=== PATIENT | male | born 1940 | race Caucasian/White ===

== ENCOUNTER 2016-11-10 16:46 | Inpatient (IN) | payer MEDICARE, OTHER ==
[~2016-11-10] VITALS: Ht 180.3 cm; Wt 132.9 kg
[~2016-11-10 16:46] MED LIST: ADAL40PE IM; ALLO300T2 PO; AMT25T PO; ATOR10TA66 PO; FOLI-52 PO; GLIM4TAB2 PO; HYDR-4003 PO; LISI-567 PO; LORA1TAB PO; MESA500C PO; METF850T2 PO; OMEP40CA3 PO; PRAM0.5T10 PO; RANI300T4 PO; RES15 PO
[2016-11-10 16:55] VITALS: BP 178/77; PULSE 87; RESP 36; O2SAT 80
[2016-11-10] MEDS ORDERED: Albuterol 2.5 mg/3 mL Inhalation Solution NEB ONE (17:05)
[2016-11-10] MEDS ORDERED: Albuterol-Ipratropium 3 mL Inhalation Solution NEB ONE (17:05)
--- NOTE | 2016-11-10 17:07 | ED.REPORT ---
HPI-Dyspnea / Wheezing Date of Service Nov 10, 2016 ED Provider: Miguel Giraldo DO The patient is a 75 year old male with history of GI bleeds with associated anemia, ASCVD, s/p CABG, hypertension, type II diabetes mellitus, who presents to the emergency department complaining of shortness of breath that has been worsening over the last 8-10 days. He has also experienced cough and chronic lower extremity edema. He was recently placed on azithromycin and prednisone. He is not normally on oxygen at home but has required it since onset. He feels dehydrated. He denies any pain. Nursing Notes Stated Complaint: LOW OXYGEN SAT Chief Complaint: Respiratory Distress Nursing Notes Reviewed: Yes Allergies: Uncoded Allergies: ZOMAX (Allergy, Severe, HIVES, 06/21/15) Scheduled Adalimumab (Humira) 40 Mg/0.8 Ml Pen.ij.kit 40 MG IM q other week Allopurinol (Allopurinol) 300 Mg Tablet 300 MG PO DAILY Amitriptyline (Amitriptyline) 25 Mg Tab 25 MG PO HS Atorvastatin Calcium (Atorvastatin Calcium) 10 Mg Tablet 10 MG PO DAILY Glimepiride (Glimepiride) 4 Mg Tablet 4 MG PO AM Lisinopril (Lisinopril) 20 Mg Tablet 20 MG PO HS Mesalamine (Pentasa) 500 Mg Capsule.er 1,000 MG PO QID Metformin (Metformin) 850 Mg Tablet 850 MG PO am Multivitamin/Iron/Folic Acid (Centrum Complete Multivit Tab) 1 Each Tablet 1 EACH PO DAILY Omeprazole (Prilosec) 40 Mg Capsule.dr 40 MG PO BID Pramipexole Dihydrochloride (Pramipexole Dihydrochloride) 0.5 Mg Tablet 0.5 MG PO EVENING Ranitidine (Ranitidine) 300 Mg Tablet 300 MG PO HS Scheduled PRN Hydrocodone-Acetaminophen 5-325 mg (Hydrocodone-Acetaminophen 5-325 mg) 1 Each Tablet 1 TAB PO Q 4 HOUR PRN PRN For Pain Lorazepam (Lorazepam) 1 Mg Tablet 1 MG PO DAILY PRN PRN anx Temazepam (Temazepam) 15 Mg Capsule 15-30 MG PO HS PRN PRN sleep General Time Seen by MD: 17:03 Chief Complaint Shortness of breath Hx Obtained From: Patient Arrived By: Walk-in Sudden in Onset?: No Onset Occurred: More than a week ago... 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 GI bleeds with associated anemia, as above. 2. Anemia, chronic, secondary to GI bleeds. 3. Past history of ASCVD. Records in the EMR indicate a heart catheterization in June 2007 that showed diffuse disease in the LAD, proximal narrowing of 50%, other branches with 30% to 40% lesions, apical branch with 75% lesion. He had a left circumflex with areas of up to 90% narrowing and a right coronary with 50% to 60% narrowings. 4. Hypertension. 5. Obesity. 6. Type 2 diabetes mellitus. 7. Gout. 8. Chronic GERD. Past Surgical History Radical prostatectomy Arm and wrist surgeries Reports: CABG Smoking History Former Smoker Review of Systems Review of Systems Note: +feels dehydrated Respiratory: Reports: Non-productive cough, Shortness of breath Cardiovascular: Denies: Chest pain Musculoskeletal: Reports: Extremity swelling, Denies: Back pain, Extremity pain, Neck pain Complete sys rev & neg: except as marked. Physical Exam Initial Vital Signs Vital Signs (First) Date Time Temp Pulse Resp B/P Pulse Ox O2 Delivery O2 Flow Rate FiO2 11/10/16 16:55 36.6 87 36 178/77 80 Nasal Cannula 6 Initial VS: Reviewed, Vital signs abnormal (hypoxic) Head / Eyes: Atraumatic, Normocephalic, PERRL ENT: Mucous membranes moist, Conjunctiva normal, No scleral icterus Abdomen / GI: Soft, Non-tender, No guarding, No rebound, No distention Lymphatic: No lymphadenopathy Extremities: Vascular intact, Neuro intact, No tenderness Skin: Warm, Dry, No cyanosis Neurologic: Alert, Oriented, Nonfocal Psychiatric: Mood/affect normal, Behavior normal, Normal thought content General/Constitutional: Awake, Alert, Cooperative Appearance / Presentation: Positive: Obese Neck: Atraumatic, Supple, No meningismus, Full range of motion, No swelling, Non-tender, No masses Respiratory / Chest: Breath sounds = bilat, No rales, No chest tenderness, No chest wall deformity Wheezing / Retractions: Positive: Wheezing moderate Rales / Rhonchi: Positive: Rhonchi diffuse Cardiovascular: Heart rate NL, Regular rhythm, Heart sounds NL, No murmurs, No rubs, Peripheral circulation NL Lower Ext Edema: Positive: Bilateral 2+ Interpretation & Diagnostics Lab Results Interpretation Result Diagram: 11/10/16 1725 11/10/16 1725 Test 11/10/16 17:25 11/10/16 17:58 White Blood Count 18.3th/mm3 (3.8-10.1) Red Blood Count 3.83mil/mm3 (4.40-5.80) Hemoglobin 11.3g/dL (13.8-17.2) Hematocrit 36.7% (41.0-50.0) Mean Corpuscular Volume 95.8fL (81-100) Mean Corpuscular Hemoglobin 29.5pg (27.0-35.0) Mean Corpuscular Hemoglobin Concent 30.8% (32.0-37.0) Red Cell Distribution Width 15.1% (12.3-15.4) Platelet Count 296bil/L (150-400) Neutrophils (%) (Auto) 88.8% (40-74) Lymphocytes (%) (Auto) 4.8% (14-46) Monocytes (%) (Auto) 2.2% (4-12) Eosinophils (%) (Auto) 0% (0-5) Basophils (%) (Auto) 0.3% (0-3) Nucleated Red Blood Cells 2/100 WBC (0-24) Prothrombin Time 10.8sec (8.1-12.5) Prothromb Time International Ratio 1.01ratio Sodium Level 131mEq/L (134-144) Potassium Level 6.0mEq/L (3.5-5.2) Chloride Level 90mEq/L (97-108) Carbon Dioxide Level 24mmol/L (18-29) Blood Urea Nitrogen 93mg/dL (8-27) Creatinine 2.53mg/dL (0.76-1.27) Estimat Glomerular Filtration Rate 27mL/min (>59) Glucose Level 307mg/dL (60-99) Lactic Acid Level 1.5mmol/L (0.4-2.0) Calcium Level 7.8mg/dL (8.5-10.1) Magnesium Level 2.8mg/dL (1.6-2.6) Total Bilirubin 0.5mg/dL (0.0-1.2) Aspartate Amino Transf (AST/SGOT) 116U/L (0-50) Alanine Aminotransferase (ALT/SGPT) 128U/L (0-44) Alkaline Phosphatase 168U/L (25-160) Troponin T 0.033ug/L (0.0-0.011) Pro-B-Type Natriuretic Peptide 3728pg/mL (0-376) Total Protein 7.2g/dL (6.4-8.4) Albumin 3.5g/dL (3.4-5.0) Urine Color Yellow (YELLOW) Urine Appearance Clear (CLEAR,HAZY) Urine pH 5.5 (5.0-8.0) Urine Specific [place] 1.030 (1.003-1.035) Urine Protein 100mg/dL (NEG,TRACE) Urine Glucose (UA) 250mg/dL (NEGATIVE) Urine Ketones Negativemg/dL (NEGATIVE) Urine Occult Blood Small (NEGATIVE) Urine Nitrite Negative (NEGATIVE) Urine Bilirubin Negative (NEGATIVE) Urine Urobilinogen Normalmg/dL (NORMAL) Urine Leukocyte Esterase Negative (NEGATIVE) Urine RBC 0-2/hpf (0-2) Urine WBC 0-5/hpf (0-5) Urine Epithelial Cells None/hpf (NONE-MOD) Urine Crystals None seen (NONE SEEN) Urine Bacteria Few/hpf (NONE-FEW) Urine Hyaline Casts None/lpf (NONE) Urine Granular Casts None seen (NONE SEEN) Urine Waxy Casts None seen (NONE SEEN) Urine Red Blood Cell Casts None seen (NONE SEEN) Urine White Blood Cell Casts None seen (NONE SEEN) Urine Mucus None seen (None Seen) Urine Trichomonas None seen (NONE SEEN) Urine Yeast None (NONE SEEN) Urinalysis Comment Amorphous sediment Urine Culture Reflexed Not indicated ECG Interpretation ECG Interpretation: Atrial fibrillation with a rate of 75 RBBB No ischemic changes Time: 17:43 Interpreted by: ED physician X-Ray Chest Interpretation Chest Xray Interpretation: Bibasilar infiltrates. Cardiomegaly. View: Portable, 1 view Interpretation / Wet Read by: Wet read ED physician Re-Eval/Medical Decision Med Decision/Clinical Course Pneumonia with hypoxic respiratory failure associated acute kidney injury and electrolyte abnormalities including hyperkalemia mild LFT modalities which I think is likely due to shock rather than acute biliary or liver process. Patient does not report any active obvious life-threatening GI bleeding though he has a history of Crohn's with some undermining amount of bleeding. His hemoglobin is stable. He has not had any classic cardiac symptoms for angina or acute coronary syndrome however I think his troponin elevation is likely reduced related to probable congestive heart failure and acute kidney injury. He is placed on Rocephin and azithromycin, aggressive IV fluid resuscitation is initiated. Patient received multiple medications for hyperkalemia. And will be admitted. Source of Hx: Old records Re-Evaluation/Progress #1: Time of Eval: 17:30 Re-Evaluation/Progress Note: Rechecked the patient. Re-Evaluation/Progress #2: Time of Eval: 18:20 Re-Evaluation/Progress Note: Rechecked the patient. Discussed plan for pneumonia. Consultation : Referral / Consult Name: Marium Hurst MD Consulted With: Hospitalist Requested Call at: 18:23 Call Returned at: 18:38 Staff Scientist: Will see patient, Agrees with eval, Agrees with plan, Accepts admit Counseled Regarding: Diagnosis, Lab results, Need for admission Discharge & Departure Impression: Primary Impression: Pneumonia Pneumonia type: due to unspecified organism Laterality: bilateral Lung location: lower lobe of lung Qualified Code: J18.9 - Pneumonia, unspecified organism Additional Impression: Hypoxia Disposition: ADMITTED TO HOSPITAL Discharge Condition All VS Reviewed: Yes Condition: Stable Referrals: Jerry Simmons MD (PCP) Crit Care Except Billable Proc Time Spent: 30-74 minutes Services Performed: Patient management by me, Time spent at bedside, Reviewing test results Critical Care Notes: See MDM Scribe Attestation Portions of this note were transcribed by Emma Rosenbaum. I, Dr. Giraldo personally performed the history, physical exam and medical decision-making; I reviewed and confirmed the accuracy of the information in the transcribed note. Signed by: Krishna Albrecht, 11/10/2016 and 1830. copies to: Jerry Simmons MD, Timothy S DO Nov 10, 2016 17:07 Emma Rosenbaum Nov 10, 2016 17:12
[2016-11-10] MEDS ORDERED: 0.9% Sodium Chloride 1,000 ML IV ONE ×2 (17:10→19:00)
[2016-11-10 17:40] LABS: Mean Corpuscular Hemoglobin 29.5 pg (27.0-35.0); Mean Corpuscular Volume 95.8 fL (81-100); Platelet Count 296 bil/L (150-400)
[2016-11-10 18:02] LABS: INR 1.01 ratio
[2016-11-10] MEDS ORDERED: cefTRIAXone Inj 2,000 MG in IV Premix 1 EACH IV ONE (18:20)
[2016-11-10] MEDS ORDERED: Azithromycin Inj 500 MG in Dextrose 5% w/Vial Mate 250 ML IV ONE (18:20)
[2016-11-10 18:23] VITALS: PULSE 80; RESP 18; O2SAT 97
--- NOTE | 2016-11-10 18:24 | DRSVH ---
PROCEDURE: X-RAY CHEST ONE VIEW, PORTABLE ([id number]) INDICATIONS: SHORTNESS OF BREATH TECHNIQUE: One view of the chest was acquired. COMPARISON: [facility], CR, XR CHEST 2V AP/PA AND LAT, 11/02/2016, 3:18 PM. FINDINGS: Surgical changes and devices: Sternotomy wires for CABG procedure are present. court monitor leads and oxygen tubing are present. Lungs and pleura: Since previous x-rays there has developed a patchy pneumonia at the left base and a small amount of patchy density at the right base with possible right trace of effusion Mediastinum: Mediastinal contours appear normal. Heart size is normal. Bones and chest wall: No suspicious bony lesions. Overlying soft tissues appear unremarkable. IMPRESSION: Bibasilar pneumonia left greater than right possible small right-sided effusion. Dictated by: Marques Naik M.D. on 11/10/2016 at 18:22 Approved by: Marques Naik M.D. on 11/10/2016 at 18:22
[2016-11-10 18:26] LABS: BASOPHILS % (AUTO) 0.3 % (0-3); EOSINOPHILS % (AUTO) 0 % (0-5); MONOCYTES % (AUTO) 2.2 % (4-12); NEUTROPHILS % (AUTO) 88.8 % (40-74)
[2016-11-10 18:34] LABS: TROPONIN T 0.033 ug/L (0.0-0.011)
[2016-11-10 18:36] LABS: Magnesium 2.8 mg/dL (1.6-2.6)
[2016-11-10 18:43] LABS: APPEARANCE,URINE CLEAR (CLEAR,HAZY); COLOR,URINE YELLOW (YELLOW); OCCULT BLOOD,URINE SMALL (NEGATIVE); PH,URINE 5.5 (5.0-8.0); UROBILINOGEN,URINE NORMAL (NORMAL)
[2016-11-10] MEDS ORDERED: Calcium GLUCOnate 10% (Gm) 1 Gm/10 mL Inj IVPUSH PRN (19:00)
[2016-11-10] MEDS ORDERED: Insulin Human REGular-Omnicell 100 Unit/mL IV ONE (19:00)
[2016-11-10] MEDS ORDERED: Albuterol 0.5% (5mg/mL) 20 mL Inhalation Solution NEB ONE (19:00)
[2016-11-10] MEDS ORDERED: 0.9% Sodium Chloride 1,000 ML IV SCH ×2 (19:00→19:22)
[2016-11-10 19:13] VITALS: PULSE 91; RESP 24; O2SAT 95
[2016-11-10] MEDS ORDERED: Alum-Mag Hydrox-Simeth 30 mL Suspension PO PRN ×2 (19:25→19:55)
[2016-11-10] MEDS ORDERED: Ondansetron 2 mg/mL 2 mL Inj IVPUSH PRN (19:25)
[2016-11-10] MEDS ORDERED: Albuterol 2.5 mg/3 mL Inhalation Solution NEB PRN (19:55)
[2016-11-10] MEDS ORDERED: Glucose 40% Oral Gel 15 Gm Tube PO PRN (19:55)
--- NOTE | 2016-11-10 19:55 | PCM.HPMED ---
Subjective Date of Service Nov 10, 2016 Primary Provider: Admitting Physician: Marium Hurst MD Primary Care Physician: Imani Antony MD Attending Physician: Marium Hurst MD Chief Complaint: Short of breath 75-year-old male with one-week history of shortness of breath, associated not very productive cough, initially treated with azithromycin and prednisone and oxygen from PCP but has ongoing symptoms, the initial sore throat/wheeze have since resolved. no current fever/chills. Associated thirst/dehydration. Humira for Crohn's disease has been held prior to current illness. Chronic right greater than left lower extremity edema. 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 no home O2. no home inhalers. feels dehydrated, less urine output today. In the ER, chest x-ray demonstrated bibasilar pneumonia, diffuse rhonchi, Oximask 4 L, tachypnea 30, duo nebs were helpful, Rocephin and azithromycin were started In the bravo, RN notices hypoxia w/ activity, ie standing to urinate. w/ IVF, improved UOP. Review of systems chronic lower extremity edema, no rash, no diarrhea, no GERD, no dizziness, no chest pain, no yeast infection. see above Medications Adalimumab (Humira) 40 Mg/0.8 Ml Pen.ij.kit 40 MG IM q other week Allopurinol (Allopurinol) 300 Mg Tablet 300 MG PO DAILY Amitriptyline (Amitriptyline) 25 Mg Tab 25 MG PO HS Atorvastatin Calcium (Atorvastatin Calcium) 10 Mg Tablet 10 MG PO DAILY Glimepiride (Glimepiride) 4 Mg Tablet 4 MG PO AM Lisinopril (Lisinopril) 20 Mg Tablet 20 MG PO HS Mesalamine (Pentasa) 500 Mg Capsule.er 1,000 MG PO QID Metformin (Metformin) 850 Mg Tablet 850 MG PO am Multivitamin/Iron/Folic Acid (Centrum Complete Multivit Tab) 1 Each Tablet 1 EACH PO DAILY Omeprazole (Prilosec) 40 Mg Capsule.dr 40 MG PO BID Pramipexole Dihydrochloride (Pramipexole Dihydrochloride) 0.5 Mg Tablet 0.5 MG PO EVENING Ranitidine (Ranitidine) 300 Mg Tablet 300 MG PO HS Scheduled PRN Hydrocodone-Acetaminophen 5-325 mg (Hydrocodone-Acetaminophen 5-325 mg) 1 Each Tablet 1 TAB PO Q 4 HOUR PRN PRN For Pain Lorazepam (Lorazepam) 1 Mg Tablet 1 MG PO DAILY PRN PRN anx Temazepam (Temazepam) 15 Mg Capsule 15-30 MG PO HS PRN PRN sleep PMHx multifactorial microcytic anemia associated with iron deficiency due to erosive esophagitis, gastric antral ulceration, and Crohn disease. 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 Coded Allergies: azithromycin (Verified Allergy, Severe, 11/10/16) HIVES - but pt toelrates IV Zithromax Pt states allergy was to ZOMAX, "It's not even made anymore" Uncoded Allergies: ZOMAX (Allergy, Severe, HIVES, 06/21/15) PMH Social History Hx Alcohol Use: Yes (RARE) Hx Substance Use: No Hx Tobacco Use: No Smoking Status: Former Smoker Exam Vital Signs Vital Sign - Last Date Time Temp Pulse Resp B/P Pulse Ox O2 Delivery O2 Flow Rate FiO2 11/10/16 19:13 91 24 95 OxyMask 4 11/10/16 16:55 36.6 178/77 Lab and Diagnostics Labs Exam on admission nasal CPAP NAD A and O x 3 mood affect WNL NC/AT no icterus no injected eyes EOMI PERRL /no pharyngeal lesions/ no oral lesions / hearing intact Supple neck diminished bilateral, crackles right, equal chest rise / no accessory muscle use / speaks in phrases / no rrw RRR S1 S2 / no mrg / 2+ radial pulses Soft nt nd + BS no hepatosplenomegaly left greater than right rob/calf edema // no cyanosis no ecchymosis of lower extremities No rash / no jaundice LADD EKG afib RBBB UA neg for infection Trop 0.03 procalcitonin low BNP 3728 influenza neg pending respiratory viral panel CXR Bibasilar pneumonia left greater than right possible small right-sided effusion. 2012echo Mild concentric left ventricular hypertrophy with ejection fraction 55-60%. Assessment of diastolic parameters indicates a restrictive filling pattern of the left ventricle consistent with significantly elevated filling pressures. Mild to moderately dilated right ventricle with mildly reduced systolic function. Moderately dilated left atrium. Moderate mitral regurgitation. Right ventricular systolic pressure estimate is 45-50 mmHg. When compard with prior echocardiogram of 04/20/2011, the diastolic function, right ventricular function and severity of mitral regurgitation have worsened. Result Diagram: 11/10/16172411/10/161724 Assessment & Plan Active issues and reason for admission Hypoxia due to Bibasilar pneumonia, partially treated w/ outpatient treatment, and evaluating for CHF that may be contributing to hypoxia --Rocephin and azithromycin DuoNeb's, hold steroid for now, no wheeze, PRN BIPAP --echo in am, serial trop --consider U/S doppler legs if ongoing SOB [place] NANCY, Hyponatremia/hyperkalemia, likely prerenal -- prior hx of hyperkalemia per patient --hold metformin/lisinopril --pending [place] UCr -- IV fluids, monitor fluid status with elevated BNP and diastolic dysfunction noted in prior echo -- Calcium albuterol IV fluids glucose/insulin, start kayexlate/lactulose after improved oxygenation w/ activity --consider nephrology consult if unimproved w/ fluid resusitation Elevated troponin likely due to NANCY -- Serial troponin Chronic issues known prior to admission, present on admission microcytic anemia iron deficiency. monitor erosive esophagitis, gastric antral ulceration, Crohn disease, PPI/[id number], mesalamine, anticipate humira resumption after this admission Moderate MR/CABG 2010 three-vessel/Dyslipidemia/hypertension/PVCs COPD/pneumonia/GERARDO, CPAP UTI/prostatectomy for prostate cancer/incontinence, monitor, declining irving at this time Alkylosing spondylosis /arthritis/back injury/gout, allopurino/vicodin Diabetes, SSI Anxiety, benzo Diet cardiac DVT prophylaxis heparin Code limited, intubate Disposition inpatient Assessment and plan were discussed with patient. Marium Hurst MD Nov 10, 2016 19:55
[2016-11-10 20:11] VITALS: BP 190/78; PULSE 92; RESP 22; O2SAT 92
[2016-11-10] MEDS ORDERED: Albuterol 2.5 mg/3 mL Inhalation Solution NEB SCH (20:30)
[2016-11-10] MEDS ORDERED: Insulin Human REGular 300 Unit/3 mL Inj SUBQ PRN (22:05)
[2016-11-10 22:10] VITALS: PULSE 83; RESP 20; O2SAT 91
[2016-11-10 23:13] VITALS: PULSE 86
[2016-11-10] MEDS ORDERED: Lactulose 20 Gm/30 mL 30 mL Syrup PO ONE (23:55)
[2016-11-11] VITALS (22 sets, daily range): BP systolic 157–201; BP diastolic 61–95; PULSE 73–97; RESP 20–37; O2SAT 89–96
[2016-11-11] MEDS ORDERED: Albuterol-Ipratropium 3 mL Inhalation Solution NEB PRN (00:30)
[2016-11-11] MEDS ORDERED: Insulin Human REGular 300 Unit/3 mL Inj IV ONE (00:30)
[2016-11-11] MEDS: 0.9% Sodium Chloride 1,000 ML IV SCH ×3 (00:46→11:45)
[2016-11-11] MEDS: Insulin LISPRO 300 Unit/3 mL Inj SUBQ SCH ×5 (00:46→21:58)
[2016-11-11] MEDS: Heparin 5,000 Unit/mL Inj SUBQ SCH ×3 (00:49→16:17)
[2016-11-11] MEDS ORDERED: HYDROcodone-APAP 5-325 mg Tablet PO PRN (00:50)
--- NOTE | 2016-11-11 02:02 | NUR ---
Admit note: Pt admitted from the ER, was able to stand and pivot to bed. Very short of breath with activity. 6L oxymask with sats at 92% at rest. With activity, sats dip to 80-87%. Pt is alert and oriented x3. Tele a fib 80s-90s. Pt oriented to room and call light. CPOX in room to monitor pt.
--- NOTE | 2016-11-11 02:06 | NUR ---
Respiratory, Labs: Pt does use a CPAP at night, does not have it with him. RT set up a hospital CPAP with a 9L oxygen bleed in. Sats were 87-90%, pt reported feeling like the CPAP was working well and setting continue. After pt again stood at bedside to void and sats again dropped to the low 80s, RN encouraged pt to use the urinal in bed; pt agreeable and this worked much better for pt. As he has been in bed for awhile now, without having to get up, sats have increased to 90-92%. Potassium level was 6.0 in the ER. There were medication orders in the ER to decrease potassium, although they were given after the pt arrived on the unit. A repeat potassium was drawn and came back at 5.9; this was prior to any interventions. Calcium gluconate was administered after the repeat lab draw when it arrived from pharmacy, as orders had to be clarified. And just now, D50 and 10 units of IV regular insulin were administered after they was ordered by the hospitalist. Blood sugar prior to the insulin was 240. Will continue to monitor.
[2016-11-11] MEDS: Albuterol-Ipratropium 3 mL Inhalation Solution NEB SCH ×6 (03:04→21:18)
[2016-11-11 03:57] LABS: TROPONIN T 0.04 ug/L (0.0-0.011)
[2016-11-11] MEDS: Mesalamine 500 mg CR Capsule PO SCH ×4 (05:33→21:15)
[2016-11-11] MEDS ORDERED: OMEP40CA36 PO (05:39)
--- NOTE | 2016-11-11 05:39 | NUR ---
Med Rec: Partial med list completed in med rec per pt recall. will be bringing med list this morning.
[2016-11-11] MEDS: hydrALAZINE 20 mg/mL Inj IV PRN ×2 (06:07→12:20)
[2016-11-11] MEDS: cefTRIAXone Inj 2,000 MG in IV Premix 1 EACH IV SCH (07:44)
[2016-11-11] MEDS: Pantoprazole 40 mg ER24 Tablet PO SCH (07:45)
[2016-11-11] MEDS ORDERED: Azithromycin Inj 500 MG in Dextrose 5% w/Vial Mate 250 ML IV SCH ×2 (08:30→20:30)
[2016-11-11] MEDS ORDERED: MethylprednisoLONE Sodium Succinate 62.5 mg/mL 2 mL Inj IVPUSH ONE (08:40)
--- NOTE | 2016-11-11 09:16 | ABG ---
DateTimeAnalyzed 09:10:00 -_ pH ____7.222 - pCO2 ___64.7__ -mmHg pO2 ___28.4__ -mmHg HCO3- ___25.6__ -mmol/L ABE ___-2.5__ -mmol/L tHb ___10.8__ -g/dL O2Hb ___45.0__ -% COHb ____1.4__ -% MetHb ____1.1__ -% sO2 ___46.2__ -% FIO2 ___21.0__ -% Drawn By lab - Date/Time Notified____ 09:16:00 -_ Liter_Flow ____9.0__ -L/min Oxygen Device 1 __oxymask - Notified By ams - Notified Whom dr gelacio - B 752 -mmHg tO2 ____6.9__ -Vol% David test N/A -
[2016-11-11] MEDS: MeTOProlol 1 mg/mL 5 mL Inj IVPUSH PRN ×2 (10:04→17:59)
--- NOTE | 2016-11-11 10:12 | NUR ---
O2 sats/ABG At shift change pt on 6L mask with frequent desat into mid 80's, O2 increased to 9L and RT called. PRN neb given, RT notified MD who ordered ABG. MD ordered 1x IV solumedrol which was given. RT started Bipap in room per MD order. O2 sats now stable at 91-95%. Continuing to monitor.
--- NOTE | 2016-11-11 10:17 | NUR ---
BP BP at approx 0945 201/66. notified, PRN IV metoprolol given, remote sensing technician notified before admin. Continuing to monitor.
--- NOTE | 2016-11-11 13:34 | DRSVH ---
[facility] [address] [place] [address] Echocardiogram Report Name: GIACOMO SNYDER Date : 11/11/2016 Height: 71 in Hospital Exam Location: [facility] Weight: 304 lb Gender: Male BSA: 2.5 m2 : 1940 Age: 75 yrs BP: 184/61 mmHg Reason For Study: CHF Ordering Physician: HOSPITALIST [facility] Performed By: Brandon Ugarte Referring Physician: Cem RUBIN Interpretation Summary There is normal left ventricular wall thickness. The ejection fraction is estimated to be 55-60%. Flattened septum is consistent with RV pressure/volume overload. The right ventricle is moderately dilated. Right ventricular systolic function is moderately reduced. Right ventricular systolic pressure is estimated to be 37 mmHg plus the clinically estimated CVP which cannot be estimated on this exam. Probably no significant interval change fron 2011 Procedure: A two-dimensional transthoracic echocardiogram with color flow and Doppler was performed. The study quality was technically difficult. Comparison is made with the echocardiogram of 04/08/12. A contrast injection of Definity was performed to improve assessment of LV function. The patient was supine during the exam. The subcostal views were difficult to obtain and are suboptimal in quality. The suprasternal notch views were difficult to obtain and are suboptimal in quality. The patient was in normal sinus rhythm during the exam. Left Ventricle: The left ventricle is normal in size. There is normal left ventricular wall thickness. The ejection fraction is estimated to be 55-60%. Flattened septum is consistent with RV pressure/volume overload. Right Ventricle: The right ventricle is moderately dilated. Right ventricular systolic function is moderately reduced. Atria: The left atrium is mildly dilated. Right atrial size is normal. The interatrial septum is intact with no evidence for an atrial septal defect. Mitral Valve: The mitral valve is normal in structure and function. There is trace mitral regurgitation. Aortic Valve: The aortic valve is trileaflet. The aortic valve opens well. No aortic regurgitation is present. Tricuspid Valve: The tricuspid valve is normal in structure and function. There is mild tricuspid regurgitation. Right ventricular systolic pressure is estimated to be 37 mmHg plus the clinically estimated CVP which cannot be estimated on this exam. Pulmonic Valve: The pulmonic valve is normal in structure and function. There is trace pulmonic regurgitation. Great Vessels: The aortic root is normal size. The ascending aorta is mild- moderately enlarged. The pulmonary artery is normal size. The inferior vena cava was not well visualized. Pericardium/ Pleura There is no pericardial effusion. There is a moderate left-sided pleural effusion. MMode/2D Measurements & Calculations LVIDd: 5.4 cm LA dimension: 5.3 cm RA long axis: 5.8 cm Ao root diam LVIDs: 3.4 cm FS: 37.1 % LA A2 area: 29.3 cm RA area: 19.6 cm Aortic Jxn EPSS: 0.58 cm LA A4 area: 25.7 cm RA vol: 55.6 ml IVSd: 0.99 cm LA length (vol): 6.2 cm RA : 22.1 ml/m2 asc Aorta LVPWd: 1.0 cm LA vol: 102.5 ml Diam: 4.1 cm LA vol index : 40.7 ml/m2 EDV(MOD-sp2) LV magaña. diameter/BSA LV sys. diameter/BSA RVD1 (basal) : 146.5 ml (cm/m^2): 2.1 (cm/m^2): 1.3 : 4.6 cm RVD2 (mid) : 4.3 cm Doppler Measurements & Calculations Ao V2 max MV E max nicko MV E/A: 0.00 TR max nicko : 154.6 cm/sec : 126.7 cm/sec Med Peak E' Nicko : 304.7 cm/sec Ao max PG MV A max nicko TR max PG : 9.6 mmHg : [id number] cm/sec E/E' med: 21.5 : 37.3 mmHg Ao mean PG PA V2 max : 5.9 mmHg : 134.2 cm/sec PA mean PG PA Accel Time : 0.10 sec MV V2 mean Ao V2 mean: 117.5 cm/secPA V2 mean : 86.6 cm/sec Ao V2 VTI: 27.8 cm : 94.6 cm/sec MV mean PG PA pr(Accel) : 29.1 mmHg MV V2 VTI MV dec time : 0.17 sec Electronically signed by: Justyn Watters on Reading Physician:11/11/2016 01:33 PM
--- NOTE | 2016-11-11 13:59 | NUR ---
Transfer to 2026 Pt transferred to 2026, report given to Scottie Porras RN. Charge nurse took pt down in bed with all belongings accompanied by pt's .
[2016-11-11] MEDS: MethylprednisoLONE Sodium Succinate 40 mg/mL Inj IVPUSH SCH (16:16)
--- NOTE | 2016-11-11 18:21 | NUR ---
Bipap/transfer to [facility] Pt transferred to [facility] at 1350. Cardiac:Pt denies CP. Tele a fib 70s-90s Resp: Pt had significant SOB on oxymask 10L when he was transferred to [facility] SPO2 mid to high 80s. Recovered quickly once bipap was resumed. SPO2 95% on bipap 60% O2, RR 30. Denies SOB on bipap at rest. GI/: Pt denies n/v/d. Pt reports his appetite is "non-existant". Pt voiding about 75ml at a time in bed with urinal. Neuro: A&Ox3, LADD. Ambulates with no assistance at home at baseline. Not OOB this shift. Addendum: 11/11/16 at 1824 by PERRY FALCON RN BP Pt is hypertensive, PRN metoprolol given for systolic in 180s.
[2016-11-11] MEDS ORDERED: Furosemide 10 mg/mL 4 mL Inj ONE (21:37)
[2016-11-11] MEDS: LORazepam 1 mg Tablet PO PRN (21:45)
[2016-11-11] MEDS ORDERED: Furosemide 10 mg/mL 4 mL Inj IVPUSH ONE (22:40)
--- NOTE | 2016-11-11 23:12 | PCM.PNMED ---
Subjective Date of Service Nov 11, 2016 Subjective Patient complains of shortness of breath this morning. This improved with placement of BiPAP. Exam Vital Signs Vital Sign - Last Date Time Temp Pulse Resp B/P Pulse Ox O2 Delivery O2 Flow Rate FiO2 11/11/16 22:35 74 157/76 11/11/16 21:20 32 95 60 11/11/16 20:57 37.1 BiPAP 11/11/16 13:54 11.00 Intake and Output 11/10/16 11/10/16 11/11/16 Cumulative From/Thru 15:00 23:00 07:00 11/10/16 16:55 - 11/11/16 06:18 Intake Total 2283 ml 2283 ml Output Total 500 ml 500 ml Balance 1783 ml 1783 ml Intake Oral 900 ml 900 ml IV Total 1383 ml 1383 ml Output Urine Total 500 ml 500 ml Exam General: Patient appears more comfortable on bypass mask. HEENT: Head is atraumatic normocephalic. Eyes: Pupils are equally round and reactive to light and accommodation. Extraocular muscles are intact. Sclera are white anicteric. Subconjunctival mucosa is pink. Ears and nose are unremarkable. Oropharynx: There is no mucosal lesions appreciated, there is no thrush, there is no pharyngitis. Neck: Is supple, there are no nodes or masses or tenderness. Chest: Is clear to auscultation and percussion. There are no rales, rhonchi, wheezes or rubs. Heart: Rate, rhythm is regular. There is no murmur, rub or gallop. Abdomen: Good bowel sounds are present. Abdomen is soft, nontender, no organomegaly or masses were appreciated. Extremities: Are symmetrical and well perfused. There is no edema, there is no cellulitis, no rash. Neurologic: There are no focal neurological deficits. Cranial nerves II through XII are intact. There are no sensory or motor deficits. Psychiatric: Patients mood is calm and shows no sign of agitation. Genital: Deferred Rectal: Deferred Lab and Diagnostics Result Diagram: 11/10/16 1725 11/11/16 0244 Microbiology Name: GIACOMO SNYDER Age/Sex: 75/M Attend Dr: Talia Hurst MD Acct: [id number] Unit: [id number] Status: ADM IN Location: [facility] [place] 3018-1 Re11/10/16 Disch: Specimen: [id number] Collected: 11/11/16 Status: COMP Req#: [id number] Received: 11/11/16 Source: NSP Sp Desc : Subm Dr: Marium Hurst MD Ordered: RVP Comments: Collected by Nurse/Unit? Y/N Y Procedure Result Verified Site Microbiology ADENOVIRUS RESPIRATORY PCR Final 11/11/16-657 Not Detected CORONOVIRUS 229E Final 11/11/16-657 Not Detected CORONOVIRUS HKU1 Final 11/11/16-657 Not Detected CORONOVIRUS NL63 Final 11/11/16 Not Detected CORONOVIRUS OC43 Final 11/11/16-657 Not Detected INFLUENZA A PCR Final 11/11/16 Organism 1 INFLUENZA A H3 INFLUENZA A PCR DETECTED TIME CALLED: 655 DATE CALLED: 11/11/16 FLOOR/DOCTOR: JEAN-CLAUDE/CHIARA Davis CALLED BY: MADHAVI The performance of the film array RVP has not been established in individuals who have received the influenza vaccine. Recent administration of a nasal influenza vaccine may cause false positive results for Influenza A and/or Influenza B. INFLUENZA B PCR Final 11/11/16 Not Detected METAPNEUMOVIRUS PCR Final 11/11/16 Not Detected CONTINUED ON NEXT PAGE RUN DATE: 11/11/16 [facility] LIVE PAGE 2 RUN TIME: 657 Specimen Inquiry PHYSICIAN Patient: GIACOMO SNYDER [id number] (Continued) Specimen: [id number] Collected: 11/11/16 Received: 11/11/16 (Continued) Procedure Result Verified Site RHINOVIRUS OR ENTEROVIRUS PCR Final 11/11/16 Not Detected Microbiology (Continued) PARAINFLUENZA 1 PCR Final 11/11/16 Not Detected PARAINFLUENZA 2 PCR Final 11/11/16 Not Detected PARAINFLUENZA 3 PCR Final 11/11/16 Not Detected PARAINFLUENZA 4 PCR Final 11/11/16 Not Detected RESP SYNCYTIAL VIRUS PCR Final 11/11/16 Not Detected CHLAMDOPHILIA PNEUMONIAE PCR Final 11/11/16 Not Detected MYCOPLASMA PNEUMONIAE PCR Final 11/11/16 MYCO PNEUMONIAE PCR Not Detected Reference Interval Not Detected [employer] swab is the only specimen type cleared by the FDA. Nasal wash, tracheal aspirate, and bronchial lavage specimen types have not been cleared by the FDA. Therefore results on any specimen type other than nasopharyngeal are considered investigational testing only. X-Rays, CTs and MRIs PROCEDURE: X-RAY CHEST ONE VIEW, PORTABLE ([id number]) INDICATIONS: SHORTNESS OF BREATH TECHNIQUE: One view of the chest was acquired. COMPARISON: [facility], CR, XR CHEST 2V AP/PA AND LAT, 11/02/2016 , 3:18 PM. FINDINGS: Surgical changes and devices: Sternotomy wires for CABG procedure are present. hall monitor leads and oxygen tubing are present. Lungs and pleura: Since previous x-rays there has developed a patchy pneumonia at the left base and a small amount of patchy density at the right base with possible right trace of effusion Mediastinum: Mediastinal contours appear normal. Heart size is normal. Bones and chest wall: No suspicious bony lesions. Overlying soft tissues appear unremarkable. IMPRESSION: Bibasilar pneumonia left greater than right possible small right- sided effusion. Dictated by: Marques Naik M.D. on 11/10/2016 at 18:22 Approved by: Marques Naik M.D. on 11/10/2016 at 18:22 Cardiac Echo Impressions Echocardiogram Report Name: GIACOMO SNYDER Date : 11/11/2016 Height: 71 in Hospital Exam Location: [facility] Weight: 304 lb Gender: Male BSA: 2.5 m2 : 1940 Age: 75 yrs BP: 184/61 mmHg Reason For Study: CHF Ordering Physician: HOSPITALIST [facility] Performed By: Brandon Ugarte Referring Physician: Cem RUBIN Interpretation Summary There is normal left ventricular wall thickness. The ejection fraction is estimated to be 55-60%. Flattened septum is consistent with RV pressure/volume overload. The right ventricle is moderately dilated. Right ventricular systolic function is moderately reduced. Right ventricular systolic pressure is estimated to be 37 mmHg plus the clinically estimated CVP which cannot be estimated on this exam. Probably no significant interval change fron 2011 Assessment & Plan 75-year-old male with one-week history of shortness of breath, associated not very productive cough, initially treated with azithromycin and prednisone and oxygen from PCP but has ongoing symptoms, the initial sore throat/wheeze have since resolved. no current fever/chills. Associated thirst/dehydration. Humira for Crohn's disease has been held prior to current illness. Chronic right greater than left lower extremity edema. 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 no home O2. no home inhalers. feels dehydrated, less urine output today. In the ER, chest x-ray demonstrated bibasilar pneumonia, diffuse rhonchi, Oximask 4 L, tachypnea 30, duo nebs were helpful, Rocephin and azithromycin were started In the bravo, RN notices hypoxia w/ activity, ie standing to urinate. w/ IVF, improved UOP. Active issues and reason for admission Hypoxia due to Bibasilar pneumonia worsening, partially treated w/ outpatient treatment, and evaluating for CHF that may be contributing to hypoxia --Rocephin and azithromycin DuoNeb's, hold steroid for now, no wheeze, PRN BIPAP -Transfer to PCU/CCU -Serial troponins are slightly elevated, however remain stable and are not trending upwards. The slight elevation could be due to troponin leak from septicemia and/or acute kidney injury. -Consider U/S doppler legs if ongoing SOB NEW NANCY slightly improved today -Hyponatremia/hyperkalemia, likely prerenal -- Patient has a prior hx of hyperkalemia per patient -- Continue to hold metformin/lisinopril -- Check pending [place] UCr -- Continue IV fluids, monitor fluid status with elevated BNP and diastolic dysfunction noted in prior echo -- Calcium albuterol IV fluids glucose/insulin, start kayexlate/lactulose after improved oxygenation w/ activity -- We will consider nephrology consult if unimproved w/ fluid resusitation Elevated troponin likely due to NANCY and/or troponin leak from sepsis. -- Continue Serial troponin Chronic issues known prior to admission, present on admission: -microcytic anemia iron deficiency. monitor -erosive esophagitis, gastric antral ulceration, Crohn disease, PPI/[id number], mesalamine, anticipate humira resumption after this admission -Moderate MR/CABG 2010 three-vessel/Dyslipidemia/hypertension/PVCs -COPD/pneumonia/GERARDO, CPAP -UTI/prostatectomy for prostate cancer/incontinence, monitor, declining irving at this time -Alkylosing spondylosis /arthritis/back injury/gout, allopurino/vicodin -Diabetes, SSI -Anxiety, benzo Diet cardiac DVT prophylaxis heparin Code limited, intubate Disposition we will transfer the patient to PCU/CCU for BiPAP and closer monitoring. Assessment and plan were discussed with patient and his at bedside. They agree with the above plan Pain Evaluation: Adequate Pain Control GI Prophylaxis: Proton Pump Inhibitor VTE Prophylaxis: Sub-Q Heparin (Unfractionated) VTE Mechanical Devices: Intermittant Pneumatic CD Resuscitation Status: CPR: Attempt Resuscitation RoxannaCurly MD Nov 11, 2016 23:12
[2016-11-12] VITALS (20 sets, daily range): BP systolic 133–173; BP diastolic 69–90; PULSE 67–84; RESP 18–30; O2SAT 95–99
[2016-11-12] MEDS: Albuterol-Ipratropium 3 mL Inhalation Solution NEB SCH ×6 (00:09→19:48)
--- NOTE | 2016-11-12 00:12 | NUR ---
Respiratory: P: Fluid overload; Pt on 100 mls/hour of NS and states he normally takes 40 mg of lasix daily at home. Crackles noted to the bases of B lungs. I: Dr. Castañeda notified. New orders obtained to SL IVF and to give 40 mg of IV lasix now times one. E: Fluid stopped and lasix administered. Ativan given for anxiety. Current blood pressure 157/76. Will cont. to monitor.
[2016-11-12] MEDS: Sodium Chloride LOK Flush 10 mL Syringe IVFLUSH SCH ×4 (00:35→22:00)
[2016-11-12] MEDS: hydrALAZINE 20 mg/mL Inj IV PRN (00:35)
[2016-11-12] MEDS: Heparin 5,000 Unit/mL Inj SUBQ SCH ×3 (00:38→17:44)
[2016-11-12] MEDS: MethylprednisoLONE Sodium Succinate 40 mg/mL Inj IVPUSH SCH ×3 (00:40→17:44)
[2016-11-12] MEDS ORDERED: Insulin Human REGular 300 Unit/3 mL Inj SUBQ ONE ×2 (03:30→06:35)
--- NOTE | 2016-11-12 03:42 | NUR ---
Hyperglycemia: P: Glucose of 281 I: Dr. Castañeda notified of pt's glucose level and scheduled Solu-Medrol dosing. Order obtained to give 6 units of Regular Insulin now. E: Dose administered. Will cont. to monitor.
[2016-11-12] MEDS: MeTOProlol 1 mg/mL 5 mL Inj IVPUSH PRN (04:41)
[2016-11-12] MEDS: Mesalamine 500 mg CR Capsule PO SCH ×4 (04:43→21:30)
[2016-11-12 05:17] LABS: EOSINOPHILS % (AUTO) 0 % (0-5); Mean Corpuscular Hemoglobin 29.4 pg (27.0-35.0); Mean Corpuscular Volume 97.2 fL (81-100); Platelet Count 324 bil/L (150-400)
[2016-11-12 05:36] LABS: Magnesium 2.7 mg/dL (1.6-2.6); Phosphorus 5.2 mg/dL (2.5-4.9)
[2016-11-12 05:41] LABS: BASOPHILS % (AUTO) 0 % (0-3); MONOCYTES % (AUTO) 2 % (4-12); NEUTROPHILS % (AUTO) 88 % (40-74)
--- NOTE | 2016-11-12 05:47 | NUR ---
Urine Output: Pt was incontinent of urine during the night; thus, unable to obtain an output volume post lasix.
[2016-11-12] MEDS ORDERED: SODIUM BICARB IV ONE (06:35)
[2016-11-12] MEDS ORDERED: DEXTROSE 5% IV ONE (06:35)
[2016-11-12] MEDS ORDERED: Insulin Human REGular 300 Unit/3 mL Inj IV ONE (06:50)
--- NOTE | 2016-11-12 07:37 | NUR ---
Critical Potassium: P: Potassium of 6.8 I: Dr. Castañeda notified. New orders obtained for: 12 lead ECG, 1/2 amp of D50 IV, 10 units Regular Insulin IV, 1 amp of Sodium Bicarb IV, and 15 gm of Kayexalate PO. E: Orders completed. Blood sugars checked. Pt stable. Oncoming RN updated.
[2016-11-12] MEDS: cefTRIAXone Inj 2,000 MG in IV Premix 1 EACH IV SCH (08:33)
[2016-11-12] MEDS: Insulin LISPRO 300 Unit/3 mL Inj SUBQ SCH ×4 (08:51→21:57)
[2016-11-12] MEDS ORDERED: Albuterol 2.5 mg/3 mL Inhalation Solution NEB STA (09:03)
[2016-11-12] MEDS: Pantoprazole 40 mg ER24 Tablet PO SCH (09:59)
[2016-11-12] MEDS ORDERED: Calcium GLUCO 10% (Gm) 1 Gm/10 mL 50 mL Inj IV ONE (10:05)
[2016-11-12] MEDS ORDERED: AMLO5TAB2 PO (10:54)
[2016-11-12] MEDS ORDERED: FEXO-15 PO (10:54)
[2016-11-12] MEDS ORDERED: DOCU240C41 PO (10:54)
[2016-11-12] MEDS ORDERED: LOSA50TA37 PO (10:54)
[2016-11-12] MEDS ORDERED: Calcium GLUCO 10% (Gm) Inj 1 GM in Dextrose 5% 100 ML IV ONE (10:55)
[2016-11-12] MEDS ORDERED: predniSONE 20 mg Tablet PO SCH (11:25)
--- NOTE | 2016-11-12 12:28 | DRSVH ---
PROCEDURE: X-RAY CHEST ONE VIEW, PORTABLE ([id number]) INDICATIONS: shortness of breath TECHNIQUE: One view of the chest was acquired. COMPARISON: [facility], CR, XR CHEST 1VW (PORTABLE), 11/10/2016, 17:31. FINDINGS: Surgical changes and devices: Patient is status post median sternotomy and CABG. Lungs and pleura: Lung volumes are low. There is diffuse interstitial prominence. There are bibasilar radiopacities and pleural effusions. Mediastinum: Mediastinal contours appear normal. Heart size is poorly characterized given basilar r adiopacities. Bones and chest wall: No suspicious bony lesions. Overlying soft tissues appear unremarkable. IMPRESSION: 1. Interstitial prominence, pleural effusions, and basilar atelectasis or consolidation. Differential considerations include congestive failure versus pneumonia. Dictated by: Selma Rangel M.D. on 11/12/2016 at 12:26 Approved by: Selma Rangel M.D. on 11/12/2016 at 12:26
[2016-11-12] MEDS ORDERED: Furosemide Inj 100 MG in 0.9% Sodium Chloride 90 ML IV SCH (13:10)
--- NOTE | 2016-11-12 14:17 | DRSVH ---
PROCEDURE: US RENAL SONOGRAM INDICATIONS: NANCY TECHNIQUE: Real-time scanning was performed of the kidneys and bladder, with image documentation. COMPARISON: None. FINDINGS: This is a markedly limited study due to patient body habitus. Kidneys: Kidneys are normal in size. Right kidney measures 12.2 cm long; left kidney measures 8.0 c m long. Right renal cortical thickness is 1.3 cm; left renal cortical thickness is 1.6 cm. Renal co rtical echotexture is normal. No definite hydronephrosis; however the right kidney is poorly characte rized and hydronephrosis cannot be entirely excluded. Bladder: Pre-void bladder volume is 171 mL. Post-void residual is 81 mL. Pre-void images demonstra te no intraluminal masses or stones. On pre-void images, neither ureteral jets are noted with color Doppler interrogation. (Of note, ureteral jets may not be detectable in up to 25% of cases due to in sufficient differences in specific gravity between ureteral and bladder urine). Miscellaneous: There is a small amount of free pelvic fluid. There is an incidentally noted left pleu ral effusion. IMPRESSION: 1. Markedly limited study. 2. No definite hydronephrosis, although the right kidney is poorly characterized. 3. Moderate postvoid residual. Dictated by: Selma Rangel M.D. on 11/12/2016 at 14:15 Approved by: Selma Rangel M.D. on 11/12/2016 at 14:15
[2016-11-12] MEDS ORDERED: Furosemide Inj 100 MG in 0.9% Sodium Chloride 90 ML IVPUSH PRN (14:57)
--- NOTE | 2016-11-12 15:13 | NUR ---
Social Work: Initial Assessment D: Per EMR review, pt is a 75 year old male admitted for pneumonia, hypoxia. Pt is Medicare with [employer]; Pt has no LTC insurance or VA benefits. PCP is Imani Antony MD. NOK Is Yodit Donovan, , . Advanced directives completed but not on file- FUEL CONVERSION TECHNICIAN requested from pt's spouse. Readmit score is low, 2/8. FUEL CONVERSION TECHNICIAN met with pt at bedside. Sw role explained. See initial assessment. Pt lives in [place] with his spouse. He is I at baseline and uses no DME. Pt continues to drive and has never had home health or been to skilled rehab. Pt uses home oxygen but could not recall which company is is supplied through. Pt currently on BIPAP. per MD at rounds, pt is very sick and will likely be here for "awhile." A: Pt who is I at baseline. P: Evolving; FUEL CONVERSION TECHNICIAN to continue to follow for discharge needs pending clinical course. JIHAN Reyes Addendum: 11/12/16 at 1516 by VIRA ALVAREZ Amended: Links added.
[2016-11-12] MEDS ORDERED: 0.9% Sodium Chloride 250 ML ONE (16:32)
--- NOTE | 2016-11-12 18:19 | PCM.PNMED ---
Subjective Date of Service Nov 12, 2016 Subjective 75-year-old male with one-week history of shortness of breath, associated not very productive cough, initially treated with azithromycin and prednisone and oxygen from PCP but has ongoing symptoms, admitted for treatment of CAP pneumonia and new onset NANCY. Today patient is complaining of discomfort associated with BiPap Mask, Shortness of breath, swelling of legs and scrotum, "feeling warm". Patient stated that he has not been eating and drinking much prior to admission. He stated that he has a history of hyperkalemia, and difficulty voiding due to prostate cancer s/p prostate cancer resection. Denies chills, nausea, vomiting, diarrhea, loss of appetite, change in visions. ROS negative except as mentioned above. Exam Vital Signs Vital Sign - Last Date Time Temp Pulse Resp B/P Pulse Ox O2 Delivery O2 Flow Rate FiO2 11/12/16 06:41 70 155/79 11/12/16 04:28 36.3 29 96 BiPAP 11/12/16 04:14 60 11/11/16 21:30 8.00 Intake and Output 11/11/16 11/11/16 11/12/16 Cumulative From/Thru 15:00 23:00 07:00 11/10/16 16:55 - 11/12/16 06:47 Intake Total 2325 ml 784 ml 5392 ml Output Total 550 ml 1050 ml Balance 1775 ml 784 ml 4342 ml Intake Oral 1200 ml 0 ml 2100 ml IV Total 1125 ml 784 ml 3292 ml Output Urine Total 550 ml 1050 ml # Voids 4 4 Exam General: Alert, Oriented X3, Cooperative, moderate Distress, Obese Head: Normocephalic, atraumatic. External ears normal. Eyes: PERRLA, EOMI. Anicteric sclerae. Mouth: Mouth Normal, Mucous Membranes Moist/[place] Neck: Neck supple with full range of motion. No lymphadenopathy Chest & Lungs: BiPap, Use of accessory breathing muscles, equal chest rise and fall, Diminished breath sounds at bases, Bilateral crackles, wheezes, hear in all lung worrell, no rhonchi. Cardiovascular: Regular Rate/Rhythm, Normal S1, Normal S2, No Murmurs/Rubs/ Gallops, no JVD Abdomen: Non-tender, distended, No masses, Normoactive bowel tones, Soft Musculoskeletal: Normal Range of Motion Extremities: No cyanosis/clubbing/edema bilaterally Neurological: Grossly Neurologically Intact, Normal Speech muffled by Bipap, Sensation Intact, : uncircumcised penis, two testicles palpated non tender, moderate scrotal and penile edema, meatus patent without discharge IVs and Medications Medications Reviewed: Medications were reviewed in detail Medications Kayexalate given a1 INsluin given 10 units at 0700 Furosemide given 40 mg 11/11 Aithromycin Rocephin Solumedrol Allopurinol mirapexamitriptyline Medications Adalimumab (Humira) 40 Mg/0.8 Ml Pen.ij.kit 40 MG IM q other week Allopurinol (Allopurinol) 300 Mg Tablet 300 MG PO DAILY Amitriptyline (Amitriptyline) 25 Mg Tab 25 MG PO HS Atorvastatin Calcium (Atorvastatin Calcium) 10 Mg Tablet 10 MG PO DAILY Glimepiride (Glimepiride) 4 Mg Tablet 4 MG PO AM Lisinopril (Lisinopril) 20 Mg Tablet 20 MG PO HS Mesalamine (Pentasa) 500 Mg Capsule.er 1,000 MG PO QID Metformin (Metformin) 850 Mg Tablet 850 MG PO am Multivitamin/Iron/Folic Acid (Centrum Complete Multivit Tab) 1 Each Tablet 1 EACH PO DAILY Omeprazole (Prilosec) 40 Mg Capsule.dr 40 MG PO BID Pramipexole Dihydrochloride (Pramipexole Dihydrochloride) 0.5 Mg Tablet 0.5 MG PO EVENING Ranitidine (Ranitidine) 300 Mg Tablet 300 MG PO HS Scheduled PRN Hydrocodone-Acetaminophen 5-325 mg (Hydrocodone-Acetaminophen 5-325 mg) 1 Each Tablet 1 TAB PO Q 4 HOUR PRN PRN For Pain Lorazepam (Lorazepam) 1 Mg Tablet 1 MG PO DAILY PRN PRN anx Temazepam (Temazepam) 15 Mg Capsule 15-30 MG PO HS PRN PRN sleep Lab and Diagnostics Baseline creatine 1.3-1.6 + influenza A Ca 7.9 K 6.8 phos 5.2 Mg 2.7 AST 76 ALT 96 Albumin 3.1 L Urine Creatine 103 Urine sodium <10 Trop 11/10 0.035, 0.04 11/11 DateTimeAnalyzed 09:10:00 -_ pH ____7.222 - pCO2 ___64.7__ -mmHg pO2 ___28.4__ -mmHg HCO3- ___25.6__ -mmol/L ABE ___-2.5__ -mmol/L tHb ___10.8__ -g/dL O2Hb ___45.0__ -% COHb ____1.4__ -% MetHb ____1.1__ -% sO2 ___46.2__ -% FIO2 ___21.0__ -% Drawn By lab - Date/Time Notified____ 09:16:00 -_ Liter_Flow ____9.0__ -L/min Oxygen Device 1 __oxymask - Notified By ams - Notified Whom dr gelacio - B 752 -mmHg tO2 ____6.9__ -Vol% David test N/A - Laboratory Tests Test 11/12/16 04:45 11/12/16 09:35 11/12/16 10:05 11/12/16 10:15 White Blood Count 12.6th/mm3 (3.8-10.1) Red Blood Count 3.57mil/mm3 (4.40-5.80) Hemoglobin 10.5g/dL (13.8-17.2) Hematocrit 34.7% (41.0-50.0) Mean Corpuscular Volume 97.2fL (81-100) Mean Corpuscular Hemoglobin 29.4pg (27.0-35.0) Mean Corpuscular Hemoglobin Concent 30.3% (32.0-37.0) Red Cell Distribution Width 15.5% (12.3-15.4) Platelet Count 324bil/L (150-400) Neutrophils (%) (Auto) 88% (40-74) Lymphocytes (%) (Auto) 1% (14-46) Monocytes (%) (Auto) 2% (4-12) Eosinophils (%) (Auto) 0% (0-5) Basophils (%) (Auto) 0% (0-3) Band Neutrophils % 5% (1-5) Metamyelocytes % 2% (0-0) Myelocytes % 1% (0-0) Promyelocytes % 1% (0-0) Nucleated Red Blood Cells 2/100 WBC (0-24) Sodium Level 136mEq/L (134-144) 137mEq/L (134-144) Potassium Level 6.8mEq/L (3.5-5.2) 6.2mEq/L (3.5-5.2) Chloride Level 99mEq/L (97-108) 97mEq/L (97-108) Carbon Dioxide Level 22mmol/L (18-29) 28mmol/L (18-29) Blood Urea Nitrogen 78mg/dL (8-27) 80mg/dL (8-27) Creatinine 2.03mg/dL (0.76-1.27) 2.17mg/dL (0.76-1.27) Estimat Glomerular Filtration Rate 34mL/min (>59) 32mL/min (>59) Glucose Level 318mg/dL (60-99) 284mg/dL (60-99) Calcium Level 7.9mg/dL (8.5-10.1) 7.6mg/dL (8.5-10.1) Phosphorus Level 5.2mg/dL (2.5-4.9) Magnesium Level 2.7mg/dL (1.6-2.6) Total Bilirubin 0.3mg/dL (0.0-1.2) Aspartate Amino Transf (AST/SGOT) 76U/L (0-50) Alanine Aminotransferase (ALT/SGPT) 96U/L (0-44) Alkaline Phosphatase 141U/L (25-160) Total Protein 7.5g/dL (6.4-8.4) Albumin 3.1g/dL (3.4-5.0) Procalcitonin 0.45ng/mL (See Comment) Lactic Acid Level 1.5mmol/L (0.4-2.0) Hold Urine Received (Received) Test 11/12/16 14:55 Microbiology 11/10/16 Blood Culture - Preliminary, Resulted NO GROWTH AFTER 24 HOURS 11/11/16 Adenovirus DNA (PCR) - Final, Complete Not Detected 11/11/16 Coronavirus 229E PCR - Final, Complete Not Detected 11/11/16 Coronavirus HKU1 PCR - Final, Complete Not Detected 11/11/16 Coronavirus NL63 PCR - Final, Complete Not Detected 11/11/16 Coronavirus OC43 PCR - Final, Complete Not Detected 11/11/16 Influenza Type A (PCR) - Final, Complete Influenza A H3 11/11/16 Influenza Type B (PCR) - Final, Complete Not Detected 11/11/16 Human Metapneumovirus (PCR) (ESTEBAN) - Final, Complete Not Detected 11/11/16 Rhinovirus (PCR)(ESTEBAN) - Final, Complete Not Detected 11/11/16 Parainfluenza Virus Type 1 (PCR) - Final, Complete Not Detected 11/11/16 Parainfluenza Virus Type 2 (PCR) - Final, Complete Not Detected 11/11/16 Parainfluenza Virus Type 3 (PCR) - Final, Complete Not Detected 11/11/16 Parainfluenza Virus Type 4 (NAAT) - Final, Complete Not Detected 11/11/16 Respiratory Syncytial Virus (PCR)[place] - Final, Complete Not Detected 11/11/16 Chlamydia pneumoniae (PCR) - Final, Complete Not Detected 11/11/16 Mycoplasma pneumoniae DNA Detection - Final, Complete Result Diagram: 11/12/1644411/12/16444 Microbiology Name: GIACOMO SNYDER Age/Sex: 75/M Attend Dr: Talia Hurst MD Acct: [id number] Unit: [id number] Status: ADM IN Location: [facility] 3018-1 Re11/10/16 Disch: Specimen: [id number] Collected: 11/11/16 Status: STU [place]#: [id number] Received: 11/11/16 Source: NSP Sp Desc : Subm Dr: Marium Hurst MD Ordered: RVP Comments: Collected by Nurse/Unit? Y/N Y Procedure Result Verified Site Microbiology ADENOVIRUS RESPIRATORY PCR Final 11/11/16-657 Not Detected CORONOVIRUS 229E Final 11/11/16 Not Detected CORONOVIRUS HKU1 Final 11/11/16 Not Detected CORONOVIRUS NL63 Final 11/11/16 Not Detected CORONOVIRUS OC43 Final 11/11/16 Not Detected INFLUENZA A PCR Final 11/11/16 Organism 1 INFLUENZA A H3 INFLUENZA A PCR DETECTED TIME CALLED: 655 DATE CALLED: 11/11/16 FLOOR/DOCTOR: JEAN-CLAUDE/CHIARA Combs. CALLED BY: MADHAVI The performance of the film array RVP has not been established in individuals who have received the influenza vaccine. Recent administration of a nasal influenza vaccine may cause false positive results for Influenza A and/or Influenza B. INFLUENZA B PCR Final 11/11/16 Not Detected METAPNEUMOVIRUS PCR Final 11/11/16 Not Detected CONTINUED ON NEXT PAGE RUN DATE: 11/11/16 [facility] LIVE PAGE 2 RUN TIME: 657 Specimen Inquiry PHYSICIAN Patient: GIACOMO SNYDER [id number] (Continued) Specimen: [id number] Collected: 11/11/16 Received: 11/11/16 (Continued) Procedure Result Verified Site RHINOVIRUS OR ENTEROVIRUS PCR Final 11/11/16 Not Detected Microbiology (Continued) PARAINFLUENZA 1 PCR Final 11/11/16 Not Detected PARAINFLUENZA 2 PCR Final 11/11/16 Not Detected PARAINFLUENZA 3 PCR Final 11/11/16 Not Detected PARAINFLUENZA 4 PCR Final 11/11/16 Not Detected RESP SYNCYTIAL VIRUS PCR Final 11/11/16 Not Detected CHLAMDOPHILIA PNEUMONIAE PCR Final 11/11/16 Not Detected MYCOPLASMA PNEUMONIAE PCR Final 11/11/16 MYCO PNEUMONIAE PCR Not Detected Reference Interval Not Detected [employer] LE[employer]ER swab is the only specimen type cleared by the FDA. Nasal wash, tracheal aspirate, and bronchial lavage specimen types have not been cleared by the FDA. Therefore results on any specimen type other than nasopharyngeal are considered investigational testing only. X-Rays, CTs and MRIs Chest X-Ray IMPRESSION: 1. Interstitial prominence, pleural effusions, and basilar atelectasis or consolidation. Differential considerations include congestive failure versus pneumonia. Dictated by: Selma Rangel M.D. on 11/12/2016 at 12:26 Approved by: Selma Rangel M.D. on 11/12/2016 at 12:26 [facility] IMPRESSION: 1. Markedly limited study. 2. No definite hydronephrosis, although the right kidney is poorly characterized. 3. Moderate postvoid residual. Dictated by: Selma Rangel M.D. on 11/12/2016 at 14:15 Approved by: Selma Rangel M.D. on 11/12/2016 at 14:15 Cardiac Echo Impressions Echocardiogram. Interpretation Summary There is normal left ventricular wall thickness. The ejection fraction is estimated to be 55-60%. Flattened septum is consistent with RV pressure/volume overload. The right ventricle is moderately dilated. Right ventricular systolic function is moderately reduced. Right ventricular systolic pressure is estimated to be 37 mmHg plus the clinically estimated CVP which cannot be estimated on this exam. Probably no significant interval change fron 2011 Electronically signed by: Justyn Watters on Reading Physician:11/11/2016 01:33 PM Assessment & Plan 75-year-old male with one-week history of shortness of breath, associated not very productive cough, initially treated with azithromycin and prednisone and oxygen from PCP but has ongoing symptoms, admitted for treatment of CAP pneumonia and new onset NANCY. 1.Bibasilar Pneumonia with secondary secondary Hypoxia, present on admission, active - Influenza A + -Bibasilar pneumonia present on CXR, partially treated w/ outpatient treatment, and evaluating for CHF that may be contributing to hypoxia -Rocephin and azithromycin DuoNeb's, hold steroid for now, no wheeze, PRN BIPAP -Consider U/S Doppler legs if ongoing SOB -CURB65: 2 2.NANCY, present on admission, improving - likely prerenal, due to dehydration with component of post renal obstruction - bladder scan showed residual 75-100 ml retained urine, likely contribution of post renal obstruction - Patient has a prior hx of hyperkalemia per patient - Continue to hold metformin/lisinopril - [place]: <10, UCr: 103, U random protein: 316, protein to creatine ration 3.76 - D/C IV fluids, monitor fluid status with elevated BNP and diastolic dysfunction noted in prior echo - Calcium albuterol IV fluids glucose/insulin, start kayexlate/lactulose after improved oxygenation w/ activity - We will consider nephrology consult if unimproved w/ fluid resuscitation - Retroperitoneal U/S showed moderate post residual void - Start Irving cath 3. Hyperkalemia, present on admission, active - Remain elevated today 6.8 Am, 6.2 afternoon 11/12/16, 5.7 evening 11/12/16 - Albuterol given - Calcium gluconate - Insulin per protocol for hyperkalemia given - EKG showed presence of atrial fibrillation and RBB, no peaked t-waves seen - Repeat EKG PRN 4. Hypocalcemia, present on admission, active - Calcium 7.6 - calcium gluconate given - continue to monitor 5. Acute exacerbation of CHF, present on admission, active - Elevated troponin likely due acute on chronic HF - Continue Serial troponin, remain stable and are not trending upwards. - ECHO showed diastolic heart failure EF of - Start Lasix drip 5 mls/hr per nephrology 5.Chronic issues known prior to admission, present on admission: -microcytic anemia iron deficiency. monitor -erosive esophagitis, gastric antral ulceration, Crohn disease, PPI/[id number], mesalamine, anticipate humira resumption after this admission -Moderate MR/CABG 2010 three-vessel/Dyslipidemia/hypertension/PVCs -COPD/pneumonia/GERARDO, CPAP -UTI/prostatectomy for prostate cancer/incontinence, monitor, declining irving at this time -Alkylosing spondylosis /arthritis/back injury/gout, allopurino/vicodin -Diabetes, SSI - Low dose correctional scale ordered -Anxiety, benzo Diet cardiac/diabetic DVT prophylaxis heparin Code limited, intubate Disposition: [facility] stay >2 nights to treat pneumonia and respiratory distress Assessment and plan were discussed with patient and his at bedside. They agree with the above plan Pain Evaluation: Adequate Pain Control GI Prophylaxis: Proton Pump Inhibitor VTE Prophylaxis: Sub-Q Heparin (Unfractionated) VTE Mechanical Devices: Intermittant Pneumatic CD Resuscitation Status: CPR: Attempt Resuscitation Attending Statement The patient was seen and examined together with Dr. Jackson on 11/12/2016 and I agree with the history, exam and plan as outlined in the note above. . JAKE JACKSON DO Nov 12, 2016 07:42 Barrett Gilbert MD Nov 13, 2016 16:53
--- NOTE | 2016-11-12 19:38 | NUR ---
Potassium/Irving/Resp Pt's potassium 6.8 this am, interventions performed on NOC shift to lower potassium, see NOC shift note for details. Ca gluconate ordered this am prior to f/u K+ lab, spoke with and BMP ordered, Pt's K+ 6.2, Ca gluconate administered in conjunction with albuterol breathing Tx by RT, f/u lab ordered which came back at 5.7, MD aware of value, BMP ordered for this evening, oncoming NOC RN made aware. Irving catheter insertion ordered with lasix gtt, instructed by MD to utilize 12 Fr irving, 12 Fr irving catheter inserted after attaining from central supply, MD notified of successful insertion. Pt on BiPAP with Fi02 of 60%, SPO2 sats in the upper 90. Pt reporting SOB at rest improved, but still present, lasix gtt ordered and initiated once irving catheter in place.
--- NOTE | 2016-11-12 20:01 | PCM.CHPMED ---
Subjective Date of Service: Nov 12, 2016 Provider requesting consult: Barrett Gilbert MD Primary Physician: Admitting Physician: Marium Hurst MD Primary Care Physician: Imani Antony MD Attending Physician: Marium Hurst MD Chief Complaint: Chief Complaint: NANCY. . History of Present Illness: Nephrology Consultation Note: Attending Dr. Cohen. Bradley Donovan is a 75-year-old male with past medical history significant for Crohn's disease with associated blood loss anemia, ASCVD s/p CABG, hypertension , diabetes mellitus type II who presented to the emergency department complaining of shortness of breath that has been worsening over the last 8-10 days and worsening chronic lower extremity edema. He was recently treated with azithromycin and prednisone as an outpatient. We were consulted regarding his acute kidney injury. The patient reports no prior history of chronic kidney disease. He does however have a history of hypertension and coronary artery disease. He reports decreased appetite and PO intake over the last week. He reports chronic anemia secondary to his Crohn's disease which requires intermittent blood transfusion and erythropoietin injections on a monthly basis. He denies headache, sore throat, chest pain, palpitations, abdominal pain, nausea, vomiting, difficulty urinating, diarrhea, or constipation. Subjective exam is somewhat limited due to the patient's status on BiPAP. . Review of Systems: A comprehensive review of systems was conducted with the patient and found to be negative except as above in the History of Present Illness. . PMH Past Medical History 1. Crohn's disease. 2. Anemia, chronic, secondary to GI bleeds. 3. Past history of ASCVD. Records in the EMR indicate a heart catheterization in June 2007 that showed diffuse disease in the LAD, proximal narrowing of 50% , other branches with 30% to 40% lesions, apical branch with 75% lesion. He had a left circumflex with areas of up to 90% narrowing and a right coronary with 50% to 60% narrowing. 4. Hypertension. 5. Obesity. 6. Type 2 diabetes mellitus. 7. Gout. 8. Chronic GERD. . Bedside Blood Glucose: 289 Surgical History 1. Radical prostatectomy. 2. Arm and wrist surgeries. 3. CABG. . Home Medications Scheduled Adalimumab (Humira) 40 Mg/0.8 Ml Pen.ij.kit 40 MG IM q other week Allopurinol (Allopurinol) 300 Mg Tablet 300 MG PO DAILY Amitriptyline (Amitriptyline) 25 Mg Tab 25 MG PO HS Atorvastatin Calcium (Atorvastatin Calcium) 10 Mg Tablet 10 MG PO DAILY Glimepiride (Glimepiride) 4 Mg Tablet 4 MG PO AM Lisinopril (Lisinopril) 20 Mg Tablet 20 MG PO HS Mesalamine (Pentasa) 500 Mg Capsule.er 1,000 MG PO QID Metformin (Metformin) 850 Mg Tablet 850 MG PO am Multivitamin/Iron/Folic Acid (Centrum Complete Multivit Tab) 1 Each Tablet 1 EACH PO DAILY Omeprazole (Prilosec) 40 Mg Capsule.dr 40 MG PO BID Pramipexole Dihydrochloride (Pramipexole Dihydrochloride) 0.5 Mg Tablet 0.5 MG PO EVENING Ranitidine (Ranitidine) 300 Mg Tablet 300 MG PO HS Scheduled PRN Hydrocodone-Acetaminophen 5-325 mg (Hydrocodone-Acetaminophen 5-325 mg) 1 Each Tablet 1 TAB PO Q 4 HOUR PRN PRN For Pain Lorazepam (Lorazepam) 1 Mg Tablet 1 MG PO DAILY PRN PRN anx Temazepam (Temazepam) 15 Mg Capsule 15-30 MG PO HS PRN PRN sleep . Allergies: Coded Allergies: azithromycin (Verified Allergy, Severe, 11/10/16) HIVES - but pt toelrates IV Zithromax Pt states allergy was to ZOMAX, "It's not even made anymore" Uncoded Allergies: ZOMAX (Allergy, Severe, HIVES, 06/21/15) Family History Family History Unobtainable due to patient status. . Social History Hx Alcohol Use: Yes (rarely)Hx Substance Use: NoHx Tobacco Use: No Smoking Status: Former Smoker Exam Vital Signs Vital Sign - Last Date Time Temp Pulse Resp B/P Pulse Ox O2 Delivery O2 Flow Rate FiO2 11/12/16 17:30 CPAP/BIPAP 11/12/16 16:22 73 20 97 60 11/12/16 15:52 36.4 156/85 11/11/16 21:30 8.00 Intake and Output 11/11/16 11/11/16 11/12/16 Cumulative From/Thru 15:00 23:00 07:00 11/10/16 16:55 - 11/12/16 06:47 Intake Total 2325 ml 784 ml 5392 ml Output Total 550 ml 1050 ml Balance 1775 ml 784 ml 4342 ml Intake Oral 1200 ml 0 ml 2100 ml IV Total 1125 ml 784 ml 3292 ml Output Urine Total 550 ml 1050 ml # Voids 4 4 General: Alert, Oriented X3 Head: Normal Eyes: PERRLA, EOMI, Scleral Anicteric Mouth: Other (BiPAP in place) Neck: Supple Chest & Lungs: Clear to auscultation & percussion Cardiovascular: No Murmurs/Rubs/Gallops, Other (irregularly irregular) Pulses: NL carotid, radial, femoral, DP, PT Abdomen: Non-tender, Non-distended, Soft, Obese Genitourinary: Dhillon Absent, Other (scrotal edema) Extremities: Edema (+3 pitting edema to knees bilaterally) Neurological: Grossly Neurologically Intact Lab and Diagnostics Labs Item Value Date Time Lactic Acid Level 1.5 mmol/L 11/12/16 0935 Calcium Level 7.9 mg/dL L 11/12/16 0445 Phosphorus Level 5.2 mg/dL H 11/12/16 0445 Magnesium Level 2.7 mg/dL H 11/12/16 0445 Total Bilirubin 0.3 mg/dL 11/12/16 0445 Aspartate Amino Transf (AST/SGOT) 76 U/L H 11/12/16 0445 Alanine Aminotransferase (ALT/SGPT) 96 U/L H 11/12/16 0445 Alkaline Phosphatase 141 U/L 11/12/16 0445 Total Protein 7.5 g/dL 11/12/16 0445 Albumin 3.1 g/dL L 11/12/16 0445 Procalcitonin 0.45 ng/mL 11/12/16 0445 Result Diagram: 11/12/16 0445 11/12/16 1455 X-Rays, CTs and MRIs X-RAY CHEST ONE VIEW, PORTABLE IMPRESSION: 1. Interstitial prominence, pleural effusions, and basilar atelectasis or consolidation. Differential considerations include congestive failure versus pneumonia. Dictated by: Selma Rangel M.D. on 11/12/2016 at 12:26 Approved by: Selma Rangel M.D. on 11/12/2016 at 12:26 . 12-lead ECG EKG: Atrial fibrillation with right bundle branch block. . Assessment & Plan Assessment Bradley Donovan is a 75-year-old male with past medical history significant for Crohn's disease with associated blood loss anemia, ASCVD s/p CABG, hypertension , diabetes mellitus type II who presented to the emergency department complaining of shortness of breath that has been worsening over the last 8-10 days and worsening chronic lower extremity edema. 1. Acute on chronic kidney injury, present on admission. Active. - Etiology is multifactorial and likely secondary to: prerenal azotemia secondary to decreased PO intake and diastolic CHF exacerbation, ischemic ATN while concurrently taking metformin and Losartan, possible AIN with recent antibiotic use and mesalamine? and possible postobstructive uropathy. Chronic component of kidney disease likely secondary to hypertensive nephrosclerosis and diabetic nephropathy. - Baseline creatinine is 1.33 in 2015 with eGFR of 56. - Rule out postobstructive uropathy. Ordered post void residual and placement of Dhillon catheter if greater than 400 mL postvoid. Ordered renal ultrasound to assess for hydronephrosis. - Continue conservative management. - Continue to monitor urine output and renal function daily. - Does not require HEDIS REVIEW NURSE currently. - Avoid nephrotoxic agents. - Start Lasix drip 5 mL/hr. - Ordered urine protein/creatinine ratio, pending. - Ordered urine eosinophils. 2. Hyperkalemia of unclear etiology but likely secondary to acute kidney injury and a possible side effect of ARB. - Continue medical management per primary team. - Start Lasix gtt as above. - Continue to monitor potassium daily. 3. Acute influenza infection. 4. Hypoxemic respiratory failure. 5. Probable acute CHF exacerbation. 6. Diabetes mellitus type II, non-insulin oozing. 7. 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 Problems: Pain Evaluation: Adequate Pain Control GI Prophylaxis: Proton Pump Inhibitor VTE Prophylaxis: Sub-Q Heparin (Unfractionated) VTE Mechanical Devices: Intermittant Pneumatic CD Resuscitation Status: CPR: Attempt Resuscitation Adelaida Wilkerson Nov 12, 2016 20:01
[2016-11-12] MEDS: AZITHROMYCIN IV SCH ×2 (21:32)
[2016-11-12] MEDS: DEXTROSE IV SCH ×2 (21:32)
[2016-11-13] VITALS (18 sets, daily range): BP systolic 140–170; BP diastolic 70–85; PULSE 76–97; RESP 18–28; O2SAT 92–97
[2016-11-13] MEDS: MethylprednisoLONE Sodium Succinate 40 mg/mL Inj IVPUSH SCH ×3 (00:46→17:47)
[2016-11-13] MEDS: Albuterol-Ipratropium 3 mL Inhalation Solution NEB SCH ×6 (00:47→20:59)
[2016-11-13] MEDS: Heparin 5,000 Unit/mL Inj SUBQ SCH ×3 (00:48→17:50)
[2016-11-13 02:43] LABS: EOSINOPHILS % (AUTO) 0 % (0-5); Mean Corpuscular Hemoglobin 28.9 pg (27.0-35.0); Mean Corpuscular Volume 97.7 fL (81-100); Platelet Count 279 bil/L (150-400)
[2016-11-13 03:41] LABS: BASOPHILS % (AUTO) 0 % (0-3); MONOCYTES % (AUTO) 2 % (4-12); NEUTROPHILS % (AUTO) 94 % (40-74)
[2016-11-13] MEDS: hydrALAZINE 20 mg/mL Inj IV PRN (04:54)
[2016-11-13] MEDS: Mesalamine 500 mg CR Capsule PO SCH ×5 (06:30→21:30)
--- NOTE | 2016-11-13 07:46 | NUR ---
Potassium/Respiratory Potassium in evening 5.8, and critical BUN of 82 reported to MD. MD ordered labs for professor of practice to reassess. Potassium up to 6.0 this morning, MD informed and ordered 10 units regular insulin to be given, D50 amp only if needed. BG still high 200s when rechecked. Pt continues on BiPAP, sats mid 90s and monitored on [employer]. Lasix drip continues, UOP about 550
[2016-11-13] MEDS: Sodium Chloride LOK Flush 10 mL Syringe IVFLUSH SCH ×2 (08:05→17:25)
[2016-11-13] MEDS: cefTRIAXone Inj 2,000 MG in IV Premix 1 EACH IV SCH (08:05)
[2016-11-13] MEDS: Insulin LISPRO 300 Unit/3 mL Inj SUBQ SCH (08:06)
[2016-11-13] MEDS: Pantoprazole 40 mg ER24 Tablet PO SCH (08:07)
[2016-11-13] MEDS ORDERED: Furosemide Inj 100 MG in 0.9% Sodium Chloride 90 ML IV SCH (09:35)
[2016-11-13] MEDS ORDERED: Calcium GLUCO 10% (Gm) 1 Gm/10 mL 50 mL Inj IV ONE (10:10)
--- NOTE | 2016-11-13 10:16 | DRSVH ---
PROCEDURE: X-RAY CHEST ONE VIEW, PORTABLE ([id number]) INDICATIONS: shortness of breath TECHNIQUE: One view of the chest was acquired. COMPARISON: [facility], CR, XR CHEST 1VW (PORTABLE), 11/12/2016, 11:21. FINDINGS: Surgical changes and devices: Postsurgical changes are redemonstrated in the mediastinum. Lungs and pleura: There are persistent bilateral pleural effusions, small to moderate on the left and small right, with associated bibasilar opacities consistent with compressive atelectasis or consolid ation. There is slight interval improved aeration with slightly decreased pulmonary edema. Mediastinum: Mediastinal contours appear similar to the prior study given the improved aeration. He art size is enlarged. Bones and chest wall: No suspicious bony lesions. Overlying soft tissues appear unremarkable. IMPRESSION: 1. Interval improved aeration with slightly decreased pulmonary edema. 2. Persistent bilateral pleural effusions, left greater than right, with bibasilar compressive atele ctasis or consolidation. Dictated by: Iftikhar Burger M.D. on 11/13/2016 at 10:14 Approved by: Iftikhar Burger M.D. on 11/13/2016 at 10:14
[2016-11-13] MEDS ORDERED: Glucose 40% Oral Gel 15 Gm Tube PO PRN (10:40)
[2016-11-13] MEDS ORDERED: DEXTROSE 5% IV ONE (10:50)
[2016-11-13] MEDS ORDERED: CALCIUM GLUCO IV ONE (10:50)
[2016-11-13] MEDS ORDERED: Calcium GLUCO 10% (Gm) Inj 1 GM in Dextrose 5% 100 ML IV ONE ×2 (10:59→13:30)
--- NOTE | 2016-11-13 11:44 | DRSVH ---
PROCEDURE: US VENOUS LEG DUPLEX BILATERAL INDICATIONS: bilateral leg pain on exam TECHNIQUE: Real-time imaging, as well as color and pulse Doppler interrogation, were performed of the deep veins of both legs from the inguinal ligament to the popliteal fossa. COMPARISON: None. FINDINGS: The deep veins are normally compressible, and free of intraluminal thrombus except for the distal left superficial femoral vein and left popliteal vein which were not able to be compressed se condary to body habitus. Color and pulse Doppler demonstrate normal phasic intravascular flow. Ther e is normal augmentation response to distal compression maneuver. IMPRESSION: 1. No definite evidence of deep vein thrombosis in the right or left lower extremity with evaluation limited on the left as described secondary to body habitus. Dictated by: Iftikhar Burger M.D. on 11/13/2016 at 11:42 Approved by: Iftikhar Burger M.D. on 11/13/2016 at 11:42
[2016-11-13] MEDS ORDERED: Insulin LISPRO 300 Unit/3 mL Inj SUBQ SCH (12:00)
[2016-11-13] MEDS ORDERED: Pantoprazole 40 mg ER24 Tablet PO SCH (13:57)
--- NOTE | 2016-11-13 14:10 | PCM.PNMED ---
Subjective Date of Service Nov 13, 2016 Subjective 75-year-old male with one-week history of shortness of breath, associated not very productive cough, initially treated with azithromycin and prednisone and oxygen from PCP but has ongoing symptoms, admitted for treatment of CAP pneumonia and new onset NANCY. Today patient is comfortable with BiPAP, complains of shortness of breath when transferring to chair and bed when off of BiPAP, states he experiences some chills, denies nausea, vomiting fever ROS negative except as mentioned above. Exam Vital Signs Vital Sign - Last Date Time Temp Pulse Resp B/P Pulse Ox O2 Delivery O2 Flow Rate FiO2 11/13/16 06:18 167/70 11/13/16 05:29 84 11/13/16 04:50 25 96 60 11/13/16 03:51 36.7 BiPAP 11/11/16 21:30 8.00 Intake and Output 11/12/16 11/12/16 11/13/16 Cumulative From/Thru 15:00 23:00 07:00 11/10/16 16:55 - 11/13/16 06:03 Intake Total 100 ml 1053 ml 400 ml 6945 ml Output Total 605 ml 550 ml 2205 ml Balance 100 ml 448 ml -150 ml 4740 ml Intake Oral 800 ml 400 ml 3300 ml IV Total 100 ml 253 ml 3645 ml Output Urine Total 605 ml 550 ml 2205 ml # Voids 4 Exam General: Alert, Oriented X3, Cooperative, moderate Distress, Obese Head: Normocephalic, atraumatic. External ears normal. Eyes: PERRLA, EOMI. Anicteric sclerae. Mouth: Mouth Normal, Mucous Membranes Moist/[place] Neck: Neck supple with full range of motion. No lymphadenopathy Chest & Lungs: BiPap, Use of accessory breathing muscles, equal chest rise and fall, Diminished breath sounds at bases, Bilateral crackles, wheezes, hear in all lung worrell, no rhonchi. Cardiovascular: Regular Rate/Rhythm, Normal S1, Normal S2, No Murmurs/Rubs/ Gallops, no JVD Abdomen: Non-tender, distended, No masses, Normoactive bowel tones, Soft Musculoskeletal: Normal Range of Motion Extremities: No cyanosis/clubbing/edema bilaterally, pain to palpation of calve muscles b/l Neurological: Grossly Neurologically Intact, Normal Speech muffled by Bipap, Sensation Intact, : uncircumcised penis, two testicles palpated non tender, moderate scrotal and penile edema, meatus patent without discharge IVs and Medications IV Fluids General: Alert, Oriented X3, Cooperative, moderate Distress, Obese Head: Normocephalic, atraumatic. External ears normal. Eyes: PERRLA, EOMI. Anicteric sclerae. Mouth: Mouth Normal, Mucous Membranes Moist/[place] Neck: Neck supple with full range of motion. No lymphadenopathy Chest & Lungs: BiPap, Use of accessory breathing muscles, equal chest rise and fall, Diminished breath sounds at bases, Bilateral crackles, wheezes, hear in all lung worrell, no rhonchi. Cardiovascular: Regular Rate/Rhythm, Normal S1, Normal S2, No Murmurs/Rubs/ Gallops, no JVD Abdomen: Non-tender, distended, No masses, Normoactive bowel tones, Soft Musculoskeletal: Normal Range of Motion Extremities: No cyanosis/clubbing/edema bilaterally Neurological: Grossly Neurologically Intact, Normal Speech muffled by Bipap, Sensation Intact, : uncircumcised penis, two testicles palpated non tender, moderate scrotal and penile edema, meatus patent without discharge Medications Reviewed: Medications were reviewed in detail Lab and Diagnostics Result Diagram: 11/13/1621611/13/16216 Microbiology Name: GIACOMO SNYDER Age/Sex: 75/M Attend Dr: Talia Hurst MD Acct: [id number] Unit: [id number] Status: [place] [facility] [place]11/10[place] Disch: Specimen: [id number] Collected: 11/11/16 Status: COMP Req#: [id number] Received: 11/11/16 Source: LYLE Sp Desc : Subm Dr: Marium Hurst MD Ordered: RVP Comments: Collected by Nurse/Unit? Y/N Y Procedure Result Verified Site Microbiology ADENOVIRUS RESPIRATORY PCR Final 11/11/16 Not Detected CORONOVIRUS 229E Final 11/11/16 Not Detected CORONOVIRUS HKU1 Final 11/11/16 Not Detected CORONOVIRUS NL63 Final 11/11/16 Not Detected CORONOVIRUS OC43 Final 11/11/16 Not Detected INFLUENZA A PCR Final 11/11/16 Organism 1 INFLUENZA A H3 INFLUENZA A PCR DETECTED TIME CALLED: 56 DATE CALLED: 11/11/16 FLOOR/DOCTOR: JEAN-CLAUDE/CHIARA Combs. CALLED BY: MADHAVI The performance of the film array RVP has not been established in individuals who have received the influenza vaccine. Recent administration of a nasal influenza vaccine may cause false positive results for Influenza A and/or Influenza B. INFLUENZA B PCR Final 11/11/16 Not Detected METAPNEUMOVIRUS PCR Final 11/11/16 Not Detected CONTINUED ON NEXT PAGE RUN DATE: 11/11/16 [facility] LIVE PAGE 2 RUN TIME: 657 Specimen Inquiry PHYSICIAN Patient: CLAUDIOGIACOMO Frankel [id number] (Continued) Specimen: [id number] Collected: 11/11/16 Received: 11/11/16 (Continued) Procedure Result Verified Site RHINOVIRUS OR ENTEROVIRUS PCR Final 11/11/16 Not Detected Microbiology (Continued) PARAINFLUENZA 1 PCR Final 11/11/16 Not Detected PARAINFLUENZA 2 PCR Final 11/11/16 Not Detected PARAINFLUENZA 3 PCR Final 11/11/16 Not Detected PARAINFLUENZA 4 PCR Final 11/11/16 Not Detected RESP SYNCYTIAL VIRUS PCR Final 11/11/16 Not Detected CHLAMDOPHILIA PNEUMONIAE PCR Final 11/11/16 Not Detected MYCOPLASMA PNEUMONIAE PCR Final 11/11/16 MYCO PNEUMONIAE PCR Not Detected Reference Interval Not Detected HOME STAGER swab is the only specimen type cleared by the FDA. Nasal wash, tracheal aspirate, and bronchial lavage specimen types have not been cleared by the FDA. Therefore results on any specimen type other than nasopharyngeal are considered investigational testing only. X-Rays, CTs and MRIs Chest X-Ray IMPRESSION: 1. Interval improved aeration with slightly decreased pulmonary edema. 2. Persistent bilateral pleural effusions, left greater than right, with bibasilar compressive atelectasis or consolidation. Dictated by: Iftikhar Burger M.D. on 11/13/2016 at 10:14 Approved by: Iftikhar Burger M.D. on 11/13/2016 at 10:14 Retroperitoneal US IMPRESSION: 1. Markedly limited study. 2. No definite hydronephrosis, although the right kidney is poorly characterized. 3. Moderate postvoid residual. Dictated by: Selma Rangel M.D. on 11/12/2016 at 14:15 Approved by: Selma Rangel M.D. on 11/12/2016 at 14:15 CT abdomen and pelvis IMPRESSION: 1. Small bilateral pleural fluid collections. 2. Bibasilar lung consolidation compatible with compressive atelectasis, pneumonia or aspiration. Please correlate with clinical and laboratory data. 3. Cardiomegaly. 4. Hepatic steatosis. 5. 1.4 cm gallstone in the gallbladder neck. There is clinical concern for biliary disease, abdominal ultrasound should be performed for further evaluation. 6. Small amount of ascites in the lower pelvis and the left lower quadrant of the abdomen. 7. Status post prostatectomy. 8. Colonic diverticulosis. 9. Image quality limited by patient motion. Diagnostic sensitivity of the study is limited by absence of oral and intravenous contrast. Dictated by: Aditi Garcia MD, PhD on 11/13/2016 at 17:17 Approved by: Aditi Garcia MD, PhD on 11/13/2016 at 17:17 Cardiac Echo Impressions Echocardiogram. Interpretation Summary There is normal left ventricular wall thickness. The ejection fraction is estimated to be 55-60%. Flattened septum is consistent with RV pressure/volume overload. The right ventricle is moderately dilated. Right ventricular systolic function is moderately reduced. Right ventricular systolic pressure is estimated to be 37 mmHg plus the clinically estimated CVP which cannot be estimated on this exam. Probably no significant interval change fron 2011 Electronically signed by: Justyn Watters on Reading Physician:11/11/2016 01:33 PM Additional Diagnostics US VENOUS LEG DUPLEX BILATERAL IMPRESSION: 1. No definite evidence of deep vein thrombosis in the right or left lower extremity with evaluation limited on the left as described secondary to body habitus. Dictated by: Iftikhar Burger M.D. on 11/13/2016 at 11:42 Approved by: Iftikhar Burger M.D. on 11/13/2016 at 11:42 Assessment & Plan 75-year-old male with one-week history of shortness of breath, associated not very productive cough, initially treated with azithromycin and prednisone and oxygen from PCP but has ongoing symptoms, admitted for treatment of CAP pneumonia and new onset NANCY. 1.Bibasilar Pneumonia with secondary secondary Hypoxia, present on admission, active - Influenza A +, CURB65: 2 - Bibasilar pneumonia present on CXR, partially treated w/ outpatient treatment , and evaluating for CHF that may be contributing to hypoxia - Rocephin and azithromycin started 11/12/16 - DuoNeb's, PRN Q4 - Hold Steroid - U/S Doppler legs, Negative for DVT limited - Start 6 L O2 HF NC 50 % titrate per RT, patient base line saturation 90-93, CPAP PRN if desat below 90 - Procalcitonin 0.45 - Lactic Acid 1.5 2.NANCY, present on admission, improving - likely prerenal, due to dehydration with component of post renal obstruction - bladder scan 11/12/16 showed residual 75-100 ml retained urine, likely contribution of post renal obstruction - Patient has a prior hx of hyperkalemia per patient - Continue to hold metformin/lisinopril - D/C IV fluids, monitor fluid status with elevated BNP and diastolic dysfunction noted in prior echo - albuterol IV fluids glucose/insulin, start kayexlate/lactulose after improved oxygenation w/ activity - We will consider nephrology consult if unimproved w/ fluid resuscitation - Retroperitoneal U/S showed moderate post residual void - Start Dhillon cath, urine output reduced 11/13/16 - [place]ham: <10, UCr: 103, U random protein: 316, protein to creatine ration 3.76 3. Hyperkalemia, present on admission, active - Remain elevated today 6.0 11/13/16, Consider differential NANCY, Chronically elevated K 5.3-6.0 per outpatient records, Hypoaldosteronism, RTA Type IV, ischemic bowel - Albuterol given - Calcium gluconate - Insulin per protocol for hyperkalemia given - EKG showed presence of atrial fibrillation and RBB, no peaked t-waves seen, RBB old per outpatient records, - Repeat EKG PRN - CPK normal - Random Cortisol, pending - Rennin/Aldosterone, pending - Urine aldosterone, pending - CT abdomen and Pelvis R/o intra abdominal process, bowel ischemia 4. Hyperglycemia non-DKA, acute on chronic, present on admission, active - DC high dose insulin protocol - DC lantus HS - Start Insulin drip per protocol with goal of BG <180 5. A-Fib rate controlled, present on admission, active - Start Coumadin dosing per pharmacy - Monitor INR daily 6. Acute exacerbation of CHF, present on admission, active - Elevated troponin likely due acute on chronic HF, trop trending down 0.02 11/13 - ECHO showed diastolic heart failure EF of 55-60%. - Increase Lasix drip 10 mls/hr per nephrology 7.Hypocalcemia, present on admission, active - Calcium 7.7 11/13/16 - calcium gluconate 1 gm given 1x 11/12/16, 1x 11/13/16 - continue to monitor - Patient will need to follow up with Anticoagulation clinic post discharge Chronic issues known prior to admission, present on admission: 8. microcytic anemia iron deficiency. monitor 9. erosive esophagitis, gastric antral ulceration, Crohn disease, PPI/[id number] , mesalamine, anticipate humira resumption after this admission -Continue Protonix 40 mg Daily 10. Moderate MR/CABG 2010 three-vessel/Dyslipidemia/hypertension/PVCs 11. COPD/pneumonia/GERARDO, CPAP 12. UTI/prostatectomy for prostate cancer/incontinence, monitor, 13. Alkylosing spondylosis /arthritis/back injury/gout, Continue allopurino/ vicodin 14. Diabetes, SSI See above 15. Anxiety, Ativan PRN Diet cardiac/diabetic DVT prophylaxis heparin Code limited, intubate Disposition: Likely stay >2 nights to treat pneumonia and respiratory distress, atrial fibrillation starting anticoagulation Assessment and plan were discussed with patient and his at bedside. They agree with the above plan GI Prophylaxis: Proton Pump Inhibitor VTE Prophylaxis: Sub-Q Heparin (Unfractionated) VTE Mechanical Devices: Intermittant Pneumatic CD Resuscitation Status: CPR: Attempt Resuscitation Attending Statement The patient was seen and examined together with Dr. Jackson on 11/13/2016 and I agree with the history, exam and plan as outlined in the note above. . JAKE JACKSON DO Nov 13, 2016 06:33 Barrett Gilbert MD Nov 14, 2016 07:50
--- NOTE | 2016-11-13 14:31 | NUR ---
Respiratory Trial off BiPaP, on HFNC 60L, FI02 50%. Pt states at home his sats are 90-93%. Currently Sat @95%, HR 85, no significant change in his Hr with change in modality.
--- NOTE | 2016-11-13 14:49 | NUR ---
Evaluation completed. Please go to "Notes" then click on "Assessments and Notes" (bottom left corner of screen). Then select appropriate discipline tab on top of screen.
--- NOTE | 2016-11-13 15:13 | NUR ---
NUTRITION ASSESSMENT Assess: 76 yo M w/ pneumonia w/ secondary hypoxia, NANCY, hyperkalmiea, hypocalcemia, and acute exacerbation of CHF. Per notes, pt was not eating or drinking much prior to admission. Since admission PO intake has been poor w/ pt eating at most 25% of one meal. RN requested ST consult d/t coughing during breakfast meal. ST recommending stimulation diet with thin liquids. Pt notes swelling in lower extremities and scrotum. Pt states that he gained wt following a fall and multiple fractures last year. He feels his appetite is just starting to improve. PMHx: Microcytic anemia, Crohns, Erosive esophagitis, Gastric antral ulcerations, Cataracts, CABG 2011, PVCs, Dyslipidemia, COPD, Pneumonia, GERARDO on CPAP, Diverticulitis, Hiatal hernia, Colon polyps, Arthritis, DM 2, Anxiety. LABS: Reviewed. K 6.0, BUN 83, Cr 2.08, Glu 310, Ca 7.7, AST 73, ALT 98, A1c 8.6 MEDICATIONS: Reviewed. Protonix, DIET: Stimulation, PO 0-25% (on consistent carb diet) DIET Hx/INTAKE INSURANCE COMMISSIONER: Minimal NUTRITION FOCUSED PHYSICAL ASSESSMENT: GI symptoms/stool: BM x4 11/12Braden: 13 Skin integrity: No issues reported Overall Appearance: Obese man sitting in bedside chair ANTHROPOMETRICS: Current Wt: 141.2 kg BMI: 43.4 kg/r2Oxosx Wt: 137.7 kg (BMI: 42.3 kg/m2) IBW: 78.2 kgAdj BW: 93.1 kg Recent wt changes: Wt gain ESTIMATED NEEDS: BMI Calories: 9013-5585 kcal/d (25-30 kcal/kg/d Adj BW) Protein: 110-140 g/d (1.2-1.5 g/kg/d Adj BW) Fluids: 2843-1233 ml/d (1 ml/kcal/d) NUTRITION DIAGNOSIS: 1) Inadequate oral intake related to acute illness as evidenced by recent change in PO intake. 2) Altered nutrition-related lab values related to type 2 diabetes as evidenced by A1c of 8.6. INTERVENTION: 1) Encouraged adequate PO intake - will send Glucerna TID 2) Diabetes education provided - see "Inpt DM Screen & Assessment" under Care Activity tab for full education details MONITOR/EVALUATE: PO intake, Labs, Wt, GI/Nutrition status, POC. Will follow per moderate nutrition risk guidelines.
--- NOTE | 2016-11-13 15:40 | PCM.PNMED ---
Subjective Date of Service Nov 13, 2016 Subjective stable respiratory status on BiPAP. lasix gtt started with low UOP. CXR showed increase aeration and decrease pulmonary edema. Persistent hyperK noted. Exam Vital Signs Vital Sign - Last Date Time Temp Pulse Resp B/P Pulse Ox O2 Delivery O2 Flow Rate FiO2 11/13/16 14:20 88 24 95 Nasal Cannula 60 60 11/13/16 11:48 36.4 169/73 Intake and Output 11/12/16 11/12/16 11/13/16 Cumulative From/Thru 14:59 22:59 06:59 11/10/16 16:55 - 11/13/16 06:03 Intake Total 100 ml 1053 ml 400 ml 7945 ml Output Total 605 ml 550 ml 2205 ml Balance 100 ml 448 ml -150 ml 5740 ml Intake Oral 800 ml 400 ml 3300 ml IV Total 100 ml 253 ml 4645 ml Output Urine Total 605 ml 550 ml 2205 ml # Voids 4 Exam General: Alert, Oriented X3, Cooperative, moderate Distress, Obese, on BiPAP. Head: Normocephalic, atraumatic. External ears normal. Eyes: PERRLA, EOMI. Anicteric sclerae. Mouth: Mouth Normal, Mucous Membranes Moist/[place] Neck: Neck supple with full range of motion. No lymphadenopathy Chest & Lungs: Use of accessory breathing muscles, fine crackle at bases. Cardiovascular: Regular Rate/Rhythm, Normal S1, Normal S2, No Murmurs/Rubs/ Gallops, no JVD Abdomen: Non-tender, distended, No masses, Normoactive bowel tones, Soft Musculoskeletal: Normal Range of Motion Extremities: 2+ edema on LE. Lab and Diagnostics Result Diagram: 11/13/1621611/13/16216 Microbiology Name: BRADLEY SNYDER Age/Sex: 75/M Attend Dr: Talia Hurst MD Acct: [id number] Unit: [id number] Status: ADM IN [place] [facility] [place] Re11/10/16 Disch: Specimen: [id number] Collected: 11/11/16 Status: STU [place]#: [id number] Received: 11/11/16 Source: LYLE Sp Desc : Subm Dr: Marium Hurst MD Ordered: RVP Comments: Collected by Nurse/Unit? Y/N Y Procedure Result Verified Site Microbiology ADENOVIRUS RESPIRATORY PCR Final 11/11/16-657 Not Detected CORONOVIRUS 229E Final 11/11/16 Not Detected CORONOVIRUS HKU1 Final 11/11/16 Not Detected CORONOVIRUS NL63 Final 11/11/16 Not Detected CORONOVIRUS OC43 Final 11/11/16 Not Detected INFLUENZA A PCR Final 11/11/16 Organism 1 INFLUENZA A H3 INFLUENZA A PCR DETECTED TIME CALLED: 0656 DATE CALLED: 11/11/16 FLOOR/DOCTOR: JEAN-CLAUDE/CHIARA Combs. CALLED BY: MADHAVI The performance of the film array RVP has not been established in individuals who have received the influenza vaccine. Recent administration of a nasal influenza vaccine may cause false positive results for Influenza A and/or Influenza B. INFLUENZA B PCR Final 11/11/16 Not Detected METAPNEUMOVIRUS PCR Final 11/11/16 Not Detected CONTINUED ON NEXT PAGE RUN DATE: 11/11/16 [facility] LIVE PAGE 2 RUN TIME: 657 Specimen Inquiry PHYSICIAN Patient: CLAUDIOBRADLEY [id number] (Continued) Specimen: [id number] Collected: 11/11/16 Received: 11/11/16 (Continued) Procedure Result Verified Site RHINOVIRUS OR ENTEROVIRUS PCR Final 11/11/16-657 Not Detected Microbiology (Continued) PARAINFLUENZA 1 PCR Final 11/11/16 Not Detected PARAINFLUENZA 2 PCR Final 11/11/16 Not Detected PARAINFLUENZA 3 PCR Final 11/11/16 Not Detected PARAINFLUENZA 4 PCR Final 11/11/16 Not Detected RESP SYNCYTIAL VIRUS PCR Final 11/11/16 Not Detected CHLAMDOPHILIA PNEUMONIAE PCR Final 11/11/16 Not Detected MYCOPLASMA PNEUMONIAE PCR Final 11/11/16 MYCO PNEUMONIAE PCR Not Detected Reference Interval Not Detected FIREAR[employer] ASSEMBL[employer] SUPERVISOR swab is the only specimen type cleared by the FDA. Nasal wash, tracheal aspirate, and bronchial lavage specimen types have not been cleared by the FDA. Therefore results on any specimen type other than nasopharyngeal are considered investigational testing only. X-Rays, CTs and MRIs Chest X-Ray IMPRESSION: 1. Interval improved aeration with slightly decreased pulmonary edema. 2. Persistent bilateral pleural effusions, left greater than right, with bibasilar compressive atelectasis or consolidation. Dictated by: Iftikhar Burger M.D. on 11/13/2016 at 10:14 Approved by: Iftikhar Burger M.D. on 11/13/2016 at 10:14 Retroperitoneal US IMPRESSION: 1. Markedly limited study. 2. No definite hydronephrosis, although the right kidney is poorly characterized. 3. Moderate postvoid residual. Dictated by: Selma Rangel M.D. on 11/12/2016 at 14:15 Approved by: Selma Rangel M.D. on 11/12/2016 at 14:15 Cardiac Echo Impressions Echocardiogram. Interpretation Summary There is normal left ventricular wall thickness. The ejection fraction is estimated to be 55-60%. Flattened septum is consistent with RV pressure/volume overload. The right ventricle is moderately dilated. Right ventricular systolic function is moderately reduced. Right ventricular systolic pressure is estimated to be 37 mmHg plus the clinically estimated CVP which cannot be estimated on this exam. Probably no significant interval change fron 2011 Electronically signed by: Justyn Watters on Reading Physician:11/11/2016 01:33 PM Assessment & Plan Bradley Snyder is a 75-year-old male with past medical history significant for Crohn's disease with associated blood loss anemia, ASCVD s/p CABG, hypertension , diabetes mellitus type II who presented to the emergency department complaining of shortness of breath that has been worsening over the last 8-10 days and worsening chronic lower extremity edema. 1. Acute on chronic kidney injury. - multifactorial: cardiorenal syndrome, ATN, need to r/o AIN (mesalamine induced ). - repeat UA. - increase lasix gtt to 10 mg/hr. 2. Hyperkalemia, persistent. - etiology: uncontrolled BS, insulin insufficiency, NANCY. 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 - rec to add insulin gtt and start fludrocortisone 0.1 mg daily. - normal CPK. - need to rule out ischemia bowel. 3. Acute influenza infection. 4. Hypoxemic respiratory failure. 5. Acute on chronic CHF exacerbation. 6. Diabetes mellitus type II, non-insulin oozing. 7. 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 GI Prophylaxis: Proton Pump Inhibitor VTE Prophylaxis: Sub-Q Heparin (Unfractionated) VTE Mechanical Devices: Intermittant Pneumatic CD Resuscitation Status: CPR: Attempt Resuscitation Derek Abdi MD Nov 13, 2016 15:40
[2016-11-13] MEDS ORDERED: Dextrose 5% 0.45% NaCl 1,000 ML IV PRN (16:21)
[2016-11-13] MEDS ORDERED: Insulin Human REGular Inj 100 UNIT in 0.9% Sodium Chloride-Pha MIX 100 ML IV SCH (16:21)
--- NOTE | 2016-11-13 17:19 | DRSVH ---
PROCEDURE: CT ABDOMEN AND PELVIS WITHOUT CONTRAST ([id number]) INDICATIONS: abdominal distension TECHNIQUE: Noncontrast 5 mm thick sections acquired from the diaphragms to the symphysis. 5 mm coronal and sagi ttal reformats were then performed. For radiation dose reduction, the following was used: automated exposure control, adjustment of mA and/or kV according to patient size. COMPARISON: None. FINDINGS: Image quality: Limited by patient motion ABDOMEN: Lung bases: Small bilateral pleural fluid collections are noted. Consolidation of the lung bases bila terally which could represent compressive atelectasis, aspiration or pneumonia. Visualized heart is e nlarged. Atherosclerotic calcific lesions noted in the coronary vasculature. Postsurgical changes com patible prior CABG procedure are noted. Solid organs: Liver and spleen are normal in size. Diffuse fatty infiltration of the liver is noted. Gallbladder contains a 1.4 cm in the gallbladder neck. If there is clinical concern for allergies, t hen pelvic ultrasound should be performed for further evaluation.. Pancreas is normal in contours. No adrenal nodules. Kidneys are normal in size, without hydronephrosis or nephrolithiasis. Peritoneum and bowel: Unenhanced bowel loops demonstrate normal wall thickness and caliber. Numerous diverticula are scattered throughout the colon without evidence of diverticulitis. No free air. Sma ll amount of free fluid is noted in the lower pelvis and the left lower quadrant of the abdomen. Nodes and vessels: No retroperitoneal or mesenteric adenopathy by size criteria. Aorta and inferior vena cava are normal in caliber. Miscellaneous: No ventral hernias. PELVIS: Genitourinary: Bladder is decompressed by Dhillon catheter. Postsurgical changes compatible with prior prostatectomy and pelvic edgar dissection noted. Miscellaneous: No inguinal hernias or adenopathy. Bones: No suspicious bony lesions. No vertebral body compression fractures. Degenerative disc disea se and facet arthropathy are noted in the spine. IMPRESSION: 1. Small bilateral pleural fluid collections. 2. Bibasilar lung consolidation compatible with compressive atelectasis, pneumonia or aspiration. Ple ase correlate with clinical and laboratory data. 3. Cardiomegaly. 4. Hepatic steatosis. 5. 1.4 cm gallstone in the gallbladder neck. There is clinical concern for biliary disease, abdominal ultrasound should be performed for further evaluation. 6. Small amount of ascites in the lower pelvis and the left lower quadrant of the abdomen. 7. Status post prostatectomy. 8. Colonic diverticulosis. 9. Image quality limited by patient motion. Diagnostic sensitivity of the study is limited by absence of oral and intravenous contrast. Dictated by: Aditi Garcia MD, PhD on 11/13/2016 at 17:17 Approved by: Aditi Garcia MD, PhD on 11/13/2016 at 17:17
[2016-11-13] MEDS: MeTOProlol XL 50 mg ER24 Tablet PO SCH ×2 (17:51→20:30)
[2016-11-13 19:08] LABS: INR 1.05 ratio
--- NOTE | 2016-11-13 19:26 | NUR ---
Activity/Oxygen Pt up with PT to recliner, tolerated well. Pt was able to ambulate with assistance from chair back into bed with minimal help, gait slow, but steady. While in recliner pt was weaned off of bipap onto hiflo O2 at 60L and 50% O2. Patient is maintaining O2 sats in the mid 90's.
[2016-11-13] MEDS: Furosemide Inj 100 MG in 0.9% Sodium Chloride 90 ML IVPUSH SCH (19:30)
[2016-11-13] MEDS ORDERED: Warfarin 2.5 MG, Warfarin 5 MG PO ONE ×2 (19:50)
--- NOTE | 2016-11-13 19:50 | PCM.CONPHA ---
Subjective Date of Service: Nov 13, 2016 NANCY. . Reason for Pharmacy Consult: Anticoagulation Management Objective Vital Signs Date Time Temp Pulse Resp B/P Pulse Ox O2 Delivery O2 Flow Rate FiO2 11/13/16 19:19 CPAP/BIPAP 11/13/16 16:23 84 26 93 Nasal Cannula 60 50 11/13/16 16:21 88 26 92 HFNC 50 11/13/16 16:07 36.8 83 22 168/78 92 High Flow 11/13/16 14:20 88 24 95 Nasal Cannula 60 60 11/13/16 12:27 88 23 97 60 11/13/16 11:48 36.4 97 24 169/73 95 BiPAP 60 11/13/16 08:01 CPAP/BIPAP 11/13/16 08:00 83 11/13/16 07:57 36.3 86 28 140/82 95 BiPAP 60 11/13/16 07:42 93 28 97 60 11/13/16 06:18 167/70 11/13/16 05:29 84 11/13/16 04:50 85 25 96 60 11/13/16 04:48 89 164/85 11/13/16 03:51 36.7 81 24 170/85 96 BiPAP 60 11/13/16 00:45 20 97 60 11/12/16 23:21 36.3 82 22 169/79 96 BiPAP 60 11/12/16 22:00 CPAP/BIPAP 11/12/16 21:20 37.0 76 19 133/90 96 BiPAP 60 Intake and Output 11/11/16 11/12/16 11/13/16 00:00 00:00 00:00 Intake Total 1000 ml 4608 ml 1937 ml Output Total 1050 ml 605 ml Balance 1000 ml 3558 ml 1332 ml Weight (Kilograms): 141.200 Height (Feet): 5 Height (Inches): 11.00 Test 11/10/16 17:25 11/10/16 17:50 11/10/16 17:58 11/11/16 02:44 Pro-B-Type Natriuretic Peptide 3728pg/mL (0-376) Urine Random Total Protein 316mg/dL (0-15) Urine Protein/Creatinine Ratio 3.76 Urine Color Yellow (YELLOW) Urine Appearance Clear (CLEAR,HAZY) Urine pH 5.5 (5.0-8.0) Urine Specific Horton 1.030 (1.003-1.035) Urine Protein 100mg/dL (NEG,TRACE) Urine Glucose (UA) 250mg/dL (NEGATIVE) Urine Ketones Negativemg/dL (NEGATIVE) Urine Occult Blood Small (NEGATIVE) Urine Nitrite Negative (NEGATIVE) Urine Bilirubin Negative (NEGATIVE) Urine Urobilinogen Normalmg/dL (NORMAL) Urine Leukocyte Esterase Negative (NEGATIVE) Urine RBC 0-2/hpf (0-2) Urine WBC 0-5/hpf (0-5) Urine Epithelial Cells None/hpf (NONE-MOD) Urine Crystals None seen (NONE SEEN) Urine Bacteria Few/hpf (NONE-FEW) Urine Hyaline Casts None/lpf (NONE) Urine Granular Casts None seen (NONE SEEN) Urine Waxy Casts None seen (NONE SEEN) Urine Red Blood Cell Casts None seen (NONE SEEN) Urine White Blood Cell Casts None seen (NONE SEEN) Urine Mucus None seen (None Seen) Urine Trichomonas None seen (NONE SEEN) Urine Yeast None (NONE SEEN) Urinalysis Comment Amorphous sediment Urine Culture Reflexed Not indicated Hemoglobin A1c 8.6% (4.8-5.6) Test 11/11/16 05:30 11/12/16 04:45 11/12/16 10:05 11/13/16 02:17 Urine Random Creatinine 103mg/dL (22-328) Urine Random Sodium < 10mEq/L Myelocytes % 1% (0-0) Promyelocytes % 1% (0-0) Nucleated Red Blood Cells 2/100 WBC (0-24) Phosphorus Level 5.2mg/dL (2.5-4.9) Magnesium Level 2.7mg/dL (1.6-2.6) Hold Urine Received (Received) White Blood Count 8.9th/mm3 (3.8-10.1) Red Blood Count 3.43mil/mm3 (4.40-5.80) Hemoglobin 9.9g/dL (13.8-17.2) Hematocrit 33.5% (41.0-50.0) Mean Corpuscular Volume 97.7fL (81-100) Mean Corpuscular Hemoglobin 28.9pg (27.0-35.0) Mean Corpuscular Hemoglobin Concent 29.6% (32.0-37.0) Red Cell Distribution Width 15.2% (12.3-15.4) Platelet Count 279bil/L (150-400) Neutrophils (%) (Auto) 94% (40-74) Lymphocytes (%) (Auto) 2% (14-46) Monocytes (%) (Auto) 2% (4-12) Eosinophils (%) (Auto) 0% (0-5) Basophils (%) (Auto) 0% (0-3) Band Neutrophils % 0% (1-5) Metamyelocytes % 2% (0-0) Total Bilirubin 0.3mg/dL (0.0-1.2) Aspartate Amino Transf (AST/SGOT) 73U/L (0-50) Alanine Aminotransferase (ALT/SGPT) 98U/L (0-44) Alkaline Phosphatase 129U/L (25-160) Total Protein 6.4g/dL (6.4-8.4) Albumin 3.2g/dL (3.4-5.0) Test 11/13/16 02:47 11/13/16 10:00 11/13/16 11:30 11/13/16 14:45 Total Creatine Kinase 100U/L (21-232) Troponin T 0.020ug/L (0.0-0.011) Sodium Level 134mEq/L (134-144) Potassium Level 6.6mEq/L (3.5-5.2) Chloride Level 95mEq/L (97-108) Carbon Dioxide Level 23mmol/L (18-29) Blood Urea Nitrogen 87mg/dL (8-27) Creatinine 2.19mg/dL (0.76-1.27) Estimat Glomerular Filtration Rate 31mL/min (>59) Glucose Level 342mg/dL (60-99) Calcium Level 8.1mg/dL (8.5-10.1) Test 11/13/16 16:25 11/13/16 18:38 Lactic Acid Level 1.7mmol/L (0.4-2.0) Procalcitonin 0.28ng/mL (See Comment) Prothrombin Time 11.2sec (8.1-12.5) Prothromb Time International Ratio 1.05ratio Assessment/Plan Assessment/Plan Warfarin per Rx A-Fib (presented on admission) INR Goal 2-3, INR today 1.05 Pt on azithromycin; loaded with 7.5mg tonight LAURA score of 4 Michael Horta PharmD Nov 13, 2016 19:50
[2016-11-13] MEDS ORDERED: 0.9% Sodium Chloride 250 ML ONE ×2 (20:15→23:37)
[2016-11-13] MEDS: AZITHROMYCIN IV SCH ×2 (20:25)
[2016-11-13] MEDS: DEXTROSE IV SCH ×2 (20:25)
[2016-11-13] MEDS ORDERED: Insulin GLARgine 100 Unit/mL Syringe SUBQ SCH (21:00)
--- NOTE | 2016-11-13 23:22 | NUR ---
Insulin drip Insulin drip started just prior to shift change for potassium control. tolerating well, BG check for adjustment per protocol. At 2034 K level now 5.1; pt requested that insulin drip be stopped. Md consulted with who agreed to hold insulin unless 229 lab indicates continuing need. Post insulin stop BG at 185. Pt also refused metoprolol, see record for vital signs. Pt states that he does not want management of illnesses other than pneumonia and flu of admission; Md aware and will continue to follow. Hourly rounding ongoing.
[2016-11-14] VITALS (16 sets, daily range): BP systolic 141–172; BP diastolic 66–99; PULSE 67–90; RESP 20–35; O2SAT 91–94
[2016-11-14] MEDS: Albuterol-Ipratropium 3 mL Inhalation Solution NEB SCH ×6 (00:39→19:29)
[2016-11-14] MEDS: MethylprednisoLONE Sodium Succinate 40 mg/mL Inj IVPUSH SCH ×3 (01:40→17:00)
[2016-11-14] MEDS: Sodium Chloride LOK Flush 10 mL Syringe IVFLUSH SCH ×3 (01:40→17:00)
[2016-11-14] MEDS: Heparin 5,000 Unit/mL Inj SUBQ SCH ×3 (01:40→16:30)
[2016-11-14] MEDS: Furosemide Inj 100 MG in 0.9% Sodium Chloride 90 ML IVPUSH SCH (01:57)
[2016-11-14 03:31] LABS: Mean Corpuscular Hemoglobin 28.9 pg (27.0-35.0); Mean Corpuscular Volume 96.5 fL (81-100); Platelet Count 287 bil/L (150-400)
[2016-11-14 03:38] LABS: INR 1.09 ratio
[2016-11-14 04:18] LABS: EOSINOPHILS % (AUTO) 0 % (0-5); MONOCYTES % (AUTO) 1 % (4-12); NEUTROPHILS % (AUTO) 83 % (40-74)
[2016-11-14 04:19] LABS: BASOPHILS % (AUTO) 0 % (0-3)
[2016-11-14 06:28] LABS: APPEARANCE,URINE CLEAR (CLEAR,HAZY); COLOR,URINE YELLOW (YELLOW); OCCULT BLOOD,URINE LARGE (NEGATIVE); UROBILINOGEN,URINE NORMAL (NORMAL)
[2016-11-14] MEDS: Mesalamine 500 mg CR Capsule PO SCH ×4 (06:30→20:38)
[2016-11-14] MEDS ORDERED: Insulin Human REGular Inj 100 UNIT in 0.9% Sodium Chloride-Pha MIX 100 ML IV SCH (06:30)
[2016-11-14] MEDS ORDERED: 0.9% Sodium Chloride 250 ML ONE (06:32)
[2016-11-14] MEDS: Pantoprazole 40 mg ER24 Tablet PO SCH (07:30)
[2016-11-14] MEDS: MeTOProlol XL 50 mg ER24 Tablet PO SCH ×2 (08:30→20:38)
[2016-11-14] MEDS: cefTRIAXone Inj 2,000 MG in IV Premix 1 EACH IV SCH (09:00)
[2016-11-14] MEDS: LORazepam 1 mg Tablet PO PRN (09:38)
--- NOTE | 2016-11-14 12:26 | PCM.PHAPRO ---
Progress NANCY. . WARFARIN DOSING PER PHARMACY A-Fib (presented on admission) LAURA score of 4 INR Goal 2-3, INR today 1.09 Additional Anticoag: Heparin DI: azithromycin Plan - Will give one time dose of warfarin 7.5 mg PO tonight - Pharmacy will monitor CBC/INR/signs and symptoms of bleeding Mindy Gutierrez PharmD Nov 14, 2016 12:26
--- NOTE | 2016-11-14 13:54 | PCM.PNMED ---
Subjective Date of Service Nov 14, 2016 Subjective now on high flow NC FiO2 60%. good UOP with lasix gtt. Persistent hyperkalemia, somewhat better. Exam Vital Signs Vital Sign - Last Date Time Temp Pulse Resp B/P Pulse Ox O2 Delivery O2 Flow Rate FiO2 11/14/16 11:55 76 22 92 Nasal Cannula 60 50 11/14/16 04:29 36.5 160/75 Intake and Output 11/13/16 11/13/16 11/14/16 Cumulative From/Thru 15:00 23:00 07:00 11/10/16 16:55 - 11/14/16 06:37 Intake Total 412 ml 475 ml 784 ml 9616 ml Output Total 900 ml 1000 ml 4105 ml Balance 412 ml -425 ml -216 ml 5511 ml Intake Oral 300 ml 400 ml 4000 ml IV Total 412 ml 175 ml 384 ml 5616 ml Output Urine Total 900 ml 1000 ml 4105 ml # Voids 4 Exam General: Alert, Oriented X3, Cooperative, moderate Distress, Obese, on BiPAP. Head: Normocephalic, atraumatic. External ears normal. Eyes: PERRLA, EOMI. Anicteric sclerae. Mouth: Mouth Normal, Mucous Membranes Moist/[place] Neck: Neck supple with full range of motion. No lymphadenopathy Chest & Lungs: Use of accessory breathing muscles, fine crackle at bases. Cardiovascular: Regular Rate/Rhythm, Normal S1, Normal S2, No Murmurs/Rubs/ Gallops, no JVD Abdomen: Non-tender, distended, No masses, Normoactive bowel tones, Soft Musculoskeletal: Normal Range of Motion Extremities: 2+ edema on LE. Lab and Diagnostics Result Diagram: 11/14/16 0240 11/14/16 0834 Microbiology Name: BRADLEY SNYDER Age/Sex: 75/M Attend Dr: Talia Hurst MD Acct: [id number] Unit: [id number] Status: ADM IN Location: [facility] 3018-1 Re11/10/16 Disch: Specimen: [id number] Collected: 11/11/16 Status: STU [place]#: [id number] Received: 11/11/16 Source: NSP Sp Desc : Subm Dr: Marium Hurst MD Ordered: RVP Comments: Collected by Nurse/Unit? Y/N Y Procedure Result Verified Site Microbiology ADENOVIRUS RESPIRATORY PCR Final 11/11/16-657 Not Detected CORONOVIRUS 229E Final 11/11/16 Not Detected CORONOVIRUS HKU1 Final 11/11/16 Not Detected CORONOVIRUS NL63 Final 11/11/16 Not Detected CORONOVIRUS OC43 Final 11/11/16 Not Detected INFLUENZA A PCR Final 11/11/16 Organism 1 INFLUENZA A H3 INFLUENZA A PCR DETECTED TIME CALLED: 655 DATE CALLED: 11/11/16 FLOOR/DOCTOR: JEAN-CLAUDE/CHIARA Combs. CALLED BY: MADHAVI The performance of the film array RVP has not been established in individuals who have received the influenza vaccine. Recent administration of a nasal influenza vaccine may cause false positive results for Influenza A and/or Influenza B. INFLUENZA B PCR Final 11/11/16-657 Not Detected METAPNEUMOVIRUS PCR Final 11/11/16 Not Detected CONTINUED ON NEXT PAGE RUN DATE: 11/11/16 Located within [facility] LIVE PAGE 2 RUN TIME: 657 Specimen Inquiry PHYSICIAN Patient: RBADLEY SNYDER [id number] (Continued) Specimen: [id number] Collected: 11/11/16 Received: 11/11/16 (Continued) Procedure Result Verified Site RHINOVIRUS OR ENTEROVIRUS PCR Final 11/11/16 Not Detected Microbiology (Continued) PARAINFLUENZA 1 PCR Final 11/11/16 Not Detected PARAINFLUENZA 2 PCR Final 11/11/16 Not Detected PARAINFLUENZA 3 PCR Final 11/11/16 Not Detected PARAINFLUENZA 4 PCR Final 11/11/16 Not Detected RESP SYNCYTIAL VIRUS PCR Final 11/11/16 Not Detected CHLAMDOPHILIA PNEUMONIAE PCR Final 11/11/16 Not Detected MYCOPLASMA PNEUMONIAE PCR Final 11/11/16 MYCO PNEUMONIAE PCR Not Detected Reference Interval Not Detected FURNITURE SALESPERSON swab is the only specimen type cleared by the FDA. Nasal wash, tracheal aspirate, and bronchial lavage specimen types have not been cleared by the FDA. Therefore results on any specimen type other than nasopharyngeal are considered investigational testing only. X-Rays, CTs and MRIs Chest X-Ray IMPRESSION: 1. Interval improved aeration with slightly decreased pulmonary edema. 2. Persistent bilateral pleural effusions, left greater than right, with bibasilar compressive atelectasis or consolidation. Dictated by: Iftikhar Burger M.D. on 11/13/2016 at 10:14 Approved by: Iftikhar Burger M.D. on 11/13/2016 at 10:14 Retroperitoneal US IMPRESSION: 1. Markedly limited study. 2. No definite hydronephrosis, although the right kidney is poorly characterized. 3. Moderate postvoid residual. Dictated by: Selma Rangel M.D. on 11/12/2016 at 14:15 Approved by: Selma Rangel M.D. on 11/12/2016 at 14:15 CT abdomen and pelvis IMPRESSION: 1. Small bilateral pleural fluid collections. 2. Bibasilar lung consolidation compatible with compressive atelectasis, pneumonia or aspiration. Please correlate with clinical and laboratory data. 3. Cardiomegaly. 4. Hepatic steatosis. 5. 1.4 cm gallstone in the gallbladder neck. There is clinical concern for biliary disease, abdominal ultrasound should be performed for further evaluation. 6. Small amount of ascites in the lower pelvis and the left lower quadrant of the abdomen. 7. Status post prostatectomy. 8. Colonic diverticulosis. 9. Image quality limited by patient motion. Diagnostic sensitivity of the study is limited by absence of oral and intravenous contrast. Dictated by: Aditi Garcia MD, PhD on 11/13/2016 at 17:17 Approved by: Aditi Garcia MD, PhD on 11/13/2016 at 17:17 Cardiac Echo Impressions Echocardiogram. Interpretation Summary There is normal left ventricular wall thickness. The ejection fraction is estimated to be 55-60%. Flattened septum is consistent with RV pressure/volume overload. The right ventricle is moderately dilated. Right ventricular systolic function is moderately reduced. Right ventricular systolic pressure is estimated to be 37 mmHg plus the clinically estimated CVP which cannot be estimated on this exam. Probably no significant interval change fron 2011 Electronically signed by: Justyn Watters on Reading Physician:11/11/2016 01:33 PM Additional Diagnostics US VENOUS LEG DUPLEX BILATERAL IMPRESSION: 1. No definite evidence of deep vein thrombosis in the right or left lower extremity with evaluation limited on the left as described secondary to body habitus. Dictated by: Iftikhar Burger M.D. on 11/13/2016 at 11:42 Approved by: Iftikhar Burger M.D. on 11/13/2016 at 11:42 Assessment & Plan Bradley Snyder is a 75-year-old male with past medical history significant for Crohn's disease with associated blood loss anemia, ASCVD s/p CABG, hypertension , diabetes mellitus type II who presented to the emergency department complaining of shortness of breath that has been worsening over the last 8-10 days and worsening chronic lower extremity edema. 1. Acute on chronic kidney injury. - multifactorial: cardiorenal syndrome, ATN, need to r/o AIN (mesalamine induced ). - worsening BUN/cr ratio secondary to steroids vs overdiuresis. - d/c lasix gtt and switch to IV lasix 60 q 12 hr. 2. Hyperkalemia, persistent. - etiology: uncontrolled BS, insulin insufficiency, NANCY. 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 (hyperaldosteronism typically leads to hypokalemia and hypertension) - rec to continue on insulin gtt and fludrocortisone 0.1 mg daily. - add kayexalate 30 gm BID. 3. Acute influenza infection. 4. Hypoxemic respiratory failure. 5. Acute on chronic CHF exacerbation. 6. Diabetes mellitus type II, non-insulin oozing. 7. 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 GI Prophylaxis: Proton Pump Inhibitor VTE Prophylaxis: Sub-Q Heparin (Unfractionated) VTE Mechanical Devices: Intermittant Pneumatic CD Resuscitation Status: CPR: Attempt Resuscitation Derek Abdi MD Nov 14, 2016 13:54
[2016-11-14] MEDS ORDERED: Calcium GLUCO 10% (Gm) 1 Gm/10 mL 50 mL Inj IV ONE (14:30)
[2016-11-14] MEDS ORDERED: Calcium GLUCOnate 10% 1 Gm/50 mL NS IV ONE ×2 (14:40)
[2016-11-14] MEDS ORDERED: Warfarin 5 MG, Warfarin 2.5 MG PO ONE ×2 (17:00)
--- NOTE | 2016-11-14 17:21 | NUR ---
Social Work:IMM Patient gave verbal consent to sign IMM
--- NOTE | 2016-11-14 17:50 | PCM.PNMED ---
Subjective Date of Service Nov 14, 2016 Subjective 75-year-old male with one-week history of shortness of breath, associated not very productive cough, initially treated with azithromycin and prednisone and oxygen from PCP but has ongoing symptoms, admitted for treatment of CAP pneumonia and new onset NANCY. Today patient stated that he is doing better, breathing easier, he wants to eat as soon as possible. Patient stated that he still has not had a bowel movement. Patient denies fever, chills, nausea, vomiting. Patient refusing Coumadin. Discussed patient's progress with his , she stated that patient seemed to be more confused today and stated that he was hallucinating. ROS negative except as mentioned above. Exam Vital Signs Vital Sign - Last Date Time Temp Pulse Resp B/P Pulse Ox O2 Delivery O2 Flow Rate FiO2 11/14/16 05:32 77 11/14/16 05:09 24 92 HFNC 50 11/14/16 05:09 60 11/14/16 04:29 36.5 160/75 Intake and Output 11/13/16 11/13/16 11/14/16 Cumulative From/Thru 15:00 23:00 07:00 11/10/16 16:55 - 11/14/16 06:37 Intake Total 412 ml 475 ml 784 ml 9616 ml Output Total 900 ml 1000 ml 4105 ml Balance 412 ml -425 ml -216 ml 5511 ml Intake Oral 300 ml 400 ml 4000 ml IV Total 412 ml 175 ml 384 ml 5616 ml Output Urine Total 900 ml 1000 ml 4105 ml # Voids 4 Exam General: Alert, Oriented X3, Cooperative, moderate Distress, Obese Head: Normocephalic, atraumatic. External ears normal. Eyes: PERRLA, EOMI. Anicteric sclerae. Mouth: Mouth Normal, Mucous Membranes Moist/[place] Neck: Neck supple with full range of motion. No lymphadenopathy Chest & Lungs: HF NC, equal chest rise and fall, Diminished breath sounds at bases, Bilateral wheezes, hear in all lung worrell, no crackles, rhonchi. Cardiovascular: Regular Rate/Rhythm, Normal S1, Normal S2, No Murmurs/Rubs/ Gallops, no JVD Abdomen: Non-tender, distended, No masses, Normoactive bowel tones, Soft Musculoskeletal: Normal Range of Motion Extremities: No cyanosis/clubbing/edema bilaterally, pain to palpation of calve muscles b/l Neurological: Grossly Neurologically Intact, Normal Speech, Sensation Intact, : uncircumcised penis, two testicles palpated non tender, moderate scrotal and penile edema, meatus patent without discharge IVs and Medications Medications Reviewed: Medications were reviewed in detail Lab and Diagnostics Result Diagram: 11/14/1623911/14/16239 Microbiology Name: GIACOMO SNYDER Age/Sex: 75/M Attend Dr: Talia Hurst MD Acct: [id number] Unit: [id number] Status: ADM IN [place] [facility] [place] 3018-1 Re11/10/16 Disch: Specimen: [id number] Collected: 11/11/16 Status: COMP Req#: [id number] Received: 11/11/16 Source: LYLE Sp Desc : Subm Dr: Marium Hurst MD Ordered: RVP Comments: Collected by Nurse/Unit? Y/N Y Procedure Result Verified Site Microbiology ADENOVIRUS RESPIRATORY PCR Final 11/11/16-657 Not Detected CORONOVIRUS 229E Final 11/11/16-657 Not Detected CORONOVIRUS HKU1 Final 11/11/16 Not Detected CORONOVIRUS NL63 Final 11/11/16 Not Detected CORONOVIRUS OC43 Final 11/11/16 Not Detected INFLUENZA A PCR Final 11/11/16 Organism 1 INFLUENZA A H3 INFLUENZA A PCR DETECTED TIME CALLED: 655 DATE CALLED: 11/11/16 FLOOR/DOCTOR: JEAN-CLAUDE/CHIARA Combs. CALLED BY: MADHAVI The performance of the film array RVP has not been established in individuals who have received the influenza vaccine. Recent administration of a nasal influenza vaccine may cause false positive results for Influenza A and/or Influenza B. INFLUENZA B PCR Final 11/11/16 Not Detected METAPNEUMOVIRUS PCR Final 11/11/16 Not Detected CONTINUED ON NEXT PAGE RUN DATE: 11/11/16 [facility] LIVE PAGE 2 RUN TIME: 657 Specimen Inquiry PHYSICIAN Patient: GIACOMO SNYDER [id number] (Continued) Specimen: [id number] Collected: 11/11/16 Received: 11/11/16 (Continued) Procedure Result Verified Site RHINOVIRUS OR ENTEROVIRUS PCR Final 11/11/16 Not Detected Microbiology (Continued) PARAINFLUENZA 1 PCR Final 11/11/16 Not Detected PARAINFLUENZA 2 PCR Final 11/11/16 Not Detected PARAINFLUENZA 3 PCR Final 11/11/16 Not Detected PARAINFLUENZA 4 PCR Final 11/11/16 Not Detected RESP SYNCYTIAL VIRUS PCR Final 11/11/16 Not Detected CHLAMDOPHILIA PNEUMONIAE PCR Final 11/11/16 Not Detected MYCOPLASMA PNEUMONIAE PCR Final 11/11/16 MYCO PNEUMONIAE PCR Not Detected Reference Interval Not Detected AGILE TESTER swab is the only specimen type cleared by the FDA. Nasal wash, tracheal aspirate, and bronchial lavage specimen types have not been cleared by the FDA. Therefore results on any specimen type other than nasopharyngeal are considered investigational testing only. X-Rays, CTs and MRIs Chest X-Ray IMPRESSION: 1. Interval improved aeration with slightly decreased pulmonary edema. 2. Persistent bilateral pleural effusions, left greater than right, with bibasilar compressive atelectasis or consolidation. Dictated by: Iftikhar Burger M.D. on 11/13/2016 at 10:14 Approved by: Iftikhar Burger M.D. on 11/13/2016 at 10:14 Retroperitoneal US IMPRESSION: 1. Markedly limited study. 2. No definite hydronephrosis, although the right kidney is poorly characterized. 3. Moderate postvoid residual. Dictated by: Selma Rangel M.D. on 11/12/2016 at 14:15 Approved by: Selma Rangel M.D. on 11/12/2016 at 14:15 CT abdomen and pelvis IMPRESSION: 1. Small bilateral pleural fluid collections. 2. Bibasilar lung consolidation compatible with compressive atelectasis, pneumonia or aspiration. Please correlate with clinical and laboratory data. 3. Cardiomegaly. 4. Hepatic steatosis. 5. 1.4 cm gallstone in the gallbladder neck. There is clinical concern for biliary disease, abdominal ultrasound should be performed for further evaluation. 6. Small amount of ascites in the lower pelvis and the left lower quadrant of the abdomen. 7. Status post prostatectomy. 8. Colonic diverticulosis. 9. Image quality limited by patient motion. Diagnostic sensitivity of the study is limited by absence of oral and intravenous contrast. Dictated by: Aditi Garcia MD, PhD on 11/13/2016 at 17:17 Approved by: Aditi Garcia MD, PhD on 11/13/2016 at 17:17 Cardiac Echo Impressions Echocardiogram. Interpretation Summary There is normal left ventricular wall thickness. The ejection fraction is estimated to be 55-60%. Flattened septum is consistent with RV pressure/volume overload. The right ventricle is moderately dilated. Right ventricular systolic function is moderately reduced. Right ventricular systolic pressure is estimated to be 37 mmHg plus the clinically estimated CVP which cannot be estimated on this exam. Probably no significant interval change fron 2011 Electronically signed by: Justyn aWtters on Reading Physician:11/11/2016 01:33 PM Additional Diagnostics US VENOUS LEG DUPLEX BILATERAL IMPRESSION: 1. No definite evidence of deep vein thrombosis in the right or left lower extremity with evaluation limited on the left as described secondary to body habitus. Dictated by: Iftikhar Burger M.D. on 11/13/2016 at 11:42 Approved by: Iftikhar Burger M.D. on 11/13/2016 at 11:42 Assessment & Plan 75-year-old male with one-week history of shortness of breath, associated not very productive cough, initially treated with azithromycin and prednisone and oxygen from PCP but has ongoing symptoms, admitted for treatment of CAP pneumonia and new onset NANCY. 1.Bibasilar Pneumonia with secondary secondary Hypoxia, present on admission, active - Influenza A +, CURB65: 2 - Bibasilar pneumonia present on CXR, partially treated w/ outpatient treatment , and evaluating for CHF that may be contributing to hypoxia - Rocephin and azithromycin started 11/12/16 - DuoNeb's, PRN Q4 - U/S Doppler legs, Negative for DVT limited - Start 6 L O2 HF NC 50 % titrate per RT, patient base line saturation 90-93, CPAP PRN if desat below 90 - Procalcitonin 0.45 11/13/16 - Lactic Acid 1.5 11/13/16 2.NANCY, present on admission, improving - Elevation of Creatine Today 2.26, secondary to NANCY, overdiuresis, cardiorenal syndrom - bladder scan 11/12/16 showed residual 75-100 ml retained urine, likely contribution of post renal obstruction - Continue to hold metformin/lisinopril - D/C IV fluids, monitor fluid status with elevated BNP and diastolic dysfunction noted in prior echo - albuterol IV fluids glucose/insulin, start kayexlate/lactulose after improved oxygenation w/ activity - Retroperitoneal U/S showed moderate post residual void - Continue Dhillon cath, urine output improved - DC Lasix Drip -Nephrology consulted we appreciate their input on this case 3. Hyperkalemia, present on admission, active - Remain elevated today 5.7 11/14/16, Consider differential NANCY, Chronically elevated K 5.3-6.0 per outpatient records, Hypoaldosteronism, RTA Type IV, ischemic bowel - Continue Insulin drip per protocol for elevated BG - EKG showed presence of atrial fibrillation and RBB, no peaked t-waves seen, RBB old per outpatient records, - Repeat EKG PRN - CPK normal - Random Cortisol, 17.1 - Rennin/Aldosterone, pending - Urine aldosterone, pending - CT abdomen and Pelvis negative for bowel ischemia - fludrocortisone 0.1 mg daily. - Start kayexalate 30 gm BID. 4. Hyperglycemia non-DKA, acute on chronic, present on admission, active - DC high dose insulin protocol - DC lantus HS - Continue Insulin drip per protocol with goal of BG <180 5. A-Fib rate controlled, present on admission, active - Patient refusing Coumadin - Monitor INR daily 6. Acute exacerbation of CHF, present on admission, active - Elevated troponin likely due acute on chronic HF, trop trending down 0.02 11/13 - ECHO showed diastolic heart failure EF of 55-60%. - Increase Lasix drip 10 mls/hr per nephrology- - EKG at admission showed presence of atrial fibrillation and RBB, no peaked t- waves seen, RBB old per outpatient records, 7.Hypocalcemia, present on admission, active - Calcium7.9 11/14/16 - calcium gluconate 1 gm given 1x 11/14/16 - continue to monitor - Patient will need to follow up with Anticoagulation clinic post discharge Chronic issues known prior to admission, present on admission: 9. microcytic anemia iron deficiency. monitor 10. erosive esophagitis, gastric antral ulceration, Crohn disease, PPI/R6chxeiaq , mesalamine, anticipate humira resumption after this admission -Continue Protonix 40 mg Daily 11. Moderate MR/CABG 2011 three-vessel/Dyslipidemia/hypertension/PVCs 12. COPD/pneumonia/GERARDO, CPAP 13. UTI/prostatectomy for prostate cancer/incontinence, monitor, 14. Alkylosing spondylosis /arthritis/back injury/gout, Continue allopurino/ vicodin 15. Diabetes, SSI See above 16. Anxiety, Ativan PRN Diet cardiac/diabetic DVT prophylaxis heparin Code limited, intubate Disposition: Likely stay >2 nights to treat pneumonia and respiratory distress, atrial fibrillation starting anticoagulation Assessment and plan were discussed with patient and his at bedside. They agree with the above plan GI Prophylaxis: Proton Pump Inhibitor VTE Prophylaxis: Sub-Q Heparin (Unfractionated) VTE Mechanical Devices: Intermittant Pneumatic CD Resuscitation Status: CPR: Attempt Resuscitation Attending Statement The patient was seen and examined together with Dr. Jackson on 11/14/2016 and I agree with the history, exam and plan as outlined in the note above. . JAKE JACKSON DO Nov 14, 2016 06:51 Barrett Gilbert MD Nov 15, 2016 07:53
--- NOTE | 2016-11-14 18:20 | DRSVH ---
PROCEDURE: US ABDOMEN, LIMITED ([id number]) INDICATIONS: RUQ scan, Gallstone on CT TECHNIQUE: Real-time focused scanning was performed of the right upper quadrant, with image documentation. COMPARISON: [facility], CT, CT ABD PELVIS WO CON, 11/13/2016, 12:15. FINDINGS: Evaluation was markedly limited by body habitus and bowel gas. The gallbladder was not well-visualiz ed. The visualized gallbladder wall appears normal in thickness. The gallstone seen on CT is not di scretely visualized. IMPRESSION: 1. Markedly limited study due to body habitus and bowel gas demonstrates no definite gallbladder wal l thickening. However, the study is nondiagnostic for possible cholecystitis. Dictated by: Iftikhar Burger M.D. on 11/14/2016 at 18:18 Approved by: Iftikhar Burger M.D. on 11/14/2016 at 18:18
--- NOTE | 2016-11-14 19:00 | NUR ---
Insulin Gtt/Resp/Activity Insulin gtt now up to Algorithm #4, @ 11 units/hr for BG 264. High Flow O2 @ 60Liters/50% Fio2, resps 26-35. Dyspneic even at rest. aware. Assisted to bedside recliner by 3 person assist; pt clearly exhausted by effort though position did improve sats from 90% to 94%. Requiring 4 person assist to return pt to bed.
[2016-11-14] MEDS: Furosemide 10 mg/mL 10 mL Inj IVPUSH SCH (20:28)
[2016-11-14] MEDS: AZITHROMYCIN IV SCH ×2 (20:30)
[2016-11-14] MEDS: DEXTROSE IV SCH ×2 (20:30)
[2016-11-15] VITALS (15 sets, daily range): BP systolic 138–183; BP diastolic 64–95; PULSE 60–76; RESP 18–25; O2SAT 91–96
[2016-11-15] MEDS: Albuterol-Ipratropium 3 mL Inhalation Solution NEB SCH ×6 (00:07→21:00)
[2016-11-15] MEDS: MethylprednisoLONE Sodium Succinate 40 mg/mL Inj IVPUSH SCH ×3 (00:49→16:24)
[2016-11-15] MEDS: Heparin 5,000 Unit/mL Inj SUBQ SCH ×3 (00:49→16:23)
[2016-11-15] MEDS: Sodium Chloride LOK Flush 10 mL Syringe IVFLUSH SCH ×3 (00:51→16:23)
[2016-11-15 05:58] LABS: EOSINOPHILS % (AUTO) 0 % (0-5); Mean Corpuscular Volume 96.8 fL (81-100); Platelet Count 262 bil/L (150-400)
[2016-11-15 06:07] LABS: INR 1.1 ratio
--- NOTE | 2016-11-15 06:07 | NUR ---
Respirations bowl movements and insulin. Patient reported that he feeling like he is getting enough oxygen. Patient appears to be in no respiratory distress. O2 saturations ranging between 92-94%. Patient remains on high flow oxygen at 60 LPM and 50% O2. Patient lungs are course throughout and intermittent crackles are noticed. Patient has had several large bowel movement this evening. Patient is receiving lactulose for an elevate potassium level. Patient remains on the non-dka insulin protocol using algorithm 3. Patient is tolerated the protocol well.
[2016-11-15 06:12] LABS: Magnesium 2.5 mg/dL (1.6-2.6); Phosphorus 5.7 mg/dL (2.5-4.9)
[2016-11-15] MEDS: Mesalamine 500 mg CR Capsule PO SCH ×4 (06:30→20:54)
[2016-11-15] MEDS: Furosemide 10 mg/mL 10 mL Inj IVPUSH SCH ×2 (06:34→17:52)
[2016-11-15 07:05] LABS: BASOPHILS % (AUTO) 0 % (0-3); MONOCYTES % (AUTO) 5 % (4-12); NEUTROPHILS % (AUTO) 81 % (40-74)
[2016-11-15] MEDS ORDERED: 0.9% Sodium Chloride 250 ML ONE (08:30)
[2016-11-15] MEDS: cefTRIAXone Inj 2,000 MG in IV Premix 1 EACH IV SCH (08:35)
[2016-11-15] MEDS: Pantoprazole 40 mg ER24 Tablet PO SCH (08:36)
[2016-11-15] MEDS: MeTOProlol XL 50 mg ER24 Tablet PO SCH ×2 (08:36→20:53)
--- NOTE | 2016-11-15 09:34 | DRSVH ---
PROCEDURE: X-RAY CHEST ONE VIEW, PORTABLE ([id number]) INDICATIONS: SOB TECHNIQUE: One view of the chest was acquired. COMPARISON: [facility], CR, XR CHEST 1VW (PORTABLE), 11/13/2016, 4:58. [facility], CR, XR CHEST 1VW (PORTABLE), 11/12/2016, 11:21. FINDINGS: Surgical changes and devices: Sternotomy wires, presumed prior CABG. Lungs and pleura: No pleural effusions or pneumothorax. Lungs are difficult to accurately assess du e to large body habitus and reduced inspiratory volume, but bibasilar alveolar infiltration appears l ittle changed from 2 days ago. Mediastinum: Mediastinal contours appear normal. Heart size is normal. Bones and chest wall: No suspicious bony lesions. Overlying soft tissues appear unremarkable. IMPRESSION: Bibasilar alveolar infiltration stable over time, left greater than right. Prior CABG. Continued reduced inspiratory volume. Limited study due to reduced inspiration and large body habitu s. Dictated by: Jamel Mccabe M.D. on 11/15/2016 at 9:32 Approved by: Jamel Mccabe M.D. on 11/15/2016 at 9:32
[2016-11-15] MEDS ORDERED: Glucose 40% Oral Gel 15 Gm Tube PO PRN (13:10)
--- NOTE | 2016-11-15 15:02 | PCM.PNMED ---
Subjective Date of Service Nov 15, 2016 Subjective feeling better, on high flow NC. K came down to 5.2. BS controlled. Exam Vital Signs Vital Sign - Last Date Time Temp Pulse Resp B/P Pulse Ox O2 Delivery O2 Flow Rate FiO2 11/15/16 12:20 69 18 91 HFNC 50 11/15/16 12:20 55 11/15/16 12:00 37.0 156/78 Intake and Output 11/14/16 11/14/16 11/15/16 Cumulative From/Thru 15:00 23:00 07:00 11/10/16 16:55 - 11/15/16 06:40 Intake Total 2270 ml 1195 ml 88524 ml Output Total 2400 ml 1750 ml 8255 ml Balance -130 ml -555 ml 4826 ml Intake Oral 250 ml 675 ml 4925 ml IV Total 2020 ml 520 ml 8156 ml Output Urine Total 2400 ml 1750 ml 8255 ml # Voids 4 # Bowel Movements 0 0 Exam General: Alert, Oriented X3, Cooperative, moderate Distress, Obese, on high flow NC. Head: Normocephalic, atraumatic. External ears normal. Eyes: PERRLA, EOMI. Anicteric sclerae. Mouth: Mouth Normal, Mucous Membranes Moist/[place] Neck: Neck supple with full range of motion. No lymphadenopathy Chest & Lungs: Use of accessory breathing muscles, fine crackle at bases. Cardiovascular: Regular Rate/Rhythm, Normal S1, Normal S2, No Murmurs/Rubs/ Gallops, no JVD Abdomen: Non-tender, distended, No masses, Normoactive bowel tones, Soft Musculoskeletal: Normal Range of Motion Extremities: 2+ edema on LE. Lab and Diagnostics Result Diagram: 11/15/1650911/15/16509 Microbiology Name: BRADLEY SNYDER Age/Sex: 75/M Attend Dr: Talia Hurst MD Acct: [id number] Unit: [id number] Status: ADM IN Location: [facility] – [place] 3018-1 Re11/10/16 Disch: Specimen: [id number] Collected: 11/11/16 Status: STU [place]#: [id number] Received: 11/11/16 Source: LYLE Sp Desc : Subm Dr: Marium Hurst MD Ordered: RVP Comments: Collected by Nurse/Unit? Y/N Y Procedure Result Verified Site Microbiology ADENOVIRUS RESPIRATORY PCR Final 11/11/16-657 Not Detected CORONOVIRUS 229E Final 11/11/16-657 Not Detected CORONOVIRUS HKU1 Final 11/11/16 Not Detected CORONOVIRUS NL63 Final 11/11/16 Not Detected CORONOVIRUS OC43 Final 11/11/16 Not Detected INFLUENZA A PCR Final 11/11/16 Organism 1 INFLUENZA A H3 INFLUENZA A PCR DETECTED TIME CALLED: 655 DATE CALLED: 11/11/16 FLOOR/DOCTOR: JEAN-CLAUDE/CHIARA Combs. CALLED BY: MADHAVI The performance of the film array RVP has not been established in individuals who have received the influenza vaccine. Recent administration of a nasal influenza vaccine may cause false positive results for Influenza A and/or Influenza B. INFLUENZA B PCR Final 11/11/16 Not Detected METAPNEUMOVIRUS PCR Final 11/11/16 Not Detected CONTINUED ON NEXT PAGE RUN DATE: 11/11/16 [facility] LIVE PAGE 2 RUN TIME: 657 Specimen Inquiry PHYSICIAN Patient: CLAUDIOBRADLEY [id number] (Continued) Specimen: [id number] Collected: 11/11/16 Received: 11/11/16 (Continued) Procedure Result Verified Site RHINOVIRUS OR ENTEROVIRUS PCR Final 11/11/16-657 Not Detected Microbiology (Continued) PARAINFLUENZA 1 PCR Final 11/11/16 Not Detected PARAINFLUENZA 2 PCR Final 11/11/16 Not Detected PARAINFLUENZA 3 PCR Final 11/11/16 Not Detected PARAINFLUENZA 4 PCR Final 11/11/16 Not Detected RESP SYNCYTIAL VIRUS PCR Final 11/11/16 Not Detected CHLAMDOPHILIA PNEUMONIAE PCR Final 11/11/16 Not Detected MYCOPLASMA PNEUMONIAE PCR Final 11/11/16 MYCO PNEUMONIAE PCR Not Detected Reference Interval Not Detected FIXED ASSETS ACCOUNTANT swab is the only specimen type cleared by the FDA. Nasal wash, tracheal aspirate, and bronchial lavage specimen types have not been cleared by the FDA. Therefore results on any specimen type other than nasopharyngeal are considered investigational testing only. X-Rays, CTs and MRIs Chest X-Ray IMPRESSION: 1. Interval improved aeration with slightly decreased pulmonary edema. 2. Persistent bilateral pleural effusions, left greater than right, with bibasilar compressive atelectasis or consolidation. Dictated by: Iftikhar Burger M.D. on 11/13/2016 at 10:14 Approved by: Iftikhar Burger M.D. on 11/13/2016 at 10:14 Retroperitoneal US IMPRESSION: 1. Markedly limited study. 2. No definite hydronephrosis, although the right kidney is poorly characterized. 3. Moderate postvoid residual. Dictated by: Selma Rangle M.D. on 11/12/2016 at 14:15 Approved by: Selma Rangel M.D. on 11/12/2016 at 14:15 CT abdomen and pelvis IMPRESSION: 1. Small bilateral pleural fluid collections. 2. Bibasilar lung consolidation compatible with compressive atelectasis, pneumonia or aspiration. Please correlate with clinical and laboratory data. 3. Cardiomegaly. 4. Hepatic steatosis. 5. 1.4 cm gallstone in the gallbladder neck. There is clinical concern for biliary disease, abdominal ultrasound should be performed for further evaluation. 6. Small amount of ascites in the lower pelvis and the left lower quadrant of the abdomen. 7. Status post prostatectomy. 8. Colonic diverticulosis. 9. Image quality limited by patient motion. Diagnostic sensitivity of the study is limited by absence of oral and intravenous contrast. Dictated by: Aditi Garcia MD, PhD on 11/13/2016 at 17:17 Approved by: Aditi Garcia MD, PhD on 11/13/2016 at 17:17 Cardiac Echo Impressions Echocardiogram. Interpretation Summary There is normal left ventricular wall thickness. The ejection fraction is estimated to be 55-60%. Flattened septum is consistent with RV pressure/volume overload. The right ventricle is moderately dilated. Right ventricular systolic function is moderately reduced. Right ventricular systolic pressure is estimated to be 37 mmHg plus the clinically estimated CVP which cannot be estimated on this exam. Probably no significant interval change fron 2011 Electronically signed by: Justyn Watters on Reading Physician:11/11/2016 01:33 PM Additional Diagnostics US VENOUS LEG DUPLEX BILATERAL IMPRESSION: 1. No definite evidence of deep vein thrombosis in the right or left lower extremity with evaluation limited on the left as described secondary to body habitus. Dictated by: Iftikhar Burger M.D. on 11/13/2016 at 11:42 Approved by: Iftikhar Burger M.D. on 11/13/2016 at 11:42 Assessment & Plan Bradley Snyder is a 75-year-old male with past medical history significant for Crohn's disease with associated blood loss anemia, ASCVD s/p CABG, hypertension , diabetes mellitus type II who presented to the emergency department complaining of shortness of breath that has been worsening over the last 8-10 days and worsening chronic lower extremity edema. 1. Acute on chronic kidney injury. - multifactorial: cardiorenal syndrome and ATN. - worsening BUN/cr ratio secondary to steroids vs overdiuresis. - d/c lasix gtt and switch to IV lasix 40 q 12 hr. 2. Hyperkalemia, persistent. - etiology: uncontrolled BS, insulin insufficiency, NANCY. 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 - continue fludrocortisone 0.1 mg daily. - d/c kayexalate. 3. Acute influenza infection, superimposed bacterial PNA. 4. Hypoxemic respiratory failure. 5. Acute on chronic CHF exacerbation. 6. 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 7. History of hypertension with hypertensive nephrosclerosis. GI Prophylaxis: Proton Pump Inhibitor VTE Prophylaxis: Sub-Q Heparin (Unfractionated) VTE Mechanical Devices: Intermittant Pneumatic CD Resuscitation Status: CPR: Attempt Resuscitation Derek Abdi MD Nov 15, 2016 15:01
[2016-11-15] MEDS: Insulin LISPRO 300 Unit/3 mL Inj SUBQ SCH ×3 (17:52→22:47)
--- NOTE | 2016-11-15 18:45 | NUR ---
LOC/blood sugars Pt sleeping intermittently all throughout shift. Would wake to light touch voice. Oriented x3. Insulin gtt continued per protocol until discontinued by nephrology. Frequent rounding continues.
--- NOTE | 2016-11-15 20:25 | PCM.PNMED ---
Subjective Date of Service Nov 15, 2016 Subjective Bradley Donovan is a 75-year-old male with one-week history of shortness of breath , associated not very productive cough, initially treated with azithromycin and prednisone and oxygen from PCP but has ongoing symptoms, admitted for treatment of CAP pneumonia and new onset NANCY and persistent hyperkalemia. Hospital day 5. Overnight: No acute events. Patient remained on insulin drip overnight without issue. Today: The patient still notes shortness of breath and weakness. He denies any cough, fever or chills. He also complains of hunger and would like to stop his insulin drip so he can eat. He is refusing Warfarin despite understanding that he needs it for anticoagulation. ROS is negative except as mentioned above. Exam Vital Signs Vital Sign - Last Date Time Temp Pulse Resp B/P Pulse Ox O2 Delivery O2 Flow Rate FiO2 11/15/16 16:00 71 18 92 HFNC 50 11/15/16 16:00 55 11/15/16 16:00 37.0 152/74 Intake and Output 11/14/16 11/14/16 11/15/16 Cumulative From/Thru 15:00 23:00 07:00 11/10/16 16:55 - 11/15/16 06:40 Intake Total 2270 ml 1195 ml 49857 ml Output Total 2400 ml 1750 ml 8255 ml Balance -130 ml -555 ml 4826 ml Intake Oral 250 ml 675 ml 4925 ml IV Total 2020 ml 520 ml 8156 ml Output Urine Total 2400 ml 1750 ml 8255 ml # Voids 4 # Bowel Movements 0 0 Exam General: Alert, Oriented X3, Cooperative, moderate Distress, Obese Head: Normocephalic, atraumatic. External ears normal. Eyes: PERRLA, EOMI. Anicteric sclerae. Mouth: Mouth Normal, Mucous Membranes Moist/[place] Neck: Neck supple with full range of motion. No lymphadenopathy Chest & Lungs: HF NC, equal chest rise and fall, Diminished breath sounds at bases, Bilateral wheezes, hear in all lung worrell, no crackles, rhonchi. Cardiovascular: Regular Rate/Rhythm, Normal S1, Normal S2, No Murmurs/Rubs/ Gallops, no JVD Abdomen: Non-tender, distended, No masses, Normoactive bowel tones, Soft Musculoskeletal: Normal Range of Motion Extremities: No cyanosis/clubbing/edema bilaterally, pain to palpation of calve muscles b/l Neurological: Grossly Neurologically Intact, Normal Speech, Sensation Intact, : uncircumcised penis, two testicles palpated non tender, moderate scrotal and penile edema, meatus patent without discharge IVs and Medications Medications Reviewed: Medications were reviewed in detail Lab and Diagnostics Result Diagram: 11/15/16 0510 11/15/16 0510 Microbiology INFLUENZA A PCR Final 11/11/16-0658 Organism 1 INFLUENZA A H3 X-Rays, CTs and MRIs Chest X-Ray IMPRESSION: 1. Interval improved aeration with slightly decreased pulmonary edema. 2. Persistent bilateral pleural effusions, left greater than right, with bibasilar compressive atelectasis or consolidation. Dictated by: Iftikhar Burger M.D. on 11/13/2016 at 10:14 Retroperitoneal US IMPRESSION: 1. Markedly limited study. 2. No definite hydronephrosis, although the right kidney is poorly characterized. 3. Moderate postvoid residual. Dictated by: Selma Rangel M.D. on 11/12/2016 at 14:15 CT abdomen and pelvis IMPRESSION: 1. Small bilateral pleural fluid collections. 2. Bibasilar lung consolidation compatible with compressive atelectasis, pneumonia or aspiration. Please correlate with clinical and laboratory data. 3. Cardiomegaly. 4. Hepatic steatosis. 5. 1.4 cm gallstone in the gallbladder neck. There is clinical concern for biliary disease, abdominal ultrasound should be performed for further evaluation. 6. Small amount of ascites in the lower pelvis and the left lower quadrant of the abdomen. 7. Status post prostatectomy. 8. Colonic diverticulosis. 9. Image quality limited by patient motion. Diagnostic sensitivity of the study is limited by absence of oral and intravenous contrast. Dictated by: Aditi Garcia MD, PhD on 11/13/2016 at 17:17 Cardiac Echo Impressions Interpretation Summary There is normal left ventricular wall thickness.The ejection fraction is estimated to be 55-60%.Flattened septum is consistent with RV pressure/volume overload.The right ventricle is moderately dilated.Right ventricular systolic function is moderately reduced. Right ventricular systolic pressure is estimated to be 37 mmHg plus the clinically estimated CVP which cannot be estimated on this exam. Probably no significant interval change from 2011 Electronically signed by: Justyn Watters on Reading Physician:11/11/2016 01:33 PM Additional Diagnostics US VENOUS LEG DUPLEX BILATERAL IMPRESSION: 1. No definite evidence of deep vein thrombosis in the right or left lower extremity with evaluation limited on the left as described secondary to body habitus. Dictated by: Iftikhar Burger M.D. on 11/13/2016 at 11:42 Approved by: Iftikhar Burger M.D. on 11/13/2016 at 11:42 Assessment & Plan Bradley Donovan is a 75-year-old male with one-week history of shortness of breath , associated not very productive cough, initially treated with azithromycin and prednisone and oxygen from PCP but has ongoing symptoms, admitted for treatment of CAP pneumonia and new onset NANCY and persistent hyperkalemia. Hospital day 5. 1.Bibasilar pneumonia with secondary secondary Hypoxia, present on admission, active - Influenza A +, CURB65: 2 - Bibasilar pneumonia present on CXR, partially treated w/ outpatient treatment and evaluating for CHF that may be contributing to hypoxia - Rocephin and azithromycin started 11/12/16 - DuoNeb's PRN Q4 - U/S Doppler legs negative for DVT limited - Procalcitonin 0.45 11/13/16 - Lactic Acid 1.5 11/13/16 2. Acute on chronic kidney injury, present on admission, improving - Multifactorial secondary to overdiuresis, cardiorenal syndrome and ATN. - Bladder scan 11/12/16 showed residual 75-100 ml retained urine, likely contribution of post renal obstruction - Continue to hold metformin/lisinopril - D/C IV fluids, monitor fluid status with elevated BNP and diastolic dysfunction noted in prior echo - Retroperitoneal U/S showed moderate post residual void - Continue Dhillon cath, urine output improved - DC Lasix drip switch to IV Lasix 40 q 12 hr - Worsening BUN/cr ratio secondary to steroids vs overdiuresis. - Nephrology consulted we appreciate their input on this case 3. Hyperkalemia, present on admission, active - Worst value 6.8, chronically elevated K 5.3-6.0 per outpatient records - Differential diagnosis includes: NANCY, hypoaldosteronism, RTA Type IV - Stop insulin drip and change to insulin subQ, weight based long acting and preprandial with correctional - Rennin/aldosterone and urine aldosterone pending - continue fludrocortisone 0.1 mg daily - D/C Kayexalate 4. Hyperglycemia non-DKA, acute on chronic, present on admission, active - D/C insulin drip, started patient on SubQ insulin by weight 5. A-Fib, rate controlled, present on admission, active - Patient refusing Coumadin. Discussed risks of no anticoagulation with him, patient verbalized understanding. 6. Acute exacerbation of CHF, present on admission, active - Elevated troponin likely due acute on chronic HF, trop trending down 0.02 11/13 - ECHO showed diastolic heart failure EF of 55-60%. - Lasix IV 40 mg Q12 7. Hypocalcemia, present on admission, active - Calcium 7.9 11/14/16 - Calcium gluconate 1 gm given 1x 11/14/16 - Continue to monitor Chronic issues known prior to admission, present on admission: 9. Iron deficiency anemia - Monitor 10. Erosive esophagitis, gastric antral ulceration, Crohn disease, - PPI/[id number], mesalamine, anticipate Humira resumption after this admission - Continue Protonix 40 mg Daily 11. Coronary artery disease - Continue statin 12. History of COPD and GERARDO - Continue nightly CPAP 13. History of prostatectomy for prostate cancer 14. Ankylosing spondylosis - Continue Vicodin 15. Anxiety -Ativan PRN Diet cardiac/diabetic DVT prophylaxis heparin Code limited, intubate Disposition: Likely can move towards D/C in the next day or so. GI Prophylaxis: Proton Pump Inhibitor VTE Prophylaxis: Sub-Q Heparin (Unfractionated) VTE Mechanical Devices: Intermittant Pneumatic CD Resuscitation Status: CPR: Attempt Resuscitation Attending Statement The patient was seen and examined together with Dr. Ryan on 11/15/2016 and I agree with the history, exam and plan as outlined in the note above. . Emperatriz Ryan DO Nov 15, 2016 19:57 Barrett Gilbert MD Nov 17, 2016 14:17
[2016-11-15] MEDS: AZITHROMYCIN IV SCH ×2 (20:46)
[2016-11-15] MEDS: DEXTROSE IV SCH ×2 (20:46)
[2016-11-15] MEDS: Insulin GLARgine 100 Unit/mL Syringe SUBQ SCH (20:48)
[2016-11-16] VITALS (17 sets, daily range): BP systolic 137–180; BP diastolic 66–82; PULSE 58–76; RESP 16–28; O2SAT 90–95
[2016-11-16] MEDS: Albuterol-Ipratropium 3 mL Inhalation Solution NEB SCH ×6 (00:23→20:19)
[2016-11-16] MEDS: Sodium Chloride LOK Flush 10 mL Syringe IVFLUSH SCH ×4 (00:30→23:04)
[2016-11-16] MEDS: Heparin 5,000 Unit/mL Inj SUBQ SCH ×3 (00:36→18:32)
[2016-11-16] MEDS: MethylprednisoLONE Sodium Succinate 40 mg/mL Inj IVPUSH SCH ×3 (00:36→18:33)
[2016-11-16] MEDS: Insulin LISPRO 300 Unit/3 mL Inj SUBQ SCH ×6 (00:46→23:00)
--- NOTE | 2016-11-16 04:15 | NUR ---
Blood sugars and respiratory status. Patients blood sugars have run on the higher side this evening. MD Chaidez was contact and orders were received to give lipro high dose insulin PRN for blood sugars over 200. Patients blood sugar was check intermittently throughout the night and dosed according to the insulin protocol. Patient is resting comfortably in bed without signs of distress. Patient remains on high flow oxygen to maintain saturations. Patient is currently on 60LPM at 50% oxygen. O2 saturations have maintained about 92% and the patient denies shortness of breath at rest.
[2016-11-16 05:48] LABS: EOSINOPHILS % (AUTO) 0 % (0-5); Mean Corpuscular Hemoglobin 28.8 pg (27.0-35.0); Mean Corpuscular Volume 94.7 fL (81-100); Platelet Count 242 bil/L (150-400)
[2016-11-16 05:53] LABS: INR 1.1 ratio
[2016-11-16] MEDS: Furosemide 10 mg/mL 10 mL Inj IVPUSH SCH (06:41)
[2016-11-16] MEDS: cefTRIAXone Inj 2,000 MG in IV Premix 1 EACH IV SCH (09:00)
[2016-11-16] MEDS: Mesalamine 500 mg CR Capsule PO SCH ×4 (09:01→23:03)
[2016-11-16] MEDS: MeTOProlol XL 50 mg ER24 Tablet PO SCH ×2 (09:01→20:15)
[2016-11-16] MEDS: Pantoprazole 40 mg ER24 Tablet PO SCH (09:02)
[2016-11-16 09:16] LABS: BASOPHILS % (AUTO) 0 % (0-3); MONOCYTES % (AUTO) 3 % (4-12); NEUTROPHILS % (AUTO) 87 % (40-74)
[2016-11-16] MEDS ORDERED: 0.9% Sodium Chloride 250 ML ONE (13:11)
--- NOTE | 2016-11-16 13:40 | PCM.PNMED ---
Subjective Date of Service Nov 16, 2016 Subjective Nephrology Progress Note: Attending Dr. Kirit Huerta Zion is a 76-year-old male with a past medical history significant for diabetes mellitus type II, non-insulin using, hypertension, obstructive sleep apnea on CPAP who presented to [facility] ED with shortness of breath and is now being treated for influenza, CHF exacerbation, hyperglycemia, persistent hyperkalemia, and NANCY. Hospital day #7. Overnight: Telemetry overnight: Atrial fibrillation, heart rate 50 to 70s, with an IVCD and occasional PVC's pairs. Patient is resting in bed comfortably and in no acute distress. He has high flow oxygen in place. The only complaint the patient has a shortness of breath. He denies headache, chest pain, palpitations, abdominal pain, nausea, vomiting, fever, chills, dysuria, constipation or diarrhea. He is voiding via Dhillon catheter with good urine output. His last bowel movement was several days ago. . Exam Vital Signs Vital Sign - Last Date Time Temp Pulse Resp B/P Pulse Ox O2 Delivery O2 Flow Rate FiO2 11/16/16 08:00 62 16 95 HFNC 50 11/16/16 08:00 55 11/16/16 04:46 36.2 154/74 Intake and Output 11/15/16 11/15/16 11/16/16 Cumulative From/Thru 15:00 23:00 07:00 11/10/16 16:55 - 11/16/16 06:09 Intake Total 524 ml 400 ml 17793 ml Output Total 1700 ml 1000 ml 43731 ml Balance -1176 ml -600 ml 3050 ml Intake Oral 349 ml 400 ml 5674 ml IV Total 175 ml 8331 ml Output Urine Total 1700 ml 1000 ml 15815 ml Stool Total 0 ml 0 ml # Voids 4 # Bowel Movements 0 Exam General: Older gentleman lying in bed and in no o acute distress, well-developed , well-nourished, appropriately interactive. HEENT: Normocephalic, atraumatic. External ears without defect. Pupils equal, round, and reactive to light. Anicteric sclerae, moist conjunctivae, and no lid lag. High flow oxygen nasal cannula in place. Neck: Supple with full range of motion. No jugular venous distension. No bruits. No lymphadenopathy or thyromegaly. Cardiovascular: Irregularly irregular without murmurs, rubs, or gallops appreciated Pulmonary: Breath sounds diminished at bilateral bases, wheezes scattered throughout all lung worrell. Normal respiratory effort with no use of accessory muscles. Abdomen: Soft, obese, nontender, nondistended, bowel sounds present. No hepatosplenomegaly or masses appreciated. Extremities: No clubbing or cyanosis. Mild pitting edema to bilateral knees. Skin: Normal temperature, turgor, and texture; no rash, ulcers, or subcutaneous nodules appreciated. Neurological: Cranial nerves grossly intact. Psychiatric: Normal mood and affect. Alert and oriented to person, place, and time. . IVs and Medications Medications Reviewed: Medications were reviewed in detail Lab and Diagnostics Item Value Date Time Calcium Level 7.4 mg/dL L 11/16/161 Total Bilirubin 0.3 mg/dL 11/16/16 0451 Aspartate Amino Transf (AST/SGOT) 103 U/L H 11/16/16 0451 Alanine Aminotransferase (ALT/SGPT) 139 U/L H 11/16/16 0451 Alkaline Phosphatase 112 U/L 11/16/16 0451 Total Protein 6.1 g/dL L 11/16/16 0451 Albumin 3.2 g/dL L 11/16/16 0451 Result Diagram: 11/15/16 0510 11/16/16450 Microbiology Blood cultures x 2 show no growth after 5 days. Viral respiratory PCR postive for influenza A H3.MRSA screen negative. . X-Rays, CTs and MRIs Chest X-Ray IMPRESSION: Bibasilar alveolar infiltration stable over time, left greater than right. Prior CABG. Continued reduced inspiratory volume. Limited study due to reduced inspiration and large body habitus. Dictated by: Jamel Mccabe M.D. on 11/15/2016 at 9:32 Approved by: Jamel Mccabe M.D. on 11/15/2016 at 9:32 Retroperitoneal US IMPRESSION: 1. Markedly limited study. 2. No definite hydronephrosis, although the right kidney is poorly characterized. 3. Moderate postvoid residual. Dictated by: Selma Rangel M.D. on 11/12/2016 at 14:15 CT abdomen and pelvis IMPRESSION: 1. Small bilateral pleural fluid collections. 2. Bibasilar lung consolidation compatible with compressive atelectasis, pneumonia or aspiration. Please correlate with clinical and laboratory data. 3. Cardiomegaly. 4. Hepatic steatosis. 5. 1.4 cm gallstone in the gallbladder neck. There is clinical concern for biliary disease, abdominal ultrasound should be performed for further evaluation. 6. Small amount of ascites in the lower pelvis and the left lower quadrant of the abdomen. 7. Status post prostatectomy. 8. Colonic diverticulosis. 9. Image quality limited by patient motion. Diagnostic sensitivity of the study is limited by absence of oral and intravenous contrast. Dictated by: Aditi Garcia MD, PhD on 11/13/2016 at 17:17 . 12-lead ECG EKG: Atrial fibrillation with right bundle branch block. . Cardiac Echo Impressions Interpretation Summary There is normal left ventricular wall thickness.The ejection fraction is estimated to be 55-60%.Flattened septum is consistent with RV pressure/volume overload.The right ventricle is moderately dilated.Right ventricular systolic function is moderately reduced. Right ventricular systolic pressure is estimated to be 37 mmHg plus the clinically estimated CVP which cannot be estimated on this exam. Probably no significant interval change from 2011 Electronically signed by: Justyn Watters on Reading Physician:11/11/2016 01:33 PM Additional Diagnostics US VENOUS LEG DUPLEX BILATERAL IMPRESSION: 1. No definite evidence of deep vein thrombosis in the right or left lower extremity with evaluation limited on the left as described secondary to body habitus. Dictated by: Iftihkar Burger M.D. on 11/13/2016 at 11:42 Approved by: Iftikhar Burger M.D. on 11/13/2016 at 11:42 Assessment & Plan Bradley Donovan is a 76-year-old male with a past medical history significant for diabetes mellitus type II, non-insulin using, hypertension, obstructive sleep apnea on CPAP who presented to [facility] ED with shortness of breath and is now being treated for influenza, CHF exacerbation, hyperglycemia, persistent hyperkalemia, and NANCY. Hospital day #7. 1. Acute on chronic kidney injury. - Multifactorial: cardiorenal syndrome and ATN. - Worsening BUN/cr ratio likely secondary to steroids vs overdiuresis. - Discontinue Lasix 40 mg IV every 12 hours to let renal function equilibrate. 2. Hyperkalemia, persistent. - Etiology: uncontrolled BS, insulin insufficiency, NANCY. - Possible underlying disease of RTA type 4 (hypoaldosteronism). - Continue fludrocortisone 0.1 mg daily. 3. Acute influenza infection, superimposed bacterial pneumonia. 4. Hypoxemic respiratory failure. 5. Acute on chronic CHF exacerbation. 6. 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 7. History of hypertension with hypertensive nephrosclerosis. . GI Prophylaxis: Proton Pump Inhibitor VTE Prophylaxis: Sub-Q Heparin (Unfractionated) VTE Mechanical Devices: Intermittant Pneumatic CD Resuscitation Status: CPR: Attempt Resuscitation Attending Statement Nephrology attending: Patient is had considerably more often in the last 24 hours. They have examined the patient and discussed the case with the internal medicine resident please note as detailed above. The patient remains quite prerenal and this is most likely due to overdiuresis and corticosteroids. As detailed above I would recommend holding her diuretics for approximately 24 hours and consider a marked reduction in her steroids. Adelaida Wilkerson DO Nov 16, 2016 08:47 Derian Beth DO Nov 16, 2016 16:36
--- NOTE | 2016-11-16 16:30 | NUR ---
Social Work: Continued Discharge Planning Data & Assessment: Title Agent met with patient at bedside and notified him that PT was recommending SNF as his discharge plan. Patient stated that he lived at [facility] previously and he wants to return there. SW left SNF choice list with the patient incase he changes his mind. SW will continue to follow for discharge planning needs. Plan: Patient wants to discharge to [facility]. 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 Marie Echavarria, JEET, ACM
--- NOTE | 2016-11-16 16:48 | NUR ---
Social Work Note: Continued Discharge Planning Data& Assessment: Per RT, pt is having his Tr[employer] Machine delivered tonight through [facility]. SW followed up with pt regarding HH preference. Pt does not have a preference. SW contacted pt Noemi ([phone]) who agreed to refer to the rotating calender. Referral sent to [facility] for RN, PT, DEPLOYMENT MANAGER. Pt denies any other needs. SW to continue to follow if any needs arise. 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 Pt and pt denies any needs at this time. SW to continue to follow. JIHAN Solorio
--- NOTE | 2016-11-16 16:52 | PCM.PNMED ---
Subjective Date of Service Nov 16, 2016 Subjective Bradley Donovan is a 75-year-old male with one-week history of shortness of breath , associated not very productive cough, initially treated with azithromycin and prednisone and oxygen from PCP but has ongoing symptoms, admitted for treatment of CAP pneumonia and new onset NANCY and persistent hyperkalemia. Hospital day 7. Overnight: Telemetry overnight: Atrial fibrillation, heart rate 50 to 70s, with an IVCD and occasional PVC's pairs. Today: Patient is resting in bed comfortably and in no acute distress. He has high flow oxygen in place. The only complaint the patient has a shortness of breath. He denies headache, chest pain, palpitations, abdominal pain, nausea, vomiting, fever, chills, dysuria, constipation or diarrhea. He is voiding via Dhillon catheter with good urine output. His last bowel movement was several days ago. ROS negative except as mentioned above Exam Vital Signs Vital Sign - Last Date Time Temp Pulse Resp B/P Pulse Ox O2 Delivery O2 Flow Rate FiO2 11/16/16 04:46 36.2 66 20 154/74 95 HI FLOW 50 11/16/16 04:10 55 Intake and Output 11/15/16 11/15/16 11/16/16 Cumulative From/Thru 15:00 23:00 07:00 11/10/16 16:55 - 11/16/16 06:09 Intake Total 524 ml 400 ml 83592 ml Output Total 1700 ml 1000 ml 74807 ml Balance -1176 ml -600 ml 3050 ml Intake Oral 349 ml 400 ml 5674 ml IV Total 175 ml 8331 ml Output Urine Total 1700 ml 1000 ml 32661 ml Stool Total 0 ml 0 ml # Voids 4 # Bowel Movements 0 Exam General: Alert, Oriented X3, Cooperative, no acute Distress, Obese Head: Normocephalic, atraumatic. External ears normal. Eyes: PERRLA, EOMI. Anicteric sclerae. Mouth: Mouth Normal, Mucous Membranes Moist/[place] Neck: Neck supple with full range of motion. No lymphadenopathy Chest & Lungs: HF NC, equal chest rise and fall, Diminished breath sounds at bases, no wheezes, no crackles, no rhonchi. Cardiovascular: Regular Rate/Rhythm, Normal S1, Normal S2, No Murmurs/Rubs/ Gallops, no JVD Abdomen: Non-tender, distended, No masses, Normoactive bowel tones, Soft Musculoskeletal: Normal Range of Motion Extremities: No cyanosis/clubbing/edema bilaterally, pain to palpation of calve muscles b/l Neurological: Grossly Neurologically Intact, Normal Speech, Sensation Intact, IVs and Medications Medications Reviewed: Medications were reviewed in detail Lab and Diagnostics Laboratory Tests Test 11/16/16 00:15 11/16/16 04:51 Total Creatine Kinase 131U/L (21-232) White Blood Count 8.2th/mm3 (3.8-10.1) Red Blood Count 3.37mil/mm3 (4.40-5.80) Hemoglobin 9.7g/dL (13.8-17.2) Hematocrit 31.9% (41.0-50.0) Mean Corpuscular Volume 94.7fL (81-100) Mean Corpuscular Hemoglobin 28.8pg (27.0-35.0) Mean Corpuscular Hemoglobin Concent 30.4% (32.0-37.0) Red Cell Distribution Width 14.7% (12.3-15.4) Platelet Count 242bil/L (150-400) Neutrophils (%) (Auto) 87% (40-74) Lymphocytes (%) (Auto) 5% (14-46) Monocytes (%) (Auto) 3% (4-12) Eosinophils (%) (Auto) 0% (0-5) Basophils (%) (Auto) 0% (0-3) Band Neutrophils % 1% (1-5) Metamyelocytes % 1% (0-0) Myelocytes % 3% (0-0) Nucleated Red Blood Cells 3/100 WBC (0-24) Prothrombin Time 11.8sec (8.1-12.5) Prothromb Time International Ratio 1.10ratio Sodium Level 137mEq/L (134-144) Potassium Level 4.8mEq/L (3.5-5.2) Chloride Level 95mEq/L (97-108) Carbon Dioxide Level 30mmol/L (18-29) Blood Urea Nitrogen 106mg/dL (8-27) Creatinine 2.13mg/dL (0.76-1.27) Estimat Glomerular Filtration Rate 32mL/min (>59) Glucose Level 240mg/dL (60-99) Calcium Level 7.4mg/dL (8.5-10.1) Total Bilirubin 0.3mg/dL (0.0-1.2) Aspartate Amino Transf (AST/SGOT) 103U/L (0-50) Alanine Aminotransferase (ALT/SGPT) 139U/L (0-44) Alkaline Phosphatase 112U/L (25-160) Total Protein 6.1g/dL (6.4-8.4) Albumin 3.2g/dL (3.4-5.0) Microbiology 11/10/16 Blood Culture - Final, Complete NO GROWTH AFTER 5 DAYS 11/11/16 Adenovirus DNA (PCR) - Final, Complete Not Detected 11/11/16 Coronavirus 229E PCR - Final, Complete Not Detected 11/11/16 Coronavirus HKU1 PCR - Final, Complete Not Detected 11/11/16 Coronavirus NL63 PCR - Final, Complete Not Detected 11/11/16 Coronavirus OC43 PCR - Final, Complete Not Detected 11/11/16 Influenza Type A (PCR) - Final, Complete Influenza A H3 11/11/16 Influenza Type B (PCR) - Final, Complete Not Detected 11/11/16 Human Metapneumovirus (PCR) (ESTEBAN) - Final, Complete Not Detected 11/11/16 Rhinovirus (PCR)(ESTEBAN) - Final, Complete Not Detected 11/11/16 Parainfluenza Virus Type 1 (PCR) - Final, Complete Not Detected 11/11/16 Parainfluenza Virus Type 2 (PCR) - Final, Complete Not Detected 11/11/16 Parainfluenza Virus Type 3 (PCR) - Final, Complete Not Detected 11/11/16 Parainfluenza Virus Type 4 (NAAT) - Final, Complete Not Detected 11/11/16 Respiratory Syncytial Virus (PCR)DC - Final, Complete Not Detected 11/11/16 Chlamydia pneumoniae (PCR) - Final, Complete Not Detected 11/11/16 Mycoplasma pneumoniae DNA Detection - Final, Complete Result Diagram: 11/15/16 0510 11/16/16 0451 Microbiology INFLUENZA A PCR Final 11/11/16-0658 Organism 1 INFLUENZA A H3 X-Rays, CTs and MRIs Chest X-Ray IMPRESSION: Bibasilar alveolar infiltration stable over time, left greater than right. Prior CABG. Continued reduced inspiratory volume. Limited study due to reduced inspiration and large body habitus. Dictated by: Jamel Mccabe M.D. on 11/15/2016 at 9:32 Approved by: Jamel Mccabe M.D. on 11/15/2016 at 9:32 4 Retroperitoneal US IMPRESSION: 1. Markedly limited study. 2. No definite hydronephrosis, although the right kidney is poorly characterized. 3. Moderate postvoid residual. Dictated by: Selma Rangel M.D. on 11/12/2016 at 14:15 CT abdomen and pelvis IMPRESSION: 1. Small bilateral pleural fluid collections. 2. Bibasilar lung consolidation compatible with compressive atelectasis, pneumonia or aspiration. Please correlate with clinical and laboratory data. 3. Cardiomegaly. 4. Hepatic steatosis. 5. 1.4 cm gallstone in the gallbladder neck. There is clinical concern for biliary disease, abdominal ultrasound should be performed for further evaluation. 6. Small amount of ascites in the lower pelvis and the left lower quadrant of the abdomen. 7. Status post prostatectomy. 8. Colonic diverticulosis. 9. Image quality limited by patient motion. Diagnostic sensitivity of the study is limited by absence of oral and intravenous contrast. Dictated by: Aditi Garcia MD, PhD on 11/13/2016 at 17:17 Cardiac Echo Impressions Interpretation Summary There is normal left ventricular wall thickness.The ejection fraction is estimated to be 55-60%.Flattened septum is consistent with RV pressure/volume overload.The right ventricle is moderately dilated.Right ventricular systolic function is moderately reduced. Right ventricular systolic pressure is estimated to be 37 mmHg plus the clinically estimated CVP which cannot be estimated on this exam. Probably no significant interval change from 2011 Electronically signed by: Justyn Watters on Reading Physician:11/11/2016 01:33 PM Additional Diagnostics US VENOUS LEG DUPLEX BILATERAL IMPRESSION: 1. No definite evidence of deep vein thrombosis in the right or left lower extremity with evaluation limited on the left as described secondary to body habitus. Dictated by: Iftikhar Burger M.D. on 11/13/2016 at 11:42 Approved by: Iftikhar Burger M.D. on 11/13/2016 at 11:42 Assessment & Plan Bradley Donovan is a 75-year-old male with one-week history of shortness of breath , associated not very productive cough, initially treated with azithromycin and prednisone and oxygen from PCP but has ongoing symptoms, admitted for treatment of CAP pneumonia and new onset NANCY and persistent hyperkalemia. Hospital day 7. 1. Acute on Chronic Respiratory failure, Present on admission, ongoing - Patient has Chronic Respiratory Failure secondary to Severe COPD. Patient requires non-invasive mechanical ventilator to prevent life threatening exacerbations and future hospital readmission due to chronic respiratory failure. - Patient's use of home CPAP overnight has not been an effective therapy. Patient does not tolerate - Bipap referred to in hospital notes is a vision 60 which is equivalent to NVH therapy. 2.Bibasilar pneumonia with secondary secondary Hypoxia, present on admission, improving - Influenza A +, CURB65: 2 - Bibasilar pneumonia present on CXR, partially treated w/ outpatient treatment and evaluating for CHF that may be contributing to hypoxia - Rocephin and azithromycin started 11/12/16, continue for 7 days - DuoNeb's PRN Q4 - U/S Doppler legs negative for DVT limited - Procalcitonin 0.45 11/13/16 - Lactic Acid 1.5 11/13/16 3. Acute on chronic kidney injury, present on admission, improving - Multifactorial secondary to overdiuresis, cardiorenal syndrome and ATN. - Continue to hold metformin/lisinopril - D/C IV fluids, monitor fluid status with elevated BNP and diastolic dysfunction noted in prior echo - Retroperitoneal U/S showed moderate post residual void - Continue Dhillon cath, urine output improved - Discontinue Lasix 40 mg IV every 12 hours to let renal function equilibrate. - Nephrology consulted we appreciate their input on this case 4. Hyperkalemia, present on admission, improving - 11/16/16 K 4.8, - Differential diagnosis includes: NANCY, RTA Type IV, uncontrolled DM II - Stop insulin drip and change to insulin subQ, weight based long acting and preprandial with correctional - Rennin/aldosterone and urine aldosterone pending - continue fludrocortisone 0.1 mg daily - D/C Kayexalate 5.Type II DM, acute on chronic, present on admission, active - Continue patient on SubQ insulin by weight - Recommend patient continue insulin regimen as an outpatient 6. A-Fib, rate controlled, present on admission, active - Patient refusing Coumadin. Discussed risks of no anticoagulation with him, patient verbalized understanding. 7. Acute exacerbation of CHF, present on admission, active - Elevated troponin likely due acute on chronic HF, trop trending down 0.02 11/13 - ECHO showed diastolic heart failure EF of 55-60%. - Lasix IV 40 mg Q12 8. Hypocalcemia, present on admission, active - Calcium 7.9 11/14/16 - Calcium gluconate 1 gm given 1x 11/14/16 - Continue to monitor Chronic issues known prior to admission, present on admission: 9. Iron deficiency anemia - Monitor 10. Erosive esophagitis, gastric antral ulceration, Crohn disease, - PPI/P1bvekgdq, mesalamine, anticipate Humira resumption after this admission - Continue Protonix 40 mg Daily 11. Coronary artery disease - Continue statin 12. History of COPD and GERARDO -D/C nightly CPAP, no longer effective - Start NVH 13. History of prostatectomy for prostate cancer 14. Ankylosing spondylosis - Continue Vicodin 15. Anxiety -Ativan PRN Diet cardiac/diabetic DVT prophylaxis heparin Code limited, intubate Disposition: Likely can move towards D/C in the next day or so. GI Prophylaxis: Proton Pump Inhibitor VTE Prophylaxis: Sub-Q Heparin (Unfractionated) VTE Mechanical Devices: Intermittant Pneumatic CD Resuscitation Status: CPR: Attempt Resuscitation Attending Statement The patient was seen and examined together with Dr. Jackson on 11-16-16 and I agree with the history, exam and plan as outlined in the note above.Patient is on prn IV morphine as needed for pain. JAKE JACKSON DO Nov 16, 2016 06:43 Chiquita Pedraza MD Nov 17, 2016 14:33
--- NOTE | 2016-11-16 17:22 | NUR ---
Activity He has been bedrest today. Refused turns. Was given a full bed bath and bed linens were changed by the PROJECT ACCOUNT MANAGER and nurse. He expressed appreciation for this. Care continues.
[2016-11-16] MEDS: DEXTROSE IV SCH ×2 (20:17)
[2016-11-16] MEDS: AZITHROMYCIN IV SCH ×2 (20:17)
[2016-11-16] MEDS: Insulin GLARgine 100 Unit/mL Syringe SUBQ SCH (20:27)
[2016-11-17] VITALS (16 sets, daily range): BP systolic 147–182; BP diastolic 66–85; PULSE 55–66; RESP 16–28; O2SAT 91–94
[2016-11-17] MEDS: Albuterol-Ipratropium 3 mL Inhalation Solution NEB SCH ×6 (00:24→20:57)
[2016-11-17] MEDS: MethylprednisoLONE Sodium Succinate 40 mg/mL Inj IVPUSH SCH ×3 (01:38→17:40)
[2016-11-17] MEDS: Heparin 5,000 Unit/mL Inj SUBQ SCH ×3 (01:38→17:41)
[2016-11-17 04:45] LABS: EOSINOPHILS % (AUTO) 0 % (0-5); Mean Corpuscular Volume 95.1 fL (81-100)
[2016-11-17 04:50] LABS: Mean Corpuscular Hemoglobin 28.9 pg (27.0-35.0)
[2016-11-17 04:59] LABS: INR 1.06 ratio
[2016-11-17 05:50] LABS: BASOPHILS % (AUTO) 0 % (0-3); MONOCYTES % (AUTO) 0 % (4-12); NEUTROPHILS % (AUTO) 86 % (40-74)
--- NOTE | 2016-11-17 07:33 | NUR ---
Respiratory/Tele/LOC Pt continues on high flow 50L and 45% FiO2. pt monitored on DIRECTOR OF PHYSICAL SECURITY, maintaining sats in low 90s. Pt had some SOB this morning while getting breathing treatment, but had no further complaints once treatment was completed. Tele Afib mid 50s-60s, no c/o chest pain. Pt asked for sleeping aid at start of shift, stated he had been so tired and unable to sleep for a couple days. Pt given Restoril 15mg and able to sleep well between care interventions. Pt very drowsy at first but easy to wake and oriented x3. Pt uses call light, voices needs, and follows commands, bilateral strength equal. Pt denied pain throughout night.
[2016-11-17] MEDS: Insulin LISPRO 300 Unit/3 mL Inj SUBQ SCH ×4 (09:42→20:40)
[2016-11-17] MEDS: Mesalamine 500 mg CR Capsule PO SCH ×4 (09:43→20:41)
[2016-11-17] MEDS: Sodium Chloride LOK Flush 10 mL Syringe IVFLUSH SCH ×2 (09:43→16:30)
[2016-11-17] MEDS: cefTRIAXone Inj 2,000 MG in IV Premix 1 EACH IV SCH (09:43)
[2016-11-17] MEDS: MeTOProlol XL 50 mg ER24 Tablet PO SCH ×3 (09:43→20:41)
[2016-11-17] MEDS: Pantoprazole 40 mg ER24 Tablet PO SCH (09:43)
[2016-11-17] MEDS ORDERED: Insulin GLARgine 100 Unit/mL Syringe SUBQ ONE (10:00)
--- NOTE | 2016-11-17 14:17 | PCM.PNMED ---
Subjective Date of Service Nov 17, 2016 Subjective Nephrology Progress Note: Attending Dr. Kirit Huerta Zion is a 76-year-old male with a past medical history significant for diabetes mellitus type II, non-insulin using, hypertension, obstructive sleep apnea on CPAP who presented to [facility] ED with shortness of breath and is now being treated for influenza, CHF exacerbation, hyperglycemia, persistent hyperkalemia, and NNACY. Hospital day #8. Overnight: There are no acute events. Patient was given Restoril for insomnia with good rest afterwards. Telemetry overnight: Atrial fibrillation, heart rate 50 to 60s, with an IVCD and 2 runs (8 and 9 beats) of V. tach. Patient is resting in bed comfortably and in no acute distress. He continues to have high flow oxygen in place. The only complaint the patient has is shortness of breath. He denies headache, chest pain, palpitations, abdominal pain, nausea, vomiting, fever, chills, dysuria, constipation or diarrhea. He is voiding via Dhillon catheter with good urine output. He is eliminating without difficulty. . Exam Vital Signs Vital Sign - Last Date Time Temp Pulse Resp B/P Pulse Ox O2 Delivery O2 Flow Rate FiO2 11/17/16 12:01 36.5 66 26 182/73 92 Hi-flow 11/17/16 11:48 45 11/17/16 11:48 50 Intake and Output 11/16/16 11/16/16 11/17/16 Cumulative From/Thru 15:00 23:00 07:00 11/10/16 16:55 - 11/17/16 06:13 Intake Total 714 ml 600 ml 90989 ml Output Total 1400 ml 1300 ml 53230 ml Balance -686 ml -700 ml 1664 ml Intake Oral 436 ml 600 ml 6710 ml IV Total 278 ml 8609 ml Output Urine Total 1400 ml 1300 ml 24189 ml Stool Total 0 ml # Voids 4 # Bowel Movements 0 2 2 Exam General: Older gentleman lying in bed and in no o acute distress, well-developed , well-nourished, appropriately interactive. HEENT: Normocephalic, atraumatic. External ears without defect. Pupils equal, round, and reactive to light. Anicteric sclerae, moist conjunctivae, and no lid lag. High flow oxygen nasal cannula in place. Neck: Supple with full range of motion. No jugular venous distension. No bruits. No lymphadenopathy or thyromegaly. Cardiovascular: Irregularly irregular without murmurs, rubs, or gallops appreciated Pulmonary: Breath sounds diminished with fine crackles at bases bilaterally. Normal respiratory effort with no use of accessory muscles. Abdomen: Soft, obese, nontender, nondistended, bowel sounds present. No hepatosplenomegaly or masses appreciated. Extremities: No clubbing or cyanosis. Mild pitting edema to bilateral knees. Skin: Normal temperature, turgor, and texture; no rash, ulcers, or subcutaneous nodules appreciated. Neurological: Cranial nerves grossly intact. Psychiatric: Normal mood and affect. Alert and oriented to person, place, and time. . IVs and Medications Medications Reviewed: Medications were reviewed in detail Lab and Diagnostics Item Value Date Time Calcium Level 7.4 mg/dL L 11/17/16414 Total Bilirubin 0.3 mg/dL 11/17/16414 Aspartate Amino Transf (AST/SGOT) 114 U/L H 11/17/16414 Alanine Aminotransferase (ALT/SGPT) 158 U/L H 11/17/16414 Alkaline Phosphatase 111 U/L 11/17/16414 Total Protein 6.2 g/dL L 11/17/16414 Albumin 3.2 g/dL L 11/17/16414 Result Diagram: 11/17/1641411/17/16414 Microbiology Blood cultures x 2 show no growth after 5 days. Viral respiratory PCR postive for influenza A H3.MRSA screen negative. . X-Rays, CTs and MRIs US VENOUS LEG DUPLEX BILATERAL IMPRESSION: 1. No definite evidence of deep vein thrombosis in the right or left lower extremity with evaluation limited on the left as described secondary to body habitus. Dictated by: Iftikhar Burger M.D. on 11/13/2016 at 11:42 Approved by: Iftikhar Burger M.D. on 11/13/2016 at 11:42 Chest X-Ray IMPRESSION: Bibasilar alveolar infiltration stable over time, left greater than right. Prior CABG. Continued reduced inspiratory volume. Limited study due to reduced inspiration and large body habitus. Dictated by: Jamel Mccaeb M.D. on 11/15/2016 at 9:32 Approved by: Jamel Mccabe M.D. on 11/15/2016 at 9:32 Retroperitoneal US IMPRESSION: 1. Markedly limited study. 2. No definite hydronephrosis, although the right kidney is poorly characterized. 3. Moderate postvoid residual. Dictated by: Selma Rangel M.D. on 11/12/2016 at 14:15 CT ABDOMEN AND PELVIS WITHOUT CONTRAST IMPRESSION: 1. Small bilateral pleural fluid collections. 2. Bibasilar lung consolidation compatible with compressive atelectasis, pneumonia or aspiration. Please correlate with clinical and laboratory data. 3. Cardiomegaly. 4. Hepatic steatosis. 5. 1.4 cm gallstone in the gallbladder neck. There is clinical concern for biliary disease, abdominal ultrasound should be performed for further evaluation. 6. Small amount of ascites in the lower pelvis and the left lower quadrant of the abdomen. 7. Status post prostatectomy. 8. Colonic diverticulosis. 9. Image quality limited by patient motion. Diagnostic sensitivity of the study is limited by absence of oral and intravenous contrast. Dictated by: Aditi Garcia MD, PhD on 11/13/2016 at 17:17 . 12-lead ECG EKG: Atrial fibrillation with right bundle branch block. . Cardiac Echo Impressions Echocardiogram Interpretation Summary There is normal left ventricular wall thickness.The ejection fraction is estimated to be 55-60%.Flattened septum is consistent with RV pressure/volume overload.The right ventricle is moderately dilated.Right ventricular systolic function is moderately reduced. Right ventricular systolic pressure is estimated to be 37 mmHg plus the clinically estimated CVP which cannot be estimated on this exam. Probably no significant interval change from 2011 Electronically signed by: Justyn Watters on Reading Physician:11/11/2016 01:33 PM . Assessment & Plan Bradley Donovan is a 76-year-old male with a past medical history significant for diabetes mellitus type II, non-insulin using, hypertension, obstructive sleep apnea on CPAP who presented to [facility] ED with shortness of breath and is now being treated for influenza, CHF exacerbation, hyperglycemia, persistent hyperkalemia, and NANCY. Hospital day #8. 1. Acute on chronic kidney injury. - Multifactorial: cardiorenal syndrome and ATN. - Worsening BUN/cr ratio likely secondary to steroids vs overdiuresis. - Continue to hold Lasix 40 mg IV every 12 hours to let renal function equilibrate and will likely restart home dose tomorrow AM. Consider decreasing steroid dose. - Does not require renal replacement therapy at this time. 2. Hyperkalemia, persistent. - Etiology: uncontrolled BS, insulin insufficiency, NANCY. - Possible underlying disease of RTA type 4 (hypoaldosteronism). - Continue fludrocortisone 0.1 mg daily. - Medical management per primary care team. 3. Acute influenza infection, superimposed bacterial pneumonia. 4. Hypoxemic respiratory failure. 5. Acute on chronic CHF exacerbation. 6. 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 7. History of hypertension with hypertensive nephrosclerosis. . GI Prophylaxis: Proton Pump Inhibitor VTE Prophylaxis: Sub-Q Heparin (Unfractionated) VTE Mechanical Devices: Intermittant Pneumatic CD Resuscitation Status: CPR: Attempt Resuscitation Attending Statement Nephrology attending: Patient was seen and examined along with the internal medicine resident. I have thoroughly reviewed her note and agree with the findings above. Adelaida Wilkerson DO Nov 17, 2016 14:17 Derian Beth DO Nov 17, 2016 15:43
--- NOTE | 2016-11-17 16:53 | NUR ---
Ventricular Tachycardia Telemetry at 0750 was Atrial Fibrillation 55 beats/minute. At 0900 and 1300 the industrial hygiene technician called to notify this nurse that he had 8 beats of Ventricular Tachycardia both times. Each time he was found resting or sleeping and was asymptomatic. His potassium this AM was 5.3. Dr. Ryan notified. No new orders, except to continue monitoring. Care continues.
[2016-11-17] MEDS ORDERED: 0.9% Sodium Chloride 250 ML ONE (17:30)
--- NOTE | 2016-11-17 18:11 | NUR ---
Evaluation completed. Rec: [place]/Soft diet. Discussed with RN. PRODUCTION ESTIMATOR to follow. Please go to "Notes" then click on "Assessments and Notes" (bottom left corner of screen). Then select appropriate discipline tab on top of screen.
--- NOTE | 2016-11-17 18:31 | PCM.PNMED ---
Subjective Date of Service Nov 17, 2016 Subjective Bradley Donovan is a 75-year-old male with one-week history of shortness of breath , associated not very productive cough, initially treated with azithromycin and prednisone and oxygen from PCP but has ongoing symptoms, admitted for treatment of CAP pneumonia and new onset NANCY and persistent hyperkalemia. Hospital day 7. Overnight: Nursing reported "Telemetry at 0750 was Atrial Fibrillation 55 beats /minute. At 0900 and 1300 the threat monitoring analyst called to notify this nurse that he had 8 beats of Ventricular Tachycardia both times. Each time he was found resting or sleeping and was asymptomatic. His potassium this AM was 5.3. Dr. Ryan notified. No new orders, except to continue monitoring. Care continues. " Today: Patient stated that he is breathing better, he still feels short of breath with transfers from bed to chair. He reports dry cough with minimal sputum production. Patient denies fever, chills, pain. ROS negative except as mentioned above Exam Vital Signs Vital Sign - Last Date Time Temp Pulse Resp B/P Pulse Ox O2 Delivery O2 Flow Rate FiO2 11/17/16 04:44 36.3 64 24 158/71 92 hi flow 45 11/17/16 04:24 50 Intake and Output 11/16/16 11/16/16 11/17/16 Cumulative From/Thru 15:00 23:00 07:00 11/10/16 16:55 - 11/17/16 06:13 Intake Total 714 ml 600 ml 81505 ml Output Total 1400 ml 1300 ml 37948 ml Balance -686 ml -700 ml 1664 ml Intake Oral 436 ml 600 ml 6710 ml IV Total 278 ml 8609 ml Output Urine Total 1400 ml 1300 ml 29821 ml Stool Total 0 ml # Voids 4 # Bowel Movements 0 2 2 Exam General: Alert, Oriented X3, Cooperative, moderate Distress, Obese Head: Normocephalic, atraumatic. External ears normal. Eyes: PERRLA, EOMI. Anicteric sclerae. Mouth: Mouth Normal, Mucous Membranes Moist/[place] Neck: Neck supple with full range of motion. No lymphadenopathy Chest & Lungs: HF NC, equal chest rise and fall, Diminished breath sounds at bases, Bilateral wheezes, hear in all lung worrell, no crackles, rhonchi. Cardiovascular: Regular Rate/Rhythm, Normal S1, Normal S2, No Murmurs/Rubs/ Gallops, no JVD Abdomen: Non-tender, distended, No masses, Normoactive bowel tones, Soft Musculoskeletal: Normal Range of Motion Extremities: No cyanosis/clubbing/edema bilaterally, pain to palpation of calve muscles b/l Neurological: Grossly Neurologically Intact, Normal Speech, Sensation Intact, : uncircumcised penis, two testicles palpated non tender, moderate scrotal and penile edema, meatus patent without discharge IVs and Medications Medications Reviewed: Medications were reviewed in detail Lab and Diagnostics Result Diagram: 11/17/16 0415 11/17/16 0415 Microbiology INFLUENZA A PCR Final 11/11/16-0658 Organism 1 INFLUENZA A H3 X-Rays, CTs and MRIs Chest X-Ray IMPRESSION: Bibasilar alveolar infiltration stable over time, left greater than right. Prior CABG. Continued reduced inspiratory volume. Limited study due to reduced inspiration and large body habitus. Dictated by: Jamel Mccabe M.D. on 11/15/2016 at 9:32 Approved by: Jamel Mccabe M.D. on 11/15/2016 at 9:32 4 Retroperitoneal US IMPRESSION: 1. Markedly limited study. 2. No definite hydronephrosis, although the right kidney is poorly characterized. 3. Moderate postvoid residual. Dictated by: Selma Rangel M.D. on 11/12/2016 at 14:15 CT abdomen and pelvis IMPRESSION: 1. Small bilateral pleural fluid collections. 2. Bibasilar lung consolidation compatible with compressive atelectasis, pneumonia or aspiration. Please correlate with clinical and laboratory data. 3. Cardiomegaly. 4. Hepatic steatosis. 5. 1.4 cm gallstone in the gallbladder neck. There is clinical concern for biliary disease, abdominal ultrasound should be performed for further evaluation. 6. Small amount of ascites in the lower pelvis and the left lower quadrant of the abdomen. 7. Status post prostatectomy. 8. Colonic diverticulosis. 9. Image quality limited by patient motion. Diagnostic sensitivity of the study is limited by absence of oral and intravenous contrast. Dictated by: Aditi Garcia MD, PhD on 11/13/2016 at 17:17 12-lead ECG EKG: Atrial fibrillation with right bundle branch block. . Cardiac Echo Impressions Interpretation Summary There is normal left ventricular wall thickness.The ejection fraction is estimated to be 55-60%.Flattened septum is consistent with RV pressure/volume overload.The right ventricle is moderately dilated.Right ventricular systolic function is moderately reduced. Right ventricular systolic pressure is estimated to be 37 mmHg plus the clinically estimated CVP which cannot be estimated on this exam. Probably no significant interval change from 2011 Electronically signed by: Justyn Watters on Reading Physician:11/11/2016 01:33 PM Additional Diagnostics US VENOUS LEG DUPLEX BILATERAL IMPRESSION: 1. No definite evidence of deep vein thrombosis in the right or left lower extremity with evaluation limited on the left as described secondary to body habitus. Dictated by: Iftikhar Burger M.D. on 11/13/2016 at 11:42 Approved by: Iftikhar Burger M.D. on 11/13/2016 at 11:42 Assessment & Plan Bradley Donovan is a 75-year-old male with one-week history of shortness of breath , associated not very productive cough, initially treated with azithromycin and prednisone and oxygen from PCP but has ongoing symptoms, admitted for treatment of CAP pneumonia and new onset NANCY and persistent hyperkalemia. Hospital day 7. 1. Acute on Chronic Respiratory failure, Present on admission, ongoing - Patient has Chronic Respiratory Failure secondary to Severe COPD. Patient requires non-invasive mechanical ventilator to prevent life threatening exacerbations and future hospital readmission due to chronic respiratory failure. - Patient's use of home CPAP overnight has not been an effective therapy. Patient does not tolerate - Bipap referred to in hospital notes is a vision 60 which is equivalent to NVH therapy. - Monitor patients response, he will likely need this snf. 2.Bibasilar pneumonia with secondary secondary Hypoxia, present on admission, improving - Influenza A +, CURB65: 2 - Bibasilar pneumonia present on CXR, partially treated w/ outpatient treatment and evaluating for CHF that may be contributing to hypoxia - Rocephin and azithromycin started 11/12/16, continue for 7 days - DuoNeb's PRN Q4 - U/S Doppler legs negative for DVT limited - Procalcitonin 0.45 11/13/16 - Lactic Acid 1.5 11/13/16 3. Acute on chronic kidney injury, present on admission, improving - Multifactorial secondary to overdiuresis, cardiorenal syndrome and ATN. - Continue to hold metformin/lisinopril - D/C IV fluids, monitor fluid status with elevated BNP and diastolic dysfunction noted in prior echo - Retroperitoneal U/S showed moderate post residual void - Continue Dhillon cath, urine output improved - Discontinue Lasix 40 mg IV every 12 hours to let renal function equilibrate. - Nephrology consulted we appreciate their input on this case 4. Hyperkalemia, present on admission, improving - 11/16/16 K 4.8, - Differential diagnosis includes: NANCY, RTA Type IV, uncontrolled DM II - Stop insulin drip and change to insulin subQ, weight based long acting and preprandial with correctional - Rennin/aldosterone and urine aldosterone pending - continue fludrocortisone 0.1 mg daily - D/C Kayexalate 5.Type II DM, acute on chronic, present on admission, active - Continue patient on SubQ insulin by weight - Patient given 14 units of Lantus, consider titrating basal insulin base on response of blood glucose - Recommend patient continue insulin regimen as an outpatient 6. A-Fib, rate controlled, present on admission, active - Patient refusing Coumadin. Discussed risks of no anticoagulation with him, patient verbalized understanding. 7. Acute exacerbation of CHF, present on admission, active - Elevated troponin likely due acute on chronic HF, trop trending down 0.02 11/13 - ECHO showed diastolic heart failure EF of 55-60%. - Lasix IV 40 mg Q12 8. Hypocalcemia, present on admission, active - Calcium 7.9 11/14/16 - Calcium gluconate 1 gm given 1x 11/14/16 - Continue to monitor Chronic issues known prior to admission, present on admission: 9. Iron deficiency anemia - Monitor 10. Erosive esophagitis, gastric antral ulceration, Crohn disease, - [id number], mesalamine, anticipate Humira resumption after this admission - Continue Protonix 40 mg Daily 11. Coronary artery disease - Continue statin 12. History of COPD and GERARDO - Continue nightly CPAP 13. History of prostatectomy for prostate cancer 14. Ankylosing spondylosis - Continue Vicodin 15. Anxiety -Ativan PRN Diet cardiac/diabetic DVT prophylaxis heparin Code limited, intubate Disposition: Likely can move towards D/C in the next day or so. GI Prophylaxis: Proton Pump Inhibitor VTE Prophylaxis: Sub-Q Heparin (Unfractionated) VTE Mechanical Devices: Intermittant Pneumatic CD Resuscitation Status: CPR: Attempt Resuscitation Attending Statement The patient was seen and examined together with Dr. Jackson on 11-17-16 and I agree with the history, exam and plan as outlined in the note above. JAKE JACKSON DO Nov 17, 2016 06:47 Chiquita Pedraza MD Nov 18, 2016 14:51
[2016-11-17] MEDS: DEXTROSE IV SCH ×2 (20:36)
[2016-11-17] MEDS: AZITHROMYCIN IV SCH ×2 (20:36)
[2016-11-17] MEDS: Insulin GLARgine 100 Unit/mL Syringe SUBQ SCH (20:39)
[2016-11-18] VITALS (12 sets, daily range): BP systolic 136–181; BP diastolic 78–83; PULSE 52–67; RESP 18–28; O2SAT 91–95
[2016-11-18] MEDS: Sodium Chloride LOK Flush 10 mL Syringe IVFLUSH SCH ×4 (00:30→21:35)
[2016-11-18] MEDS: Albuterol-Ipratropium 3 mL Inhalation Solution NEB SCH ×6 (00:46→21:35)
[2016-11-18] MEDS: MethylprednisoLONE Sodium Succinate 40 mg/mL Inj IVPUSH SCH (01:08)
[2016-11-18] MEDS: Heparin 5,000 Unit/mL Inj SUBQ SCH ×3 (01:08→17:15)
[2016-11-18 04:47] LABS: EOSINOPHILS % (AUTO) 0 % (0-5); Mean Corpuscular Hemoglobin 29.2 pg (27.0-35.0); Mean Corpuscular Volume 94.5 fL (81-100)
--- NOTE | 2016-11-18 04:57 | NUR ---
Respiratory effort Pt began shift with SOB at rest, RR 28-30 with sats 91-93% on 45L high flow at 45% NC. RT notified. pt sob relieved after being placed on trilogy with 9L O2. Stable on this with sats mid 90s, RR 18-20, sleeping soundly.
[2016-11-18 05:00] LABS: INR 1.06 ratio
[2016-11-18 05:13] LABS: BASOPHILS % (AUTO) 0 % (0-3); MONOCYTES % (AUTO) 2 % (4-12); NEUTROPHILS % (AUTO) 88 % (40-74)
[2016-11-18] MEDS: Mesalamine 500 mg CR Capsule PO SCH ×4 (06:37→21:13)
[2016-11-18 08:11] LABS: Magnesium 2.5 mg/dL (1.6-2.6); Phosphorus 5.9 mg/dL (2.5-4.9)
[2016-11-18] MEDS: Insulin LISPRO 300 Unit/3 mL Inj SUBQ SCH ×4 (09:40→21:33)
[2016-11-18] MEDS: cefTRIAXone Inj 2,000 MG in Dextrose 5% Minibag Plus 50 ML IV SCH (10:03)
[2016-11-18] MEDS: Pantoprazole 40 mg ER24 Tablet PO SCH (10:04)
[2016-11-18] MEDS: MeTOProlol XL 50 mg ER24 Tablet PO SCH (10:05)
--- NOTE | 2016-11-18 10:57 | PCM.PNMED ---
Subjective Date of Service Nov 18, 2016 Subjective Nephrology Progress Note: Attending Dr. Kirit Huerta Zion is a 76-year-old male with a past medical history significant for diabetes mellitus type II, non-insulin using, hypertension, obstructive sleep apnea on CPAP who presented to [facility] ED with shortness of breath and is now being treated for influenza, CHF exacerbation, hyperglycemia, persistent hyperkalemia, and NANCY. Hospital day #9. Overnight: There are no acute events. Telemetry overnight: Atrial fibrillation , heart rate 50 to 60s, with an IVCD and rare PVC's. Patient is resting in bed comfortably and in no acute distress. He is now on supplemental oxygen. The only complaint the patient he has is shortness of breath and cough. He denies headache, chest pain, palpitations, abdominal pain , nausea, vomiting, fever, chills, dysuria, constipation or diarrhea. He is voiding via Dhillon catheter with good urine output. He is eliminating without difficulty. . Exam Vital Signs Vital Sign - Last Date Time Temp Pulse Resp B/P Pulse Ox O2 Delivery O2 Flow Rate FiO2 11/18/16 10:29 57 11/18/16 09:09 22 92 Nasal Cannula 6.00 11/18/16 09:06 50 11/18/16 08:35 36.3 154/78 Intake and Output 11/17/16 11/17/16 11/18/16 Cumulative From/Thru 15:00 23:00 07:00 11/10/16 16:55 - 11/18/16 05:17 Intake Total 380 ml 694 ml 400 ml 27663 ml Output Total 850 ml 400 ml 07427 ml Balance 380 ml -156 ml 0 ml 1888 ml Intake Oral 556 ml 400 ml 7666 ml IV Total 380 ml 138 ml 9127 ml Output Urine Total 850 ml 400 ml 25621 ml Stool Total 0 ml # Voids 4 # Bowel Movements 0 2 Exam General: Older gentleman lying in bed and in no o acute distress, well-developed , well-nourished, appropriately interactive. HEENT: Normocephalic, atraumatic. External ears without defect. Pupils equal, round, and reactive to light. Anicteric sclerae, moist conjunctivae, and no lid lag. High flow oxygen nasal cannula in place. Neck: Supple with full range of motion. No jugular venous distension. No bruits. No lymphadenopathy or thyromegaly. Cardiovascular: Irregularly irregular without murmurs, rubs, or gallops appreciated Pulmonary: Breath sounds diminished with fine crackles at bases bilaterally. Normal respiratory effort with no use of accessory muscles. Abdomen: Soft, obese, nontender, nondistended, bowel sounds present. No hepatosplenomegaly or masses appreciated. Extremities: No clubbing or cyanosis. Mild pitting edema to bilateral knees. Skin: Normal temperature, turgor, and texture; no rash, ulcers, or subcutaneous nodules appreciated. Neurological: Cranial nerves grossly intact. Psychiatric: Normal mood and affect. Alert and oriented to person, place, and time. . IVs and Medications Medications Reviewed: Medications were reviewed in detail Lab and Diagnostics Item Value Date Time Calcium Level 7.4 mg/dL L 11/18/16 0404 Phosphorus Level 5.9 mg/dL H 11/18/16 0404 Magnesium Level 2.5 mg/dL 11/18/16 0404 Total Bilirubin 0.3 mg/dL 11/18/16 0404 Aspartate Amino Transf (AST/SGOT) 96 U/L H 11/18/16 0404 Alanine Aminotransferase (ALT/SGPT) 156 U/L H 11/18/16 0404 Alkaline Phosphatase 108 U/L 11/18/16 0404 Total Protein 6.0 g/dL L 11/18/16 0404 Albumin 3.2 g/dL L 11/18/16 0404 Result Diagram: 11/18/16 0404 11/18/16 0404 Microbiology Blood cultures x 2 show no growth after 5 days. Viral respiratory PCR positive for influenza A H3.MRSA screen negative. . X-Rays, CTs and MRIs US VENOUS LEG DUPLEX BILATERAL IMPRESSION: 1. No definite evidence of deep vein thrombosis in the right or left lower extremity with evaluation limited on the left as described secondary to body habitus. Dictated by: Iftikhar Burger M.D. on 11/13/2016 at 11:42 Approved by: Iftikhar Burger M.D. on 11/13/2016 at 11:42 Chest X-Ray IMPRESSION: Bibasilar alveolar infiltration stable over time, left greater than right. Prior CABG. Continued reduced inspiratory volume. Limited study due to reduced inspiration and large body habitus. Dictated by: Jamel Mccabe M.D. on 11/15/2016 at 9:32 Approved by: Jamel Mccabe M.D. on 11/15/2016 at 9:32 Retroperitoneal US IMPRESSION: 1. Markedly limited study. 2. No definite hydronephrosis, although the right kidney is poorly characterized. 3. Moderate postvoid residual. Dictated by: Selma Rangel M.D. on 11/12/2016 at 14:15 CT ABDOMEN AND PELVIS WITHOUT CONTRAST IMPRESSION: 1. Small bilateral pleural fluid collections. 2. Bibasilar lung consolidation compatible with compressive atelectasis, pneumonia or aspiration. Please correlate with clinical and laboratory data. 3. Cardiomegaly. 4. Hepatic steatosis. 5. 1.4 cm gallstone in the gallbladder neck. There is clinical concern for biliary disease, abdominal ultrasound should be performed for further evaluation. 6. Small amount of ascites in the lower pelvis and the left lower quadrant of the abdomen. 7. Status post prostatectomy. 8. Colonic diverticulosis. 9. Image quality limited by patient motion. Diagnostic sensitivity of the study is limited by absence of oral and intravenous contrast. Dictated by: Aditi Garcia MD, PhD on 11/13/2016 at 17:17 . 12-lead ECG EKG: Atrial fibrillation with right bundle branch block. . Cardiac Echo Impressions Echocardiogram Interpretation Summary There is normal left ventricular wall thickness.The ejection fraction is estimated to be 55-60%.Flattened septum is consistent with RV pressure/volume overload.The right ventricle is moderately dilated.Right ventricular systolic function is moderately reduced. Right ventricular systolic pressure is estimated to be 37 mmHg plus the clinically estimated CVP which cannot be estimated on this exam. Probably no significant interval change from 2011 Electronically signed by: Justyn Watters on Reading Physician:11/11/2016 01:33 PM . Assessment & Plan Bradley Donovan is a 76-year-old male with a past medical history significant for diabetes mellitus type II, non-insulin using, hypertension, obstructive sleep apnea on CPAP who presented to [facility] ED with shortness of breath and is now being treated for influenza, CHF exacerbation, hyperglycemia, persistent hyperkalemia, and NANCY. Hospital day #9. 1. Acute on chronic kidney injury. - Multifactorial: cardiorenal syndrome and ATN. - Worsening BUN/cr ratio likely secondary to steroids and overdiuresis. - Continue to hold diuretics to let renal function equilibrate. Took the liberty of decreasing steroid dose from methylprednisolone 60 mg every 8 hours to prednisone 40 mg daily. - Does not require renal replacement therapy at this time. 2. Hyperkalemia, persistent. - Etiology: uncontrolled BS, insulin insufficiency, NANCY. - Possible underlying disease of RTA type IV (hypoaldosteronism). - Continue fludrocortisone 0.1 mg daily. - May consider giving Kayexalate. 3. Acute influenza infection, superimposed bacterial pneumonia. 4. Hypoxemic respiratory failure. 5. Acute on chronic CHF exacerbation. 6. 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 7. History of hypertension with hypertensive nephrosclerosis. . GI Prophylaxis: Proton Pump Inhibitor VTE Prophylaxis: Sub-Q Heparin (Unfractionated) VTE Mechanical Devices: Intermittant Pneumatic CD Resuscitation Status: CPR: Attempt Resuscitation Attending Statement Patient's creatinine has decreased ability to 0.17 however the wound continues to rise 114. He continues to be dosed at a fairly high dose of methylprednisolone and I would like to stop that today. Would also like to start prednisone 40 mg. His blood pressure is better though still high and I feel that the fludrocortisone may be adding to this. I would like to stop the metoprolol and add labetalol 200 twice a day. Adelaida Wilkerson DO Nov 18, 2016 10:57 Derian Beth DO Nov 18, 2016 15:33
[2016-11-18 12:08] LABS: Aldosterone/Renin Ratio 0.4 (0.0-30.0); Renin Activity 57.54 ng/mL/hr (.)
[2016-11-18] MEDS: predniSONE 20 mg Tablet PO SCH (12:51)
--- NOTE | 2016-11-18 15:25 | NUR ---
Off from Baseline Patient stated he felt "stoned" before lunch. Stated he didn't feel like himself, was feeling good this am, but feels fuzzy and different now. Patients VSS. Notified MD.
--- NOTE | 2016-11-18 15:40 | NUR ---
NUTRITION FOLLOW-UP Assess: 76 yo M w/ pneumonia w/ secondary hypoxia, NANCY, hyperkalmiea, hypocalcemia, and acute exacerbation of CHF. PO intake has improved. Pt tolerating a soft diet. Pt states that his appetite is still decreased but improving. He would like me to continue sending Glucerna BID. PMHx: Microcytic anemia, Crohns, Erosive esophagitis, Gastric antral ulcerations, Cataracts, CABG 2011, PVCs, Dyslipidemia, COPD, Pneumonia, GERARDO on CPAP, Diverticulitis, Hiatal hernia, Colon polyps, Arthritis, DM 2, Anxiety. LABS: Reviewed. K 5.4, Cl 95, CO2 30, BUN 114, Cr 2.17, Glu 261, Ca 7.4, Phos 5.9, AST 96, ALT 156 MEDICATIONS: Reviewed. Protonix, Insulin DIET: Soft w/ NTL, PO 50-100% of most meals DIET Hx/INTAKE [employer]ER: Minimal NUTRITION FOCUSED PHYSICAL ASSESSMENT: GI symptoms/stool: BM x2 11/17 Aiden: 17 Skin integrity: No issues reported Overall Appearance: Obese man sitting in bedside chair ANTHROPOMETRICS: Current Wt: 141.4 kg BMI: 43.5 kg/m2 Admit Wt: 137.7 kg (BMI: 42.3 kg/m2) IBW: 78.2 kg Adj BW: 93.1 kg Recent wt changes: Wt gain ESTIMATED NEEDS: BMI Calories: 5902-6737 kcal/d (25-30 kcal/kg/d Adj BW) Protein: 110-140 g/d (1.2-1.5 g/kg/d Adj BW) Fluids: 5997-1091 ml/d (1 ml/kcal/d) NUTRITION DIAGNOSIS: 1) Inadequate oral intake related to acute illness as evidenced by recent change in PO intake.---IMPROVED 2) Altered nutrition-related lab values related to type 2 diabetes as evidenced by A1c of 8.6---PERSISTS, glucoses >200 INTERVENTION: 1) Continue NT Glucerna BID MONITOR/EVALUATE: PO intake, Labs, Wt, GI/Nutrition status, POC. Will follow per moderate nutrition risk guidelines.
--- NOTE | 2016-11-18 17:44 | PCM.PNMED ---
Subjective Date of Service Nov 18, 2016 Subjective Bradley Donovan is a 75-year-old male with one-week history of shortness of breath , associated not very productive cough, initially treated with azithromycin and prednisone and oxygen from PCP but has ongoing symptoms, admitted for treatment of CAP pneumonia and new onset NANCY and persistent hyperkalemia. Hospital day 7. Overnight: per nursing note "Pt began shift with SOB at rest, RR 28-30 with sats 91-93% on 45L high flow at 45% NC. RT notified. pt sob relieved after being placed on trilogy with 9L O2. Stable on this with sats mid 90s, RR 18-20, sleeping soundly." Today: Patient reports that he is feeling better, but still has trouble breathing and feel "stoned" when his oxygen saturations fall below 90. Patient stated he has increased work of breathing with moving from bed to chair. He noted that his edema is worse today than yesterday and he feel "overloaded." Patient denies change in vision, nausea, vomiting, headache. ROS negative except as mentioned above Exam Vital Signs Vital Sign - Last Date Time Temp Pulse Resp B/P Pulse Ox O2 Delivery O2 Flow Rate FiO2 11/18/16 04:54 Supplement Oxygen 11/18/16 04:42 59 20 92 8.00 11/18/16 03:21 36.4 136/79 11/17/16 20:57 50 Intake and Output 11/17/16 11/17/16 11/18/16 Cumulative From/Thru 15:00 23:00 07:00 11/10/16 16:55 - 11/18/16 05:17 Intake Total 380 ml 694 ml 400 ml 54161 ml Output Total 850 ml 400 ml 31018 ml Balance 380 ml -156 ml 0 ml 1888 ml Intake Oral 556 ml 400 ml 7666 ml IV Total 380 ml 138 ml 9127 ml Output Urine Total 850 ml 400 ml 93880 ml Stool Total 0 ml # Voids 4 # Bowel Movements 0 2 Exam General: Alert, Oriented X3, Cooperative, moderate Distress, Obese Head: Normocephalic, atraumatic. External ears normal. Eyes: PERRLA, EOMI. Anicteric sclerae. Mouth: Mouth Normal, Mucous Membranes Moist/[place] Neck: Neck supple with full range of motion. No lymphadenopathy Chest & Lungs: NC, equal chest rise and fall poor air movement, Diminished breath sounds at bases, minimal wheezes, hear in all lung worrell, no crackles, rhonchi. Cardiovascular: Regular Rate/Rhythm, Normal S1, Normal S2, No Murmurs/Rubs/ Gallops, no JVD Abdomen: Non-tender, distended, No masses, Normoactive bowel tones, Soft Musculoskeletal: Normal Range of Motion Extremities: moderate Pitting edema up to knee bilaterally worse than yesterday. No cyanosis/clubbing bilaterally, pain to palpation of calve muscles b/l Neurological: Grossly Neurologically Intact, Normal Speech, Sensation Intact, : uncircumcised penis, two testicles palpated non tender, moderate scrotal and penile edema, meatus patent without discharge Lab and Diagnostics Result Diagram: 11/18/1640311/18/16 040 Microbiology INFLUENZA A PCR Final 11/11/16-0658 Organism 1 INFLUENZA A H3 X-Rays, CTs and MRIs Chest X-Ray IMPRESSION: Bibasilar alveolar infiltration stable over time, left greater than right. Prior CABG. Continued reduced inspiratory volume. Limited study due to reduced inspiration and large body habitus. Dictated by: Jamel Mccabe M.D. on 11/15/2016 at 9:32 Approved by: Jamel Mccabe M.D. on 11/15/2016 at 9:32 4 Retroperitoneal US IMPRESSION: 1. Markedly limited study. 2. No definite hydronephrosis, although the right kidney is poorly characterized. 3. Moderate postvoid residual. Dictated by: Selma Rangel M.D. on 11/12/2016 at 14:15 CT abdomen and pelvis IMPRESSION: 1. Small bilateral pleural fluid collections. 2. Bibasilar lung consolidation compatible with compressive atelectasis, pneumonia or aspiration. Please correlate with clinical and laboratory data. 3. Cardiomegaly. 4. Hepatic steatosis. 5. 1.4 cm gallstone in the gallbladder neck. There is clinical concern for biliary disease, abdominal ultrasound should be performed for further evaluation. 6. Small amount of ascites in the lower pelvis and the left lower quadrant of the abdomen. 7. Status post prostatectomy. 8. Colonic diverticulosis. 9. Image quality limited by patient motion. Diagnostic sensitivity of the study is limited by absence of oral and intravenous contrast. Dictated by: Aditi Garcia MD, PhD on 11/13/2016 at 17:17 12-lead ECG EKG: Atrial fibrillation with right bundle branch block. . Cardiac Echo Impressions Interpretation Summary There is normal left ventricular wall thickness.The ejection fraction is estimated to be 55-60%.Flattened septum is consistent with RV pressure/volume overload.The right ventricle is moderately dilated.Right ventricular systolic function is moderately reduced. Right ventricular systolic pressure is estimated to be 37 mmHg plus the clinically estimated CVP which cannot be estimated on this exam. Probably no significant interval change from 2011 Electronically signed by: Justyn Watters on Reading Physician:11/11/2016 01:33 PM Additional Diagnostics US VENOUS LEG DUPLEX BILATERAL IMPRESSION: 1. No definite evidence of deep vein thrombosis in the right or left lower extremity with evaluation limited on the left as described secondary to body habitus. Dictated by: Iftikhar Burger M.D. on 11/13/2016 at 11:42 Approved by: Iftikhar Burger M.D. on 11/13/2016 at 11:42 Assessment & Plan Bradley Donovan is a 75-year-old male with one-week history of shortness of breath , associated not very productive cough, initially treated with azithromycin and prednisone and oxygen from PCP but has ongoing symptoms, admitted for treatment of CAP pneumonia and new onset NANCY and persistent hyperkalemia. Hospital day 7. 1. Acute on Chronic Respiratory failure, Present on admission, improving - Patient has Chronic Respiratory Failure secondary to Severe COPD/GERARDO. Patient requires non-invasive mechanical ventilator to prevent life threatening exacerbations and future hospital readmission due to chronic respiratory failure. - Patient's use of home CPAP overnight has not been an effective therapy. Patient does not tolerate - Bipap referred to in hospital notes is a vision 60 which is equivalent to NVH therapy. - Monitor patients response, he will likely need this halfway. 2.Bibasilar pneumonia with secondary secondary Hypoxia, present on admission, improving - Influenza A +, CURB65: 2 - Bibasilar pneumonia present on CXR, partially treated w/ outpatient treatment and evaluating for CHF that may be contributing to hypoxia - Rocephin and azithromycin started 11/12/16, continue for 7 days - DuoNeb's PRN Q4 - U/S Doppler legs negative for DVT limited - Procalcitonin 0.45 1/13/17 - Lactic Acid 1.5 11/13/16 3. Acute on chronic kidney injury, present on admission, improving - Multifactorial secondary to overdiuresis, cardiorenal syndrome and ATN. - Continue to hold metformin/lisinopril - D/C IV fluids, monitor fluid status with elevated BNP and diastolic dysfunction noted in prior echo - Retroperitoneal U/S showed moderate post residual void - Continue Dhillon cath, urine output improved - Start 20 mg Torsemide PO, once, reassess volume status and renal function - Start 25 chlorthalidone PO once, reassess volume status and renal function - Discontinue Methylprednisone - Start 40 mg prednisone PO - Nephrology consulted we appreciate their input on this case 4. Hyperkalemia, present on admission, improving - 11/16/16 K 4.8, 11/18/16 5.4 - Differential diagnosis includes: NANCY, RTA Type IV, uncontrolled DM II - Stop insulin drip and change to insulin subQ, weight based long acting and preprandial with correctional - Rennin/aldosterone and urine aldosterone pending - continue fludrocortisone 0.1 mg daily 5.Type II DM, acute on chronic, present on admission, active - Continue patient on SubQ insulin by weight - Patient given 52 units of Lantus HS, consider titrating basal insulin base on response of blood glucose - Recommend patient continue insulin regimen as an outpatient 6. A-Fib, rate controlled, present on admission, active - Patient refusing Coumadin. Discussed risks of no anticoagulation with him, patient verbalized understanding. 7. Acute exacerbation of CHF, present on admission, active - Elevated troponin likely due acute on chronic HF, trop trending down 0.02 11/13 - ECHO showed diastolic heart failure EF of 55-60%. - Diurese as above 8. Hypocalcemia, present on admission, active - Calcium 11/18/16 7.4 - Continue to monitor Chronic issues known prior to admission, present on admission: 9. History of COPD and GERARDO - Continue Trilogy PRN shortness of breath and nightly - Continue Prednisone as above 10. Iron deficiency anemia - Monitor 11. Erosive esophagitis, gastric antral ulceration, Crohn disease, - PPI/[id number], mesalamine, anticipate Humira resumption after this admission - Continue Protonix 40 mg Daily 12. Coronary artery disease - Continue statin 13. History of prostatectomy for prostate cancer 14. Ankylosing spondylosis - Continue Vicodin 15. Anxiety -Ativan PRN Diet cardiac/diabetic DVT prophylaxis heparin Code limited, intubate Disposition: Likely can move towards D/C in the next day or so. GI Prophylaxis: Proton Pump Inhibitor VTE Prophylaxis: Sub-Q Heparin (Unfractionated) VTE Mechanical Devices: Intermittant Pneumatic CD Resuscitation Status: CPR: Attempt Resuscitation Attending Statement The patient was seen and examined together with Dr. Jackson on 11-18-16 and I agree with the history, exam and plan as outlined in the note above. JAKE JACKSON DO Nov 18, 2016 07:49 Chiquita Pedraza MD Nov 19, 2016 14:03
[2016-11-18] MEDS: LORazepam 1 mg Tablet PO PRN (21:13)
[2016-11-18] MEDS: AZITHROMYCIN IV SCH ×2 (21:15)
[2016-11-18] MEDS: DEXTROSE IV SCH ×2 (21:15)
[2016-11-18] MEDS: Insulin GLARgine 100 Unit/mL Syringe SUBQ SCH (21:33)
[2016-11-19] VITALS (13 sets, daily range): BP systolic 133–181; BP diastolic 71–89; PULSE 49–70; RESP 18–24; O2SAT 89–96
[2016-11-19] MEDS: Heparin 5,000 Unit/mL Inj SUBQ SCH ×3 (00:01→18:04)
[2016-11-19] MEDS: Albuterol-Ipratropium 3 mL Inhalation Solution NEB SCH ×6 (00:49→21:43)
--- NOTE | 2016-11-19 02:37 | NUR ---
Tele/ Respiratory/ sleep Tele Afib 60-70 @ start of shift- scheduled Po labetalol given as ordered. Overnight when sleeping HR did dip down to 30-40 at times. Respiratory: when awake pt on 6 L NC @ rest. With slight activity/ repositioning additional 02 needed. Pt on Trilogy overnight with a bleed in of 8-10L. Sp02 monitored via continues pulse ox. sleep: pt requesting trazodone and Ativan at HS. Given per pt request- pt sleeping soundly overnight.
[2016-11-19 05:48] LABS: EOSINOPHILS % (AUTO) 0 % (0-5); Mean Corpuscular Volume 95.7 fL (81-100); Platelet Count 184 bil/L (150-400)
[2016-11-19 06:05] LABS: INR 1.05 ratio
[2016-11-19 06:07] LABS: Phosphorus 6.3 mg/dL (2.5-4.9)
[2016-11-19 06:23] LABS: BASOPHILS % (AUTO) 0 % (0-3); MONOCYTES % (AUTO) 6 % (4-12); NEUTROPHILS % (AUTO) 82 % (40-74)
--- NOTE | 2016-11-19 08:13 | NUR ---
Mention Patient mentation off from baseline. AOx self, family, place. Temp 34.2, BP 148/88, P 49. Notified Chg. Called RT for ABG. Notified MD. Care continues.
--- NOTE | 2016-11-19 08:50 | ABG ---
DateTimeAnalyzed 08:43:00 -_ pH ____7.305 - 7.350 7.450 pCO2 ___67.7__ -mmHg 35.0 45.0 pO2 ___72.7__ -mmHg 69.0 116 HCO3- ___32.6__ -mmol/L 22.0 26.0 ABE ____5.3__ -mmol/L -2.0 2.0 tHb ___10.4__ -g/dL O2Hb ___92.5__ -% COHb ____1.2__ -% MetHb ____0.9__ -% sO2 ___94.5__ -% 25.0 FIO2 ___45.0__ -% Drawn By CF - Date/Time Notified____ 08:50:00 -_ Oxygen Device 1 __CANNULA - Notified By CF - Notified Whom arnold,maame do - B 744 -mmHg tO2 ___13.6__ -Vol% David test N/A -
--- NOTE | 2016-11-19 09:04 | PCM.PNMED ---
Subjective Date of Service Nov 19, 2016 Subjective Nephrology Progress Note: Attending Dr. Kirit Huerta Zion is a 76-year-old male with a past medical history significant for diabetes mellitus type II, non-insulin using, hypertension, obstructive sleep apnea on CPAP who presented to [facility] ED with shortness of breath and is now being treated for influenza, CHF exacerbation, hyperglycemia, persistent hyperkalemia, and NANCY. Hospital day #10. Overnight: There are no acute events. Telemetry overnight: Atrial fibrillation , heart rate 60 to 70's, with an IVCD and no ectopy. Patient is resting in bed comfortably and in no acute distress. He is now on supplemental oxygen. The only complaint the patient has is continued shortness of breath and minimally productive cough. He denies headache, chest pain, palpitations, abdominal pain, nausea, vomiting, fever, chills, dysuria, constipation or diarrhea. He is voiding via Dhillon catheter with good urine output. He is eliminating without difficulty. . Exam Vital Signs Vital Sign - Last Date Time Temp Pulse Resp B/P Pulse Ox O2 Delivery O2 Flow Rate FiO2 11/19/16 07:50 34.6 49 24 148/88 94 Nasal Cannula 6.00 11/18/16 09:06 50 Intake and Output 11/18/16 11/18/16 11/19/16 Cumulative From/Thru 15:00 23:00 07:00 11/10/16 16:55 - 11/19/16 04:45 Intake Total 832 ml 350 ml 43254 ml Output Total 1350 ml 1000 ml 89935 ml Balance -518 ml -650 ml 720 ml Intake Oral 640 ml 100 ml 8406 ml IV Total 192 ml 250 ml 9569 ml Output Urine Total 1350 ml 1000 ml 99069 ml Stool Total 0 ml # Voids 4 # Bowel Movements 1 0 3 Exam General: Older gentleman lying in bed and in no o acute distress, well-developed , well-nourished, appropriately interactive. HEENT: Normocephalic, atraumatic. External ears without defect. Pupils equal, round, and reactive to light. Anicteric sclerae, moist conjunctivae, and no lid lag. High flow oxygen nasal cannula in place. Neck: Supple with full range of motion. No jugular venous distension. No bruits. No lymphadenopathy or thyromegaly. Cardiovascular: Irregularly irregular without murmurs, rubs, or gallops appreciated Pulmonary: Breath sounds diminished with fine crackles at bases bilaterally. Normal respiratory effort with no use of accessory muscles. Abdomen: Soft, obese, nontender, nondistended, bowel sounds present. No hepatosplenomegaly or masses appreciated. Extremities: No clubbing or cyanosis. Mild to moderate pitting edema to bilateral knees. Skin: Normal temperature, turgor, and texture; no rash, ulcers, or subcutaneous nodules appreciated. Neurological: Cranial nerves grossly intact. Psychiatric: Normal mood and affect. Alert and oriented to person, place, and time. . IVs and Medications Medications Reviewed: Medications were reviewed in detail Lab and Diagnostics Item Value Date Time Calcium Level 7.4 mg/dL L 11/19/16449 Phosphorus Level 6.3 mg/dL H 11/19/16449 Total Bilirubin 0.3 mg/dL 11/19/16449 Aspartate Amino Transf (AST/SGOT) 93 U/L H 11/19/16449 Alanine Aminotransferase (ALT/SGPT) 160 U/L H 11/19/16 045 Alkaline Phosphatase 103 U/L 11/19/16 0450 Total Protein 5.9 g/dL L 11/19/16 0450 Albumin 3.3 g/dL L 11/19/16 045 Result Diagram: 11/19/1644911/19/16449 Microbiology Blood cultures x 2 show no growth after 5 days. Viral respiratory PCR positive for influenza A H3.MRSA screen negative. . X-Rays, CTs and MRIs US VENOUS LEG DUPLEX BILATERAL IMPRESSION: 1. No definite evidence of deep vein thrombosis in the right or left lower extremity with evaluation limited on the left as described secondary to body habitus. Dictated by: Iftikhar Burger M.D. on 11/13/2016 at 11:42 Approved by: Iftikhar Burger M.D. on 11/13/2016 at 11:42 Chest X-Ray IMPRESSION: Bibasilar alveolar infiltration stable over time, left greater than right. Prior CABG. Continued reduced inspiratory volume. Limited study due to reduced inspiration and large body habitus. Dictated by: Jamel Mccabe M.D. on 11/15/2016 at 9:32 Approved by: Jamel Mccabe M.D. on 11/15/2016 at 9:32 Retroperitoneal US IMPRESSION: 1. Markedly limited study. 2. No definite hydronephrosis, although the right kidney is poorly characterized. 3. Moderate postvoid residual. Dictated by: Selma Rangel M.D. on 11/12/2016 at 14:15 CT ABDOMEN AND PELVIS WITHOUT CONTRAST IMPRESSION: 1. Small bilateral pleural fluid collections. 2. Bibasilar lung consolidation compatible with compressive atelectasis, pneumonia or aspiration. Please correlate with clinical and laboratory data. 3. Cardiomegaly. 4. Hepatic steatosis. 5. 1.4 cm gallstone in the gallbladder neck. There is clinical concern for biliary disease, abdominal ultrasound should be performed for further evaluation. 6. Small amount of ascites in the lower pelvis and the left lower quadrant of the abdomen. 7. Status post prostatectomy. 8. Colonic diverticulosis. 9. Image quality limited by patient motion. Diagnostic sensitivity of the study is limited by absence of oral and intravenous contrast. Dictated by: Aditi Garcia MD, PhD on 11/13/2016 at 17:17 . 12-lead ECG EKG: Atrial fibrillation with right bundle branch block. . Cardiac Echo Impressions Echocardiogram Interpretation Summary There is normal left ventricular wall thickness.The ejection fraction is estimated to be 55-60%.Flattened septum is consistent with RV pressure/volume overload.The right ventricle is moderately dilated.Right ventricular systolic function is moderately reduced. Right ventricular systolic pressure is estimated to be 37 mmHg plus the clinically estimated CVP which cannot be estimated on this exam. Probably no significant interval change from 2011 Electronically signed by: Justyn Watters on Reading Physician:11/11/2016 01:33 PM . Assessment & Plan Bradley Donovan is a 76-year-old male with a past medical history significant for diabetes mellitus type II, non-insulin using, hypertension, obstructive sleep apnea on CPAP who presented to [facility] ED with shortness of breath and is now being treated for influenza, CHF exacerbation, hyperglycemia, persistent hyperkalemia, and NANCY. Hospital day #10. 1. Acute on chronic kidney injury. - Multifactorial: cardiorenal syndrome and ATN. - Worsening BUN/cr ratio likely secondary to steroids and overdiuresis. - Restarted diuresis with 60 mg furosemide now and torsemide 20 mg twice daily to start this evening. Continue prednisone 40 mg daily. - Does not require renal replacement therapy at this time. 2. Hyperkalemia, persistent. - Etiology: uncontrolled BS, insulin insufficiency, NANCY. - Possible underlying disease of RTA type IV (hypoaldosteronism). - Continue fludrocortisone 0.1 mg daily. - May consider giving Kayexalate. 3. Acute influenza infection, superimposed bacterial pneumonia. 4. Hypoxemic respiratory failure. 5. Acute on chronic CHF exacerbation. 6. 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 7. History of hypertension with hypertensive nephrosclerosis. - Discontinued metoprolol and started labetalol 200 mg twice daily and chlorthalidone 25 mg daily. 8. Hyperphosphatemia. - Started Renvela 800 mg three times a day with food. . GI Prophylaxis: Proton Pump Inhibitor VTE Prophylaxis: Sub-Q Heparin (Unfractionated) VTE Mechanical Devices: Intermittant Pneumatic CD Resuscitation Status: CPR: Attempt Resuscitation Adelaida Wilkerson DO Nov 19, 2016 09:04
--- NOTE | 2016-11-19 09:13 | DRSVH ---
PROCEDURE: X-RAY CHEST ONE VIEW, PORTABLE ([id number]) INDICATIONS: SOB TECHNIQUE: One view of the chest was acquired. COMPARISON: [facility], CR, XR CHEST 1VW (PORTABLE), 11/15/2016, 8:33. FINDINGS: Surgical changes and devices: Median sternotomy wires. Lungs and pleura: Small bilateral pleural fluid collections are noted. Increased opacification noted in the left lung base which could represent atelectasis or pneumonia. Mediastinum: Mediastinal contours appear normal. Heart size is normal. Bones and chest wall: No suspicious bony lesions. Overlying soft tissues appear unremarkable. IMPRESSION: Left basilar opacity suspicious for pneumonia apparently correlated clinical and laboratory data. Small bilateral pleural effusions. Dictated by: Aditi Garcia MD, PhD on 11/19/2016 at 9:11 Approved by: Aditi Garcia MD, PhD on 11/19/2016 at 9:11
[2016-11-19] MEDS: Insulin LISPRO 300 Unit/3 mL Inj SUBQ SCH ×4 (10:21→21:28)
[2016-11-19] MEDS: predniSONE 20 mg Tablet PO SCH (10:28)
[2016-11-19] MEDS: Mesalamine 500 mg CR Capsule PO SCH ×3 (10:29→18:04)
[2016-11-19] MEDS: Pantoprazole 40 mg ER24 Tablet PO SCH (10:30)
[2016-11-19] MEDS: Sodium Chloride LOK Flush 10 mL Syringe IVFLUSH SCH ×3 (10:31→21:24)
[2016-11-19] MEDS ORDERED: Furosemide 10 mg/mL 10 mL Inj IVPUSH ONE ×2 (11:15→13:55)
[2016-11-19] MEDS: cefTRIAXone Inj 2,000 MG in Dextrose 5% Minibag Plus 50 ML IV SCH (13:17)
[2016-11-19] MEDS ORDERED: 0.9% Sodium Chloride 250 ML ONE (13:19)
[2016-11-19 16:22] LABS: APPEARANCE,URINE CLEAR (CLEAR,HAZY)
[2016-11-19 16:22] LABS: EOSINOPHILS % (AUTO) 0 % (0-5); Mean Corpuscular Volume 95.9 fL (81-100); Platelet Count 171 bil/L (150-400)
[2016-11-19 16:23] LABS: COLOR,URINE STRAW (YELLOW); OCCULT BLOOD,URINE TRACE (NEGATIVE); PH,URINE 6.5 (5.0-8.0); UROBILINOGEN,URINE NORMAL (NORMAL)
[2016-11-19 17:38] LABS: BASOPHILS % (AUTO) 0 % (0-3); MONOCYTES % (AUTO) 4 % (4-12); NEUTROPHILS % (AUTO) 79 % (40-74)
--- NOTE | 2016-11-19 18:25 | PCM.PNMED ---
Subjective Date of Service Nov 19, 2016 Subjective Bradley Donovan is a 75-year-old male with one-week history of shortness of breath , associated not very productive cough, initially treated with azithromycin and prednisone and oxygen from PCP but has ongoing symptoms, admitted for treatment of CAP pneumonia and new onset NANCY and persistent hyperkalemia. Hospital day 8. Overnight: Nursing reported " Tele/ Respiratory/ sleep Tele Afib 60-70 @ start of shift- scheduled Po labetalol given as ordered. Overnight when sleeping HR did dip down to 30-40 at times. Respiratory: when awake pt on 6 L NC @ rest. With slight activity/ repositioning additional 02 needed. Pt on Trilogy overnight with a bleed in of 8-10L. Sp02 monitored via continues pulse ox. sleep : pt requesting trazodone and Ativan at HS. Given per pt request- pt sleeping soundly overnight." Shelli Crum RN Date: 11/19/16 02 :37 Today: AM Nursing reported "Patient mentation off from baseline. AOx self, family, place. Temp 34.2, BP 148/88, P 49. Notified Chg. Called RT for ABG." Patient seen at bed side this AM patient stated he was feeling short of breath, and felt "over medicated." Patient complained of increased swelling in his legs , difficulty getting comfortable in bed "feeling like my butt is glued to the bed." ROS negative except as mentioned above Exam Vital Signs Vital Sign - Last Date Time Temp Pulse Resp B/P Pulse Ox O2 Delivery O2 Flow Rate FiO2 11/19/16 05:49 63 11/19/16 04:06 20 92 CPAP 8.00 11/19/16 03:22 36.5 144/71 11/18/16 09:06 50 Intake and Output 11/18/16 11/18/16 11/19/16 Cumulative From/Thru 15:00 23:00 07:00 11/10/16 16:55 - 11/19/16 04:45 Intake Total 832 ml 350 ml 78608 ml Output Total 1350 ml 1000 ml 36672 ml Balance -518 ml -650 ml 720 ml Intake Oral 640 ml 100 ml 8406 ml IV Total 192 ml 250 ml 9569 ml Output Urine Total 1350 ml 1000 ml 01629 ml Stool Total 0 ml # Voids 4 # Bowel Movements 1 0 3 Exam General: Alert, Oriented X3, confusion present upon wakening, mentation improved but reduced compared to yesterday, Cooperative, moderate Distress, Obese Head: Normocephalic, atraumatic. External ears normal. Eyes: PERRLA, EOMI. Anicteric sclerae. Mouth: Mouth Normal, Mucous Membranes Moist/[place] Neck: Neck supple with full range of motion. No lymphadenopathy Chest & Lungs: O2 NC 6 L , equal chest rise and fall poor air movement, diminished breath sounds at bases, bronchophony present at lower left lung lobe , minimal wheezes, hear in all lung worrell, no crackles, rhonchi. Cardiovascular: Regular Rate/Rhythm, Normal S1, Normal S2, No Murmurs/Rubs/ Gallops, no JVD Abdomen: Non-tender, distended, No masses, Normoactive bowel tones, Soft Musculoskeletal: Normal Range of Motion Extremities: Extremities cool to touch, moderate to severe pitting edema up to sacrum worse than yesterday. No cyanosis/clubbing bilaterally, pain to palpation of calve muscles b/l Neurological: Grossly Neurologically Intact, Normal Speech, Sensation Intact, : uncircumcised penis, two testicles palpated non tender, moderate scrotal and penile edema, meatus patent without discharge IVs and Medications Medications Reviewed: Medications were reviewed in detail Lab and Diagnostics Laboratory Tests Test 11/19/16 04:50 White Blood Count 10.4th/mm3 (3.8-10.1) Red Blood Count 3.45mil/mm3 (4.40-5.80) Hemoglobin 10.0g/dL (13.8-17.2) Hematocrit 33.0% (41.0-50.0) Mean Corpuscular Volume 95.7fL (81-100) Mean Corpuscular Hemoglobin 29.0pg (27.0-35.0) Mean Corpuscular Hemoglobin Concent 30.3% (32.0-37.0) Red Cell Distribution Width 15.2% (12.3-15.4) Platelet Count 184bil/L (150-400) Neutrophils (%) (Auto) 82% (40-74) Lymphocytes (%) (Auto) 6% (14-46) Monocytes (%) (Auto) 6% (4-12) Eosinophils (%) (Auto) 0% (0-5) Basophils (%) (Auto) 0% (0-3) Band Neutrophils % 1% (1-5) Metamyelocytes % 4% (0-0) Myelocytes % 1% (0-0) Nucleated Red Blood Cells 2/100 WBC (0-24) Sodium Level 141mEq/L (134-144) Potassium Level 5.3mEq/L (3.5-5.2) Chloride Level 96mEq/L (97-108) Carbon Dioxide Level 31mmol/L (18-29) Blood Urea Nitrogen 111mg/dL (8-27) Creatinine 2.07mg/dL (0.76-1.27) Estimat Glomerular Filtration Rate 34mL/min (>59) Glucose Level 212mg/dL (60-99) Calcium Level 7.4mg/dL (8.5-10.1) Phosphorus Level 6.3mg/dL (2.5-4.9) Total Bilirubin 0.3mg/dL (0.0-1.2) Aspartate Amino Transf (AST/SGOT) 93U/L (0-50) Alanine Aminotransferase (ALT/SGPT) 160U/L (0-44) Alkaline Phosphatase 103U/L (25-160) Total Protein 5.9g/dL (6.4-8.4) Albumin 3.3g/dL (3.4-5.0) Microbiology 11/10/16 Blood Culture - Final, Complete NO GROWTH AFTER 5 DAYS 11/11/16 Adenovirus DNA (PCR) - Final, Complete Not Detected 11/11/16 Coronavirus 229E PCR - Final, Complete Not Detected 11/11/16 Coronavirus HKU1 PCR - Final, Complete Not Detected 11/11/16 Coronavirus NL63 PCR - Final, Complete Not Detected 11/11/16 Coronavirus OC43 PCR - Final, Complete Not Detected 11/11/16 Influenza Type A (PCR) - Final, Complete Influenza A H3 11/11/16 Influenza Type B (PCR) - Final, Complete Not Detected 11/11/16 Human Metapneumovirus (PCR) (ESTEBAN) - Final, Complete Not Detected 11/11/16 Rhinovirus (PCR)(ESTEBAN) - Final, Complete Not Detected 11/11/16 Parainfluenza Virus Type 1 (PCR) - Final, Complete Not Detected 11/11/16 Parainfluenza Virus Type 2 (PCR) - Final, Complete Not Detected 11/11/16 Parainfluenza Virus Type 3 (PCR) - Final, Complete Not Detected 11/11/16 Parainfluenza Virus Type 4 (NAAT) - Final, Complete Not Detected 11/11/16 Respiratory Syncytial Virus (PCR)WA - Final, Complete Not Detected 11/11/16 Chlamydia pneumoniae (PCR) - Final, Complete Not Detected 11/11/16 Mycoplasma pneumoniae DNA Detection - Final, Complete Result Diagram: 11/19/16 0450 11/19/16 0450 Microbiology INFLUENZA A PCR Final 11/11/16-0658 Organism 1 INFLUENZA A H3 X-Rays, CTs and MRIs Chest X-Ray IMPRESSION: Left basilar opacity suspicious for pneumonia apparently correlated clinical and laboratory data. Small bilateral pleural effusions. Dictated by: Aditi Garcia MD, PhD on 11/19/2016 at 9:11 Approved by: Aditi Garcia MD, PhD on 11/19/2016 at 9:11 Retroperitoneal US IMPRESSION: 1. Markedly limited study. 2. No definite hydronephrosis, although the right kidney is poorly characterized. 3. Moderate postvoid residual. Dictated by: Selma Rangel M.D. on 11/12/2016 at 14:15 CT abdomen and pelvis IMPRESSION: 1. Small bilateral pleural fluid collections. 2. Bibasilar lung consolidation compatible with compressive atelectasis, pneumonia or aspiration. Please correlate with clinical and laboratory data. 3. Cardiomegaly. 4. Hepatic steatosis. 5. 1.4 cm gallstone in the gallbladder neck. There is clinical concern for biliary disease, abdominal ultrasound should be performed for further evaluation. 6. Small amount of ascites in the lower pelvis and the left lower quadrant of the abdomen. 7. Status post prostatectomy. 8. Colonic diverticulosis. 9. Image quality limited by patient motion. Diagnostic sensitivity of the study is limited by absence of oral and intravenous contrast. Dictated by: Aditi Garcia MD, PhD on 11/13/2016 at 17:17 12-lead ECG EKG: Atrial fibrillation with right bundle branch block. . Cardiac Echo Impressions Interpretation Summary There is normal left ventricular wall thickness.The ejection fraction is estimated to be 55-60%.Flattened septum is consistent with RV pressure/volume overload.The right ventricle is moderately dilated.Right ventricular systolic function is moderately reduced. Right ventricular systolic pressure is estimated to be 37 mmHg plus the clinically estimated CVP which cannot be estimated on this exam. Probably no significant interval change from 2011 Electronically signed by: Justyn Watters on Reading Physician:11/11/2016 01:33 PM Additional Diagnostics ABG DateTimeAnalyzed 08:43:00 -_ pH ____7.305 - 7.350 7.450 pCO2 ___67.7__ -mmHg 35.0 45.0 pO2 ___72.7__ -mmHg 69.0 116 HCO3- ___32.6__ -mmol/L 22.0 26.0 US VENOUS LEG DUPLEX BILATERAL IMPRESSION: 1. No definite evidence of deep vein thrombosis in the right or left lower extremity with evaluation limited on the left as described secondary to body habitus. Dictated by: Iftikhar Burger M.D. on 11/13/2016 at 11:42 Approved by: Iftikhar Burger M.D. 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 Hospital day 9. 1. Acute on Chronic Respiratory failure, hypoxic Present on admission, ongoing - Likely due to bibasilar pneumonia and influenza A infections complicated by GERARDO and CHF - Patient's response to Trilogy has been suboptimal, will discontinue for now and restart patient on HFNC - Continue to monitor respiratory status as volume status and fluid status improve 2.Bibasilar pneumonia with secondary secondary Hypoxia, present on admission, worsening - Influenza A +, CURB65: 2 - Bibasilar pneumonia present on CXR, partially treated w/ outpatient treatment and evaluating for CHF that may be contributing to hypoxia - Repeat CXR 11/19/16 showed improvement of pulmonary edema, however, bilateral pulmonary effusion remains present when compared to previous CXR 11/15/16, at this time it is unclear whether this is a worsening of pneumonia or uncontrolled CHF, patient encourage to mobilize up and out of bed, r - Rocephin and azithromycin started 11/12/16, continue - Given patient's history of working in health care we will proceed with TB screening to r/o infectious TB - Consider ID consult in AM if no improvement in effusion - DuoNeb's PRN Q4 - Procalcitonin 0.45 11/13/16 11/19/16, pending - Lactic Acid 1.5 11/13/16, 11/19/16 1.6 - Reevaluate patients respiratory and volume status tomorrow 3. Acute on chronic kidney injury, present on admission, ongoing - Multifactorial secondary to overdiuresis, cardiorenal syndrome, ATN, Diabetes Type II - elevated BNP and diastolic dysfunction noted in prior echo - Retroperitoneal U/S showed moderate post residual void - Creatine 2.10 , BUN 112 continues to trend up, - D/C IV fluids, monitor fluid status - Continue Dhillon cath, urine output decreased today - Continue 20 mg Torsemide PO, once, reassess volume status and renal function - Continue 25 chlorthalidone PO once, reassess volume status and renal function - Patient given one time dose of Lasix 60 mg, with suboptimal diuresis, additional 100 mg Lasix given, again with suboptimal diuresis and mobilization of edema, with rising BUN and Cr and suboptimal diuresis patient may need to proceed with Dialysis, - Repeat UA r/o hospital acquired UTI, negative - Discontinue Methylprednisone - Start 40 mg prednisone PO, taper tomorrow - Hold Pentasa - Continue to hold metformin/lisinopril - Nephrology consulted we appreciate their input and expertise on this case 4. Hyperkalemia, present on admission, ongoing - 11/16/16 K 4.8, 11/18/16 5.4 11/19/16 5.7 - Differential diagnosis includes: NANCY, RTA Type IV, uncontrolled DM II - Stop insulin drip and change to insulin subQ, weight based long acting and preprandial with correctional - Rennin/aldosterone and urine aldosterone pending - continue fludrocortisone 0.1 mg daily 5. Type II DM, acute on chronic, present on admission, active - Continue patient on SubQ insulin by weight - Continue 52 units of Lantus HS, consider titrating basal insulin base on response of blood glucose - Recommend patient continue insulin regimen as an outpatient 6. Acute exacerbation of CHF, present on admission, active - Elevated troponin likely due acute on chronic HF, trop trending down 0.02 11/13 - ECHO showed diastolic heart failure EF of 55-60%. - Diurese as above, course of diuretics today have shown suboptimal urine output - reassess volume status tomorrow, patient may require dialysis to remove edematous fluid and improve heart function. 7. 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 Elevated Phosphorus, acute, present on admission, ongoing - Likely related to ongoing NANCY, Diabtes type II, consider potential for malignancy - Start phosphate binder per nephrology today - Blood smear ordered to r/o malignancy 9. Uremia, present on admission, acute, ongoing - likely due to acute kidney injury in setting of excerebration of chronic heart failure due to influenza and pneumonia, chronic uncontrolled diabetes, - This may explain changes in mental status noted by nursing staff, we will continue to assess mentation - per chart review BUN elevated at admission 93, continues to trend up 11/19/16 112 - Repeat CMP AM - Patient may need dialysis to correct BUN level 10.A-Fib, rate controlled, present on admission, active - Patient refusing Coumadin. Discussed risks of no anticoagulation with him, patient verbalized understanding. -U/S Doppler legs negative for DVT limited study 11. Hypocalcemia, present on admission, active - Calcium 11/18/16 7.4 - Continue to monitor Chronic issues known prior to admission, present on admission: 12. History of COPD and GERARDO - Discontinue Trilogy due to suboptimal results, patient's respiratory status responded better to HFNC - Restart HFNC HS and PRN for shortness of breath - Continue Prednisone as above 13. Iron deficiency anemia - Likely related to history of DM - Hepatitis panel ordered to rule out infectious hepatitis - smear ordered to r/o malignancy - Continue to monitor 14. Erosive esophagitis, gastric antral ulceration, Crohn disease, - PPI/F5rsboike, mesalamine, anticipate Humira resumption after this admission - Continue Protonix 40 mg Daily 15. Coronary artery disease - Continue statin 16. History of prostatectomy for prostate cancer 17. Ankylosing spondylosis - Stop Vicodin and home medication 18. Anxiety -Ativan PRN Diet cardiac/diabetic DVT prophylaxis heparin Code limited, intubate Patient progress, plan of care discussed with Daughter and Mother 11/19/16 at approximately 1930 Family stated they would be present tomorrow 11/20/16 to discuss in person. Disposition: Likely discharge to home with improvement of respiratory function, renal function, and CHF. GI Prophylaxis: Proton Pump Inhibitor VTE Prophylaxis: Sub-Q Heparin (Unfractionated) VTE Mechanical Devices: Intermittant Pneumatic CD Resuscitation Status: CPR: Attempt Resuscitation Attending Statement The patient was seen and examined together with Resident/House-staff on 11/19/16 and I agree with the history, exam and plan as outlined in the note above. JAKE JACKSON DO Nov 19, 2016 06:39 Ho Thomas Nov 20, 2016 17:20
[2016-11-19] MEDS: AZITHROMYCIN IV SCH ×2 (21:23)
[2016-11-19] MEDS: DEXTROSE IV SCH ×2 (21:23)
[2016-11-19] MEDS: Insulin GLARgine 100 Unit/mL Syringe SUBQ SCH (21:23)
[2016-11-20] VITALS (8 sets, daily range): BP systolic 135–171; BP diastolic 68–79; PULSE 58–73; RESP 18–24; O2SAT 94–96
[2016-11-20] MEDS: Heparin 5,000 Unit/mL Inj SUBQ SCH ×3 (01:01→16:30)
[2016-11-20] MEDS ORDERED: Insulin Human REGular-Omnicell 100 Unit/mL SUBQ ONE (01:45)
[2016-11-20] MEDS ORDERED: Sodium Polystyrene Sulfonate 0.25 Gm/mL 500 mL Suspension PO ONE (02:20)
[2016-11-20] MEDS ORDERED: Insulin Human REGular-Omnicell 100 Unit/mL IV ONE (02:20)
[2016-11-20] MEDS: Albuterol-Ipratropium 3 mL Inhalation Solution NEB SCH ×6 (02:56→21:12)
[2016-11-20 03:40] LABS: EOSINOPHILS % (AUTO) 0 % (0-5); Mean Corpuscular Hemoglobin 28.6 pg (27.0-35.0); Mean Corpuscular Volume 95.5 fL (81-100); Platelet Count 171 bil/L (150-400)
[2016-11-20 03:54] LABS: INR 1.06 ratio
[2016-11-20 04:03] LABS: BASOPHILS % (AUTO) 0 % (0-3); MONOCYTES % (AUTO) 8 % (4-12); NEUTROPHILS % (AUTO) 81 % (40-74)
[2016-11-20 04:04] LABS: Magnesium 2.2 mg/dL (1.6-2.6); Phosphorus 6.4 mg/dL (2.5-4.9)
--- NOTE | 2016-11-20 04:43 | NUR ---
Respiratory / Hyperkalemia Pt on 4L NC at beginning of shift, SpO2 92%. Per MD order, pt transferred to hi-flow NC at HS on 45% FiO2 and 45L. At approx. 2300, pt desaturated to 81-82% SpO2 d/t manually removing hi-flow and stating "I can't do this thing, it's just forcing too much air into my nose and it hurts. I can't stand it. I won't wear it." Pt placed on Oxymask with 6L O2, SpO2 93-96% throughout shift. Pt able to rest between interventions. Potassium 6.5 after AM BMP; MDs notified, STAT EKG obtained, 50ml D50 administered IV, followed by 10 units regular insulin IV. 30g Kayexalate PO given. VSS, tele afib 50s-60s throughout shift.
[2016-11-20] MEDS: Pantoprazole 40 mg ER24 Tablet PO SCH (08:41)
[2016-11-20] MEDS: Insulin LISPRO 300 Unit/3 mL Inj SUBQ SCH ×4 (08:47→20:55)
[2016-11-20] MEDS: predniSONE 20 mg Tablet PO SCH (08:48)
[2016-11-20] MEDS: Sodium Chloride LOK Flush 10 mL Syringe IVFLUSH SCH ×2 (08:51→16:30)
[2016-11-20] MEDS: cefTRIAXone Inj 2,000 MG in Dextrose 5% Minibag Plus 50 ML IV SCH (08:52)
[2016-11-20 09:12] LABS: Hepatitis A Antibody IgM Negative (Negative); Hepatitis B Core Antibody IgM Negative (Negative)
--- NOTE | 2016-11-20 10:03 | DRSVH ---
PROCEDURE: X-RAY CHEST ONE VIEW, PORTABLE ([id number]) INDICATIONS: SHORT OF BREATH TECHNIQUE: One view of the chest was acquired. COMPARISON: [facility], CR, XR CHEST 1VW (PORTABLE), 11/19/2016, 8:41. FINDINGS: Surgical changes and devices: Median sternotomy. Lungs and pleura: Small bibasilar pleural effusions present similar prior examination and in size bas ilar consolidation. No pneumothorax. Mediastinum: Mediastinal contours appear normal. Heart size is enlarged. Bones and chest wall: No suspicious bony lesions. Overlying soft tissues appear unremarkable. IMPRESSION: 1. Small pleural effusions and mid/basilar consolidation consistent with compressive atelectasis or p neumonia similar to prior exam. Dictated by: Pradeep HOWARD Interpreted: Saba Edwards MD on 11/20/2016 at 10:03 Transcribed by: DARWIN on 11/20/2016 at 10:03 Approved by: Saba Edwards M.D. on 11/20/2016 at 15:11
--- NOTE | 2016-11-20 10:36 | CONS ---
[address] [address] CONSULTATION REPORT PATIENT: GIACOMO SNYDER : 1940 MR#: [id number] ADMIT: 11/10/2016 JOB ID: [id number] DATE OF SERVICE: 11/20/2016 INFECTIOUS DISEASE CONSULT: I thank Dr. Thomas for this timely consult. REASON FOR CONSULTATION: Respiratory insufficiency, renal insufficiency and failure to thrive in a patient who has been treated for influenza as an inpatient over the past 10 days. 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 The relevant past medical history begins a couple of weeks ago when he developed increasing shortness of breath and respiratory tract type infection symptoms. He saw his primary care physician, was given azithromycin, increased steroids and outpatient oxygen. He continued along with this therapy for a week or so but deteriorated and because of hypoxia and shortness of breath, was admitted to this hospital now 10 days ago. Upon admission, a chest x-ray showed questionable bibasilar infiltrates, and a respiratory viral PCR panel was positive for influenza. He was started on ceftriaxone and azithromycin for treatment of possible superimposed community-acquired pneumonia on top of what was proven to be influenza. He also was treated with a course with oseltamivir. He was also discovered at that time to have some worsening renal insufficiency, though it is notable that a couple of years ago his creatinine was 1.6 but during this admission it has been in the 2 to 2.5 range. He was also evaluated to see if he had an exacerbation of his congestive heart failure, which did not appear to be a significant player in his shortness of breath. Throughout a 10-day course, the patient says he has slowly improved but is not back to baseline and is still using relatively large amounts of inspired oxygen to maintain his O2 sats. He has been free of fever and chills throughout his hospital stay and in fact, recently has had periods of hypothermia. It is worth noting that in his 10-1/2 days here in the hospital he never had a temperature above 37 degrees. This morning the patient tells us that he is certainly better than when he came in but somewhat short of breath. He states he has a dry cough but it is about at his baseline cough, he reports, and he has both underlying COPD and CHF. He denies, of course, fever and chills and, if anything, he says he feels quite cold. He is currently free of GI and symptoms, and still has a Dhillon catheter. Infectious disease consultation is requested regarding his antibiotic management and whether he should have antibiotics added or subtracted and what additional infectious disease workup may be indicated. A comprehensive travel review was undertaken, as he is on a TNF inhibitor. The patient spent three years as a young man [place]. As a nurse, he had frequent testing for TB, and all of his TB studies throughout his life have been negative. He lives in the [place] area at this point, where he has resided for many decades. They have a dog but not a cat in the house. He has no unusual hobbies. His last travel to [place], as well as his last traveled to the [place], was roughly a decade ago. PAST MEDICAL HISTORY: 1. Crohn disease, requiring TNF inhibitors and specifically, in this case, Humira. 2. Organic heart disease: a. Congestive failure. b. Coronary artery disease, status post CABG. c. CHF. 3. Hypertension. 4. COPD. 5. Diabetes. 6. Prostate cancer. 7. Ankylosing spondylitis. 8. Recurrent UTIs including a 2009, episode with a UTI that was caused by an ESBL E. coli. 9. Anemia thought to be due to Crohn's. 10. Possible sleep apnea. 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 Travel history was as noted above. He is an ex-cigarette smoker. FAMILY HISTORY: Negative for TB. REVIEW OF SYSTEMS: Done. The patient, at this point, has no significant headache. No visual changes. No sores in the mouth. No trouble swallowing. No sore throat. He has a minimal dry cough. He is somewhat short of breath at rest, and he is on oxygen because of that. No chest pain, however. No nausea, vomiting, or diarrhea. He has a Dhillon, so he has no urinary symptoms. He has noticed edema of his lower extremities which is much worse now than at baseline. No pain in the joints. However, no new pain in the joints or other rheumatologic complaints. No focal neuro complaints. PHYSICAL EXAMINATION: Reveals a morbidly obese gentleman, BMI 44, sitting up in bed with an oxygen mask on. He does not look uncomfortable. His temperature is a remarkable 34.5, and it was that low yesterday morning, too. Throughout his hospital stay, he has bounced around between 35.5 and 37 but never more. His pulse is 64, his respiratory rate is currently in the low 20s, blood pressure 135/68. He is saturating well but he is requiring 7 L by OxyMask. His head is without trauma. Eyes without conjunctival or scleral abnormalities. Nose normal. Oral cavity: No thrush, pharyngitis, or hairy leukoplakia. Neck: Without notable abnormality but it is quite thick. Lungs with decreased breath sounds bilaterally. A very few crackles are heard at the bases but the main thing with his respiratory exam is just a poor flow of oxygen bilaterally. Cardiac tones very distant but apparently regular. His cardiac tones are remarkably distant, however, and almost impossible to hear. Chest wall appears benign. Abdomen obese, soft, nontender, without organomegaly. He has a Dhillon catheter. He has no suprapubic tenderness, obviously. Examination of the joints reveals no obvious active synovitis or changes. He has peripheral edema about 3+ which extends up to his upper thighs. There is no evidence of cellulitis or skin breakout. His feet and hands are reasonably well perfused. Neurologically, he is intact. He has a scar on his right forearm at the site of an arterial harvest for his coronary artery bypass graft. LABORATORIES: Include white count 11,700, neutrophil count 81%, lymphs 3%, metamyelocytes 3%, myelocytes 2%. Creatinine is 2.1. His creatinine has been bouncing between 1.9 and 2.5 during this hospital stay but has been relatively stable. Lactic acid currently 2.3, which is actually trending up. It has been 1.5 to 2 throughout this hospital stay. Albumin 3.3. CPK 260. Bilirubin is 0.3. AST interestingly 100, ALT 172. Note that when he came in these LFT were elevated but not nearly to that degree. Procalcitonins have been low during the early part of his stay. Three measurements all about 0.5, which is probably normal and adjusted for his renal function. A repeat procalcitonin was just ordered today, and we await that result. Serologies include negative hep B surface antigen, negative hep B core, negative hep C antibody, negative HIV. QuantiFERON Gold is pending. Micro studies include blood cultures from admission which were negative, flu screen which was negative but the PCR was positive for flu, and a MRSA screen which was negative. IMAGING: Has been extensive. Chest x-rays have shown small basilar type infiltrates really since admission. These could be atelectasis or pneumonia but were never too impressive. Some very small pleural effusions were also noted. Early in his hospital stay on November 13, a CT of the abdomen was done which showed bibasilar consolidation consistent with atelectasis or pneumonia. Also seen was cardiomegaly, fatty liver and a large gallstone in the gallbladder neck. A small amount of ascites was also noted, as was diverticulosis. The radiologist recommended an ultrasound and this was done, and it shows no definitive gallbladder thickening. IMPRESSION: This is an extremely complex case of a gentleman with many medical problems but who is quite immunosuppressed by virtue of his Crohn disease, tumor necrosis factor inhibitors and prednisone. He also has underlying cardiac and pulmonary disease of a fairly severe nature. He was admitted with basically hypoxia but no fevers. His chest x-rays were potentially compatible with bacterial pneumonia but just as likely whatever pulmonary infiltrates he had were due to congestive heart failure and/or the influenza that was proven. He has been treated with a complete course of treatment for influenza, as well as treatment for community-acquired pneumonia. At this point he has improved by his own description but he remains below baseline with increase in oxygen requirement and just failure to thrive. It is unclear to me whether this debility and shortness of breath are due to any infection. The patient is certainly at risk for a number of unusual infections, as well as more typical infections due to his immunosuppression with tumor necrosis factor inhibitors and other drugs. but I am inclined to think that he is not currently actively infected. RECOMMENDATIONS: 1. I agree with the procalcitonin which is pending. 2. We will order a CT scan of the chest without contrast to better define what is going on in his lungs. 3. Because of his elevated LFT, I think his right upper quadrant may require more investigation and depending on how things develop over the next day or two, I would consider repeating an ultrasound of right upper quadrant or perhaps even jumping to a HIDA scan, as we do know he has a large gallbladder stone with elevated LFT. 4. LDH will be checked. 5. Will go ahead and check galactomannan, Fungitell, histo urine antigen, Zayas C antibody. 6. Urine legionella and pneumococcus should be checked. 7. I would discontinue all antibiotics and observe at this point, lacking any real definitive clue that the patient has an ongoing infection. He has had probably two full weeks of azithromycin, which is an extraordinary dose of probably about 7 g of azithromycin. So, I certainly do not think that there is any possibility of an undertreated atypical pneumonia. He has also had a long course now of ceftriaxone, so I think it is without any positive cultures. I think it is time to stop and observe. Thank you very much for this very complex consultation.
[2016-11-20] MEDS ORDERED: Furosemide 10 mg/mL 10 mL Inj IVPUSH SCH (11:00)
[2016-11-20] MEDS ORDERED: 0.9% Sodium Chloride 500 ML ONE (11:27)
[2016-11-20] MEDS: Furosemide 10 mg/mL 10 mL Inj IVPUSH SCH ×2 (11:36→20:30)
--- NOTE | 2016-11-20 11:42 | NUR ---
Lobetolol Medication held per MD in room. P 64, BP 135/68.
--- NOTE | 2016-11-20 13:32 | PCM.PNMED ---
Subjective Date of Service Nov 20, 2016 Subjective Nephrology Progress Note: Attending Dr. Kirit Huerta Zion is a 76-year-old male with a past medical history significant for diabetes mellitus type II, non-insulin using, hypertension, obstructive sleep apnea on CPAP who presented to [facility] ED with shortness of breath and is now being treated for influenza, CHF exacerbation, hyperglycemia, persistent hyperkalemia, and NANCY. Hospital day #11. Overnight: There are no acute events. Telemetry overnight: Atrial fibrillation , heart rate 50 to 60's, with an IVCD and occasional PVC. Patient is resting in bed comfortably and in no acute distress. He continues to be on supplemental oxygen. The only complaint the patient has is continued shortness of breath and minimally productive cough. He denies headache, chest pain, palpitations, abdominal pain, nausea, vomiting, fever, chills, dysuria, constipation or diarrhea. He is voiding via Dhillon catheter with good urine output. He has not had a bowel movement in several days. . Exam Vital Signs Vital Sign - Last Date Time Temp Pulse Resp B/P Pulse Ox O2 Delivery O2 Flow Rate FiO2 11/20/16 11:29 67 18 94 OxyMask 7.00 11/20/16 08:22 34.5 135/68 11/18/16 09:06 50 Intake and Output 11/19/16 11/19/16 11/20/16 Cumulative From/Thru 15:00 23:00 07:00 11/10/16 16:55 - 11/20/16 06:10 Intake Total 52 ml 700 ml 1156 ml 43178 ml Output Total 1200 ml 2375 ml 48947 ml Balance 52 ml -500 ml -1219 ml -947 ml Intake Oral 700 ml 900 ml 65524 ml IV Total 52 ml 256 ml 9877 ml Output Urine Total 1200 ml 2375 ml 37219 ml Stool Total 0 ml # Voids 4 # Bowel Movements 3 Exam General: Older gentleman lying in bed and in no o acute distress, well-developed , well-nourished, appropriately interactive. HEENT: Normocephalic, atraumatic. External ears without defect. Pupils equal, round, and reactive to light. Anicteric sclerae, moist conjunctivae, and no lid lag. High flow oxygen nasal cannula in place. Neck: Supple with full range of motion. No jugular venous distension. No bruits. No lymphadenopathy or thyromegaly. Cardiovascular: Irregularly irregular without murmurs, rubs, or gallops appreciated Pulmonary: Breath sounds diminished with fine crackles at bases bilaterally. Normal respiratory effort with no use of accessory muscles. Abdomen: Soft, obese, nontender, nondistended, bowel sounds present. No hepatosplenomegaly or masses appreciated. Extremities: No clubbing or cyanosis. Mild to moderate pitting edema to bilateral knees. Skin: Normal temperature, turgor, and texture; no rash, ulcers, or subcutaneous nodules appreciated. Neurological: Cranial nerves grossly intact. Psychiatric: Normal mood and affect. Alert and oriented to person, place, and time. . IVs and Medications Medications Reviewed: Medications were reviewed in detail Lab and Diagnostics Result Diagram: 11/20/16 0335 11/20/16 1230 Microbiology Blood cultures x 2 show no growth after 5 days. Viral respiratory PCR positive for influenza A H3.MRSA screen negative. . X-Rays, CTs and MRIs US VENOUS LEG DUPLEX BILATERAL IMPRESSION: 1. No definite evidence of deep vein thrombosis in the right or left lower extremity with evaluation limited on the left as described secondary to body habitus. Dictated by: Iftikhar Burger M.D. on 11/13/2016 at 11:42 Approved by: Iftikhar Burger M.D. on 11/13/2016 at 11:42 Chest X-Ray IMPRESSION: Bibasilar alveolar infiltration stable over time, left greater than right. Prior CABG. Continued reduced inspiratory volume. Limited study due to reduced inspiration and large body habitus. Dictated by: Jamel Mccabe M.D. on 11/15/2016 at 9:32 Approved by: Jamel Mccabe M.D. on 11/15/2016 at 9:32 Retroperitoneal US IMPRESSION: 1. Markedly limited study. 2. No definite hydronephrosis, although the right kidney is poorly characterized. 3. Moderate postvoid residual. Dictated by: Selma Rangel M.D. on 11/12/2016 at 14:15 CT ABDOMEN AND PELVIS WITHOUT CONTRAST IMPRESSION: 1. Small bilateral pleural fluid collections. 2. Bibasilar lung consolidation compatible with compressive atelectasis, pneumonia or aspiration. Please correlate with clinical and laboratory data. 3. Cardiomegaly. 4. Hepatic steatosis. 5. 1.4 cm gallstone in the gallbladder neck. There is clinical concern for biliary disease, abdominal ultrasound should be performed for further evaluation. 6. Small amount of ascites in the lower pelvis and the left lower quadrant of the abdomen. 7. Status post prostatectomy. 8. Colonic diverticulosis. 9. Image quality limited by patient motion. Diagnostic sensitivity of the study is limited by absence of oral and intravenous contrast. Dictated by: Aditi Garcia MD, PhD on 11/13/2016 at 17:17 . 12-lead ECG EKG: Atrial fibrillation with right bundle branch block. . Cardiac Echo Impressions Echocardiogram Interpretation Summary There is normal left ventricular wall thickness.The ejection fraction is estimated to be 55-60%.Flattened septum is consistent with RV pressure/volume overload.The right ventricle is moderately dilated.Right ventricular systolic function is moderately reduced. Right ventricular systolic pressure is estimated to be 37 mmHg plus the clinically estimated CVP which cannot be estimated on this exam. Probably no significant interval change from 2011 Electronically signed by: Justyn Watters on Reading Physician:11/11/2016 01:33 PM . Additional Diagnostics ABG 11/19/2016: PH 7.305. PCO2 67.7. PO2 72.7. HCO3 32.6. On FiO2 of 45%. Assessment & Plan Bradley Donovan is a 76-year-old male with a past medical history significant for diabetes mellitus type II, non-insulin using, hypertension, obstructive sleep apnea on CPAP who presented to [facility] ED with shortness of breath and is now being treated for influenza, CHF exacerbation, hyperglycemia, persistent hyperkalemia, and NANCY. Hospital day #11. 1. Acute on chronic kidney injury. - Multifactorial: cardiorenal syndrome and ATN. - Worsening BUN/cr ratio likely secondary to steroids, as well as, diuretics. - Recommend decreasing prednisone from 40 mg to 30 mg daily. - Does not require renal replacement therapy at this time. 2. Hyperkalemia, persistent. - Etiology: uncontrolled BS, insulin insufficiency, NANCY. - Possible underlying disease of RTA type IV (hypoaldosteronism). - Continue fludrocortisone 0.1 mg daily. 3. Acute influenza infection, superimposed bacterial pneumonia. 4. Hypoxemic respiratory failure. 5. Acute on chronic CHF exacerbation. - Ordered Lasix 100 mg every 8 hours for probable pulmonary edema. - Recommend chest CT without contrast to assess lung disease and possible thoracentesis of left pleural effusion. 6. 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 7. History of hypertension with hypertensive nephrosclerosis. - Continue labetalol 200 mg twice daily and chlorthalidone 25 mg daily. 8. Hyperphosphatemia. - Continue Renvela 800 mg three times a day with food. . GI Prophylaxis: Proton Pump Inhibitor VTE Prophylaxis: Sub-Q Heparin (Unfractionated) VTE Mechanical Devices: Intermittant Pneumatic CD Resuscitation Status: CPR: Attempt Resuscitation Attending Statement Nephrology attending: Patient was seen and examined along with internal medicine resident and we have thoroughly discussed the patient's case and therapeutic plan which is detailed above. I am hoping that we can continue to augment his diuresis and improve his respiratory status and his renal and cardiac status. Adelaida Wilkerson DO Nov 20, 2016 13:32 Derian Beth DO Nov 20, 2016 14:31
--- NOTE | 2016-11-20 13:37 | NUR ---
Return from CT Patient returned from CT at approximately 1340.
--- NOTE | 2016-11-20 13:37 | NUR ---
Off floor to CT Patient off floor to CT at approximately 1320.
[2016-11-20] MEDS: Senna-Docusate 8.6-50 mg Tablet PO SCH ×2 (14:24→20:30)
[2016-11-20 14:52] LABS: INR 1.05 ratio
--- NOTE | 2016-11-20 16:57 | DRSVH ---
PROCEDURE: CT CHEST WITHOUT CONTRAST ([id number]) INDICATIONS: Chronic hypoxia, immunosupressed TECHNIQUE: Noncontrast 5 mm thick sections acquired from the pulmonary apices to the posterior costophrenic angl es. 7 mm thick coronal and sagittal MIP reformats were then acquired. For radiation dose reduction, the following was used: automated exposure control, adjustment of mA and/or kV according to patient size. COMPARISON: None. FINDINGS: Image quality: Excellent. Lungs and pleura: Small bilateral pleural effusions are present. There is severe bilateral lower lobe and mild dependent bilateral upper lobe airspace opacity, consistent with pneumonia. No pneumothora x. Central and peripheral airways are patent and normal in caliber. Mediastinum: Heart size is enlarged. There is calcification of the coronary vasculature. No pericard ial effusion. No mediastinal adenopathy by size criteria. Thoracic aorta and central pulmonary bianka kendal are normal in size. Esophagus is normal in caliber. No hiatal hernia. Bones and chest wall: Median sternotomy. No suspicious bony lesions. No vertebral body compression f ractures. No axillary or supraclavicular adenopathy by size criteria. Thyroid gland is within jami l limits on noncontrast imaging. Abdomen: Visualized upper abdominal solid organs and bowel loops appear normal in the absence of con trast. IMPRESSION: 1. Bilateral lower lobe pneumonia with small parapneumonic effusions bilaterally. 2. Cardiomegaly and coronary artery disease. Dictated by: Queta Knox M.D. on 11/20/2016 at 16:55 Approved by: Queta Knox M.D. on 11/20/2016 at 16:55
--- NOTE | 2016-11-20 17:24 | ABG ---
DateTimeAnalyzed 17:18:00 -_ pH ____7.440 - FIO2 ___21.0__ -% Drawn By as - Date/Time Notified____ 17:24:00 -_ Notified By ams - Notified Whom dr arnold - David test N/A -
--- NOTE | 2016-11-20 17:39 | DRSVH ---
PROCEDURE: X-RAY CHEST ONE VIEW ([id number]) INDICATIONS: b/l pleural effusion TECHNIQUE: One view of the chest was acquired. COMPARISON: [facility], CR, XR CHEST 1VW (PORTABLE), 11/20/2016, 5:39. FINDINGS: Surgical changes and devices: Patient is status post median sternotomy and CABG. Lungs and pleura: There are moderate bilateral pleural effusions. No pneumothorax after thoracentesis . Mediastinum: Mediastinal contours appear normal. Heart size is normal. Bones and chest wall: No suspicious bony lesions. Overlying soft tissues appear unremarkable. IMPRESSION: No pneumothorax after thoracentesis. Dictated by: Selma Rangel M.D. on 11/20/2016 at 17:37 Approved by: Selma Rangel M.D. on 11/20/2016 at 17:37
[2016-11-20 18:17] LABS: TOTAL PROTEIN,PLEURAL FLUID 1.7 g/dL
[2016-11-20 19:55] LABS: BFWBC 175 /mm3
--- NOTE | 2016-11-20 20:39 | CONS ---
[address] [address] CONSULTATION REPORT PATIENT: GIACOMO SNYDER : 1940 MR#: [id number] ADMIT: 11/10/2016 JOB ID: [id number] DATE OF SERVICE: 11/20/2016 MEDICAL ONCOLOGY CONSULTATION: HISTORY OF PRESENT ILLNESS: I was consulted by the hospitalist team, Dr. Guillen, regarding this patient with significant blood count abnormalities and systemic illness. He is a 75-year-old gentleman who has been hospitalized since November 10, 2016, after presenting to the ER for weakness and shortness of breath. He tested positive for both influenza A as well as strep pneumonia antigen in the urine. His white count was around 18,000 on admission and he has been on oxygen. His kidney function was also abnormal, with a creatinine around two, and chest x-ray had shown bilateral pleural effusions left greater than right with compression atelectasis versus consolidation at the bases. He has not been febrile. He has Crohn's disease and is on Humira. LABORATORY STUDIES: In the last few days have shown a white count around 12,000, but severe left shift with 81% neutrophils, 3% lymphocytes, 3% metamyelocytes, 2% myelocytes, and the presence of nucleated RBCs. His peripheral blood smear review by pathology revealed immature granulocytes and rare blasts, with nucleated RBCs, raising the question of a bone marrow process. His hemoglobin is in his usual range around 10. Platelets normal with 171. His kidney function shows a creatinine around 2.1; on admission it was 2.5 and usually it is around 1.5. His BUN is excessively elevated with around 110. LDH 432. Normal bilirubin, but elevated transaminases with AST 100 and ALT 172. His recent blood cultures have been negative. Dr. Adam of Infectious Disease has been consulted and saw him today as well. It turns out that the patient has been seeing periodically Dr. Rhoades at our center chronically for a chronic anemia with a hemoglobin around 10-12 with iron deficiency and has received a few times IV iron. He has had extensive evaluation endoscopically with EGD, colonoscopy, and capsule endoscopy in 2011, and has a history of erosive esophagitis and has had gastric antral ulcerations. He has been on a TNF alpha aimee for control of his Crohn's disease. CURRENT MEDICATIONS: Albuterol, furosemide, prednisone 30 mg daily, chlorthalidone, labetalol, ceftriaxone, azithromycin, Tamiflu, mesalamine, pantoprazole. PHYSICAL EXAMINATION: He is in bed, on oxygen mask 7 L, and his family is around. 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 Heart regular. Lungs with coarse breath sounds on the bases. No wheezing. Abdomen obese. Extremities show bilateral 1 to 2+ edema. Body mass index is 43. ASSESSMENT AND PLAN: A 75-year-old gentleman with Crohn disease and history of erosive gastritis, coronary artery disease, and Crohn disease, who has been on periodic therapy with Humira for Crohn's disease. He does have therefore a risk of infections due to immunosuppressive therapy with both Humira and prednisone. He has been admitted with an infectious process, both influenza A as well as Streptococcus pneumoniae, and has lung infiltrates, and I was consulted for significant shift in his differential in regard to his white blood cells raising concern for a bone marrow process. I reviewed his previous lab studies from the records of Dr. Rhoades. He was just seen two months ago, in mid September 2016, and at that time had a white count of 6.2, hemoglobin of 12.4, and a platelet count of 223 with a perfectly normal differential. This was drawn in [facility] and is not at our [facility] system. His differential shows nucleated RBCs and a left shift to metamyelocytes and myelocytes, and in the peripheral blood smear review by pathology rare blasts were seen. I do not believe that he has any acute leukemia certainly. We cannot exclude a chronic myeloproliferative process but this appears also quite unlikely given the fact that his CBC just 2 months ago was fairly normal. The most likely explanation for the changes in his counts are a leukoerythroblastic reaction to his systemic infection/inflammation. A bone marrow biopsy is currently not indicated. However, I arranged through our ice carver to send the peripheral blood to pathology for flow cytometry this afternoon, combined with [place] chromosome and NAVDEEP-2 mutation to rule out this differential diagnosis of myeloproliferative disorder, again clinically highly unlikely. I discussed this with his family. At this point recommend continuation of management of his infectious process. He has several comorbidities and his condition is somewhat guarded. Of note, he has an out of proportion elevation of BUN over creatinine suggesting for GI bleed with a BUN of around 110, while his creatinine is only 2.3. He does have a history of gastric abnormalities. His BUN was only 26 and creatinine was 1.48 in July of this year based on labs from [facility]. He has had a noncontrast CT of the abdomen and pelvis and a noncontrast CT of the chest without evidence of any mass lesion. The above-mentioned flow cytometry of peripheral blood results will not be available until early next week. I will let Dr. Rhoades know to follow up with his case. His visit presentation was also discussed with Dr. Guillen of the hospitalist team. TIME: Approximately 1 hour was spent in counseling and coordination of care.
[2016-11-20 20:51] LABS: MONOCYTES,BODY FLUID 51 %
[2016-11-20 20:52] LABS: OTHER CELLS,BODY FLUID 0
[2016-11-20] MEDS: Insulin GLARgine 100 Unit/mL Syringe SUBQ SCH (20:55)
[2016-11-20 20:57] LABS: EOSINOPHILS % (AUTO) 0 % (0-5); Mean Corpuscular Hemoglobin 29.2 pg (27.0-35.0); Mean Corpuscular Volume 95.3 fL (81-100); Platelet Count 168 bil/L (150-400)
[2016-11-20 21:26] LABS: BASOPHILS % (AUTO) 0 % (0-3); MONOCYTES % (AUTO) 7 % (4-12); NEUTROPHILS % (AUTO) 81 % (40-74)
--- NOTE | 2016-11-20 21:54 | NUR ---
Thoracentesis/BSC Patient up to side of bed for Thoracentesis. Tolerated well. Patient maintained saturation at 94% while transferring to BSC to bed after procedure with 2 person assist.
--- NOTE | 2016-11-20 23:12 | PCM.PNMED ---
Subjective Date of Service Nov 20, 2016 Subjective Bradley Donovan is a 75-year-old male with one-week history of shortness of breath , associated not very productive cough, initially treated with azithromycin and prednisone and oxygen from PCP but has ongoing symptoms, admitted for treatment of CAP pneumonia and new onset NANCY and persistent hyperkalemia. Hospital day 11. Overnight: Nursing reported desaturation to 92% transferred to hi-flow NC at HS on 45% FiO2 and 45L. At 2300, patient desaturated to 81-82% due to patient removing hi-flow and stating "I can't do this thing, it's just forcing too much air into my nose and it hurts. I can't stand it. I won't wear it." Found to be potassium 6.5 after AM BMP; given 10 units regular insulin IV and 30g Kayexalate PO given. Nursing reported VSS, tele afib 50s-60s throughout shift. Today: Patient examined at bedside, discussed treatment goal and course of treatment. Patient stated that he was uncomfortable with the HFNC and would not want to wear it over night. Family present during the day discussed treatment goals and course with family. Family noted that patient has been tired compared to previous visits and has been complaining of increased weakness. Patient stated that he urinated a lot during the night and his legs are feeling better. Patient stated that he continues to feel short of breath, and he has to work harder to get air in "my breathing feel like I am grunting." Patient stated that he has not had a bowel movement in two days. Patient denies fever, chills, diarrhea. ROS negative except as mentioned above Exam Vital Signs Vital Sign - Last Date Time Temp Pulse Resp B/P Pulse Ox O2 Delivery O2 Flow Rate FiO2 11/20/16 06:01 65 11/20/16 03:26 36.7 24 137/70 94 OxyMask 7.00 11/18/16 09:06 50 Intake and Output 11/19/16 11/19/16 11/20/16 Cumulative From/Thru 15:00 23:00 07:00 11/10/16 16:55 - 11/20/16 06:10 Intake Total 52 ml 700 ml 1156 ml 42754 ml Output Total 1200 ml 2375 ml 66541 ml Balance 52 ml -500 ml -1219 ml -947 ml Intake Oral 700 ml 900 ml 47994 ml IV Total 52 ml 256 ml 9877 ml Output Urine Total 1200 ml 2375 ml 63632 ml Stool Total 0 ml # Voids 4 # Bowel Movements 3 Exam General: Alert, Oriented X3, mentation improved but reduced compared to base line, Cooperative, moderate Distress, Obese Head: Normocephalic, atraumatic. External ears normal. Eyes: PERRLA, EOMI. Anicteric sclerae. Mouth: Mouth Normal, Mucous Membranes Moist/[place] Neck: Neck supple with full range of motion. No lymphadenopathy Chest & Lungs: O2 NC 6 L , equal chest rise and fall poor air movement, diminished breath sounds at bases, bronchophony present at lower left lung lobe , minimal wheezes, hear in all lung worrell, no crackles, rhonchi. Cardiovascular: Regular Rate/Rhythm, Normal S1, Normal S2, No Murmurs/Rubs/ Gallops, no JVD Abdomen: Non-tender, distended, No masses, Normoactive bowel tones, Soft Musculoskeletal: Normal Range of Motion Extremities: Extremities warm to touch, moderate pitting edema up to gluteal folds improved from yesterday. No cyanosis/clubbing bilaterally Neurological: Grossly Neurologically Intact, Normal Speech, Sensation Intact, horizontal nystagmus present on exam (patient stated this is chronic, continue to monitor) : uncircumcised penis, two testicles palpated non tender, moderate scrotal and penile edema, meatus patent without discharge IVs and Medications Medications Reviewed: Medications were reviewed in detail Lab and Diagnostics Laboratory Tests Test 11/19/16 13:45 11/19/16 15:31 11/19/16 15:58 11/19/16 16:37 Lactic Acid Level 1.6mmol/L (0.4-2.0) Urine Color Straw (YELLOW) Urine Appearance Clear (CLEAR,HAZY) Urine pH 6.5 (5.0-8.0) Urine Specific [place] <1.005 (1.003-1.035) Urine Protein Negativemg/dL (NEG,TRACE) Urine Glucose (UA) Negativemg/dL (NEGATIVE) Urine Ketones Negativemg/dL (NEGATIVE) Urine Occult Blood Trace (NEGATIVE) Urine Nitrite Negative (NEGATIVE) Urine Bilirubin Negative (NEGATIVE) Urine Urobilinogen Normalmg/dL (NORMAL) Urine Leukocyte Esterase Negative (NEGATIVE) Urine RBC 0-2/hpf (0-2) Urine WBC 0-5/hpf (0-5) Urine Epithelial Cells Few/hpf (NONE-MOD) Urine Crystals None seen (NONE SEEN) Urine Bacteria Few/hpf (NONE-FEW) Urine Hyaline Casts None/lpf (NONE) Urine Granular Casts None seen (NONE SEEN) Urine Waxy Casts None seen (NONE SEEN) Urine Red Blood Cell Casts None seen (NONE SEEN) Urine White Blood Cell Casts None seen (NONE SEEN) Urine Mucus None seen (None Seen) Urine Trichomonas None seen (NONE SEEN) Urine Yeast None (NONE SEEN) Urinalysis Comment None Urine Culture Reflexed Not indicated White Blood Count 12.0th/mm3 (3.8-10.1) Red Blood Count 3.66mil/mm3 (4.40-5.80) Hemoglobin 10.6g/dL (13.8-17.2) Hematocrit 35.1% (41.0-50.0) Mean Corpuscular Volume 95.9fL (81-100) Mean Corpuscular Hemoglobin 29.0pg (27.0-35.0) Mean Corpuscular Hemoglobin Concent 30.2% (32.0-37.0) Red Cell Distribution Width 15.3% (12.3-15.4) Platelet Count 171bil/L (150-400) Neutrophils (%) (Auto) 79% (40-74) Lymphocytes (%) (Auto) 4% (14-46) Monocytes (%) (Auto) 4% (4-12) Eosinophils (%) (Auto) 0% (0-5) Basophils (%) (Auto) 0% (0-3) Band Neutrophils % 2% (1-5) Metamyelocytes % 5% (0-0) Myelocytes % 6% (0-0) Nucleated Red Blood Cells 1/100 WBC (0-24) Sodium Level 142mEq/L (134-144) Potassium Level 5.7mEq/L (3.5-5.2) Chloride Level 96mEq/L (97-108) Carbon Dioxide Level 32mmol/L (18-29) Blood Urea Nitrogen 112mg/dL (8-27) Creatinine 2.10mg/dL (0.76-1.27) Estimat Glomerular Filtration Rate 33mL/min (>59) Glucose Level 258mg/dL (60-99) Calcium Level 7.4mg/dL (8.5-10.1) HIV (1&2) Ag and Ab, 4th Generation Non reactive (Non Reactive) Test 11/19/16 17:45 11/20/16 00:05 11/20/16 03:35 Ammonia 49ug/dL (18-53) Sodium Level 136mEq/L (134-144) Potassium Level 6.5mEq/L (3.5-5.2) Chloride Level 92mEq/L (97-108) Carbon Dioxide Level 28mmol/L (18-29) Blood Urea Nitrogen 111mg/dL (8-27) Creatinine 1.87mg/dL (0.76-1.27) Estimat Glomerular Filtration Rate 38mL/min (>59) Glucose Level 269mg/dL (60-99) Calcium Level 7.5mg/dL (8.5-10.1) White Blood Count 11.7th/mm3 (3.8-10.1) Red Blood Count 3.53mil/mm3 (4.40-5.80) Hemoglobin 10.1g/dL (13.8-17.2) Hematocrit 33.7% (41.0-50.0) Mean Corpuscular Volume 95.5fL (81-100) Mean Corpuscular Hemoglobin 28.6pg (27.0-35.0) Mean Corpuscular Hemoglobin Concent 30.0% (32.0-37.0) Red Cell Distribution Width 15.2% (12.3-15.4) Platelet Count 171bil/L (150-400) Neutrophils (%) (Auto) 81% (40-74) Lymphocytes (%) (Auto) 3% (14-46) Monocytes (%) (Auto) 8% (4-12) Eosinophils (%) (Auto) 0% (0-5) Basophils (%) (Auto) 0% (0-3) Band Neutrophils % 3% (1-5) Metamyelocytes % 3% (0-0) Myelocytes % 2% (0-0) Prothrombin Time 11.4sec (8.1-12.5) Prothromb Time International Ratio 1.06ratio Lactic Acid Level 2.3mmol/L (0.4-2.0) Phosphorus Level 6.4mg/dL (2.5-4.9) Magnesium Level 2.2mg/dL (1.6-2.6) Total Creatine Kinase 260U/L (21-232) Microbiology 11/10/16 Blood Culture - Final, Complete NO GROWTH AFTER 5 DAYS 11/11/16 Adenovirus DNA (PCR) - Final, Complete Not Detected 11/11/16 Coronavirus 229E PCR - Final, Complete Not Detected 11/11/16 Coronavirus HKU1 PCR - Final, Complete Not Detected 11/11/16 Coronavirus NL63 PCR - Final, Complete Not Detected 11/11/16 Coronavirus OC43 PCR - Final, Complete Not Detected 11/11/16 Influenza Type A (PCR) - Final, Complete Influenza A H3 11/11/16 Influenza Type B (PCR) - Final, Complete Not Detected 11/11/16 Human Metapneumovirus (PCR) (ESTEBAN) - Final, Complete Not Detected 11/11/16 Rhinovirus (PCR)(ESTEBAN) - Final, Complete Not Detected 11/11/16 Parainfluenza Virus Type 1 (PCR) - Final, Complete Not Detected 11/11/16 Parainfluenza Virus Type 2 (PCR) - Final, Complete Not Detected 11/11/16 Parainfluenza Virus Type 3 (PCR) - Final, Complete Not Detected 11/11/16 Parainfluenza Virus Type 4 (NAAT) - Final, Complete Not Detected 11/11/16 Respiratory Syncytial Virus (PCR)OH - Final, Complete Not Detected 11/11/16 Chlamydia pneumoniae (PCR) - Final, Complete Not Detected 11/11/16 Mycoplasma pneumoniae DNA Detection - Final, Complete Result Diagram: 11/20/16 0335 11/20/16 0005 Microbiology INFLUENZA A PCR Final 11/11/16-0658 Organism 1 INFLUENZA A H3 X-Rays, CTs and MRIs Chest X-Ray IMPRESSION: Left basilar opacity suspicious for pneumonia apparently correlated clinical and laboratory data. Small bilateral pleural effusions. Dictated by: Aditi Gacria MD, PhD on 11/19/2016 at 9:11 Approved by: Aditi Garcia MD, PhD on 11/19/2016 at 9:11 Retroperitoneal US IMPRESSION: 1. Markedly limited study. 2. No definite hydronephrosis, although the right kidney is poorly characterized. 3. Moderate postvoid residual. Dictated by: Selma Rangel M.D. on 11/12/2016 at 14:15 CT abdomen and pelvis IMPRESSION: 1. Small bilateral pleural fluid collections. 2. Bibasilar lung consolidation compatible with compressive atelectasis, pneumonia or aspiration. Please correlate with clinical and laboratory data. 3. Cardiomegaly. 4. Hepatic steatosis. 5. 1.4 cm gallstone in the gallbladder neck. There is clinical concern for biliary disease, abdominal ultrasound should be performed for further evaluation. 6. Small amount of ascites in the lower pelvis and the left lower quadrant of the abdomen. 7. Status post prostatectomy. 8. Colonic diverticulosis. 9. Image quality limited by patient motion. Diagnostic sensitivity of the study is limited by absence of oral and intravenous contrast. Dictated by: Aditi Garcia MD, PhD on 11/13/2016 at 17:17 CT CHEST WITHOUT CONTRAST IMPRESSION: 1. Bilateral lower lobe pneumonia with small parapneumonic effusions bilaterally. 2. Cardiomegaly and coronary artery disease. Dictated by: Queta Knox M.D. on 11/20/2016 at 16:55 Approved by: Queta Knox M.D. on 11/20/2016 at 16:55 X-RAY CHEST ONE VIEW s/p THORACENTESIS IMPRESSION: No pneumothorax after thoracentesis. Dictated by: Selma Rangel M.D. on 11/20/2016 at 17:37 Approved by: Selma Rangel M.D. on 11/20/2016 at 17:37 12-lead ECG EKG: Atrial fibrillation with right bundle branch block. . Cardiac Echo Impressions Interpretation Summary There is normal left ventricular wall thickness.The ejection fraction is estimated to be 55-60%.Flattened septum is consistent with RV pressure/volume overload.The right ventricle is moderately dilated.Right ventricular systolic function is moderately reduced. Right ventricular systolic pressure is estimated to be 37 mmHg plus the clinically estimated CVP which cannot be estimated on this exam. Probably no significant interval change from 2011 Electronically signed by: Justyn Watters on Reading Physician:11/11/2016 01:33 PM Additional Diagnostics ABG DateTimeAnalyzed 08:43:00 -_ pH ____7.305 - 7.350 7.450 pCO2 ___67.7__ -mmHg 35.0 45.0 pO2 ___72.7__ -mmHg 69.0 116 HCO3- ___32.6__ -mmol/L 22.0 26.0 US VENOUS LEG DUPLEX BILATERAL IMPRESSION: 1. No definite evidence of deep vein thrombosis in the right or left lower extremity with evaluation limited on the left as described secondary to body habitus. Dictated by: Iftikhar Burger M.D. on 11/13/2016 at 11:42 Approved by: Iftikhar Burger M.D. 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 Hospital day 11. 1. Acute on Chronic Respiratory failure, hypoxic Present on admission, ongoing - Likely due to bibasilar pneumonia and influenza A infections complicated by GERARDO and CHF - Unclear whether this is a worsening of pneumonia, uncontrolled CHF, severe atelectasis due to immobility - Patient encourage to mobilize up and out of bed, - Patient's response to Trilogy has been suboptimal, will discontinue for now and restart patient on HFNC PRN, Continue Humidified Air via mask if patient does not tolerate HFNC - Continue Pulmonary toilet - RT scheduled to be present when PT mobilize patient to assess and titrate O2 as necessary - Continue Acapella - Pulmonology Consulted, We appreciate their time and expertise on this complicated case. 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 At present time ID recommends discontinuing antibiotics and observe patient to determine if an underlying infection is present. 3. 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 - elevated BNP and diastolic dysfunction noted in prior echo - Retroperitoneal U/S showed moderate post residual void - Creatine 2.10 , BUN 112 continues to trend up, - D/C IV fluids, monitor fluid status - Continue [place] cath, urine output decreased today - Continue 20 mg Torsemide PO, once, reassess volume status and renal function - Continue 25 chlorthalidone PO once, reassess volume status and renal function - Lasix 80 mg Q8 scheduled for probable pulmonary edema - Start 30 mg prednisone PO, Continue to taper - Hold Pentasa - Continue to hold metformin/lisinopril - Nephrology consulted we appreciate their input and expertise on this case 4. Hyperkalemia, present on admission, improving - 11/16/16 K 4.8, 11/18/16 5.4 11/19/16 5.7 11/20/16 4.8 - Differential diagnosis includes: NANCY, RTA Type IV, uncontrolled DM II - Stop insulin drip and change to insulin subQ, weight based long acting and preprandial with correctional - Rennin/aldosterone and urine aldosterone pending - continue fludrocortisone 0.1 mg daily - Continue to monitor closely 5. Potential bone marrow pathology - Worsening increase of serum phosphorus in setting phosphate binders, in the setting of abnormal peripheral blood smear with unresolved/reoccurring bibasilar pulmonary effusion concerning for underlying dysplastic disorder. - peripheral blood smear review by pathology rare blasts were seen raising concern for leukoerythroblastic reaction due to his systemic infection/ inflammation vs myelodysplastic disorder (at present time with review of patients past medical records and per Oncology this is clinically unlikely) - Fluid from Thoracentesis of left sided pleural effusion sent for cell count, differential, LDH, protein, glucose, acid fast bacilli smear, gram stain, and cytometry (pending) WBC: 175, RBC 3325, PMN 4, Lymphocytes 45, Monocytes 51, LDH 135, Total protein 1.7, 229 - Flow cytometry of peripheral blood sent, pending - SPEP, ordered - Cryoglobulin studies ordered, - Bond chromosome and NAVDEEP-2 mutation to rule out differential diagnosis of myeloproliferative disorder. - Hematology and oncology consulted we appreciate their time and expertise on this case. Recommend continue treatment of current infectious process. 6. 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 Acute exacerbation of CHF, present on admission, active - Elevated troponin likely due acute on chronic HF, trop trending down 0.02 11/13 - ECHO showed diastolic heart failure EF of 55-60%. - Diurese as above, course of diuretics today have shown suboptimal urine output - reassess volume status tomorrow, patient may require dialysis to remove edematous fluid and improve heart function. 8. Type II DM, acute on chronic, present on admission, improving - Continue patient on SubQ insulin by weight - Continue 52 units of Lantus HS, consider titrating basal insulin base on response of blood glucose - Recommend patient continue insulin regimen as an outpatient 9. 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 Elevated Phosphorus, acute, present on admission, ongoing - 11/12/16 5.2, 11/20/16 6.4 - Likely related to ongoing NANCY, Cardiorenal syndrome, Diabetes type II, consider potential for malignancy - Continue phosphate binder per nephrology today - Blood smear ordered to r/o malignancy, suggestive of myeloid disorder -Hematology/Oncology consulted we appreciate their expertise and time on this case. 11. Uremia, present on admission, acute, ongoing - likely due to acute kidney injury in setting of excerebration of chronic heart failure due to influenza and pneumonia, chronic uncontrolled diabetes, - This may explain changes in mental status noted by nursing staff, we will continue to assess mentation - per chart review BUN elevated at admission 93, continues to trend up 11/19/16 112 - Patient at this time does not need dialysis to correct BUN level - Continue to monitor - Repeat CMP AM 12.A-Fib, rate controlled, present on admission, active - Patient refusing Coumadin. Discussed risks of no anticoagulation with him, patient verbalized understanding. -U/S Doppler legs negative for DVT limited study -Continue SCDs -Continue Sub Q heparin 13. Hypocalcemia, present on admission, active - Calcium 11/18/16 7.4 - Continue to monitor 14. Acute on chronic Iron deficiency anemia - Likely related to history of DM, patient has history of chronic anemia being follow by Hematology as outpatient by Dr. Rhoades - Hepatitis panel ordered to rule out infectious hepatitis - smear ordered to r/o malignancy - Iron studies ordered, determine need for Iron repletion - Continue to monitor 15 Influenza A +, acute present on admission, improving - Patient has finished 10 day course of oseltamivir 75 mg PO -Chronic issues known prior to admission, present on admission: 16. History of COPD and GERARDO - Discontinue Trilogy due to suboptimal results, patient's respiratory status responded better to HFNC - Restart HFNC HS and PRN for shortness of breath - Continue Prednisone as above 17. Erosive esophagitis, gastric antral ulceration, Crohn disease, - PPI/[id number], mesalamine, anticipate Humira resumption after this admission - Continue Protonix 40 mg Daily 18. Coronary artery disease - Continue statin 18. History of prostatectomy for prostate cancer 19. Ankylosing spondylosis - Stop Vicodin and home medication 20. Anxiety -Ativan PRN Diet cardiac/diabetic and per ST recommendations GI: AVOID MAGNESIUM CITRATE, Scheduled Senna, consider adding additional laxatives tomorrow DVT prophylaxis Sub Q heparin, SCDs Code: PULST ON FILE, limited, intubate Patient progress, plan of care, care goals, discussed with Patient, Daughters, and 11/20/16 Disposition: Likely discharge to home with improvement of respiratory function, renal function, and CHF. GI Prophylaxis: Proton Pump Inhibitor VTE Prophylaxis: Sub-Q Heparin (Unfractionated) VTE Mechanical Devices: Intermittant Pneumatic CD Resuscitation Status: CPR: Attempt Resuscitation Attending Statement The patient was seen and examined together with Resident/House-staff on 11/20/16 and I agree with the history, exam and plan as outlined in the note above. JAKE JACKSON DO Nov 20, 2016 06:41 Ho Thomas Nov 21, 2016 17:16
[2016-11-21] VITALS (13 sets, daily range): BP systolic 136–197; BP diastolic 62–79; PULSE 62–79; RESP 18–24; O2SAT 91–95
[2016-11-21] MEDS: Heparin 5,000 Unit/mL Inj SUBQ SCH ×3 (00:37→16:16)
[2016-11-21] MEDS: Sodium Chloride LOK Flush 10 mL Syringe IVFLUSH SCH ×3 (00:37→16:16)
[2016-11-21] MEDS: Furosemide 10 mg/mL 10 mL Inj IVPUSH SCH ×2 (00:37→08:39)
[2016-11-21 02:41] LABS: Mean Corpuscular Hemoglobin 29.1 pg (27.0-35.0); Mean Corpuscular Volume 94.2 fL (81-100); Platelet Count 168 bil/L (150-400)
[2016-11-21 02:55] LABS: INR 1.05 ratio
[2016-11-21 03:13] LABS: Magnesium 1.9 mg/dL (1.6-2.6); Phosphorus 5.8 mg/dL (2.5-4.9); Unsaturated Iron Binding 233.1 ug/dL
[2016-11-21 03:21] LABS: BASOPHILS % (AUTO) 0 % (0-3); EOSINOPHILS % (AUTO) 0 % (0-5); MONOCYTES % (AUTO) 7 % (4-12); NEUTROPHILS % (AUTO) 84 % (40-74)
--- NOTE | 2016-11-21 05:16 | NUR ---
Respiratory/ Patients VS stable this shift, on 4L NC and sats maintaining in in the mid 90's, tolerating Lasix well and BP stable all shift, 3L clear yellow urine output this shift, patient requested Ativan or Vistaril for sleep, Resident notified and Ativan ordered, patient assessed again but patient sleeping, uneventful shift, denies pain, will continue to monitor. Addendum: 11/21/16 at 0526 by AIDEE BLUE RN Amended: Links added.
[2016-11-21] MEDS: Albuterol-Ipratropium 3 mL Inhalation Solution NEB SCH ×4 (07:36→21:30)
[2016-11-21] MEDS: Insulin LISPRO 300 Unit/3 mL Inj SUBQ SCH ×5 (08:00→21:36)
[2016-11-21] MEDS: Senna-Docusate 8.6-50 mg Tablet PO SCH ×2 (08:30→19:50)
[2016-11-21] MEDS: Pantoprazole 40 mg ER24 Tablet PO SCH (08:33)
[2016-11-21] MEDS: predniSONE 20 mg Tablet PO SCH (08:34)
[2016-11-21 09:09] LABS: Cryptococcal Ag Negative (Negative)
[2016-11-21 09:54] LABS: BASOPHILS % (AUTO) 0.5 % (0-3); EOSINOPHILS % (AUTO) 0.3 % (0-5); Mean Corpuscular Hemoglobin 29.2 pg (27.0-35.0); Mean Corpuscular Volume 94.9 fL (81-100); Platelet Count 162 bil/L (150-400)
[2016-11-21 11:25] LABS: NEUTROPHILS % (AUTO) 75 % (40-74)
[2016-11-21 11:26] LABS: MONOCYTES % (AUTO) 17 % (4-12)
--- NOTE | 2016-11-21 11:54 | PCM.PNMED ---
Subjective Date of Service Nov 21, 2016 Subjective Patient has had a significant urine output in the last 36 hours with well over 8 L. His BUN and creatinine continue to improve his level of 101.7 respectively. His breathing considerably easier and denies any cough, wheezing , dyspnea on exertion, chest pain, vomiting, or diarrhea. Exam Vital Signs Vital Sign - Last Date Time Temp Pulse Resp B/P Pulse Ox O2 Delivery O2 Flow Rate FiO2 11/21/16 11:31 36.7 77 22 179/79 93 Nasal Cannula 4.00 11/18/16 09:06 50 Intake and Output 11/20/16 11/20/16 11/21/16 Cumulative From/Thru 15:00 23:00 07:00 11/10/16 16:55 - 11/21/16 06:27 Intake Total 58 ml 520 ml 1218 ml 75028 ml Output Total 3100 ml 3075 ml 27031 ml Balance 58 ml -2580 ml -1857 ml -5326 ml Intake Oral 520 ml 1218 ml 51053 ml IV Total 58 ml 9935 ml Output Urine Total 3100 ml 3075 ml 08570 ml Stool Total 0 ml # Voids 4 # Bowel Movements 3 Exam Neck is supple without adenopathy thyromegaly or jugular venous distention. Lungs shows some diminished breath sounds bilaterally and was considerably less rales. There were some scattered rhonchi noted. She is soft systolic murmur. Abdomen soft without any tenderness, rebound, guarding, masses, or hepatosplenomegaly. Extremities continue to show some generalized lower extremity edema however this is also markedly improved. Lab and Diagnostics Result Diagram: 11/21/1692711/21/16927 Microbiology INFLUENZA A PCR Final 11/11/16-0658 Organism 1 INFLUENZA A H3 X-Rays, CTs and MRIs Chest X-Ray IMPRESSION: Left basilar opacity suspicious for pneumonia apparently correlated clinical and laboratory data. Small bilateral pleural effusions. Dictated by: Aditi Garcia MD, PhD on 11/19/2016 at 9:11 Approved by: Aditi Garcia MD, PhD on 11/19/2016 at 9:11 Retroperitoneal US IMPRESSION: 1. Markedly limited study. 2. No definite hydronephrosis, although the right kidney is poorly characterized. 3. Moderate postvoid residual. Dictated by: Selma Rangel M.D. on 11/12/2016 at 14:15 CT abdomen and pelvis IMPRESSION: 1. Small bilateral pleural fluid collections. 2. Bibasilar lung consolidation compatible with compressive atelectasis, pneumonia or aspiration. Please correlate with clinical and laboratory data. 3. Cardiomegaly. 4. Hepatic steatosis. 5. 1.4 cm gallstone in the gallbladder neck. There is clinical concern for biliary disease, abdominal ultrasound should be performed for further evaluation. 6. Small amount of ascites in the lower pelvis and the left lower quadrant of the abdomen. 7. Status post prostatectomy. 8. Colonic diverticulosis. 9. Image quality limited by patient motion. Diagnostic sensitivity of the study is limited by absence of oral and intravenous contrast. Dictated by: Aditi Garcia MD, PhD on 11/13/2016 at 17:17 CT CHEST WITHOUT CONTRAST IMPRESSION: 1. Bilateral lower lobe pneumonia with small parapneumonic effusions bilaterally. 2. Cardiomegaly and coronary artery disease. Dictated by: Queta Knox M.D. on 11/20/2016 at 16:55 Approved by: Queta Knox M.D. on 11/20/2016 at 16:55 X-RAY CHEST ONE VIEW s/p THORACENTESIS IMPRESSION: No pneumothorax after thoracentesis. Dictated by: Selma Rangel M.D. on 11/20/2016 at 17:37 Approved by: Selma Rangel M.D. on 11/20/2016 at 17:37 12-lead ECG EKG: Atrial fibrillation with right bundle branch block. . Cardiac Echo Impressions Interpretation Summary There is normal left ventricular wall thickness.The ejection fraction is estimated to be 55-60%.Flattened septum is consistent with RV pressure/volume overload.The right ventricle is moderately dilated.Right ventricular systolic function is moderately reduced. Right ventricular systolic pressure is estimated to be 37 mmHg plus the clinically estimated CVP which cannot be estimated on this exam. Probably no significant interval change from 2011 Electronically signed by: Justyn Watters on Reading Physician:11/11/2016 01:33 PM Additional Diagnostics ABG DateTimeAnalyzed 08:43:00 -_ pH ____7.305 - 7.350 7.450 pCO2 ___67.7__ -mmHg 35.0 45.0 pO2 ___72.7__ -mmHg 69.0 116 HCO3- ___32.6__ -mmol/L 22.0 26.0 US VENOUS LEG DUPLEX BILATERAL IMPRESSION: 1. No definite evidence of deep vein thrombosis in the right or left lower extremity with evaluation limited on the left as described secondary to body habitus. Dictated by: Iftikhar Burger M.D. on 11/13/2016 at 11:42 Approved by: Iftkihar Burger M.D. on 11/13/2016 at 11:42 Assessment & Plan 10. Elevated Phosphorus, acute, present on admission, ongoing - 11/12/16 5.2, 11/20/16 6.4 - Likely related to ongoing NANCY, Cardiorenal syndrome, Diabetes type II, consider potential for malignancy - Continue phosphate binder per nephrology today - Blood smear ordered to r/o malignancy, suggestive of myeloid disorder -Hematology/Oncology consulted we appreciate their expertise and time on this case. 11. Uremia, present on admission, acute, ongoing - likely due to acute kidney injury in setting of excerebration of chronic heart failure due to influenza and pneumonia, chronic uncontrolled diabetes, - This may explain changes in mental status noted by nursing staff, we will continue to assess mentation - per chart review BUN elevated at admission 93, continues to trend up 11/19/16 112 - Patient at this time does not need dialysis to correct BUN level - Continue to monitor - Repeat CMP AM 12.A-Fib, rate controlled, present on admission, active - Patient refusing Coumadin. Discussed risks of no anticoagulation with him, patient verbalized understanding. -U/S Doppler legs negative for DVT limited study -Continue SCDs -Continue Sub Q heparin 13. Hypocalcemia, present on admission, active - Calcium 11/18/16 7.4 - Continue to monitor 14. Acute on chronic Iron deficiency anemia - Likely related to history of DM, patient has history of chronic anemia being follow by Hematology as outpatient by Dr. Rhoades - Hepatitis panel ordered to rule out infectious hepatitis - smear ordered to r/o malignancy - Iron studies ordered, determine need for Iron repletion - Continue to monitor 15 Influenza A +, acute present on admission, improving - Patient has finished 10 day course of oseltamivir 75 mg PO -Chronic issues known prior to admission, present on admission: 16. History of COPD and GERARDO - Discontinue Trilogy due to suboptimal results, patient's respiratory status responded better to HFNC - Restart HFNC HS and PRN for shortness of breath - Continue Prednisone as above 17. Erosive esophagitis, gastric antral ulceration, Crohn disease, - PPI/[id number], mesalamine, anticipate Humira resumption after this admission - Continue Protonix 40 mg Daily 18. Coronary artery disease - Continue statin 18. History of prostatectomy for prostate cancer 19. Ankylosing spondylosis - Stop Vicodin and home medication 20. Anxiety -Ativan PRN Diet cardiac/diabetic and per ST recommendations GI: AVOID MAGNESIUM CITRATE, Scheduled Senna, consider adding additional laxatives tomorrow DVT prophylaxis Sub Q heparin, SCDs Code: PULST ON FILE, limited, intubate Patient progress, plan of care, care goals, discussed with Patient, Daughters, and 11/20/16 Disposition: Likely discharge to home with improvement of respiratory function, renal function, and CHF. Impression #1 acute kidney injury secondary to sepsis #2 prerenal azotemia which is multifactorial #3 metabolic alkalosis secondary to IV diuresis Recommendation #1 I would like to discontinue his Dhillon catheter and increase his activity. I will also rewrite some of his diuretic orders and give him a dose of potassium chloride. GI Prophylaxis: Proton Pump Inhibitor VTE Prophylaxis: Sub-Q Heparin (Unfractionated) VTE Mechanical Devices: Intermittant Pneumatic CD Resuscitation Status: CPR: Attempt Resuscitation Derian Beth DO Nov 21, 2016 11:54
--- NOTE | 2016-11-21 13:23 | NUR ---
Social Work Note - Continued d/c planning SCADA TECHNICIAN met with pt - pt is awake, alert. He states that MD identified Pt would remain in the hospital until Wednesday. Per rounds, MD identifies that pt is not responding well to Trilogy and will need a few more days to figure out O2 support - Either Trilogy, CPAP and home O2. Pt states that he is willing to have [facility] - Denies any other needs. has good family support. SCADA TECHNICIAN will continue to follow. Plan: Home with [facility] and transport by family. MARLO Prince
[2016-11-21 16:32] LABS: Mean Corpuscular Hemoglobin 28.8 pg (27.0-35.0); Mean Corpuscular Volume 94.8 fL (81-100)
[2016-11-21] MEDS ORDERED: Glucose 40% Oral Gel 15 Gm Tube PO PRN (17:30)
[2016-11-21 17:45] LABS: Magnesium 1.8 mg/dL (1.6-2.6); Phosphorus 3.9 mg/dL (2.5-4.9)
--- NOTE | 2016-11-21 19:11 | PCM.PNMED ---
Subjective Date of Service Nov 21, 2016 Subjective Bradley Donovan is a 75-year-old male with past medical history significant for CHF , GERARDO, ankylosing spondylitis, psoriasis, DM type II one-week history of shortness of breath, associated not very productive cough, initially treated with azithromycin and prednisone and oxygen from PCP but has ongoing symptoms, admitted for treatment of CAP pneumonia and new onset NANCY and persistent hyperkalemia. Hospital day 11. Overnight: No events reported Today: Bradley stated he is doing much better. 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 Reported that both PT and RT have been coordinating treatments at same time as planned. Patient denies fever, chills, nausea, vomiting. Reported soft stools and ability to cough up sputum. ROS negative except for mentioned above. Exam Vital Signs Vital Sign - Last Date Time Temp Pulse Resp B/P Pulse Ox O2 Delivery O2 Flow Rate FiO2 11/21/16 05:16 65 11/21/16 04:38 36.5 22 144/73 91 Nasal Cannula 4.00 11/18/16 09:06 50 Intake and Output 11/20/16 11/20/16 11/21/16 Cumulative From/Thru 15:00 23:00 07:00 11/10/16 16:55 - 11/21/16 06:27 Intake Total 58 ml 520 ml 1218 ml 10270 ml Output Total 3100 ml 3075 ml 48719 ml Balance 58 ml -2580 ml -1857 ml -5326 ml Intake Oral 520 ml 1218 ml 12357 ml IV Total 58 ml 9935 ml Output Urine Total 3100 ml 3075 ml 49437 ml Stool Total 0 ml # Voids 4 # Bowel Movements 3 Exam General: Alert, Oriented X3, mentation improved but reduced compared to base line, Cooperative, moderate Distress, Obese Head: Normocephalic, atraumatic. External ears normal. Eyes: PERRLA, EOMI. Anicteric sclerae. Mouth: Mouth Normal, Mucous Membranes Moist/[place] Neck: Neck supple with full range of motion. No lymphadenopathy Chest & Lungs: O2 NC 6 L , equal chest rise and fall with improved air movement, diminished breath sounds at bases improved, minimal wheezes, hear in all lung worrell, no crackles, rhonchi. Cardiovascular: Regular Rate/Rhythm, Normal S1, Normal S2, No Murmurs/Rubs/ Gallops, no JVD Abdomen: Non-tender, distended, No masses, Normoactive bowel tones, Soft Musculoskeletal: Normal Range of Motion Extremities: Extremities warm to touch, moderate pitting edema up to gluteal folds improved from yesterday. No cyanosis/clubbing bilaterally Neurological: Grossly Neurologically Intact, Normal Speech, Sensation Intact, horizontal nystagmus present on exam (patient stated this is chronic, continue to monitor) : uncircumcised penis, two testicles palpated non tender, moderate scrotal and penile edema, meatus patent without discharge IVs and Medications Medications Reviewed: Medications were reviewed in detail Lab and Diagnostics Result Diagram: 11/21/16 0230 11/20/16 2345 Microbiology INFLUENZA A PCR Final 11/11/16-0658 Organism 1 INFLUENZA A H3 X-Rays, CTs and MRIs Chest X-Ray IMPRESSION: Left basilar opacity suspicious for pneumonia apparently correlated clinical and laboratory data. Small bilateral pleural effusions. Dictated by: Aditi Garcia MD, PhD on 11/19/2016 at 9:11 Approved by: Aditi Garcia MD, PhD on 11/19/2016 at 9:11 Retroperitoneal US IMPRESSION: 1. Markedly limited study. 2. No definite hydronephrosis, although the right kidney is poorly characterized. 3. Moderate postvoid residual. Dictated by: Selma Rangel M.D. on 11/12/2016 at 14:15 CT abdomen and pelvis IMPRESSION: 1. Small bilateral pleural fluid collections. 2. Bibasilar lung consolidation compatible with compressive atelectasis, pneumonia or aspiration. Please correlate with clinical and laboratory data. 3. Cardiomegaly. 4. Hepatic steatosis. 5. 1.4 cm gallstone in the gallbladder neck. There is clinical concern for biliary disease, abdominal ultrasound should be performed for further evaluation. 6. Small amount of ascites in the lower pelvis and the left lower quadrant of the abdomen. 7. Status post prostatectomy. 8. Colonic diverticulosis. 9. Image quality limited by patient motion. Diagnostic sensitivity of the study is limited by absence of oral and intravenous contrast. Dictated by: Aditi Garcia MD, PhD on 11/13/2016 at 17:17 12-lead ECG EKG: Atrial fibrillation with right bundle branch block. . Cardiac Echo Impressions Interpretation Summary There is normal left ventricular wall thickness.The ejection fraction is estimated to be 55-60%.Flattened septum is consistent with RV pressure/volume overload.The right ventricle is moderately dilated.Right ventricular systolic function is moderately reduced. Right ventricular systolic pressure is estimated to be 37 mmHg plus the clinically estimated CVP which cannot be estimated on this exam. Probably no significant interval change from 2011 Electronically signed by: Justyn Watters on Reading Physician:11/11/2016 01:33 PM Additional Diagnostics ABG DateTimeAnalyzed 08:43:00 -_ pH ____7.305 - 7.350 7.450 pCO2 ___67.7__ -mmHg 35.0 45.0 pO2 ___72.7__ -mmHg 69.0 116 HCO3- ___32.6__ -mmol/L 22.0 26.0 VENOUS LEG DUPLEX BILATERAL IMPRESSION: 1. No definite evidence of deep vein thrombosis in the right or left lower extremity with evaluation limited on the left as described secondary to body habitus. Dictated by: Iftikhar Burger M.D. on 11/13/2016 at 11:42 Approved by: Iftikhar Burger M.D. 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 Hospital day 11. 1. Acute on Chronic Respiratory failure, hypoxic Present on admission, improving - Likely due to bibasilar pneumonia and influenza A infections complicated by GERARDO and CHF - 120cc fluid trained with thoracentesis, sent for culture - Better oxygen saturation on 4 L NC, - Patient encourage to mobilize up and out of bed, - Continue Pulmonary toilet - RT scheduled to be present when PT mobilize patient to assess and titrate O2 as necessary - Continue Acapella - Pulmonology Consulted, We appreciate their time and expertise on this complicated case. 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 At present time ID recommends discontinuing antibiotics and observe patient to determine if an underlying infection is present. 3. 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 - elevated BNP and diastolic dysfunction noted in prior echo - Retroperitoneal U/S showed moderate post residual void - Creatine 2.10 , BUN 112 continues to trend up, - D/C IV fluids, monitor fluid status - Continue Dhillon cath, urine output decreased today - Continue 20 mg Torsemide PO, once, reassess volume status and renal function - Continue 25 chlorthalidone PO once, reassess volume status and renal function - Lasix 80 mg Q8 scheduled for probable pulmonary edema - Start 30 mg prednisone PO, Continue to taper - Hold Pentasa - Continue to hold metformin/lisinopril - Nephrology consulted we appreciate their input and expertise on this case 4. Hyperkalemia, present on admission, improving - 11/16/16 K 4.8, 11/18/16 5.4 11/19/16 5.7 11/20/16 4.8 - Differential diagnosis includes: NANCY, RTA Type IV, uncontrolled DM II - Stop insulin drip and change to insulin subQ, weight based long acting and preprandial with correctional - Rennin/aldosterone and urine aldosterone pending - continue fludrocortisone 0.1 mg daily - Continue to monitor closely 5. Potential bone marrow pathology, r/o maligancy - Worsening increase of serum phosphorus in setting phosphate binders, in the setting of abnormal peripheral blood smear with unresolved/reoccurring bibasilar pulmonary effusion concerning for underlying dysplastic disorder. - peripheral blood smear review by pathology rare blasts were seen raising concern for leukoerythroblastic reaction due to his systemic infection/ inflammation vs myelodysplastic disorder (at present time with review of patients past medical records and per Oncology this is clinically unlikely we will defer to their recommendations and await pending results) - Fluid from Thoracentesis of left sided pleural effusion sent for cell count, differential, LDH, protein, glucose, acid fast bacilli smear, gram stain, and cytometry (pending) WBC: 175, RBC 3325, PMN 4, Lymphocytes 45, Monocytes 51, LDH 135, Total protein 1.7, 229 - Flow cytometry of peripheral blood sent, pending - SPEP, ordered - Cryoglobulin studies ordered, - Miller chromosome and NAVDEEP-2 mutation to rule out differential diagnosis of myeloproliferative disorder. - Hematology and oncology consulted we appreciate their time and expertise on this case. Recommend continue treatment of current infectious process. 6. 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 Acute exacerbation of CHF, present on admission, active - Elevated troponin likely due acute on chronic HF, trop trending down 0.02 11/13 - ECHO showed diastolic heart failure EF of 55-60%. - Diurese as above, course of diuretics today have shown suboptimal urine output - reassess volume status tomorrow, patient may require dialysis to remove edematous fluid and improve heart function. 8. Type II DM, acute on chronic, present on admission, improving - Continue patient on SubQ insulin by weight - Continue 52 units of Lantus HS, consider titrating basal insulin base on response of blood glucose - Recommend patient continue insulin regimen as an outpatient 9. 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 Elevated Phosphorus, acute, present on admission, ongoing - 11/12/16 5.2, 11/20/16 6.4 - Likely related to ongoing NANCY, Cardiorenal syndrome, Diabetes type II, consider potential for malignancy - Continue phosphate binder per nephrology today - Blood smear ordered to r/o malignancy, suggestive of myeloid disorder -Hematology/Oncology consulted we appreciate their expertise and time on this case. 11. Uremia, present on admission, acute, ongoing - likely due to acute kidney injury in setting of excerebration of chronic heart failure due to influenza and pneumonia, chronic uncontrolled diabetes, - This may explain changes in mental status noted by nursing staff, we will continue to assess mentation - per chart review BUN elevated at admission 93, continues to trend up 11/19/16 112 11/20/18 100 - Patient at this time does not need dialysis to correct BUN level, continue to monitor - Continue to monitor platelets and INR - Repeat CMP AM 12.A-Fib, rate controlled, present on admission, active - Patient refusing Coumadin. Discussed risks of no anticoagulation with him, patient verbalized understanding. -U/S Doppler legs negative for DVT limited study -Continue SCDs -Continue Sub Q heparin 13. Hypocalcemia, present on admission, active - Calcium 11/18/16 7.4 - Continue to monitor 14. Acute on chronic Iron deficiency anemia - Likely related to history of DM, patient has history of chronic anemia being follow by Hematology as outpatient by Dr. Rhoades - Hepatitis panel ordered to rule out infectious hepatitis - smear ordered to r/o malignancy - Iron studies ordered, determine need for Iron repletion, negative - Continue to monitor 15 Influenza A +, acute present on admission, improving - Patient has finished 10 day course of oseltamivir 75 mg PO -Chronic issues known prior to admission, present on admission: 16. History of COPD and GERARDO - Discontinue Trilogy due to suboptimal results, patient's respiratory status responded better to HFNC - Restart HFNC HS and PRN for shortness of breath - Continue Prednisone as above 17. Erosive esophagitis, gastric antral ulceration, Crohn disease, - PPI/C3iroodru, mesalamine, anticipate Humira resumption after this admission - Continue Protonix 40 mg Daily 18. Coronary artery disease - Continue statin 18. History of prostatectomy for prostate cancer 19. Ankylosing spondylosis - Stop Vicodin and home medication 20. Anxiety -Ativan PRN Diet cardiac/diabetic and per ST recommendations GI: AVOID MAGNESIUM CITRATE, Scheduled Senna, consider adding additional laxatives tomorrow DVT prophylaxis Sub Q heparin, SCDs Code: PULST ON FILE, limited, intubate Patient progress, plan of care, care goals, discussed with Patient, Daughters, and 11/20/16 Disposition: Likely discharge to home with improvement of respiratory function, renal function, and CHF. Pain Evaluation: Adequate Pain Control GI Prophylaxis: Proton Pump Inhibitor VTE Prophylaxis: Sub-Q Heparin (Unfractionated) VTE Mechanical Devices: Intermittant Pneumatic CD Resuscitation Status: CPR: Attempt Resuscitation JAKE JACKSON DO Nov 21, 2016 07:05 Kai Jauregui Nov 21, 2016 19:11
--- NOTE | 2016-11-21 19:17 | PCM.PNMED ---
Subjective Date of Service Nov 21, 2016 Subjective Bradley Donovan is a 75-year-old male with past medical history significant for CHF , GERARDO, ankylosing spondylitis, psoriasis, DM type II one-week history of shortness of breath, associated not very productive cough, initially treated with azithromycin and prednisone and oxygen from PCP but has ongoing symptoms, admitted for treatment of CAP pneumonia, +influenza A, and new onset NANCY and persistent hyperkalemia. Hospital day 12. Overnight: No events reported Today: Bradley stated he is doing much better. "I feel cigarette maker and I am breathing easier." Patient stated he is able to stand and pee and has been getting out of bed when possible. Reported that both PT and RT have been coordinating treatments at same time as planned. Patient denies fever, chills, nausea, vomiting. Reported soft stools and ability to cough up sputum. ROS negative except for mentioned above. Exam Vital Signs Vital Sign - Last Date Time Temp Pulse Resp B/P Pulse Ox O2 Delivery O2 Flow Rate FiO2 11/21/16 16:57 76 18 92 Nasal Cannula 4.00 11/21/16 16:04 36.5 197/78 11/18/16 09:06 50 Intake and Output 11/20/16 11/20/16 11/21/16 Cumulative From/Thru 15:00 23:00 07:00 11/10/16 16:55 - 11/21/16 06:27 Intake Total 58 ml 520 ml 1218 ml 76755 ml Output Total 3100 ml 3075 ml 91491 ml Balance 58 ml -2580 ml -1857 ml -5326 ml Intake Oral 520 ml 1218 ml 42674 ml IV Total 58 ml 9935 ml Output Urine Total 3100 ml 3075 ml 62751 ml Stool Total 0 ml # Voids 4 # Bowel Movements 3 Exam General: Alert, Oriented X3, mentation improved but reduced compared to base line, Cooperative, moderate Distress, Obese Head: Normocephalic, atraumatic. External ears normal. Eyes: PERRLA, EOMI. Anicteric sclerae. Mouth: Mouth Normal, Mucous Membranes Moist/Silver Plume Neck: Neck supple with full range of motion. No lymphadenopathy Chest & Lungs: O2 NC 6 L , equal chest rise and fall with improved air movement, diminished breath sounds at bases improved, minimal wheezes, hear in all lung worrell, no crackles, rhonchi. Cardiovascular: Regular Rate/Rhythm, Normal S1, Normal S2, No Murmurs/Rubs/ Gallops, no JVD Abdomen: Non-tender, distended, No masses, Normoactive bowel tones, Soft Musculoskeletal: Normal Range of Motion Extremities: Extremities warm to touch tender, moderate pitting edema up to gluteal folds improved from yesterday. No cyanosis/clubbing bilaterally Neurological: Grossly Neurologically Intact, Normal Speech, Sensation Intact, horizontal nystagmus present on exam (patient stated this is chronic, continue to monitor) : uncircumcised penis, two testicles palpated non tender, moderate scrotal and penile edema, meatus patent without discharge IVs and Medications Medications Reviewed: Medications were reviewed in detail Lab and Diagnostics Result Diagram: 11/21/16 1610 11/21/16 1610 Microbiology INFLUENZA A PCR Final 11/11/16-0658 Organism 1 INFLUENZA A H3 X-Rays, CTs and MRIs Chest X-Ray IMPRESSION: Left basilar opacity suspicious for pneumonia apparently correlated clinical and laboratory data. Small bilateral pleural effusions. Dictated by: Aditi Garcia MD, PhD on 11/19/2016 at 9:11 Approved by: Aditi Garcia MD, PhD on 11/19/2016 at 9:11 Retroperitoneal US IMPRESSION: 1. Markedly limited study. 2. No definite hydronephrosis, although the right kidney is poorly characterized. 3. Moderate postvoid residual. Dictated by: Selma Rangel M.D. on 11/12/2016 at 14:15 CT abdomen and pelvis IMPRESSION: 1. Small bilateral pleural fluid collections. 2. Bibasilar lung consolidation compatible with compressive atelectasis, pneumonia or aspiration. Please correlate with clinical and laboratory data. 3. Cardiomegaly. 4. Hepatic steatosis. 5. 1.4 cm gallstone in the gallbladder neck. There is clinical concern for biliary disease, abdominal ultrasound should be performed for further evaluation. 6. Small amount of ascites in the lower pelvis and the left lower quadrant of the abdomen. 7. Status post prostatectomy. 8. Colonic diverticulosis. 9. Image quality limited by patient motion. Diagnostic sensitivity of the study is limited by absence of oral and intravenous contrast. Dictated by: Aditi Garcia MD, PhD on 11/13/2016 at 17:17 12-lead ECG EKG: Atrial fibrillation with right bundle branch block. . Cardiac Echo Impressions Interpretation Summary There is normal left ventricular wall thickness.The ejection fraction is estimated to be 55-60%.Flattened septum is consistent with RV pressure/volume overload.The right ventricle is moderately dilated.Right ventricular systolic function is moderately reduced. Right ventricular systolic pressure is estimated to be 37 mmHg plus the clinically estimated CVP which cannot be estimated on this exam. Probably no significant interval change from 2011 Electronically signed by: Justyn Watters on Reading Physician:11/11/2016 01:33 PM Additional Diagnostics ABG DateTimeAnalyzed 08:43:00 -_ pH ____7.305 - 7.350 7.450 pCO2 ___67.7__ -mmHg 35.0 45.0 pO2 ___72.7__ -mmHg 69.0 116 HCO3- ___32.6__ -mmol/L 22.0 26.0 US VENOUS LEG DUPLEX BILATERAL IMPRESSION: 1. No definite evidence of deep vein thrombosis in the right or left lower extremity with evaluation limited on the left as described secondary to body habitus. Dictated by: Iftikhar Burger M.D. on 11/13/2016 at 11:42 Approved by: Iftikhar Burger M.D. 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 Hospital day 12. 1. Platelets trending down - At admission platelets 296 11/21/16 PLT 156 - INR stable 1.05 - PTT 11.3 - Consider checking serial fibrinogen if platelets trend below 100 - Continue to monitor 2. Acute on Chronic Respiratory failure, hypoxic Present on admission, improving - Likely due to bibasilar pneumonia and influenza A infections complicated by EGRARDO and CHF - 120cc fluid trained with thoracentesis, sent for culture - Better oxygen saturation on 4 L NC, - Patient encourage to mobilize up and out of bed, - Continue Pulmonary toilet - RT scheduled to be present when PT mobilize patient to assess and titrate O2 as necessary - Continue Acapella - Pulmonology Consulted, We appreciate their time and expertise on this complicated case. 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 At present time ID recommends discontinuing antibiotics and observe patient to determine if an underlying infection is present. 3. 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 - elevated BNP and diastolic dysfunction noted in prior echo - Retroperitoneal U/S showed moderate post residual void - Creatine 2.10 , BUN 112 continues to trend up, - D/C IV fluids, monitor fluid status - Continue Dhillon cath, urine output decreased today - Continue 20 mg Torsemide PO, once, reassess volume status and renal function - Continue 25 chlorthalidone PO once, reassess volume status and renal function - Lasix 80 mg Q8 scheduled for probable pulmonary edema - Start 30 mg prednisone PO, Continue to taper - Hold Pentasa - Continue to hold metformin/lisinopril - Nephrology consulted we appreciate their input and expertise on this case 4. Hyperkalemia, present on admission, improving - 11/16/16 K 4.8, 11/18/16 5.4 11/19/16 5.7 11/20/16 4.8 - Differential diagnosis includes: NANCY, RTA Type IV, uncontrolled DM II - Stop insulin drip and change to insulin subQ, weight based long acting and preprandial with correctional - Rennin/aldosterone and urine aldosterone pending - continue fludrocortisone 0.1 mg daily - Continue to monitor closely 5. Potential bone marrow pathology, r/o maligancy - Worsening increase of serum phosphorus in setting phosphate binders, in the setting of abnormal peripheral blood smear with unresolved/reoccurring bibasilar pulmonary effusion concerning for underlying dysplastic disorder. - peripheral blood smear review by pathology rare blasts were seen raising concern for leukoerythroblastic reaction due to his systemic infection/ inflammation vs myelodysplastic disorder (at present time with review of patients past medical records and per Oncology this is clinically unlikely we will defer to their recommendations and await pending results) - Fluid from Thoracentesis of left sided pleural effusion sent for cell count, differential, LDH, protein, glucose, acid fast bacilli smear, gram stain, and cytometry (pending) WBC: 175, RBC 3325, PMN 4, Lymphocytes 45, Monocytes 51, LDH 135, Total protein 1.7, 229 - Flow cytometry of peripheral blood sent, pending - SPEP, ordered - Cryoglobulin studies ordered, - Yo[place]um chromosome and NAVDEEP-2 mutation to rule out differential diagnosis of myeloproliferative disorder. - Hematology and oncology consulted we appreciate their time and expertise on this case. Recommend continue treatment of current infectious process. 6. 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 Acute exacerbation of CHF, present on admission, active - Elevated troponin likely due acute on chronic HF, trop trending down 0.02 11/13 - ECHO showed diastolic heart failure EF of 55-60%. - Diurese as above, course of diuretics today have shown suboptimal urine output - reassess volume status tomorrow, patient may require dialysis to remove edematous fluid and improve heart function. 8. Type II DM, acute on chronic, present on admission, improving - Continue patient on SubQ insulin by weight - Continue 52 units of Lantus HS, consider titrating basal insulin base on response of blood glucose - Recommend patient continue insulin regimen as an outpatient 9. 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 Elevated Phosphorus, acute, present on admission, ongoing - 11/12/16 5.2, 11/20/16 6.4 - Likely related to ongoing NANCY, Cardiorenal syndrome, Diabetes type II, consider potential for malignancy - Continue phosphate binder per nephrology today - Blood smear ordered to r/o malignancy, suggestive of myeloid disorder -Hematology/Oncology consulted we appreciate their expertise and time on this case. 11. Uremia, present on admission, acute, ongoing - likely due to acute kidney injury in setting of excerebration of chronic heart failure due to influenza and pneumonia, chronic uncontrolled diabetes, - This may explain changes in mental status noted by nursing staff, we will continue to assess mentation - per chart review BUN elevated at admission 93, continues to trend up 11/19/16 112 11/20/18 100 - Patient at this time does not need dialysis to correct BUN level, continue to monitor - Continue to monitor platelets and INR - Repeat CMP AM 12.A-Fib, rate controlled, present on admission, active - Patient refusing Coumadin. Discussed risks of no anticoagulation with him, patient verbalized understanding. -U/S Doppler legs negative for DVT limited study -Continue SCDs -Continue Sub Q heparin 13. Hypocalcemia, present on admission, active - Calcium 11/18/16 7.4 - Continue to monitor 14. Acute on chronic Iron deficiency anemia - Likely related to history of DM, patient has history of chronic anemia being follow by Hematology as outpatient by Dr. Rhoades - Hepatitis panel ordered to rule out infectious hepatitis - smear ordered to r/o malignancy - Iron studies ordered, determine need for Iron repletion, negative - Continue to monitor 15 Influenza A +, acute present on admission, improving - Patient has finished 10 day course of oseltamivir 75 mg PO -Chronic issues known prior to admission, present on admission: 16. History of COPD and GERARDO - Discontinue Trilogy due to suboptimal results, patient's respiratory status responded better to HFNC - Restart HFNC HS and PRN for shortness of breath - Continue Prednisone as above 17. Erosive esophagitis, gastric antral ulceration, Crohn disease, - PPI/[id number], mesalamine, anticipate Humira resumption after this admission - Continue Protonix 40 mg Daily 18. Coronary artery disease - Continue statin 18. History of prostatectomy for prostate cancer 19. Ankylosing spondylosis - Stop Vicodin and home medication 20. Anxiety -Ativan PRN Diet cardiac/diabetic and per ST recommendations GI: AVOID MAGNESIUM CITRATE, Scheduled Senna, consider adding additional laxatives tomorrow DVT HELD prophylaxis Sub Q due to platelets trending down, Repeat CBC reassess heparin, SCDs Code: PULST ON FILE, limited, intubate Patient progress, plan of care, care goals, discussed with Patient, Daughters, and 11/20/16 Disposition: Likely discharge to home with improvement of respiratory function, renal function, and CHF. Pain Evaluation: Adequate Pain Control GI Prophylaxis: Proton Pump Inhibitor VTE Prophylaxis: Sub-Q Heparin (Unfractionated) VTE Mechanical Devices: Intermittant Pneumatic CD Resuscitation Status: CPR: Attempt Resuscitation GI Prophylaxis: Proton Pump Inhibitor VTE Prophylaxis: Sub-Q Heparin (Unfractionated) VTE Mechanical Devices: Intermittant Pneumatic CD Resuscitation Status: CPR: Attempt Resuscitation Attending Statement The patient was seen and examined together with Resident/House-staff on 11/21/16 and I agree with the history, exam and plan as outlined in the note above. JAKE JACKSON DO Nov 21, 2016 19:17 Ho Thomas Nov 22, 2016 16:57
--- NOTE | 2016-11-21 19:20 | NUR ---
Blood Glucose/Mentation/Respiration Pt. in Am had a BG level of 58, able to wake up and respond appropriately but somewhat drowsy. I gave Pt. orange juice 3x and rechecked blood sugar in 15min intervals and BG went from 66 to 84. No insulin was given and made aware. Pt. is A&Ox3 throughout shift, answers questions appropriately, Pt. is on 4L NC sating in the mid 's.
[2016-11-21] MEDS ORDERED: Insulin GLARgine 100 Unit/mL Syringe SUBQ SCH (21:00)
[2016-11-21 21:15] LABS: EOSINOPHILS % (AUTO) 0 % (0-5); Mean Corpuscular Hemoglobin 28.5 pg (27.0-35.0); Mean Corpuscular Volume 95.2 fL (81-100); Platelet Count 153 bil/L (150-400)
[2016-11-21] MEDS ORDERED: LORazepam 0.5 mg Tablet PO PRN (21:15)
[2016-11-21 21:40] LABS: BASOPHILS % (AUTO) 0 % (0-3); MONOCYTES % (AUTO) 11 % (4-12); NEUTROPHILS % (AUTO) 81 % (40-74)
[2016-11-22] VITALS (13 sets, daily range): BP systolic 136–191; BP diastolic 67–76; PULSE 63–83; RESP 18–24; O2SAT 91–98
[2016-11-22] MEDS: Sodium Chloride LOK Flush 10 mL Syringe IVFLUSH SCH ×4 (00:45→22:00)
[2016-11-22 04:32] LABS: Mean Corpuscular Hemoglobin 28.8 pg (27.0-35.0); Mean Corpuscular Volume 94.8 fL (81-100)
[2016-11-22 04:54] LABS: Magnesium 1.8 mg/dL (1.6-2.6); Phosphorus 3.6 mg/dL (2.5-4.9)
--- NOTE | 2016-11-22 05:55 | NUR ---
Resp/ Patient had a good night, got some rest and slept for 2-3 hours in between care, did well on 4L NC, no respiratory distress noted, A-Fib with IVCD and PVCs, BP and VS stable, voiding in urinal with assistance, patient stated he is feeling better, uneventful shift, will continue to monitor. Addendum: 11/22/16 at 0605 by AIDEE BLUE RN Amended: Links added.
[2016-11-22] MEDS: Albuterol-Ipratropium 3 mL Inhalation Solution NEB SCH ×4 (07:54→20:22)
[2016-11-22] MEDS: predniSONE 20 mg Tablet PO SCH (08:12)
[2016-11-22] MEDS: Insulin LISPRO 300 Unit/3 mL Inj SUBQ SCH ×4 (08:15→22:00)
[2016-11-22] MEDS: Senna-Docusate 8.6-50 mg Tablet PO SCH ×2 (08:16→20:11)
--- NOTE | 2016-11-22 12:20 | NUR ---
[place] - verbal consent due to active contact precautions.
--- NOTE | 2016-11-22 12:24 | DRSVH ---
PROCEDURE: CT BRAIN WITHOUT CONTRAST ([id number]) INDICATIONS: new facial droop TECHNIQUE: Noncontrast 4.5 mm thick angled axial sections acquired from the foramen magnum to the vertex, with c oronal reformats. COMPARISON: None. FINDINGS: Image quality: Excellent. CSF spaces: Basal cisterns are patent. No extra-axial fluid collections. The ventricles are symmet ryan in size and shape. Brain: No intracranial bleeds or masses. There is moderate cerebral volume loss for age, with resul tant ventricular and sulcal prominence. There are extensive periventricular and deep white matter ch ronic small vessel ischemic changes. Mild encephalomalacia is present in the right frontal lobe sugge sting chronic infarct. There is intracranial internal carotid artery atherosclerosis. Skull and face: Calvarium and visualized facial bones appear intact, without suspicious lesions. Sinuses: Visualized sinuses and mastoids are clear. IMPRESSION: 1. No acute intracranial findings. 2. Extensive findings likely associated with chronic microvascular ischemic changes. Dictated by: Selma Rangel M.D. on 11/22/2016 at 12:15 Approved by: Selma Rangel M.D. on 11/22/2016 at 12:22
[2016-11-22] MEDS ORDERED: KCl 20 mEq/100 mL(CENTRAL) 20 MEQ in IV Premix 1 EACH IV ONE (13:45)
--- NOTE | 2016-11-22 13:47 | PCM.PNMED ---
Subjective Date of Service Nov 22, 2016 Subjective The patient has some new onset right-sided facial weakness and some confusion. His blood pressure has been up and down over the last 24 hours. He has had over 5 L of urine output in the last 36 hours. He has no new complaints and denies any chest pain, shortness of breath, cough or wheezing. He denies any headache, visual field changes, or unilateral weakness. Exam Vital Signs Vital Sign - Last Date Time Temp Pulse Resp B/P Pulse Ox O2 Delivery O2 Flow Rate FiO2 11/22/16 13:02 77 18 97 Nasal Cannula 4.00 11/22/16 12:53 36.8 191/73 11/18/16 09:06 50 Intake and Output 11/21/16 11/21/16 11/22/16 Cumulative From/Thru 15:00 23:00 07:00 11/10/16 16:55 - 11/22/16 06:30 Intake Total 1254 ml 420 ml 85424 ml Output Total 800 ml 1250 ml 01888 ml Balance 454 ml -830 ml -5702 ml Intake Oral 1254 ml 420 ml 84625 ml IV Total 9935 ml Output Urine Total 800 ml 1250 ml 81415 ml Stool Total 0 ml # Voids 4 # Bowel Movements 2 5 Exam HEENT examination is remarkable for a right-sided facial droop. He does not have any evidence of any dysarthria or expressive aphasia. Neck is supple without adenopathy thyromegaly or jugular venous distention. Lungs are clear to auscultation heart is regular rhythm with a soft systolic murmur. Abdomen remains distended. Extremities shows some decreased edema. Neurological exam he does not have any unilateral weakness and his grasp strength is good. Lab and Diagnostics Result Diagram: 11/22/16 0420 11/22/16 0420 Microbiology INFLUENZA A PCR Final 11/11/16-0658 Organism 1 INFLUENZA A H3 X-Rays, CTs and MRIs Chest X-Ray IMPRESSION: Left basilar opacity suspicious for pneumonia apparently correlated clinical and laboratory data. Small bilateral pleural effusions. Dictated by: Aditi Garcia MD, PhD on 11/19/2016 at 9:11 Approved by: Aditi Garcia MD, PhD on 11/19/2016 at 9:11 Retroperitoneal US IMPRESSION: 1. Markedly limited study. 2. No definite hydronephrosis, although the right kidney is poorly characterized. 3. Moderate postvoid residual. Dictated by: Selma Rangel M.D. on 11/12/2016 at 14:15 CT abdomen and pelvis IMPRESSION: 1. Small bilateral pleural fluid collections. 2. Bibasilar lung consolidation compatible with compressive atelectasis, pneumonia or aspiration. Please correlate with clinical and laboratory data. 3. Cardiomegaly. 4. Hepatic steatosis. 5. 1.4 cm gallstone in the gallbladder neck. There is clinical concern for biliary disease, abdominal ultrasound should be performed for further evaluation. 6. Small amount of ascites in the lower pelvis and the left lower quadrant of the abdomen. 7. Status post prostatectomy. 8. Colonic diverticulosis. 9. Image quality limited by patient motion. Diagnostic sensitivity of the study is limited by absence of oral and intravenous contrast. Dictated by: Aditi Garcia MD, PhD on 11/13/2016 at 17:17 12-lead ECG EKG: Atrial fibrillation with right bundle branch block. . Cardiac Echo Impressions Interpretation Summary There is normal left ventricular wall thickness.The ejection fraction is estimated to be 55-60%.Flattened septum is consistent with RV pressure/volume overload.The right ventricle is moderately dilated.Right ventricular systolic function is moderately reduced. Right ventricular systolic pressure is estimated to be 37 mmHg plus the clinically estimated CVP which cannot be estimated on this exam. Probably no significant interval change from 2011 Electronically signed by: Justyn Watters on Reading Physician:11/11/2016 01:33 PM Additional Diagnostics ABG DateTimeAnalyzed 08:43:00 -_ pH ____7.305 - 7.350 7.450 pCO2 ___67.7__ -mmHg 35.0 45.0 pO2 ___72.7__ -mmHg 69.0 116 HCO3- ___32.6__ -mmol/L 22.0 26.0 VENOUS LEG DUPLEX BILATERAL IMPRESSION: 1. No definite evidence of deep vein thrombosis in the right or left lower extremity with evaluation limited on the left as described secondary to body habitus. Dictated by: Iftikhar Burger M.D. on 11/13/2016 at 11:42 Approved by: Iftikhar Burger M.D. 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 #2 to continue to wean his prednisone down and continue to replace his potassium to correct his underlying metabolic alkalosis. GI Prophylaxis: Proton Pump Inhibitor VTE Prophylaxis: Sub-Q Heparin (Unfractionated) Resuscitation Status: CPR: Attempt Resuscitation Derian Beth DO Nov 22, 2016 13:47
[2016-11-22] MEDS ORDERED: 0.9% Sodium Chloride 250 ML ONE (14:51)
[2016-11-22 15:10] LABS: Mean Corpuscular Hemoglobin 29.6 pg (27.0-35.0); Platelet Count 159 bil/L (150-400)
[2016-11-22 16:13] LABS: BASOPHILS % (AUTO) 0 % (0-3); EOSINOPHILS % (AUTO) 1 % (0-5); MONOCYTES % (AUTO) 2 % (4-12); NEUTROPHILS % (AUTO) 90 % (40-74)
--- NOTE | 2016-11-22 16:53 | PROG NOTE ---
[address] [place] [address] PROGRESS NOTE PATIENT: GIACOMO SNYDER : 1940 MR#: [id number] ADMIT: 11/10/2016 JOB ID: [id number] DATE: 11/22/2016 REASON FOR FOLLOWUP: Respiratory insufficiency, renal insufficiency, and severe weakness in a gentleman who was recently diagnosed and treated for pneumococcal pneumonia. INTERVAL HISTORY: Recall this is an extremely complex patient with underlying organic heart disease, Crohn disease, TNF inhibitor therapy, diabetes, and COPD, among other problems, whom we saw in consult on Wednesday the . At that time, we knew he had influenza and we were concerned about possible secondary bacterial invaders. He had received a course of broad-spectrum antibiotics aimed at community-acquired pneumonia and we recommended stopping all antibiotics as he had received basically a week of azithromycin and beta-lactam antibiotics. During that consult, I ordered a urine pneumococcal antigen which came back positive and established that in addition to influenza he had a secondary pneumococcal pneumonia. Despite the finding of these two infections, though it appeared on Wednesday the , that the patient did not need any more antibiotics, however, confident about stopping and observing. The patient reports that over the weekend, he has actually felt better. He has no fevers, no chills. He remains on CPAP intermittently for shortness of breath but he says if anything his breathing is better and he does not have significant sputum production. He denies abdominal pain or problems with the extremities or skin rash. PHYSICAL EXAMINATION: Reveals an afebrile gentleman, temperature 36.5, pulse 80, respiratory rate 18, blood pressure 170/74. He is on and off CPAP and/or nasal cannula and saturating fairly well. His eyes are without scleral icterus or conjunctivitis. His oral cavity is benign. Neck without new abnormality. Lungs with decreased breath sounds and a few crackles at the bases but otherwise okay. Cardiac tones distant. Abdomen soft and nontender. LABORATORIES: Include a white count which is stable at about 16,000, platelet count 160,000. Creatinine 1.69 which continues to steadily improve. Liver function tests notable for an ALT of 116 which is about where it has been since admission. Procalcitonin is 0.15 and he has basically had now five consecutive procalcitonins over a week that are below 0.25 which would argue strongly against a bacterial pneumonia. LDH 430. Pleural fluid was tapped on the Wednesday afternoon and showed only 175 white cells. The LDH was 135 and the protein 1.7. Glucose 229. All of that is compatible with a transudate and not an exudate. Many serologies were ordered during the consult on Wednesday. Cocci antibodies, Fungitell, urine histo, galactomannan, and Strongyloides are all pending. QuantiFERON Gold is also pending. We do have back a crypto antigen which is negative as well as a hepatitis C and an HIV. We did discover the positive urine pneumococcal antigen a few days ago. Since then, we have negative cultures on the thoracentesis fluid that I mentioned that was done the . We also have negative blood cultures x4 sets done in the past 72 hours. A chest x-ray done the post thoracentesis shows moderate pleural effusions but no significant infiltrates. IMPRESSION: Despite concerns that this patient may have an ongoing infection based upon, among other things, review of his peripheral white count, I do not see any evidence for ongoing bacterial pneumonia and think we adequately treated the influenza caused pneumococcal pneumonia. At this point, the patient remains on significant doses of steroids and I think this is the explanation for his elevated white count rather than an infection. It is certainly possible that given his ongoing immunosuppression with Humira, that he may have an unusual infection and we are looking actively for fungal mycobacterial or parasitic infections with our many pending serologies and cultures. RECOMMENDATIONS: 1. I would hold off on antibiotics. 2. I would continue to observe the patient here in the hospital. 3. We await the many pending studies. 4. This case discussed extensively with the team today.
--- NOTE | 2016-11-22 18:11 | PCM.PNMED ---
Subjective Date of Service Nov 22, 2016 Subjective Bradley Donovan is a 75-year-old male with past medical history significant for CHF , GERARDO, ankylosing spondylitis, psoriasis, DM type II one-week history of shortness of breath, associated not very productive cough, initially treated with azithromycin and prednisone and oxygen from PCP but has ongoing symptoms, admitted for treatment of CAP pneumonia, +influenza A, and new onset NANCY and persistent hyperkalemia. Hospital day 13. Overnight: No acute events reported. Today: Patient states he feels better today.He denies any complaints. Patient denies fever, chills, nausea, vomiting. Reported soft stools and ability to cough up sputum. After rounds this AM Dr. Beth and the patient's daughter reported that the patient had left sided facial droop, however with reassessment shortly after the droop had already resolved. 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 ROS negative except for mentioned above. Exam Vital Signs Vital Sign - Last Date Time Temp Pulse Resp B/P Pulse Ox O2 Delivery O2 Flow Rate FiO2 11/22/16 17:37 66 18 97 Nasal Cannula 4.00 11/22/16 17:13 36.6 136/67 11/18/16 09:06 50 Intake and Output 11/21/16 11/21/16 11/22/16 Cumulative From/Thru 15:00 23:00 07:00 11/10/16 16:55 - 11/22/16 06:30 Intake Total 1254 ml 420 ml 09071 ml Output Total 800 ml 1250 ml 90796 ml Balance 454 ml -830 ml -5702 ml Intake Oral 1254 ml 420 ml 57525 ml IV Total 9935 ml Output Urine Total 800 ml 1250 ml 42735 ml Stool Total 0 ml # Voids 4 # Bowel Movements 2 5 Exam General: Alert, Oriented X3, mentation improved but reduced compared to base line, cooperative, moderate distress, obese Head: Normocephalic, atraumatic. External ears normal. Eyes: PERRLA, EOMI. Anicteric sclerae. Mouth: mouth normal, mucous membranes moist/pink Neck: Neck supple with full range of motion. No lymphadenopathy Chest & Lungs: O2 NC 4 L , equal chest rise and fall with improved air movement, diminished breath sounds at bases improved, minimal wheezes, hear in all lung worrell, no crackles, rhonchi. Cardiovascular: Regular Rate/Rhythm, Normal S1, Normal S2, No Murmurs/Rubs/ Gallops, no JVD Abdomen: Non-tender, distended, No masses, Normoactive bowel tones, Soft Musculoskeletal: Normal Range of Motion Extremities: Extremities warm to touch tender, moderate pitting edema up to gluteal folds improved from yesterday. No cyanosis/clubbing bilaterally Neurological: Grossly Neurologically Intact, Normal Speech, Sensation Intact, horizontal nystagmus present on exam (patient stated this is chronic, continue to monitor) : moderate scrotal edema. Dhillon in place. Lab and Diagnostics Result Diagram: 11/22/16 1445 11/22/16 0420 Microbiology INFLUENZA A PCR Final 11/11/16-58 Organism 1 INFLUENZA A H3 X-Rays, CTs and MRIs Chest X-Ray IMPRESSION: Left basilar opacity suspicious for pneumonia apparently correlated clinical and laboratory data. Small bilateral pleural effusions. Dictated by: Aditi Garcia MD, PhD on 11/19/2016 at 9:11 Approved by: Aditi Garcia MD, PhD on 11/19/2016 at 9:11 Retroperitoneal US IMPRESSION: 1. Markedly limited study. 2. No definite hydronephrosis, although the right kidney is poorly characterized. 3. Moderate postvoid residual. Dictated by: Selma Rangel M.D. on 11/12/2016 at 14:15 CT abdomen and pelvis IMPRESSION: 1. Small bilateral pleural fluid collections. 2. Bibasilar lung consolidation compatible with compressive atelectasis, pneumonia or aspiration. Please correlate with clinical and laboratory data. 3. Cardiomegaly. 4. Hepatic steatosis. 5. 1.4 cm gallstone in the gallbladder neck. There is clinical concern for biliary disease, abdominal ultrasound should be performed for further evaluation. 6. Small amount of ascites in the lower pelvis and the left lower quadrant of the abdomen. 7. Status post prostatectomy. 8. Colonic diverticulosis. 9. Image quality limited by patient motion. Diagnostic sensitivity of the study is limited by absence of oral and intravenous contrast. Dictated by: Aditi Garcia MD, PhD on 11/13/2016 at 17:17 12-lead ECG EKG: Atrial fibrillation with right bundle branch block. . Cardiac Echo Impressions Interpretation Summary There is normal left ventricular wall thickness.The ejection fraction is estimated to be 55-60%.Flattened septum is consistent with RV pressure/volume overload.The right ventricle is moderately dilated.Right ventricular systolic function is moderately reduced. Right ventricular systolic pressure is estimated to be 37 mmHg plus the clinically estimated CVP which cannot be estimated on this exam. Probably no significant interval change from 2011 Electronically signed by: Justyn Watters on Reading Physician:11/11/2016 01:33 PM Additional Diagnostics ABG DateTimeAnalyzed 08:43:00 -_ pH ____7.305 - 7.350 7.450 pCO2 ___67.7__ -mmHg 35.0 45.0 pO2 ___72.7__ -mmHg 69.0 116 HCO3- ___32.6__ -mmol/L 22.0 26.0 US VENOUS LEG DUPLEX BILATERAL IMPRESSION: 1. No definite evidence of deep vein thrombosis in the right or left lower extremity with evaluation limited on the left as described secondary to body habitus. Dictated by: Iftikhar Burger M.D. on 11/13/2016 at 11:42 Approved by: Iftikhar Burger M.D. 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 Hospital day 13. 1. Acute on chronic respiratory failure, hypoxic, present on admission, improving - Likely due to bibasilar pneumonia and influenza A infections complicated by GERARDO and CHF - 120cc fluid trained with thoracentesis, sent for culture - Better oxygen saturation on 4 L NC, - Patient encourage to mobilize up and out of bed, - Continue pulmonary toilet - RT scheduled to be present when PT mobilize patient to assess and titrate O2 as necessary - Continue Acapella - Pulmonology consulted, We appreciate their time and expertise on this complicated case. - Continue to monitor respiratory status as volume status and fluid status improves - The patient has a complex picture with obesity hypoventilation, COPD and CHF which may mean that his new baseline may be below what he was used to prior to admission and he may require chronic O2 at home, discussed this with the patient 's daughter today and she was understanding and accepting. 2. 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 - elevated BNP and diastolic dysfunction noted in prior echo - Retroperitoneal U/S showed moderate post residual void - Creatine improving - D/C IV fluids, monitor fluid status - Continue Dhillon cath, urine output continues to be large - Continue 40 mg Torsemide PO BID per nephrology - Lasix discontinued 11/22/16 - Continuing to taper prednisone - Hold Pentasa - Continue to hold metformin/lisinopril - Nephrology consulted we appreciate their input and expertise on this case 3. 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 Acute exacerbation of HFpEF, present on admission, active - Elevated troponin likely due acute on chronic HF, trop trending down 0.02 11/13 - ECHO showed diastolic heart failure EF of 55-60%. - Diurese as above, urine output improved significantly. 5. Potential bone marrow pathology, r/o maligancy - Worsening increase of serum phosphorus in setting phosphate binders, in the setting of abnormal peripheral blood smear with unresolved/reoccurring bibasilar pulmonary effusion concerning for underlying dysplastic disorder. - peripheral blood smear review by pathology rare blasts were seen raising concern for leukoerythroblastic reaction due to his systemic infection/ inflammation vs myelodysplastic disorder (at present time with review of patients past medical records and per Oncology this is clinically unlikely we will defer to their recommendations and await pending results) - Fluid from thoracentesis of left sided pleural effusion sent for cell count, differential, LDH, protein, glucose, acid fast bacilli smear, gram stain, and cytometry (pending) WBC: 175, RBC 3325, PMN 4, Lymphocytes 45, Monocytes 51, LDH 135, Total protein 1.7, 229 - Flow cytometry of peripheral blood sent, pending - SPEP, ordered - Cryoglobulin studies ordered, - [place] chromosome and NAVDEEP-2 mutation to rule out differential diagnosis of myeloproliferative disorder. - Hematology and oncology consulted we appreciate their time and expertise on this case. Recommend continue treatment of current infectious process. 6. 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 At present time ID recommends discontinuing antibiotics and observe patient to determine if an underlying infection is present. - Dr. Adam saw the patient again today and does not believe he has an underlying infection. 9. Hyperkalemia, present on admission, resolved - 11/16/16 K 4.8, 11/18/16 5.4 11/19/16 5.7 11/20/16 4.8 - Differential diagnosis includes: NANCY, RTA Type IV, uncontrolled DM II - Rennin/aldosterone and urine aldosterone normal - Fludrocortisone 0.1 mg daily d/c'ed 11/21/16 - Continue to monitor closely 10. Elevated LFT's, acute, Present on admission, ongoing - LFTs elevated at admission, with minimal improvement - Likely related to poor cardiac output, stop hepatotoxic medications - Stop PRN Tylenol - Stop Temazepam - Hepatitis panel, negative - May just represent fatty liver 11. Elevated Phosphorus, acute, present on admission, ongoing - 11/12/16 5.2, 11/20/16 6.4 - Likely related to ongoing NANCY, cardiorenal syndrome, diabetes type II, consider potential for malignancy - Continue phosphate binder per nephrology 12. Uremia, present on admission, acute, ongoing - likely due to acute kidney injury in setting of excerebration of chronic heart failure due to influenza and pneumonia, chronic uncontrolled diabetes, - This may explain changes in mental status noted by nursing staff, we will continue to assess mentation - per chart review BUN elevated at admission 93, continues to trend up 11/19/16 112 11/20/18 100 - Patient at this time does not need dialysis to correct BUN level, continue to monitor - Continue to monitor platelets and INR - Repeat CMP AM 13. A-Fib, rate controlled, present on admission, active -Patient refusing Coumadin. Discussed risks of no anticoagulation with him, patient verbalized understanding. -U/S Doppler legs negative for DVT limited study -Continue SCDs -Continue Sub Q heparin 14. Hypocalcemia, present on admission, active - Calcium 11/18/16 7.4 - Continue to monitor 15. Acute on chronic iron deficiency anemia - Likely related to history of DM, patient has history of chronic anemia being follow by Hematology as outpatient by Dr. Rhoades - Hepatitis panel ordered to rule out infectious hepatitis - smear ordered to r/o malignancy - Iron studies normal - Continue to monitor 16 Influenza A +, acute present on admission, resolved - Patient has finished 10 day course of oseltamivir 75 mg PO -Chronic issues known prior to admission, present on admission: 17. History of COPD and GERARDO - Discontinue Trilogy due to suboptimal results, patient's respiratory status responded better to HFNC - Restart HFNC HS and PRN for shortness of breath - Continue Prednisone as above 18. Erosive esophagitis, gastric antral ulceration, Crohn disease, - PPI/[id number], mesalamine, anticipate Humira resumption after this admission - Continue Protonix 40 mg Daily 19. Coronary artery disease - Stop statin due to elevated LFTs 20. History of prostatectomy for prostate cancer 21. Ankylosing spondylosis - Stop Vicodin and home medication 22. Anxiety -Ativan PRN Diet cardiac/diabetic and per ST recommendations GI: AVOID MAGNESIUM CITRATE, Scheduled Senna, consider adding additional laxatives tomorrow DVT HELD prophylaxis Sub Q due to platelets trending down, Repeat CBC reassess, SCDs Code: POLST ON FILE, limited, intubate Patient progress, plan of care, care goals, discussed with Patient, Daughters, and 11/20/16 Disposition: Likely discharge to home with improvement of respiratory function, renal function, and CHF in the next couple of days. GI Prophylaxis: Proton Pump Inhibitor VTE Prophylaxis: Sub-Q Heparin (Unfractionated) Resuscitation Status: CPR: Attempt Resuscitation Attending Statement The patient was seen and examined together with Dr. Ryan on 11/22/16 and I agree with the history, exam and plan as outlined in the note above. Emperatriz Ryan DO Nov 22, 2016 18:11 Ho Thomas Nov 23, 2016 20:39
--- NOTE | 2016-11-22 19:19 | NUR ---
Right Side Facial Droop/ Blood Pressure/ Blood Glucose Pts. daughter noted right side facial droop after Pt. took off triology mask and Pts. daughter asked MD outside of room to assess. MD notified me to let Pts. attending MD know the situation, which I did, and attending MD ordered a CT scan. Upon assessment Pt. denied CP, lightheadedness, dizziness, SOB, or any other type of abnormality that is not from the Pts. norm. Pt. was able to stick out his tongue, smile, and show his teeth as well from the assessment I made. Pt. was taken from his room at ~1140 and returned around noon from CT scan. Pts. right side droop resolved itself. Pt. BP at noon was 191/73, made aware. Blood glucose before dinner was 303 and I gave Pt. 14 units of insulin, verified by WADE Frankel. I educated PT. on eliminating his consumption of fruit to control his blood sugar. Pt. understood and stated he will try. Pt. also ambulated more today then yesterday, he uses his BSC and marched in places for 4min with FWW. Pt. got dizzy when standing for too long.
[2016-11-22 21:24] LABS: EOSINOPHILS % (AUTO) 0 % (0-5); Mean Corpuscular Hemoglobin 29.1 pg (27.0-35.0); Mean Corpuscular Volume 96.4 fL (81-100); Platelet Count 146 bil/L (150-400)
[2016-11-22 21:54] LABS: BASOPHILS % (AUTO) 0 % (0-3); MONOCYTES % (AUTO) 8 % (4-12); NEUTROPHILS % (AUTO) 80 % (40-74)
[2016-11-22] MEDS: Insulin GLARgine 100 Unit/mL Syringe SUBQ SCH (21:59)
[2016-11-23] VITALS (12 sets, daily range): BP systolic 108–171; BP diastolic 39–82; PULSE 60–85; RESP 16–20; O2SAT 91–98
[2016-11-23 02:45] LABS: Mean Corpuscular Hemoglobin 29.4 pg (27.0-35.0); Mean Corpuscular Volume 96.7 fL (81-100); Platelet Count 176 bil/L (150-400)
[2016-11-23 02:58] LABS: INR 1.02 ratio
[2016-11-23 03:05] LABS: BASOPHILS % (AUTO) 0 % (0-3); EOSINOPHILS % (AUTO) 0 % (0-5); MONOCYTES % (AUTO) 7 % (4-12); NEUTROPHILS % (AUTO) 75 % (40-74)
--- NOTE | 2016-11-23 05:48 | NUR ---
Cardiac/Resp/ Patient remains in A-Fib, wearing Trilogy BiPAP this shift with 6L O2 bleed in, tolerating well and denied any shortness of breath this shift, voiding in urinal most of the time and was incontinent of urine x2 this shift, up to BSC and had a lg BM, edema improved from 2 days ago, BS 152 this AM at 0321 after 7 units SS and 35 units Lantus, pleasant and cooperative, uneventful shift, will continue to monitor. Addendum: 11/23/16 at 0557 by AIDEE BLUE RN Amended: Links added.
[2016-11-23 07:38] LABS: Mean Corpuscular Hemoglobin 29.6 pg (27.0-35.0); Mean Corpuscular Volume 95.6 fL (81-100); Platelet Count 157 bil/L (150-400)
[2016-11-23 07:56] LABS: Magnesium 1.7 mg/dL (1.6-2.6); Phosphorus 3.9 mg/dL (2.5-4.9)
[2016-11-23] MEDS: Insulin LISPRO 300 Unit/3 mL Inj SUBQ SCH ×4 (08:00→22:00)
[2016-11-23] MEDS: Albuterol-Ipratropium 3 mL Inhalation Solution NEB SCH ×4 (08:13→19:46)
[2016-11-23] MEDS: predniSONE 20 mg Tablet PO SCH (08:26)
[2016-11-23] MEDS: Senna-Docusate 8.6-50 mg Tablet PO SCH ×2 (08:27→22:00)
[2016-11-23] MEDS: Sodium Chloride LOK Flush 10 mL Syringe IVFLUSH SCH ×2 (08:27→16:44)
[2016-11-23 08:36] LABS: BASOPHILS % (AUTO) 0 % (0-3); EOSINOPHILS % (AUTO) 1 % (0-5); MONOCYTES % (AUTO) 11 % (4-12); NEUTROPHILS % (AUTO) 68 % (40-74)
--- NOTE | 2016-11-23 11:06 | PROG NOTE ---
[address] [address] PROGRESS NOTE PATIENT: GIACOMO SNYDER : 1940 MR#: [id number] ADMIT: 11/10/2016 JOB ID: [id number] DATE: 11/23/2016 REASON FOR FOLLOW UP: Recent pneumococcal pneumonia and influenza, complicated by respiratory and renal insufficiency. INTERVAL HISTORY: Over the weekend, this complex gentleman with underlying Crohn's disease, diabetes, COPD, and ankylosing spondylitis, among other problems, has continued to improve. Today, he reports that he has no fevers and no chills. He states his shortness of breath is gradually improving, and he is finally able to get up and take at least a few steps with his walker. All of this constitutes a significant improvement. He notes that his cough is diminished and is now just an infrequent problem and he is not short of breath. PHYSICAL EXAMINATION: Reveals an afebrile and comfortable gentleman sitting up in a chair next to his bed. He is completely awake, alert, in no acute distress. Temperature 36.4, pulse 60, respiratory rate 16, blood pressure 134/61. He is saturating 97% on 6 L by face mask. Examination of the mental status reveals it to be clear. His lips are without any herpetic lesions. His lungs are quite clear actually, with a few crackles perhaps at the bases, but not much. His cardiac tones are regular rate and rhythm. His abdomen is distended but benign. LABORATORIES: Include a white count 13,800, still with 7% myelocytes. Note that this patient is still receiving fairly high doses of steroids, which are just now being tapered. His creatinine is improved to 1.54. His ALT is stable at 105. Procalcitonin yesterday 0.15. His pleural fluid that was tapped is a sterile transudate. Multiple serologies are pending including Cocci antibodies, Fungitell, galactomannan, urine histo antigens, Strongyloides, and QuantiFERON Gold. Micro: All blood cultures have been negative. Recall that the patient's respiratory viral PCR panel was positive for influenza AH3, and that was done now 12 days ago. Urine Streptococcal antigen was also positive. The thoracentesis fluid was negative for mycobacteria. A brain CT done because of a transient left facial droop over the weekend was basically negative. IMPRESSION: At this point, the patient would appear to be free of infection. He certainly did have influenza complicated by pneumococcal pneumonia, but he received a full course of therapy for both and now is afebrile with a declining white count. The continued leukocytosis is likely on the basis of steroids. His procalcitonin has been normal now for several days and his overall respiratory status and functional status are steadily better. RECOMMENDATIONS: 1. No antibiotics. 2. I think the patient will benefit from progressive increase in his exercise and hopefully can be discharged in the next few days. 3. ID will go ahead and sign off today. 4. This case was discussed with the medicine team at the bedside.
--- NOTE | 2016-11-23 11:52 | PCM.PNMED ---
Subjective Date of Service Nov 23, 2016 Subjective Nephrology Progress Note: Attending Dr. Noel Dotyner is a 76-year-old male with a past medical history significant for diabetes mellitus type II, non-insulin using, hypertension, obstructive sleep apnea on CPAP who presented to [facility] ED with shortness of breath and is now being treated for influenza, CHF exacerbation, hyperglycemia, persistent hyperkalemia, and NANCY. Hospital day #14. Overnight: There were no acute events. Telemetry overnight: Atrial fibrillation , heart rate 60 to 70's, with an IVCD and occasional PVC pairs. Patient is resting in bed comfortably and in no acute distress. He continues to be on supplemental oxygen. The patient reports he is doing significantly better. He continues to have minimally productive cough which is also improving. He denies headache, lightheadedness or dizziness, chest pain, palpitations, abdominal pain, nausea, vomiting, fever, chills, dysuria, constipation or diarrhea. The patient is voiding and eliminating without difficulty. . Exam Vital Signs Vital Sign - Last Date Time Temp Pulse Resp B/P Pulse Ox O2 Delivery O2 Flow Rate FiO2 11/23/16 11:10 70 11/23/16 10:20 Nasal Cannula 4.00 11/23/16 08:17 36.4 134/61 97 11/23/16 08:13 18 11/18/16 09:06 50 Intake and Output 11/22/16 11/22/16 11/23/16 Cumulative From/Thru 15:00 23:00 07:00 11/10/16 16:55 - 11/23/16 05:53 Intake Total 803 ml 1072 ml 32962 ml Output Total 550 ml 1000 ml 63293 ml Balance 253 ml 72 ml -5377 ml Intake Oral 660 ml 1072 ml 57112 ml IV Total 143 ml 77933 ml Output Urine Total 550 ml 1000 ml 18720 ml Stool Total 0 ml # Voids 2 6 # Bowel Movements 1 1 7 Exam General: Older gentleman sitting in bedside chair and in no acute distress, well -developed, well-nourished, appropriately interactive. HEENT: Normocephalic, atraumatic. External ears without defect. Pupils equal, round, and reactive to light. Anicteric sclerae, moist conjunctivae, and no lid lag. Supplemental oxygen in place. Neck: Supple with full range of motion. No jugular venous distension. No bruits. No lymphadenopathy or thyromegaly. Cardiovascular: Irregularly irregular without murmurs, rubs, or gallops appreciated Pulmonary: Breath sounds diminished throughout otherwise clear to auscultation bilaterally in all lung worrell. Normal respiratory effort with no use of accessory muscles. Abdomen: Soft, obese, nontender, nondistended, bowel sounds present. No hepatosplenomegaly or masses appreciated. Extremities: No clubbing or cyanosis. Mild pitting edema to bilateral knees. Skin: Normal temperature, turgor, and texture; no rash, ulcers, or subcutaneous nodules appreciated. Neurological: Cranial nerves grossly intact. Psychiatric: Normal mood and affect. Alert and oriented to person, place, and time. . IVs and Medications Medications Reviewed: Medications were reviewed in detail Lab and Diagnostics Item Value Date Time Uric Acid 7.6 mg/dL H 11/23/16 0710 Calcium Level 7.8 mg/dL L 11/23/16 0710 Phosphorus Level 3.9 mg/dL 11/23/16 0710 Magnesium Level 1.7 mg/dL 11/23/16 0710 Total Bilirubin 0.4 mg/dL 11/23/16 0710 Aspartate Amino Transf (AST/SGOT) 79 U/L H 11/23/16 0710 Alanine Aminotransferase (ALT/SGPT) 105 U/L H 11/23/16 0710 Alkaline Phosphatase 99 U/L 11/23/16 0710 Total Protein 5.8 g/dL L 11/23/16 0710 Albumin 3.2 g/dL L 11/23/16 0710 Result Diagram: 11/23/16 0710 11/23/16 0710 Microbiology Blood cultures x 2 show no growth after 5 days. Viral respiratory PCR positive for influenza A H3. MRSA screen negative. . X-Rays, CTs and MRIs US VENOUS LEG DUPLEX BILATERAL IMPRESSION: 1. No definite evidence of deep vein thrombosis in the right or left lower extremity with evaluation limited on the left as described secondary to body habitus. Dictated by: Iftikhar Burger M.D. on 11/13/2016 at 11:42 Approved by: Iftikhar Burger M.D. on 11/13/2016 at 11:42 Chest X-Ray IMPRESSION: Bibasilar alveolar infiltration stable over time, left greater than right. Prior CABG. Continued reduced inspiratory volume. Limited study due to reduced inspiration and large body habitus. Dictated by: Jamel Mccabe M.D. on 11/15/2016 at 9:32 Approved by: Jamel Mccabe M.D. on 11/15/2016 at 9:32 Retroperitoneal US IMPRESSION: 1. Markedly limited study. 2. No definite hydronephrosis, although the right kidney is poorly characterized. 3. Moderate postvoid residual. Dictated by: Selma Rangel M.D. on 11/12/2016 at 14:15 CT ABDOMEN AND PELVIS WITHOUT CONTRAST IMPRESSION: 1. Small bilateral pleural fluid collections. 2. Bibasilar lung consolidation compatible with compressive atelectasis, pneumonia or aspiration. Please correlate with clinical and laboratory data. 3. Cardiomegaly. 4. Hepatic steatosis. 5. 1.4 cm gallstone in the gallbladder neck. There is clinical concern for biliary disease, abdominal ultrasound should be performed for further evaluation. 6. Small amount of ascites in the lower pelvis and the left lower quadrant of the abdomen. 7. Status post prostatectomy. 8. Colonic diverticulosis. 9. Image quality limited by patient motion. Diagnostic sensitivity of the study is limited by absence of oral and intravenous contrast. Dictated by: Aditi Garcia MD, PhD on 11/13/2016 at 17:17 . 12-lead ECG EKG: Atrial fibrillation with right bundle branch block. . Cardiac Echo Impressions Echocardiogram Interpretation Summary There is normal left ventricular wall thickness.The ejection fraction is estimated to be 55-60%.Flattened septum is consistent with RV pressure/volume overload.The right ventricle is moderately dilated.Right ventricular systolic function is moderately reduced. Right ventricular systolic pressure is estimated to be 37 mmHg plus the clinically estimated CVP which cannot be estimated on this exam. Probably no significant interval change from 2011 Electronically signed by: Justyn Watters on Reading Physician:11/11/2016 01:33 PM . Additional Diagnostics ABG 11/19/2016: PH 7.305. PCO2 67.7. PO2 72.7. HCO3 32.6. On FiO2 of 45%. . Assessment & Plan Bradley Donovan is a 76-year-old male with a past medical history significant for diabetes mellitus type II, non-insulin using, hypertension, obstructive sleep apnea on CPAP who presented to [facility] ED with shortness of breath and is now being treated for influenza, CHF exacerbation, hyperglycemia, persistent hyperkalemia, and NANCY. Hospital day #15. 1. Acute on chronic kidney injury. - Multifactorial: Cardiorenal syndrome and ATN. - Increased BUN secondary to glucocorticoids and likely diuresis. Recommend slow titration off of glucocorticoids per primary medical team. - Renal function improving. Does not require renal replacement therapy at this time. Continue to monitor renal function and urine output daily. 2. Hyperkalemia, persistent. - Etiology: Uncontrolled BS, insulin insufficiency, NANCY. - Possible underlying disease of RTA type IV (hypoaldosteronism). - Continue fludrocortisone 0.1 mg daily. 3. Acute influenza infection, superimposed bacterial pneumonia. 4. Hypoxemic respiratory failure. 5. Acute on chronic CHF exacerbation. - Continue torsemide 40 mg twice a day. 6. 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 7. History of hypertension with hypertensive nephrosclerosis. - Increased labetalol 200 mg twice daily to every 8 hours and chlorthalidone 25 mg daily. Continue chlorthalidone 25 mg daily and torsemide 40 mg twice a day.. 8. Hyperphosphatemia. - Discontinued Renvela 800 mg three times a day with food. . GI Prophylaxis: Proton Pump Inhibitor VTE Prophylaxis: Sub-Q Heparin (Unfractionated) Resuscitation Status: CPR: Attempt Resuscitation Adelaida Wilkerson DO Nov 23, 2016 11:52
--- NOTE | 2016-11-23 12:18 | ABG ---
DateTimeAnalyzed 12:12:00 -_ pH ____7.425 - pCO2 ___74.9__ -mmHg pO2 ___42.2__ -mmHg HCO3- ___48.2__ -mmol/L ABE ___20.2__ -mmol/L tHb ___10.7__ -g/dL O2Hb ___74.6__ -% COHb ____1.9__ -% MetHb ____1.2__ -% sO2 ___77.0__ -% FIO2 ___36.0__ -% Drawn By jmw - Date/Time Notified____ 12:17:00 -_ Liter_Flow ____4.0__ -L/min Oxygen Device 1 __CANNULA - Notified By JMW - Notified Whom DR ARNOLD - B 753 -mmHg tO2 ___11.3__ -Vol% David test N/A -
[2016-11-23 14:58] LABS: BASOPHILS % (AUTO) 0.4 % (0-3); EOSINOPHILS % (AUTO) 0.1 % (0-5)
[2016-11-23 15:09] LABS: MONOCYTES % (AUTO) 3.1 % (4-12); Mean Corpuscular Hemoglobin 29.5 pg (27.0-35.0); Mean Corpuscular Volume 97.7 fL (81-100); NEUTROPHILS % (AUTO) 83.9 % (40-74); Platelet Count 161 bil/L (150-400)
--- NOTE | 2016-11-23 15:09 | PROG NOTE ---
[address] [address] PROGRESS NOTE PATIENT: GIACOMO SNYDER : 1940 MR#: [id number] ADMIT: 11/10/2016 JOB ID: [id number] DATE: 11/23/2016 SUBJECTIVE: The patient is a 76-year-old gentleman with multifactorial macrocytic anemia associated with iron deficiency due to erosive esophagitis, gastric antral ulcerations, and Crohn disease, for which he is on Humira. He was hospitalized on November 10, 2016 with a 1-week history of progressive shortness of breath and nonproductive cough, unresponsive to azithromycin and prednisone. Chest x-ray at that time demonstrated bibasilar pneumonia and he required increased oxygen support and broad-spectrum antibiotics. He is currently on prednisone 20 mg daily, inhalers, and 3 L oxygen by nasal cannula. He is feeling much more comfortable at this time. Laboratory studies have shown an elevated white cell count, as high as 17.4, with significant left shift, including increased bands up to 5%, metamyelocytes up to 6%, and promyelocytes up to 1%. Path review showed a normocytic anemia with rare nucleated red blood cells with a leukocytosis with immature granulocytes and a rare blast, worrisome for a primary myeloid disorder such as myelodysplastic syndrome or a marrow infiltrative process. He was he was seen by my partner, Dr. Uzair Orosco, on November 20, 2016, who requested JAK2 testing and flow cytometry. OBJECTIVE: Vitals: T 36.4, P 68, R 20, BP 139/57. O2 saturation 96% on 3 L oxygen by nasal cannula. HEENT: Conjunctivae slightly pale. Mucous membranes somewhat dry. No oral lesions. Nodes: No adenopathy in the neck or axilla. Chest: Distant with a few basilar crackles. No wheezes appreciated. Cardiac exam: Regular rate and rhythm with rare ectopic beat. Normal S1, S2. A 1/6 systolic ejection murmur across the precordium. Abdomen: Large, soft, nontender. Active bowel tones. No palpable splenomegaly or masses. Extremities: Trace pedal edema, 1+ distal pulses. No calf tenderness. LABORATORIES: (November 23, 2016) WBC 13.8, with 68% neutrophils, 12% lymphocytes, 11% monocytes, 1% eosinophils, 1% metamyelocytes, 7% myelocytes. Hemoglobin 10.1, hematocrit 32.6%, MCV 96, platelets 157,000. Sodium 142, potassium 4.5, BUN 65, creatinine 1.54. Glucose 90. Uric acid 7.6. Calcium 7.8, albumin 3.2. AST 79, ALT 105, alkaline phosphatase 99. ASSESSMENT AND PLAN: Leukoerythroblastic peripheral blood with associated anemia: The patient has a longstanding history of multifactorial anemia associated with iron deficiency due to erosive esophagitis, gastric antral ulcerations, and blood loss from Crohn disease, for which he is on Humira. Current leukoerythroblastic findings are likely associated with recent infection. Studies have been positive for both influenza A and Streptococcus pneumoniae, and at admit, he had significant bilateral pulmonary infiltrates. He also had thoracentesis for bilateral pleural effusion, with persistent moderate bilateral pleural effusions post procedure on November 20, 2016, but no evidence of pneumothorax. He has been breathing much more comfortably. Again, his current hematologic parameters likely reflect recent infection. Await flow cytometry, which should be available later tomorrow. If he has evidence of a myeloproliferative disorder, then we will address this as an outpatient. His predisposing risk factor is immunosuppression associated with his Humira, which is used to control his Crohn disease.
--- NOTE | 2016-11-23 15:36 | NUR ---
NUTRITION FOLLOW-UP Assess: 76 yo M w/ pneumonia w/ secondary hypoxia, NANCY, hyperkalemia, hypocalcemia, and acute exacerbation of CHF. Pts respiratory status is getting steadily better. Pt on supplemental oxygen but able to walk a few steps w/ a walker. Pt tolerating a soft diet w/ adequate PO intake. PMHx: Microcytic anemia, Crohns, Erosive esophagitis, Gastric antral ulcerations, Cataracts, CABG 2011, PVCs, Dyslipidemia, COPD, Pneumonia, GERARDO on CPAP, Diverticulitis, Hiatal hernia, Colon polyps, Arthritis, DM 2, Anxiety. LABS: Reviewed. Cl 87, CO2 45, BUN 65, Steam Cleaner 1.54, Uric Acid 7.6, Ca 7.8, AST 79, ALT 105, Alb 3.2 MEDICATIONS: Reviewed. Insulin DIET: Soft w/ NTL, Ave PO intake 70% GI: BM x 1 (11/23) Aiden: 17 ANTHROPOMETRICS: Current Wt: 133.36 kg BMI: 41.0 kg/m2 Admit Wt: 137.7 kg (BMI: 42.3 kg/m2) IBW: 78.2 kg Adj BW: 93.1 kg ESTIMATED NEEDS: BMI Calories: 3080-6919 kcal/d (25-30 kcal/kg/d Adj BW) Protein: 110-140 g/d (1.2-1.5 g/kg/d Adj BW) Fluids: 5060-1141 ml/d (1 ml/kcal/d) NUTRITION DIAGNOSIS: 1) Inadequate oral intake related to acute illness as evidenced by recent change in PO intake.---IMPROVED 2) Altered nutrition-related lab values related to type 2 diabetes as evidenced by A1c of 8.6---PERSISTS, most glucose readings >200 INTERVENTION: 1) Continue NT Glucerna BID. MONITOR/EVALUATE: PO intake, labs, wt, GI, nutrition status, POC. Will follow per moderate nutrition risk guidelines. Addendum: 11/23/16 at [address] Student documentation reviewed and I agree with above note. TOMASA.
--- NOTE | 2016-11-23 17:38 | PCM.PNMED ---
Subjective Date of Service Nov 23, 2016 Subjective Bradley Donovan is a 75-year-old male with past medical history significant for PefHF, ICD, GERARDO, ankylosing spondylitis, psoriasis, DM type II one-week history of shortness of breath, associated not very productive cough, initially treated with azithromycin and prednisone and oxygen from PCP but has ongoing symptoms, admitted for treatment of CAP pneumonia, +influenza A, and new onset NANCY and persistent hyperkalemia. Hospital day 13. Overnight: Nursing reported family noticed new right sided facial droop Today: Onofre stated he is doing much better. He is up and moving out of the room and he feels much stronger than he dis yesterday. Patient denies fever, chills , nausea, vomiting. Reported soft stools and ability to cough up small amounts of sputum. ROS negative except for mentioned above. Exam Vital Signs Vital Sign - Last Date Time Temp Pulse Resp B/P Pulse Ox O2 Delivery O2 Flow Rate FiO2 11/23/16 04:27 36.7 65 16 171/82 93 Triology 7.00 11/18/16 09:06 50 Intake and Output 11/22/16 11/22/16 11/23/16 Cumulative From/Thru 15:00 23:00 07:00 11/10/16 16:55 - 11/23/16 05:53 Intake Total 803 ml 1072 ml 31201 ml Output Total 550 ml 1000 ml 34674 ml Balance 253 ml 72 ml -5377 ml Intake Oral 660 ml 1072 ml 68190 ml IV Total 143 ml 71751 ml Output Urine Total 550 ml 1000 ml 44537 ml Stool Total 0 ml # Voids 2 6 # Bowel Movements 1 1 7 Exam General: Alert, Oriented X3, mentation improved but reduced compared to base line, Cooperative, moderate Distress, Obese Head: Normocephalic, atraumatic. External ears normal. Eyes: PERRLA, EOMI. Anicteric sclerae. Mouth: Mouth Normal, Mucous Membranes Moist/Colonia Neck: Neck supple with full range of motion. No lymphadenopathy Chest & Lungs: O2 NC 6 L , equal chest rise and fall with improved air movement, diminished breath sounds at bases improved, minimal wheezes, hear in all lung worrell, no crackles, rhonchi. Cardiovascular: Regular Rate/Rhythm, Normal S1, Normal S2, No Murmurs/Rubs/ Gallops, no JVD Abdomen: Non-tender, distended, No masses, Normoactive bowel tones, Soft Musculoskeletal: Normal Range of Motion Extremities: Extremities warm to touch tender, moderate pitting edema up to gluteal folds improved from yesterday. No cyanosis/clubbing bilaterally Neurological: Grossly Neurologically Intact, Normal Speech, Sensation Intact, horizontal nystagmus present on exam left sided facial drop present on exam ( patient stated this is chronic, continue to monitor) Patient has history of bells palsy : uncircumcised penis, two testicles palpated non tender, moderate scrotal and penile edema, meatus patent without discharge IVs and Medications Medications Reviewed: Medications were reviewed in detail Lab and Diagnostics Result Diagram: 11/23/16 0230 11/22/16 2100 Microbiology INFLUENZA A PCR Final 11/11/16-0658 Organism 1 INFLUENZA A H3 X-Rays, CTs and MRIs Chest X-Ray IMPRESSION: Left basilar opacity suspicious for pneumonia apparently correlated clinical and laboratory data. Small bilateral pleural effusions. Dictated by: Aditi Garcia MD, PhD on 11/19/2016 at 9:11 Approved by: Aditi Garcia MD, PhD on 11/19/2016 at 9:11 Retroperitoneal US IMPRESSION: 1. Markedly limited study. 2. No definite hydronephrosis, although the right kidney is poorly characterized. 3. Moderate postvoid residual. Dictated by: Selma Rangel M.D. on 11/12/2016 at 14:15 CT abdomen and pelvis IMPRESSION: 1. Small bilateral pleural fluid collections. 2. Bibasilar lung consolidation compatible with compressive atelectasis, pneumonia or aspiration. Please correlate with clinical and laboratory data. 3. Cardiomegaly. 4. Hepatic steatosis. 5. 1.4 cm gallstone in the gallbladder neck. There is clinical concern for biliary disease, abdominal ultrasound should be performed for further evaluation. 6. Small amount of ascites in the lower pelvis and the left lower quadrant of the abdomen. 7. Status post prostatectomy. 8. Colonic diverticulosis. 9. Image quality limited by patient motion. Diagnostic sensitivity of the study is limited by absence of oral and intravenous contrast. Dictated by: Aditi Garcia MD, PhD on 11/13/2016 at 17:17 12-lead ECG EKG: Atrial fibrillation with right bundle branch block. . Cardiac Echo Impressions Interpretation Summary There is normal left ventricular wall thickness.The ejection fraction is estimated to be 55-60%.Flattened septum is consistent with RV pressure/volume overload.The right ventricle is moderately dilated.Right ventricular systolic function is moderately reduced. Right ventricular systolic pressure is estimated to be 37 mmHg plus the clinically estimated CVP which cannot be estimated on this exam. Probably no significant interval change from 2011 Electronically signed by: Justyn Watters on Reading Physician:11/11/2016 01:33 PM Additional Diagnostics ABG DateTimeAnalyzed 08:43:00 -_ pH ____7.305 - 7.350 7.450 pCO2 ___67.7__ -mmHg 35.0 45.0 pO2 ___72.7__ -mmHg 69.0 116 HCO3- ___32.6__ -mmol/L 22.0 26.0 US VENOUS LEG DUPLEX BILATERAL IMPRESSION: 1. No definite evidence of deep vein thrombosis in the right or left lower extremity with evaluation limited on the left as described secondary to body habitus. Dictated by: Iftikhar Burger M.D. on 11/13/2016 at 11:42 Approved by: Iftikhar Burger M.D. 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 Hospital day 13. 1. Acute on chronic respiratory failure, hypoxic, present on admission, improving - Likely due to bibasilar pneumonia and influenza A infections complicated by GERARDO and CHF - 120cc fluid trained with thoracentesis, sent for culture - Better oxygen saturation on 4 L NC, - Patient encourage to mobilize up and out of bed, - Continue pulmonary toilet - RT scheduled to be present when PT mobilize patient to assess and titrate O2 as necessary - Continue Acapella - Pulmonology consulted, We appreciate their time and expertise on this complicated case. - Continue to monitor respiratory status as volume status and fluid status improves - The patient has a complex picture with obesity hypoventilation, COPD and CHF which may mean that his new baseline may be below what he was used to prior to admission and he may require chronic O2 at home, discussed this with the patient 's daughter today and she was understanding and accepting. 2. 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 - elevated BNP and diastolic dysfunction noted in prior echo - Retroperitoneal U/S showed moderate post residual void - Creatine improving - D/C IV fluids, monitor fluid status - Continue Dhillon cath, urine output continues to be large - Continue 40 mg Torsemide PO QD per nephrology -Continue 25 mg Chlorthalidone PO QD - Lasix discontinued 11/22/16 - Continuing to taper prednisone, 20 mg today 12.5 tomorrow - Hold Pentasa - Continue to hold metformin/lisinopril - Nephrology consulted we appreciate their input and expertise on this case 3. 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 Acute exacerbation of HFpEF, present on admission, active - Elevated troponin likely due acute on chronic HF, trop trending down 0.02 11/13 - ECHO showed diastolic heart failure EF of 55-60%. - Diurese as above, urine output improved significantly. 5. Potential bone marrow pathology, r/o maligancy - Worsening increase of serum phosphorus in setting phosphate binders, in the setting of abnormal peripheral blood smear with unresolved/reoccurring bibasilar pulmonary effusion concerning for underlying dysplastic disorder. - peripheral blood smear review by pathology rare blasts were seen raising concern for leukoerythroblastic reaction due to his systemic infection/ inflammation vs myelodysplastic disorder (at present time with review of patients past medical records and per Oncology this is clinically unlikely we will defer to their recommendations and await pending results) - Fluid from thoracentesis of left sided pleural effusion sent for cell count, differential, LDH, protein, glucose, acid fast bacilli smear, gram stain, and cytometry (pending) WBC: 175, RBC 3325, PMN 4, Lymphocytes 45, Monocytes 51, LDH 135, Total protein 1.7, 229 - Flow cytometry of peripheral blood sent, pending - SPEP, ordered pending - Cryoglobulin studies ordered, - [place] chromosome and NAVDEEP-2 mutation to rule out differential diagnosis of myeloproliferative disorder. - Hematology and oncology consulted we appreciate their time and expertise on this case. Recommend continue treatment of current infectious process. 6. 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 At present time ID recommends discontinuing antibiotics and observe patient to determine if an underlying infection is present. - Dr. Adam saw the patient again today and does not believe he has an underlying infection. 9. Hyperkalemia, present on admission, resolved - 11/16/16 K 4.8, 11/18/16 5.4 11/19/16 5.7 11/20/16 4.8 - Differential diagnosis includes: NANCY, RTA Type IV, uncontrolled DM II - Rennin/aldosterone and urine aldosterone normal - Fludrocortisone 0.1 mg daily d/c'ed 11/21/16 - Continue to monitor closely 10. Elevated LFT's, acute, Present on admission, ongoing - LFTs elevated at admission, with minimal improvement - Likely related to poor cardiac output, stop hepatotoxic medications - Stop PRN Tylenol - Stop Temazepam - Hepatitis panel, negative - May just represent fatty liver disease 11. Elevated Phosphorus, acute, present on admission, resolved - 11/12/16 5.2, 11/20/16 6.4 - Likely related to ongoing NANCY, cardiorenal syndrome, diabetes type II, consider potential for malignancy - Continue phosphate binder per nephrology 12. Uremia, present on admission, acute, ongoing - likely due to acute kidney injury in setting of excerebration of chronic heart failure due to influenza and pneumonia, chronic uncontrolled diabetes, - This may explain changes in mental status noted by nursing staff, we will continue to assess mentation - per chart review BUN elevated at admission 93, continues to trend up 11/19/16 112 11/20/18 100 - Patient at this time does not need dialysis to correct BUN level, continue to monitor - Continue to monitor platelets and INR - Repeat CMP AM 13. A-Fib, rate controlled, present on admission, active -Patient refusing Coumadin. Discussed risks of no anticoagulation with him, patient verbalized understanding. -U/S Doppler legs negative for DVT limited study -Continue SCDs -Continue Sub Q heparin 14. Hypocalcemia, present on admission, active - Calcium 11/18/16 7.4 - Continue to monitor 15. Acute on chronic iron deficiency anemia - Likely related to history of DM, patient has history of chronic anemia being follow by Hematology as outpatient by Dr. Rhoades - Hepatitis panel ordered to rule out infectious hepatitis - smear ordered to r/o malignancy - Iron studies normal - [place] tredning down over admission lowest 150, hold heparin sub Q until platelets trend back up - Continue to monitor 16 Influenza A +, acute present on admission, resolved - Patient has finished 10 day course of oseltamivir 75 mg PO -Chronic issues known prior to admission, present on admission: 17. History of COPD and GERARDO - Discontinue Trilogy due to suboptimal results, patient's respiratory status responded better to HFNC - Restart HFNC HS and PRN for shortness of breath - Continue Prednisone as above 18. Erosive esophagitis, gastric antral ulceration, Crohn disease, - PPI/M7lpxeoor, mesalamine, anticipate Humira resumption after this admission - Continue Protonix 40 mg Daily 19. Coronary artery disease - Stop statin due to elevated LFTs 20. History of prostatectomy for prostate cancer 21. Ankylosing spondylosis - Stop Vicodin and home medication 22. Anxiety -Ativan PRN Diet cardiac/diabetic and per ST recommendations GI: AVOID MAGNESIUM CITRATE, Scheduled Senna, consider adding additional laxatives tomorrow DVT HELD prophylaxis Sub Q due to platelets trending down, Repeat CBC reassess, SCDs Code: POLST ON FILE, limited, intubate Patient progress, plan of care, care goals, discussed with Patient, Daughters, and 11/20/16 Patient progress, plan of care, goals, and discharge discussed with patients PCP today 11/23/16 Disposition: Likely discharge to home with improvement of respiratory function, renal function, and CHF in the next couple of days. GI Prophylaxis: Proton Pump Inhibitor VTE Prophylaxis: Sub-Q Heparin (Unfractionated) Resuscitation Status: CPR: Attempt Resuscitation Attending Statement The patient was seen and examined together with Dr. Jackson on 11/23/2016 and I agree with the history, exam and plan as outlined in the note above. . JAKE JACKSON DO Nov 23, 2016 06:52 Barrett Gilbert MD Nov 24, 2016 16:31
--- NOTE | 2016-11-23 18:37 | NUR ---
Ambulation/Respiration/Mentation Pt. this Am wanted to get up and sit in chair for breakfast. Pt. was up in chair with no SOB, no pain, and was there until 1300. Pt. stood up a couple times so he can use the urinal. Pt. is on 3L NC this afternoon sating mid 90s. Pt. has been A&Ox3 throughout shift Pt. states he is eager to get better so he can go home. Pt. is in room resting comfortably at this time.
[2016-11-23 20:58] LABS: Mean Corpuscular Hemoglobin 29.3 pg (27.0-35.0); Mean Corpuscular Volume 96.6 fL (81-100); Platelet Count 160 bil/L (150-400)
[2016-11-23 21:22] LABS: BASOPHILS % (AUTO) 0 % (0-3); EOSINOPHILS % (AUTO) 1 % (0-5); MONOCYTES % (AUTO) 11 % (4-12); NEUTROPHILS % (AUTO) 78 % (40-74)
[2016-11-23] MEDS: Insulin GLARgine 100 Unit/mL Syringe SUBQ SCH (21:56)
[2016-11-24] VITALS (7 sets, daily range): BP systolic 146–165; BP diastolic 65–71; PULSE 70–83; RESP 16–20; O2SAT 91–99
[2016-11-24] MEDS: Sodium Chloride LOK Flush 10 mL Syringe IVFLUSH SCH ×2 (00:55→08:07)
[2016-11-24 04:30] LABS: Mean Corpuscular Hemoglobin 29.3 pg (27.0-35.0); Mean Corpuscular Volume 95.8 fL (81-100)
[2016-11-24 04:45] LABS: INR 1.01 ratio
[2016-11-24 04:53] LABS: Magnesium 1.7 mg/dL (1.6-2.6); Phosphorus 3.6 mg/dL (2.5-4.9)
--- NOTE | 2016-11-24 05:43 | NUR ---
Respiratory/ Pt declined to wear Trilogy this shift, pt remained on 3L NC with SpO2's 90-95%, Pt incontinent of urine x2 this shift, using urinal with help when awake. VSS and Tele Afib 80's.
[2016-11-24] MEDS: Insulin LISPRO 300 Unit/3 mL Inj SUBQ SCH ×2 (08:00→12:02)
[2016-11-24] MEDS: Senna-Docusate 8.6-50 mg Tablet PO SCH (08:08)
[2016-11-24] MEDS: predniSONE 20 mg Tablet PO SCH (08:08)
[2016-11-24] MEDS: Albuterol-Ipratropium 3 mL Inhalation Solution NEB SCH ×2 (09:11→12:10)
--- NOTE | 2016-11-24 09:23 | NUR ---
[facility] Signed
--- NOTE | 2016-11-24 11:48 | PCM.DIMED ---
JAKE JACKSON DO 11/24/16 1148: Discharge Instructions Date of Service Nov 24, 2016 Dates of Hospitalization Nov 10, 2016 at 19:23 Discharge Diagnosis Discharge Diagnosis 1. Acute on chronic respiratory failure, hypoxic, present on admission, improving 2. Acute on chronic kidney injury, present on admission, ongoing 3. Left sided facial droop, not present on admission, resolved 4. Acute exacerbation of HFpEF, present on admission, active 5. Potential bone marrow pathology, r/o maligancy 6. Immunocompromised status 7. Type II DM, acute on chronic, present on admission, improving 8.Bibasilar pneumonia with secondary secondary hypoxia, present on admission, resolved 9. Hyperkalemia, present on admission, resolved 10. Elevated LFT's, acute, Present on admission, ongoing 11. Elevated Phosphorus, acute, present on admission, resolved 12. Uremia, present on admission, acute, ongoing 13. A-Fib, rate controlled, present on admission, active 14. Hypocalcemia, present on admission, active 15. Acute on chronic iron deficiency anemia 16 Influenza A +, acute present on admission, resolved 17. History of COPD and GERARDO 18. Erosive esophagitis, gastric antral ulceration, Crohn disease, 19. Coronary artery disease 20. History of prostatectomy for prostate cancer 21. Ankylosing spondylosis 22. Anxiety Diet Diabetic (Restrict to 45 gm daily) Activity Home Health Phyical Therapy Call your provider Fever or Chills, Shortness of breath, Bleeding, Chest pain, Vomitting, Excessive diarrhea, Weakness (unilateral) Patient Instructions Please follow up with your PCP as soon as possible Continue home blood pressure medications, check your blood pressure daily keep a log and follow up with your PCP Reccomend low carb diabetic diet, limit carb intake to max 45 g Stop Metformin until you are evaluated by your PCP Stop Pentasa until you are evaluated by your PCP Contact your Metalizing Supervisor to discuss when to resume Humeria treatment Stop Atorvastatin until you are evaluated by your PCP You may resume your antidepressant You may resume your medications for restless leg Continue Labataolol 200 mg twice daily Continue Torsemide as outpatient Continue Chlorthaladone as outpatient Continue oral potassium supplement Continue Prednisone taper Rx given Hold Medications for GERD until evaluated by your PCP We recommend repeat BMP and CBC with Diff prior to restarting nephrotoxic medications: NSAIDs, metformin and other oral hypoglycemic agents, Pentasa, Follow-up plan Follow up with your PCP with in one week at the latest. Follow-up with PCP in: 1 week Barrett Gilbert MD 11/24/16 1633: Discharge Instructions Attending's Statement The patient was seen and examined together with Dr. Jackson on 11/24/2016 and I agree with the history, exam and plan as outlined in the note above. . JAKE JACKSON DO Nov 24, 2016 11:48 Barrett Gilbert MD Nov 24, 2016 16:33
[2016-11-24] MEDS ORDERED: LABE200T PO (11:54)
[2016-11-24] MEDS ORDERED: IPRA3AMP NEB (11:54)
[2016-11-24] MEDS ORDERED: TORS20TA PO (11:54)
[2016-11-24] MEDS ORDERED: HYG25 PO (11:54)
--- NOTE | 2016-11-24 12:27 | PCM.PNMED ---
Subjective Date of Service Nov 24, 2016 Subjective Nephrology Progress Note: Attending Dr. Noel Dotyner is a 76-year-old male with a past medical history significant for diabetes mellitus type II, non-insulin using, hypertension, obstructive sleep apnea on CPAP who presented to [facility] ED with shortness of breath and is now being treated for influenza, CHF exacerbation, hyperglycemia, persistent hyperkalemia, and NANCY. Hospital day #15. Overnight: There were no acute events. Telemetry overnight: Atrial fibrillation , heart rate 80's, with an IVCD and occasional PVCs. Patient is resting in bed comfortably and in no acute distress. He continues to be on supplemental oxygen. The patient reports he is doing significantly better. He continues to have minimally productive cough which is also improving. He denies headache, lightheadedness or dizziness, chest pain, palpitations, abdominal pain, nausea, vomiting, fever, chills, dysuria, constipation or diarrhea. The patient is voiding and eliminating without difficulty. . Exam Vital Signs Vital Sign - Last Date Time Temp Pulse Resp B/P Pulse Ox O2 Delivery O2 Flow Rate FiO2 11/24/16 12:10 83 20 99 Nasal Cannula 2.00 11/24/16 08:00 37.2 154/69 11/18/16 09:06 50 Intake and Output 11/23/16 11/23/16 11/24/16 Cumulative From/Thru 15:00 23:00 07:00 11/10/16 16:55 - 11/24/16 05:51 Intake Total 589 ml 400 ml 37620 ml Output Total 850 ml 1025 ml 15517 ml Balance -261 ml -625 ml -6263 ml Intake Oral 589 ml 400 ml 20781 ml IV Total 35208 ml Output Urine Total 850 ml 1025 ml 55934 ml Stool Total 0 ml # Voids 3 1 10 # Bowel Movements 1 0 8 Exam General: Older gentleman sitting in bedside chair and in no acute distress, well -developed, well-nourished, appropriately interactive. HEENT: Normocephalic, atraumatic. External ears without defect. Pupils equal, round, and reactive to light. Anicteric sclerae, moist conjunctivae, and no lid lag. Supplemental oxygen in place. Neck: Supple with full range of motion. No jugular venous distension. No bruits. No lymphadenopathy or thyromegaly. Cardiovascular: Irregularly irregular without murmurs, rubs, or gallops appreciated Pulmonary: Breath sounds diminished throughout bases otherwise clear to auscultation bilaterally in all lung worrell. Normal respiratory effort with no use of accessory muscles. Abdomen: Soft, obese, nontender, nondistended, bowel sounds present. No hepatosplenomegaly or masses appreciated. Extremities: No clubbing or cyanosis. Mild pitting edema to bilateral knees improved. Skin: Normal temperature, turgor, and texture; no rash, ulcers, or subcutaneous nodules appreciated. Neurological: Cranial nerves grossly intact. Psychiatric: Normal mood and affect. Alert and oriented to person, place, and time. . IVs and Medications Medications Reviewed: Medications were reviewed in detail Lab and Diagnostics Item Value Date Time Calcium Level 8.3 mg/dL L 11/24/16344 Phosphorus Level 3.6 mg/dL 11/24/16344 Magnesium Level 1.7 mg/dL 11/24/16344 Total Bilirubin 0.5 mg/dL 11/24/16344 Aspartate Amino Transf (AST/SGOT) 70 U/L H 11/24/16 034 Alanine Aminotransferase (ALT/SGPT) 97 U/L H 11/24/16 034 Alkaline Phosphatase 96 U/L 11/24/16344 Total Protein 6.2 g/dL L 11/24/16344 Albumin 3.2 g/dL L 11/24/16 034 Result Diagram: 11/24/1634411/24/16344 Microbiology Blood cultures x 2 show no growth after 5 days. Viral respiratory PCR positive for influenza A H3. MRSA screen negative. . X-Rays, CTs and MRIs US VENOUS LEG DUPLEX BILATERAL IMPRESSION: 1. No definite evidence of deep vein thrombosis in the right or left lower extremity with evaluation limited on the left as described secondary to body habitus. Dictated by: Iftikhar Burger M.D. on 11/13/2016 at 11:42 Approved by: Iftikhar Burger M.D. on 11/13/2016 at 11:42 Chest X-Ray IMPRESSION: Bibasilar alveolar infiltration stable over time, left greater than right. Prior CABG. Continued reduced inspiratory volume. Limited study due to reduced inspiration and large body habitus. Dictated by: Jamel Mccabe M.D. on 11/15/2016 at 9:32 Approved by: Jamel Mccabe M.D. on 11/15/2016 at 9:32 Retroperitoneal US IMPRESSION: 1. Markedly limited study. 2. No definite hydronephrosis, although the right kidney is poorly characterized. 3. Moderate postvoid residual. Dictated by: Selma Rangel M.D. on 11/12/2016 at 14:15 CT ABDOMEN AND PELVIS WITHOUT CONTRAST IMPRESSION: 1. Small bilateral pleural fluid collections. 2. Bibasilar lung consolidation compatible with compressive atelectasis, pneumonia or aspiration. Please correlate with clinical and laboratory data. 3. Cardiomegaly. 4. Hepatic steatosis. 5. 1.4 cm gallstone in the gallbladder neck. There is clinical concern for biliary disease, abdominal ultrasound should be performed for further evaluation. 6. Small amount of ascites in the lower pelvis and the left lower quadrant of the abdomen. 7. Status post prostatectomy. 8. Colonic diverticulosis. 9. Image quality limited by patient motion. Diagnostic sensitivity of the study is limited by absence of oral and intravenous contrast. Dictated by: Aditi Garcia MD, PhD on 11/13/2016 at 17:17 . 12-lead ECG EKG: Atrial fibrillation with right bundle branch block. . Cardiac Echo Impressions Echocardiogram Interpretation Summary There is normal left ventricular wall thickness.The ejection fraction is estimated to be 55-60%.Flattened septum is consistent with RV pressure/volume overload.The right ventricle is moderately dilated.Right ventricular systolic function is moderately reduced. Right ventricular systolic pressure is estimated to be 37 mmHg plus the clinically estimated CVP which cannot be estimated on this exam. Probably no significant interval change from 2011 Electronically signed by: Justyn Watters on Reading Physician:11/11/2016 01:33 PM . Additional Diagnostics ABG 11/19/2016: PH 7.305. PCO2 67.7. PO2 72.7. HCO3 32.6. On FiO2 of 45%. . Assessment & Plan Bradley Donovan is a 76-year-old male with a past medical history significant for diabetes mellitus type II, non-insulin using, hypertension, obstructive sleep apnea on CPAP who presented to [facility] ED with shortness of breath and is now being treated for influenza, CHF exacerbation, hyperglycemia, persistent hyperkalemia, and NANCY. Hospital day #15. 1. Acute on chronic kidney injury. - Multifactorial: Cardiorenal syndrome and ATN. - Increased BUN secondary to glucocorticoids and likely diuresis. Recommend slow titration off of glucocorticoids per primary medical team. - Renal function improving and likely close to baseline. Does not require renal replacement therapy at this time. Continue to monitor renal function and urine output daily. 2. Hyperkalemia, persistent. - Etiology: Uncontrolled BS, insulin insufficiency, NANCY. - Possible underlying disease of RTA type IV (hypoaldosteronism). - Continue fludrocortisone 0.1 mg daily. 3. Acute influenza infection, superimposed bacterial pneumonia. 4. Hypoxemic respiratory failure. 5. Acute on chronic CHF exacerbation. - Continue torsemide 40 mg twice a day. May implement ajay bandage wraps or compression stockings to help continue to improve peripheral edema. 6. 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 7. History of hypertension with hypertensive nephrosclerosis. - Continue labetalol 200 mg twice daily to every 8 hours, chlorthalidone 25 mg daily, and torsemide 40 mg twice a day. 8. Hyperphosphatemia. - Discontinued Renvela 800 mg three times a day with food. We will sign off from a renal standpoint. If you need anything further please do not hesitate to give us a call. . GI Prophylaxis: Proton Pump Inhibitor VTE Prophylaxis: Sub-Q Heparin (Unfractionated) VTE Mechanical Devices: Intermittant Pneumatic CD Resuscitation Status: CPR: Attempt Resuscitation Adelaida Wilkerson DO Nov 24, 2016 12:27
--- NOTE | 2016-11-24 12:31 | NUR ---
Social Work Note: Continued Discharge Planning Data& Assessment: EMR reviewed. Per MD Huerta Soy is medically ready for discharge. Pt was admitted on 11/10/2016 for pneumonia and hypoxia. Pt is ready to discharge home via POV with [facility] RN, PT, ELECTROMECHANIC to follow. SW met with pt at bedside to confirm discharge plan and assess for any unmet needs. Pt transporting pt home today. SW spoke with John from [facility] and notified him of pt discharge. Pt denies any other needs. No other discharge needs identified. All updated and agreeable to plan. Plan: Per pt is medically improved and ready to discharge home via POV with [facility] RN, PT, ELECTROMECHANIC to follow.Pt denies any other needs. No other discharge needs identified. All updated and agreeable to plan. JIHAN Solorio
[2016-11-24] MEDS ORDERED: INSU100V7 SUBQ (15:05)
[2016-11-24] MEDS ORDERED: INSLIS SUBQ (15:05)
--- NOTE | 2016-11-24 16:13 | NUR ---
Discharge He discharged about 1545. He was placed on 2L of O2 via a [employer] tank, given all his belongings, both IVs discontinued intact, telemetry discontinued. His discharge paperwork was given to him (MD/nurse instructions, medications prescriptions, care notes, POLST form). Discussed the paperwork and instructions with both him and his . He was educated about his new insulin orders, blood glucose management (confirmed he had a glucometer at home and knows how to use it), and his trilogy (RT educated him about this). He had no questions or concerns at discharge. The [employer] STRINGING MACHINE OPERATOR took him to the main lobby in a wheelchair where his and daughter picked him and his belongings up.
--- NOTE | 2016-11-25 06:59 | PCM.DC.MED ---
Discharge Summary Date of Service Nov 25, 2016 Dates of Hospitalization Date of Hospital Admission Nov 10, 2016 at 19:23 Date of Discharge: Nov 25, 2016 Providers: Admitting Physician: Marium Hurst MD Primary Care Physician: Imani Antony MD Attending Physician: Marium Hurst MD Diagnosis at Time of Discharge Diagnosis at Time of Discharge 1. Acute on chronic respiratory failure, hypoxic, present on admission, improving 2. Acute on chronic kidney injury, present on admission, ongoing 3. Left sided facial droop, not present on admission, resolved 4. Acute exacerbation of HFpEF, present on admission, active 5. Potential bone marrow pathology, r/o maligancy 6. Immunocompromised status 7. Type II DM, acute on chronic, present on admission, improving 8. Bibasilar pneumonia with secondary secondary hypoxia, present on admission, resolved 9. Hyperkalemia, present on admission, resolved 10. Elevated LFT's, acute, Present on admission, ongoing 11. Elevated Phosphorus, acute, present on admission, resolved 12. Uremia, present on admission, acute, ongoing 13. A-Fib, rate controlled, present on admission, active 14. Hypocalcemia, present on admission, active 15. Acute on chronic iron deficiency anemia 16 Influenza A +, acute present on admission, resolved 17. History of COPD and GERARDO 18. Erosive esophagitis, gastric antral ulceration, Crohn disease, 19. Coronary artery disease 20. History of prostatectomy for prostate cancer 21. Ankylosing spondylosis 22. Anxiety Consultations Nephrology Pulmonology Hematology/Oncology Infectious Disease Procedures XRay, CTs & MRIs US VENOUS LEG DUPLEX BILATERAL IMPRESSION: 1. No definite evidence of deep vein thrombosis in the right or left lower extremity with evaluation limited on the left as described secondary to body habitus. Dictated by: Iftikhar Burger M.D. on 11/13/2016 at 11:42 Approved by: Iftikhar Burger M.D. on 11/13/2016 at 11:42 Chest X-Ray IMPRESSION: Bibasilar alveolar infiltration stable over time, left greater than right. Prior CABG. Continued reduced inspiratory volume. Limited study due to reduced inspiration and large body habitus. Dictated by: Jamel Mccabe M.D. on 11/15/2016 at 9:32 Approved by: Jamel Mccabe M.D. on 11/15/2016 at 9:32 Retroperitoneal US IMPRESSION: 1. Markedly limited study. 2. No definite hydronephrosis, although the right kidney is poorly characterized. 3. Moderate postvoid residual. Dictated by: Selma Rangel M.D. on 11/12/2016 at 14:15 CT ABDOMEN AND PELVIS WITHOUT CONTRAST IMPRESSION: 1. Small bilateral pleural fluid collections. 2. Bibasilar lung consolidation compatible with compressive atelectasis, pneumonia or aspiration. Please correlate with clinical and laboratory data. 3. Cardiomegaly. 4. Hepatic steatosis. 5. 1.4 cm gallstone in the gallbladder neck. There is clinical concern for biliary disease, abdominal ultrasound should be performed for further evaluation. 6. Small amount of ascites in the lower pelvis and the left lower quadrant of the abdomen. 7. Status post prostatectomy. 8. Colonic diverticulosis. 9. Image quality limited by patient motion. Diagnostic sensitivity of the study is limited by absence of oral and intravenous contrast. Dictated by: Aditi Garcia MD, PhD on 11/13/2016 at 17:17 . ECG 12 Lead EKG: Atrial fibrillation with right bundle branch block. . Cardiac Echo Impression Echocardiogram Interpretation Summary There is normal left ventricular wall thickness.The ejection fraction is estimated to be 55-60%.Flattened septum is consistent with RV pressure/volume overload.The right ventricle is moderately dilated.Right ventricular systolic function is moderately reduced. Right ventricular systolic pressure is estimated to be 37 mmHg plus the clinically estimated CVP which cannot be estimated on this exam. Probably no significant interval change from 2011 Electronically signed by: Justyn Watters on Reading Physician:11/11/2016 01:33 PM . Other Diagnostics ABG 11/19/2016: PH 7.305. PCO2 67.7. PO2 72.7. HCO3 32.6. On FiO2 of 45%. . Brief History Copied from Dr. 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 The relevant past medical history begins a couple of weeks ago when he developed increasing shortness of breath and respiratory tract type infection symptoms. He saw his primary care physician, was given azithromycin, increased steroids and outpatient oxygen. He continued along with this therapy for a week or so but deteriorated and because of hypoxia and shortness of breath, was admitted to this hospital now 10 days ago. Upon admission, a chest x-ray showed questionable bibasilar infiltrates, and a respiratory viral PCR panel was positive for influenza. He was started on ceftriaxone and azithromycin for treatment of possible superimposed community -acquired pneumonia on top of what was proven to be influenza. He also was treated with a course with oseltamivir. He was also discovered at that time to have some worsening renal insufficiency, though it is notable that a couple of years ago his creatinine was 1.6 but during this admission it has been in the 2 to 2.5 range. He was also evaluated to see if he had an exacerbation of his congestive heart failure, which did not appear to be a significant player in his shortness of breath. Throughout a 10-day course, the patient says he has slowly improved but is not back to baseline and is still using relatively large amounts of inspired oxygen to maintain his O2 sats. He has been free of fever and chills throughout his hospital stay and in fact, recently has had periods of hypothermia. It is worth noting that in his 10-1/2 days here in the hospital he never had a temperature above 37 degrees. This morning the patient tells us that he is certainly better than when he came in but somewhat short of breath. He states he has a dry cough but it is about at his baseline cough, he reports, and he has both underlying COPD and CHF. He denies, of course, fever and chills and, if anything, he says he feels quite cold. He is currently free of GI and symptoms, and still has a Dhillon catheter. Infectious disease consultation is requested regarding his antibiotic management and whether he should have antibiotics added or subtracted and what additional infectious disease workup may be indicated. A comprehensive travel review was undertaken, as he is on a TNF inhibitor. The patient spent three years as a young man [place] As a nurse, he had frequent testing for TB, and all of his TB studies throughout his life have been negative. He lives in the [facility] at this point, where he has resided for many decades. They have a dog but not a cat in the house. He has no unusual hobbies. His last travel to [place], as well as his last traveled to the [place], was roughly a decade ago." Hospital Course 1. Acute on chronic respiratory failure, hypoxic, present on admission, improving - Likely due to bibasilar pneumonia and influenza A infections complicated by GERARDO and CHF - 120cc fluid trained with thoracentesis, sent for culture, Negative for Cryptococcus, - At time of discharge sent home with 2 L O2 NC, Trilogy breathing machine with nebulizer treatments - Patient encourage to mobilize up and out of bed, as much as possible at home - Continue pulmonary toilet at home with acapella - RT scheduled to be present when PT mobilize patient to assess and titrate O2 as necessary, completed encourage PT exercise and may increase O2 requirement temporally when mobile - Continue to monitor respiratory status as volume status and fluid status continued to improve through out the hospital stay. - The patient has a complex picture with obesity hypoventilation, COPD and CHF which may mean that his new baseline may be below what he was used to prior to admission and he may require chronic O2 at home, discussed this with the patient 's daughter at time of discharge and she was understanding and accepting. - Pulmonology consulted, We appreciate their time and expertise on this complicated case. 2. 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 - elevated BNP and diastolic dysfunction noted in prior echo, recommend follow up echo as outpatient - Retroperitoneal U/S showed moderate post residual void, improved with diuresis - Creatine improved at time of discharge - Continue to monitor fluid status as outpatient and obtain standing weight - Continue 40 mg Torsemide PO QD per nephrology - Continue 25 mg Chlorthalidone PO QD - Lasix discontinued 11/22/16 - Continuing to taper prednisone, 20 mg for 3 days then 10 for three days then 5 mg for 3 days then discontinue - Hold Pentasa - Hold metformin - Continue lisinopril as outpatient - Continue Labetalol 200 mg BID - Patient will likely need close nephrology follow up to monitor resolution vs progression to chronic kidney disease - Nephrology consulted we appreciate their input and expertise on this case 3. 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 Acute exacerbation of HFpEF, present on admission, active - Elevated troponin likely due acute on chronic HF, trop trending down 0.02 11/13 - ECHO showed diastolic heart failure EF of 55-60%. - Diurese as above on outpatient basis 5. Potential bone marrow pathology, r/o maligancy - Worsening increase of serum phosphorus in setting phosphate binders, in the setting of abnormal peripheral blood smear with unresolved/reoccurring bibasilar pulmonary effusion concerning for underlying dysplastic disorder. - peripheral blood smear review by pathology rare blasts were seen raising concern for leukoerythroblastic reaction due to his systemic infection/ inflammation vs myelodysplastic disorder (at present time with review of patients past medical records and per Oncology this is clinically unlikely we will defer to their recommendations and await pending results) - Fluid from thoracentesis of left sided pleural effusion sent for cell count, differential, LDH, protein, glucose, acid fast bacilli smear, gram stain, and cytometry (pending) WBC: 175, RBC 3325, PMN 4, Lymphocytes 45, Monocytes 51, LDH 135, Total protein 1.7, 229 - Flow cytometry of peripheral blood sent, pending - SPEP, ordered, reflected hypoalbuminemia no monoclonal protein is apparent - Recommend follow up peripheral blood smear - [place] chromosome and NAVDEEP-2 mutation to rule out differential diagnosis of myeloproliferative disorder. Oncology awaiting results at time of discharge, if results indicate pathology they will follow up as outpatient - Hematology and oncology consulted we appreciate their time and expertise on this case. Recommend continue treatment of current infectious process. 6. 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 At present time ID recommends discontinuing antibiotics and observe patient to determine if an underlying infection is present. - Dr. Adam saw the patient again today and does not believe he has an underlying infection. 9. Hyperkalemia, present on admission, resolved - 11/16/16 K 4.8, 11/18/16 5.4 11/19/16 5.7 11/20/16 4.8 - Differential diagnosis includes: NANCY, RTA Type IV, uncontrolled DM II - Rennin/aldosterone and urine aldosterone normal - Fludrocortisone 0.1 mg daily d/c'ed 11/21/16 - Continue to monitor closely 10. Elevated LFT's, acute, Present on admission, improving - LFTs elevated at admission, with minimal improvement - Likely related to poor cardiac output, stop hepatotoxic medications - Stop PRN Tylenol - Stop Temazepam - Hepatitis panel, negative - May just represent fatty liver disease 11. Elevated Phosphorus, acute, present on admission, resolved - 11/12/16 5.2, 11/20/16 6.4 11/24 3.6 - Likely related to ongoing NANCY, cardiorenal syndrome, diabetes type II, consider potential for malignancy - Continue phosphate binder per nephrology, discontinue at time of discharge 12. Uremia, present on admission, acute, ongoing - likely due to acute kidney injury in setting of excerebration of chronic heart failure due to influenza and pneumonia, chronic uncontrolled diabetes, - This may explain changes in mental status noted by nursing staff, we will continue to assess mentation - per chart review BUN elevated at admission 93, continues to trend up 11/19/16 112 11/20/18 100 - Patient at this time does not need dialysis to correct BUN level, continue to monitor - Continue to monitor platelets and INR 11/24 PLT 173 INR 1 - Repeat CMP discharge 65 13. A-Fib, rate controlled, present on admission, active -Patient refusing Coumadin. Discussed risks of no anticoagulation with him, patient verbalized understanding. -U/S Doppler legs negative for DVT limited study -Discontinue SCDs -Discontinue Sub Q heparin, 14. Hypocalcemia, present on admission, active - Calcium 11/18/16 7.4 - Continue to monitor 15. Acute on chronic iron deficiency anemia - Likely related to history of DM, patient has history of chronic anemia being follow by Hematology as outpatient by Dr. Rhoades - Hepatitis panel ordered to rule out infectious hepatitis - smear ordered to r/o malignancy - Iron studies normal - Platelet trending down over admission lowest 150, hold heparin sub Q until platelets trend back up, 11/24 PLT - Continue to monitor as outpatient 16 Influenza A +, acute present on admission, resolved - Patient has finished 10 day course of oseltamivir 75 mg PO stopped at day 10 of treatment - Chronic issues known prior to admission, present on admission: 17. History of COPD and GERARDO - Continue Trilogy at home, setting talored over hospital course, this machine will also allow nebulizer treatments - Restart HFNC HS and PRN for shortness of breath - Taper Prednisone 20 mg for 3 days, then 10mg for three days, then 5 mg 3 days , then discontinue as outpatient 18. Erosive esophagitis, gastric antral ulceration, Crohn disease, - PPI/K6sqspuvx, mesalamine, anticipate Humira resumption after this admission - Continue to monitor BMP as outpatient 19. Coronary artery disease - Stop statin due to elevated LFTs - Consider resuming as outpatient with resolution of elevation of LFT 20. History of prostatectomy for prostate cancer a/p radical prostate resection - Continue to monitor 21. Ankylosing spondylosis - Stop Vicodin and home medication - Consider resuming as outpatient 22. Anxiety -Ativan PRN held - May resume on outpatient basis Exam Vital Signs (Last) Date Time Temp Pulse Resp B/P Pulse Ox O2 Delivery O2 Flow Rate FiO2 11/24/16 14:17 Nasal Cannula 6.00 11/24/16 13:00 37.1 74 17 165/71 91 Exam General: Alert, Oriented X3, mentation improved but reduced compared to base line, Cooperative, moderate Distress, Obese Head: Normocephalic, atraumatic. External ears normal. Eyes: PERRLA, EOMI. Anicteric sclerae. Mouth: Mouth Normal, Mucous Membranes Moist/[place] Neck: Neck supple with full range of motion. No lymphadenopathy Chest & Lungs: O2 NC 6 L , equal chest rise and fall with improved air movement, diminished breath sounds at bases improved, minimal wheezes, hear in all lung worrell, no crackles, rhonchi. Cardiovascular: Regular Rate/Rhythm, Normal S1, Normal S2, No Murmurs/Rubs/ Gallops, no JVD Abdomen: Non-tender, distended, No masses, Normoactive bowel tones, Soft Musculoskeletal: Normal Range of Motion Extremities: Extremities warm to touch tender, moderate pitting edema up to gluteal folds improved from yesterday. No cyanosis/clubbing bilaterally Neurological: Grossly Neurologically Intact, Normal Speech, Sensation Intact, horizontal nystagmus present on exam left sided facial drop present on exam ( patient stated this is chronic, continue to monitor) Patient has history of bells palsy : uncircumcised penis, two testicles palpated non tender, moderate scrotal and penile edema, meatus patent without discharge Test 11/10/16 17:25 11/10/16 17:50 11/11/16 02:44 11/11/16 05:30 Pro-B-Type Natriuretic Peptide 3728pg/mL (0-376) Urine Random Total Protein 316mg/dL (0-15) Urine Protein/Creatinine Ratio 3.76 Urine Total Protein 305.9mg/dL (Not Estab.) Urine Albumin 65.8% (.) Urine Xyxvy-2-Jokpgnqx 5.3% (.) Urine Udnlc-4-Tiyfpzgzi 8.5% (.) Urine Beta Globulin 11.1% (.) Urine Gamma Globulin 9.3% (.) Urine Protein Electrophoresis Note Comment (.) Urine Monoclonal Protein % Not observed% (Not Observed) Hemoglobin A1c 8.6% (4.8-5.6) Urine Random Creatinine 103mg/dL (22-328) Urine Random Sodium < 10mEq/L Test 11/12/16 10:05 11/13/16 10:00 11/13/16 11:30 11/14/16 02:40 Urine Random Aldosterone 29.00ug/L (Not Estab.) Urine Aldosterone Timed Commentug/24 hr Hold Urine Received (Received) Troponin T 0.020ug/L (0.0-0.011) Renin Activity 57.54ng/mL/hr (.) Aldosterone 22.5ng/dL (0.0-30.0) Aldosterone/Renin Ratio 0.4 (0.0-30.0) Cortisol 17.1ug/dL (.) Promyelocytes % 1% (0-0) Test 11/18/16 04:04 11/19/16 04:50 11/19/16 15:24 11/19/16 15:31 Corrected White Blood Count 7.7th/mm3 (3.8-10.1) Blood Smear Pathologist Review Hematology Comments Urine Legionella pneumophilia Ag Negative (Negative) Urine Color Straw (YELLOW) Urine Appearance Clear (CLEAR,HAZY) Urine pH 6.5 (5.0-8.0) Urine Specific [place] <1.005 (1.003-1.035) Urine Protein Negativemg/dL (NEG,TRACE) Urine Glucose (UA) Negativemg/dL (NEGATIVE) Urine Ketones Negativemg/dL (NEGATIVE) Urine Occult Blood Trace (NEGATIVE) Urine Nitrite Negative (NEGATIVE) Urine Bilirubin Negative (NEGATIVE) Urine Urobilinogen Normalmg/dL (NORMAL) Urine Leukocyte Esterase Negative (NEGATIVE) Urine RBC 0-2/hpf (0-2) Urine WBC 0-5/hpf (0-5) Urine Epithelial Cells Few/hpf (NONE-MOD) Urine Crystals None seen (NONE SEEN) Urine Bacteria Few/hpf (NONE-FEW) Urine Hyaline Casts None/lpf (NONE) Urine Granular Casts None seen (NONE SEEN) Urine Waxy Casts None seen (NONE SEEN) Urine Red Blood Cell Casts None seen (NONE SEEN) Urine White Blood Cell Casts None seen (NONE SEEN) Urine Mucus None seen (None Seen) Urine Trichomonas None seen (NONE SEEN) Urine Yeast None (NONE SEEN) Urinalysis Comment None Urine Culture Reflexed Not indicated Test 11/19/16 16:37 11/19/16 17:45 11/20/16 03:35 11/20/16 12:30 Hepatitis A IgM Antibody Negative (Negative) Hepatitis B Surface Antigen Negative (Negative) Hepatitis B Core IgM Antibody Negative (Negative) Hepatitis C Antibody <0.1s/co ratio (0.0-0.9) Hepatitis C Comment Comment (.) HIV (1&2) Ag and Ab, 4th Generation Non reactive (Non Reactive) TB Test (QFT) Gold In Tube Indeterminate (Negative) TB Test (QFT) Incubation Comment (.) TB Test (QFT) Mitogen 0.03IU/mL (.) TB Test (QFT) Antigen 0.02IU/mL (.) TB Test (QFT) Antigen Minus Nil <0.00IU/mL (.) TB Test (QFT) TB - Nil 0.04IU/mL (.) TB Test (QFT) Positive Criteria Comment (.) TB Test (QFT) Interpretation Comment (.) Ammonia 49ug/dL (18-53) Lactic Acid Level 2.3mmol/L (0.4-2.0) Globulin (PEP) 2.8g/dL (2.2-3.9) Albumin/Globulin Ratio 1.0 (0.7-1.7) Igmna-0-Vxsrqolcf 0.3g/dL (0.0-0.4) Gbxzq-8-Qmveaxbgd 0.9g/dL (0.4-1.0) Beta Globulins 1.0g/dL (0.7-1.3) Gamma Globulins 0.6g/dL (0.4-1.8) Serum Monoclonal Protein Not observedg/dL Protein Electrophoresis Comment Comment (.) Protein Electrophoresis Interpret Comment (.) Cryptococcus Antigen Negative (Negative) Fungal Antibodies 64pg/mL (.) Aspergillus galactomannan Antigen 0.06Index (0.00-0.49) Test 11/20/16 13:05 11/20/16 17:34 11/21/16 02:30 11/21/16 20:50 Body Fluid Source Pleural fluid Body Fluid Color Straw (Clear) Body Fluid Appearance Hazy Body Fluid pH 7.8 (Not Estab.) Body Fluid WBC 175/mm3 Body Fluid RBC 3325/mm3 Body Fluid Polynuclear WBCs 4% Body Fluid Lymphocytes 45% Body Fluid Monocytes 51% Body Fluid Eosinophils 0% Body Fluid Basophils 0% Body Fluid Lactate Dehydrogenase 135U/L Pleural Fluid Total Protein 1.7g/dL Pleural Fluid Glucose 229mg/dL Nucleated Red Blood Cells 1/100 WBC (0-24) Iron Level 46ug/dL (35-150) Total Iron Binding Capacity 279ug/dL (250-450) Percent Iron Saturation 16%sat (15-50) Unsaturated Iron Binding 233.1ug/dL Thyroid Stimulating Hormone (TSH) 0.778uIU/mL (0.450-4.500) Lactate Dehydrogenase 430U/L (100-190) Test 11/22/16 04:20 11/23/16 02:30 11/23/16 07:10 11/23/16 20:49 Activated Partial Thromboplast Time 27.2sec (22.8-33.0) Fibrinogen 333mg/dL (157-380) Total Creatine Kinase 910U/L (21-232) Procalcitonin 0.15ng/mL (See Comment) Band Neutrophils % 1% (1-5) Uric Acid 7.6mg/dL (2.6-7.2) Neutrophils (%) (Auto) 78% (40-74) Lymphocytes (%) (Auto) 5% (14-46) Monocytes (%) (Auto) 11% (4-12) Eosinophils (%) (Auto) 1% (0-5) Basophils (%) (Auto) 0% (0-3) Metamyelocytes % 4% (0-0) Myelocytes % 1% (0-0) Test 11/24/16 03:45 White Blood Count 14.7th/mm3 (3.8-10.1) Red Blood Count 3.34mil/mm3 (4.40-5.80) Hemoglobin 9.8g/dL (13.8-17.2) Hematocrit 32.0% (41.0-50.0) Mean Corpuscular Volume 95.8fL (81-100) Mean Corpuscular Hemoglobin 29.3pg (27.0-35.0) Mean Corpuscular Hemoglobin Concent 30.6% (32.0-37.0) Red Cell Distribution Width 16.6% (12.3-15.4) Platelet Count 173bil/L (150-400) Prothrombin Time 10.8sec (8.1-12.5) Prothromb Time International Ratio 1.01ratio Sodium Level 142mEq/L (134-144) Potassium Level 4.3mEq/L (3.5-5.2) Chloride Level 88mEq/L (97-108) Carbon Dioxide Level 46mmol/L (18-29) Blood Urea Nitrogen 65mg/dL (8-27) Creatinine 1.43mg/dL (0.76-1.27) Estimat Glomerular Filtration Rate 51mL/min (>59) Glucose Level 138mg/dL (60-99) Calcium Level 8.3mg/dL (8.5-10.1) Phosphorus Level 3.6mg/dL (2.5-4.9) Magnesium Level 1.7mg/dL (1.6-2.6) Total Bilirubin 0.5mg/dL (0.0-1.2) Aspartate Amino Transf (AST/SGOT) 70U/L (0-50) Alanine Aminotransferase (ALT/SGPT) 97U/L (0-44) Alkaline Phosphatase 96U/L (25-160) Total Protein 6.2g/dL (6.4-8.4) Albumin 3.2g/dL (3.4-5.0) Microbiology Results Blood cultures x 2 show no growth after 5 days. Viral respiratory PCR positive for influenza A H3. MRSA screen negative. . Discharge Medications Discharge Medications Adalimumab (Humira) 40 Mg/0.8 Ml Pen.ij.kit 40 MG IM q other week (Reported) Chlorthalidone (Chlorthalidone) 25 Mg Tablet 25 MG PO DAILY Prescribed by: JAKE GUILLEN DO Fexofenadine (Aliyah Allergy) 60 Mg Tablet 60 MG PO DAILY (Reported) Insulin Glargine (Lantus U100 Insulin Vial) 100 Unit/Ml Vial 25 UNIT SUBQ HS Prescribed by: ROSCOE WITT DO Insulin Human Lispro (HumaLOG U100 Insulin Vial) 100 Unit/Ml Unit 0 UNIT SUBQ WMHS Check blood sugars before meals and at bedtime. Use correction factor only before meals. Blood Sugar Lispro Correction: <151, 0 units; 151-175, 1 unit; 176-200, 2 units; 201-225, 3 units; 226-250, 4 units; 251-275, 5 units; 276-300 , 6 units; 301-325, 7 units; 326-350, 8 units; 351-375, 9 units; 376-400, 10 units; >400, 12 units. Prescribed by: ROSCOE WITT DO Ipratropium/Albuterol Sulfate (Iprat-Albut 0.5-3(2.5) mg/3 mL Inhalant Soln) 3 Ml Ampul.neb 3 ML NEB QID Prescribed by: JAKE GUILLEN DO Labetalol (Labetalol) 200 Mg Tablet 200 MG PO Q8H Prescribed by: JAKE GUILLEN DO Losartan Potassium (Losartan Potassium) 50 Mg Tablet 50 MG PO DAILY (Reported) Multivitamin/Iron/Folic Acid (Centrum Complete Multivit Tab) 1 Each Tablet 1 EACH PO DAILY (Reported) Torsemide (Demadex) 20 Mg Tablet 40 MG PO Prescribed by: JAKE GUILLEN DO As needed Docusate Calcium (Stool Softener) 240 Mg Capsule 240 MG PO PRN For Constipation (Reported) Hydrocodone-Acetaminophen 5-325 mg (Hydrocodone-Acetaminophen 5-325 mg) 1 Each Tablet 1 TAB PO Q 4 HOUR PRN PRN For Pain (Reported) Lorazepam (Lorazepam) 1 Mg Tablet 1 MG PO DAILY PRN PRN anx (Reported) Temazepam (Temazepam) 15 Mg Capsule 15-30 MG PO HS PRN PRN sleep (Reported) Followup Plan Disposition: Home with Home health Follow-up plan Follow up with your PCP with in one week at the latest. Discharge Diet: Diabetic (Restrict to 45 gm daily) Discharge Activity: Home Health Phyical Therapy Patient Instructions Please follow up with your PCP as soon as possible Continue home blood pressure medications, check your blood pressure daily keep a log and follow up with your PCP Reccomend low carb diabetic diet, limit carb intake to max 45 g Stop Metformin until you are evaluated by your PCP Stop Pentasa until you are evaluated by your PCP Contact your Stockroom Clerk to discuss when to resume Humeria treatment Stop Atorvastatin until you are evaluated by your PCP You may resume your antidepressant You may resume your medications for restless leg Continue Labataolol 200 mg twice daily Continue Torsemide as outpatient Continue Chlorthaladone as outpatient Continue oral potassium supplement Continue Prednisone taper Rx given Hold Medications for GERD until evaluated by your PCP We recommend repeat BMP and CBC with Diff prior to restarting nephrotoxic medications: NSAIDs, metformin and other oral hypoglycemic agents, Pentasa, Follow-up with PCP in: 1 week Time spent Greater than 30 minutes was spent in preparation of discharge with greater than 50% of that time dedicated to patient counseling and coordination of care. . Attending Statement The patient was seen and examined together with Dr. Guillen on 11/24/2016 and I agree with the history, exam and plan as outlined in the note above. . copies to: Imani Antony MD, AARON J DO Nov 25, 2016 06:59 Barrett Gilbert MD Nov 28, 2016 14:27
--- NOTE | 2016-11-27 15:01 | PATH ---
SURGICAL PATHOLOGY Attending Physician:See Additional MD CASE STATUS: Signed Out PATIENT NAME: GIACOMO SNYDER PID: [id number] : 1940 CASE NUMBER: [id number] DATE COLLECTED:11/20/2016 00:00 SPECIMEN: Pleural Fluid CLINICAL HISTORY: Pleural Fluid ICD-10 code not given FINAL DIAGNOSIS: Pleural Fluid Cytology Specimen (Cell Block, ThinPrep and Cytospin): Negative for malignant cells. Cells present include reactive mesothelial cells and some inflammatory cells (see comment). ICD10: J90 NOTE: Immunohistochemistry has been performed in order to ascertain whether there may be malignant epithelial cells present within this material. The results indicate that the cells are positive for calretinin indicating mesothelial origin. CEA shows some endogenous staining but the cells appear to be negative. BerEP4 is also negative as is PSA. This confirms the impression that these indeed are reactive mesothelial cells with no evidence of malignancy. Case reviewed by Dr. Deborah Dinh, who agrees with the diagnosis. GROSS DESCRIPTION: Received fresh on 11/23/2016 is approximately 50 cc of cloudy yellow fluid. Prepared are one cell block, one ThinPrep and one Cytospin slides. Vo ICD-9 CODES: CPT CODES: 1: 94129, 43083, 15628, 92597, 69176, 77909 Electronically Signed Out Rafael Roe MD [facility] Pathology [facility] [address], [place] [address] Technical component performed at [facility], [address] [place] [address] Ave[address], [place], [address]
--- NOTE | 2016-12-02 14:28 | DRSVH ---
PROCEDURE: US GUIDED THORACENTESIS BY REFERRING PHYSICIAN ([id number]) INDICATIONS: b/l pleural effusion TECHNIQUE: The indications, alternatives, benefits, risks, and complications of the procedure were explained to the patient. Written informed consent was obtained and placed in the chart. The chest was examined sonographically, and an appropriate site was chosen for thoracentesis. The skin was prepared and niecy ped in the usual sterile fashion, and 1% lidocaine was infiltrated from the skin down through the ple ural surface. A 19-gauge catheter-covered needle was then introduced into the pleural space, the cat heter was advanced and the needle was withdrawn, and thereafter pleural fluid was aspirated. The cat heter was then removed and a dressing was applied. COMPARISON: None. FINDINGS: Access site: Left hemithorax. Needle: One-Step centesis catheter with introducer needle. Fluid volume and description: 120 cc cloudy yellow Fluid sent for diagnostic testing: Yes Medications: 1% lidocaine for local anaesthesia. Complications: None; post-procedural chest radiograph is pending to assess for pneumothorax. IMPRESSION: Successful ultrasound-guided thoracentesis. Dictated by: Saba Edwards M.D. on 11/21/2016 at 9:15 Approved by: Saba Edwards M.D. on 11/21/2016 at 9:15
[2016-12-31] MEDS ORDERED: RANI300T4 PO (10:49)
[2016-12-31] MEDS ORDERED: CETI5TAB28 PO (10:49)
[2016-12-31] MEDS ORDERED: AMT25T PO (10:49)
[2016-12-31] MEDS ORDERED: LABE100T4 PO (10:49)
[2016-12-31] MEDS ORDERED: OMEP40CA36 PO (10:49)
[2016-12-31] MEDS ORDERED: ALLO300T2 PO (10:49)
[2016-12-31] MEDS ORDERED: TORS20TA3 PO (10:49)
[2017-01-01] MEDS ORDERED: HYDR115S2 PO (15:30)
[2017-01-21] MEDS ORDERED: AZIT500T5 PO (17:03)
== END 2016-11-24 16:45 | disposition home health service (06) | DRG 193 ==
LOC: SED 16:46 → MPC 19:23 → PCC 11-11 13:56
PROVIDERS: ADMIT Urology; ATTEND Urology
PROC: 4A033R1 Measurement of Arterial Saturation, Peripheral, Percutaneous Approach (ICD-10-PCS; principal; 2016-11-11)
PROC: 5A09557 Assistance with Respiratory Ventilation, Greater than 96 Consecutive Hours, Continuous Positive Airway Pressure (ICD-10-PCS; 2016-11-11)
PROC: 0W9B3ZX Drainage of Left Pleural Cavity, Percutaneous Approach, Diagnostic (ICD-10-PCS; 2016-11-20)
DX: J13 Pneumonia due to Streptococcus pneumoniae (principal); I50.33 Acute on chronic diastolic (congestive) heart failure; N17.0 Acute kidney failure with tubular necrosis; J96.21 Acute and chronic respiratory failure with hypoxia; N39.0 Urinary tract infection, site not specified; J44.0 Chronic obstructive pulmonary disease with (acute) lower respiratory infection; K22.10 Ulcer of esophagus without bleeding; Z68.41 Body mass index [BMI] 40.0-44.9, adult; K50.90 Crohn's disease, unspecified, without complications; E87.5 Hyperkalemia; I25.10 Atherosclerotic heart disease of native coronary artery without angina pectoris; Z95.1 Presence of aortocoronary bypass graft; Z87.891 Personal history of nicotine dependence; Z79.84 Long term (current) use of oral hypoglycemic drugs; D50.0 Iron deficiency anemia secondary to blood loss (chronic); E11.65 Type 2 diabetes mellitus with hyperglycemia; E83.51 Hypocalcemia; G47.33 Obstructive sleep apnea (adult) (pediatric); J10.08 Influenza due to other identified influenza virus with other specified pneumonia; M47.899 Other spondylosis, site unspecified; I12.9 Hypertensive chronic kidney disease with stage 1 through stage 4 chronic kidney disease, or unspecified chronic kidney disease; N18.9 Chronic kidney disease, unspecified; K25.9 Gastric ulcer, unspecified as acute or chronic, without hemorrhage or perforation; E66.01 Morbid (severe) obesity due to excess calories; E83.39 Other disorders of phosphorus metabolism; R29.810 Facial weakness; R79.89 Other specified abnormal findings of blood chemistry; F41.9 Anxiety disorder, unspecified

== ENCOUNTER 2016-12-10 11:02 | Emergency (ER) | payer MEDICARE, OTHER ==
[2016-12-10] VITALS (7 sets, daily range): BP systolic 91–133; BP diastolic 52–90; PULSE 60–67; RESP 16–24; O2SAT 86–99
[~2016-12-10] VITALS: Ht 180.3 cm; Wt 131.8 kg
[~2016-12-10 11:02] MED LIST changes: -ALLO300T2 PO; -AMT25T PO; -ATOR10TA66 PO; +DOCU240C41 PO; +FEXO-15 PO; -GLIM4TAB2 PO; +HYG25 PO; +INSLIS SUBQ; +INSU100V7 SUBQ; +IPRA3AMP NEB; +LABE200T PO; -LISI-567 PO; +LOSA50TA37 PO; -MESA500C PO; -METF850T2 PO; -OMEP40CA3 PO; -PRAM0.5T10 PO; -RANI300T4 PO; +TORS20TA PO
--- NOTE | 2016-12-10 11:51 | ED.REPORT ---
HPI-Dyspnea / Wheezing Date of Service Dec 10, 2016 ED Provider: Gama Henry MD 76 year old male who presents to the ED due to increasing SOB since yesterday. Pt has also had abd cramping and diarrhea for 4-5 days. Pt just recently finished a course of Azithromycin for pneumonia. Pt denies fever, cough and chest pain. Pt was hospitalized 3 weeks ago, d/c on the , hospitalized on . Nursing Notes Stated Complaint: COMPLICATIONS FROM PREVIOUS VISIT/CCU Chief Complaint: Respiratory Distress Nursing Notes Reviewed: Yes Allergies: Coded Allergies: azithromycin (Verified Allergy, Mild, HIVES, 12/10/16) Difficult to know if "Zomax" allergy is zomepiric acid or azithromycin. Both have that trade name. zomepirac (Verified Allergy, Mild, Hives, 12/10/16) Unknown whether Zomax allrgy is zomepiric acid or azithromycin. Both share the same brand name. Scheduled Adalimumab (Humira) 40 Mg/0.8 Ml Pen.ij.kit 40 MG IM q other week Chlorthalidone (Chlorthalidone) 25 Mg Tablet 25 MG PO DAILY Fexofenadine (Aliyah Allergy) 60 Mg Tablet 60 MG PO DAILY Fluticasone/Salmeterol (Advair 250-50 Diskus) 60 Puff/Inh Disk 1 PUFF IH BID Insulin Glargine (Lantus U100 Insulin Vial) 100 Unit/Ml Vial 25 UNIT SUBQ HS Insulin Human Lispro (HumaLOG U100 Insulin Vial) 100 Unit/Ml Unit 0 UNIT SUBQ WMHS Check blood sugars before meals and at bedtime. Use correction factor only before meals. Blood Sugar Lispro Correction: <151, 0 units; 151-175, 1 unit; 176-200, 2 units; 201-225, 3 units; 226-250, 4 units; 251-275, 5 units; 276-300 , 6 units; 301-325, 7 units; 326-350, 8 units; 351-375, 9 units; 376-400, 10 units; >400, 12 units. Insulin Human Lispro (HumaLOG U100 Insulin Vial) 100 Unit/Ml Unit 2-4 UNIT SUBQ TIDAC Check blood sugars before meals and at bedtime. Use correction factor only before meals. Blood Sugar Lispro Correction: <151, 0 units; 151-175, 1 unit; 176-200, 2 units; 201-225, 3 units; 226-250, 4 units; 251-275, 5 units; 276-300 , 6 units; 301-325, 7 units; 326-350, 8 units; 351-375, 9 units; 376-400, 10 units; >400, 12 units. Ipratropium/Albuterol Sulfate (Iprat-Albut 0.5-3(2.5) mg/3 mL Inhalant Soln) 3 Ml Ampul.neb 3 ML NEB QID Labetalol (Labetalol) 200 Mg Tablet 200 MG PO Q8H Losartan Potassium (Losartan Potassium) 50 Mg Tablet 50 MG PO DAILY Multivitamin/Iron/Folic Acid (Centrum Complete Multivit Tab) 1 Each Tablet 1 EACH PO DAILY Torsemide (Demadex) 20 Mg Tablet 40 MG PO , Scheduled PRN Docusate Calcium (Stool Softener) 240 Mg Capsule 240 MG PO PRN For Constipation Hydrocodone-Acetaminophen 5-325 mg (Hydrocodone-Acetaminophen 5-325 mg) 1 Each Tablet 1 TAB PO Q 4 HOUR PRN PRN For Pain Lorazepam (Lorazepam) 1 Mg Tablet 1 MG PO DAILY PRN PRN anx Temazepam (Temazepam) 15 Mg Capsule 15-30 MG PO HS PRN PRN sleep General Time Seen by MD: 11:46 Chief Complaint Shortness of breath Hx Obtained From: Patient, Spouse Past Medical History 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 GI bleeds with associated anemia, as above. 2. Anemia, chronic, secondary to GI bleeds. 3. Past history of ASCVD. Records in the EMR indicate a heart catheterization in June 2007 that showed diffuse disease in the LAD, proximal narrowing of 50%, other branches with 30% to 40% lesions, apical branch with 75% lesion. He had a left circumflex with areas of up to 90% narrowing and a right coronary with 50% to 60% narrowings. 4. Hypertension. 5. Obesity. 6. Type 2 diabetes mellitus. 7. Gout. 8. Chronic GERD. Past Surgical History Radical prostatectomy subsequent incontinence Arm and wrist surgeries Reports: CABG Smoking History Former Smoker Social History Alcohol Use: "Social" (rare) Other Social History: Good social support Physical Exam Initial Vital Signs Vital Signs (First) Date Time Temp Pulse Resp B/P Pulse Ox O2 Delivery O2 Flow Rate FiO2 2/9/17 11:23 36.1 67 16 91/52 87 Nasal Cannula 5 Interpretation & Diagnostics Lab Results Interpretation Result Diagram: 12/10/16 1140 12/10/16 1140 Test 12/10/16 11:40 White Blood Count 8.6th/mm3 (3.8-10.1) Red Blood Count 3.06mil/mm3 (4.40-5.80) Hemoglobin 8.7g/dL (13.8-17.2) Hematocrit 29.5% (41.0-50.0) Mean Corpuscular Volume 96.4fL (81-100) Mean Corpuscular Hemoglobin 28.4pg (27.0-35.0) Mean Corpuscular Hemoglobin Concent 29.5% (32.0-37.0) Red Cell Distribution Width 16.1% (12.3-15.4) Platelet Count 344bil/L (150-400) Neutrophils (%) (Auto) 80.5% (40-74) Lymphocytes (%) (Auto) 4.7% (14-46) Monocytes (%) (Auto) 13.2% (4-12) Eosinophils (%) (Auto) 0.7% (0-5) Basophils (%) (Auto) 0.1% (0-3) Sodium Level 139mEq/L (134-144) Potassium Level 4.4mEq/L (3.5-5.2) Chloride Level 93mEq/L (97-108) Carbon Dioxide Level 30mmol/L (18-29) Blood Urea Nitrogen 52mg/dL (8-27) Creatinine 2.51mg/dL (0.76-1.27) Estimat Glomerular Filtration Rate 27mL/min (>59) Glucose Level 191mg/dL (60-99) Calcium Level 8.1mg/dL (8.5-10.1) Magnesium Level 1.7mg/dL (1.6-2.6) Total Bilirubin 0.3mg/dL (0.0-1.2) Aspartate Amino Transf (AST/SGOT) 20U/L (0-50) Alanine Aminotransferase (ALT/SGPT) 26U/L (0-44) Alkaline Phosphatase 83U/L (25-160) Total Protein 6.7g/dL (6.4-8.4) Albumin 3.2g/dL (3.4-5.0) Hold Mix Top Tube Received (Received) Re-Eval/Medical Decision Counseled Regarding: Diagnosis, Lab results Discharge & Departure Referrals: Imani Antony MD (PCP) Gama Henry MD Dec 10, 2016 11:50 Tanya Jose Dec 10, 2016 11:59
[2016-12-10 11:58] LABS: BASOPHILS % (AUTO) 0.1 % (0-3); EOSINOPHILS % (AUTO) 0.7 % (0-5); MONOCYTES % (AUTO) 13.2 % (4-12); Mean Corpuscular Hemoglobin 28.4 pg (27.0-35.0); Mean Corpuscular Volume 96.4 fL (81-100); NEUTROPHILS % (AUTO) 80.5 % (40-74); Platelet Count 344 bil/L (150-400)
[2016-12-10] MEDS ORDERED: Budesonide 0.5 mg/2 mL Inhalation Solution NEB ONE (12:15)
[2016-12-10] MEDS ORDERED: Albuterol-Ipratropium 3 mL Inhalation Solution NEB ONE (12:15)
[2016-12-10 12:21] LABS: Magnesium 1.7 mg/dL (1.6-2.6)
[2016-12-10] MEDS ORDERED: 0.9% Sodium Chloride 1,000 ML IV ONE (12:26)
--- NOTE | 2016-12-10 13:05 | DRSVH ---
PROCEDURE: X-RAY CHEST ONE VIEW, PORTABLE ([id number]) INDICATIONS: sob TECHNIQUE: One view of the chest was acquired. COMPARISON: [facility], CR, XR CHEST 1VW (PORTABLE), 11/20/2016, 5:39. FINDINGS: Surgical changes and devices: Post median sternotomy Lungs and pleura: No pleural effusions or pneumothorax. Lungs are clear. Mediastinum: Mediastinal contours appear normal. Heart size is normal. Bones and chest wall: No suspicious bony lesions. Overlying soft tissues appear unremarkable. Heal ed right posterior-lateral rib fractures redemonstrated. IMPRESSION: Stable cardiomegaly and no definitive acute cardiopulmonary process. Dictated by: Pradeep Jernigan [facility] Interpreted: Jamel Mccabe MD on 12/10/2016 at 13:03 Transcribed by: JUDE on 12/10/2016 at 13:04 Approved by: Jamel Mccabe M.D. on 12/11/2016 at 13:25
--- NOTE | 2016-12-10 13:07 | ED.REPORT ---
HPI-Dyspnea / Wheezing Date of Service Dec 10, 2016 ED Provider: Gama Henry MD History of Present Illness: Onofre is a 76 y/o male who presents to the ED due to increasing SOB since yesterday. Pt has also had abd cramping and diarrhea for 4-5 days. He just recently finished a course of Azithromycin for pneumonia. Patient denies fever, cough and chest pain, chest pressure. "totally asymptomatic except for worsening shortness of breath episodes that have been increasing." Patient has had a trilogy machine but has not been using it due to uncomfotability and difficulty of use. Patient has been using O2 concentrator and CPAP instead. Onofre was hospitalized 3 weeks ago, d/c on the , hospitalized on . reports that Onofre was doing better until diarrhea and SOB began 3-5 days ago. Diarrhea described as soft stool with liquid, dark in color, bright red blood reported on toilet paper. Nursing Notes Stated Complaint: COMPLICATIONS FROM PREVIOUS VISIT/CCU Chief Complaint: Respiratory Distress Nursing Notes Reviewed: Yes Allergies: Coded Allergies: azithromycin (Verified Allergy, Mild, HIVES, 12/10/16) Difficult to know if "Zomax" allergy is zomepiric acid or azithromycin. Both have that trade name. zomepirac (Verified Allergy, Mild, Hives, 12/10/16) Unknown whether Zomax allrgy is zomepiric acid or azithromycin. Both share the same brand name. Scheduled Adalimumab (Humira) 40 Mg/0.8 Ml Pen.ij.kit 40 MG IM q other week Chlorthalidone (Chlorthalidone) 25 Mg Tablet 25 MG PO DAILY Fexofenadine (Aliyah Allergy) 60 Mg Tablet 60 MG PO DAILY Fluticasone/Salmeterol (Advair 250-50 Diskus) 60 Puff/Inh Disk 1 PUFF IH BID Insulin Glargine (Lantus U100 Insulin Vial) 100 Unit/Ml Vial 25 UNIT SUBQ HS Insulin Human Lispro (HumaLOG U100 Insulin Vial) 100 Unit/Ml Unit 0 UNIT SUBQ WMHS Check blood sugars before meals and at bedtime. Use correction factor only before meals. Blood Sugar Lispro Correction: <151, 0 units; 151-175, 1 unit; 176-200, 2 units; 201-225, 3 units; 226-250, 4 units; 251-275, 5 units; 276-300 , 6 units; 301-325, 7 units; 326-350, 8 units; 351-375, 9 units; 376-400, 10 units; >400, 12 units. Insulin Human Lispro (HumaLOG U100 Insulin Vial) 100 Unit/Ml Unit 2-4 UNIT SUBQ TIDAC Check blood sugars before meals and at bedtime. Use correction factor only before meals. Blood Sugar Lispro Correction: <151, 0 units; 151-175, 1 unit; 176-200, 2 units; 201-225, 3 units; 226-250, 4 units; 251-275, 5 units; 276-300 , 6 units; 301-325, 7 units; 326-350, 8 units; 351-375, 9 units; 376-400, 10 units; >400, 12 units. Ipratropium/Albuterol Sulfate (Iprat-Albut 0.5-3(2.5) mg/3 mL Inhalant Soln) 3 Ml Ampul.neb 3 ML NEB QID Labetalol (Labetalol) 200 Mg Tablet 200 MG PO Q8H Losartan Potassium (Losartan Potassium) 50 Mg Tablet 50 MG PO DAILY Multivitamin/Iron/Folic Acid (Centrum Complete Multivit Tab) 1 Each Tablet 1 EACH PO DAILY Torsemide (Demadex) 20 Mg Tablet 40 MG PO 05,17 Scheduled PRN Docusate Calcium (Stool Softener) 240 Mg Capsule 240 MG PO PRN For Constipation Hydrocodone-Acetaminophen 5-325 mg (Hydrocodone-Acetaminophen 5-325 mg) 1 Each Tablet 1 TAB PO Q 4 HOUR PRN PRN For Pain Lorazepam (Lorazepam) 1 Mg Tablet 1 MG PO DAILY PRN PRN anx Temazepam (Temazepam) 15 Mg Capsule 15-30 MG PO HS PRN PRN sleep General Time Seen by MD: 13:15 Chief Complaint Shortness of breath Hx Obtained From: Patient, Spouse Past Medical History 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 GI bleeds with associated anemia, as above. 2. Anemia, chronic, secondary to GI bleeds. 3. Past history of ASCVD. Records in the EMR indicate a heart catheterization in June 2007 that showed diffuse disease in the LAD, proximal narrowing of 50%, other branches with 30% to 40% lesions, apical branch with 75% lesion. He had a left circumflex with areas of up to 90% narrowing and a right coronary with 50% to 60% narrowings. 4. Hypertension. 5. Obesity. 6. Type 2 diabetes mellitus. 7. Gout. 8. Chronic GERD. Past Surgical History Radical prostatectomy subsequent incontinence Arm and wrist surgeries Reports: CABG Smoking History Former Smoker Social History Alcohol Use: "Social" (rare) Other Social History: Good social support Review of Systems Basic Review of Systems Eyes: Vision NL, No discharge GI: No anorexia, No nausea, No vomiting : No dysuria, No frequency Hematologic: No bleeding, No bruising Endocrine: No cold intolerance, No heat intolerance, No weight gain, No weight loss Neurologic: NL mental status, No weakness, No numbness Psychiatric: Normal thought content Constitutional: Denies: Chills, Fever Complete sys rev & neg: except as marked. Physical Exam Initial Vital Signs Vital Signs (First) Date Time Temp Pulse Resp B/P Pulse Ox O2 Delivery O2 Flow Rate FiO2 12/10/16 11:23 36.1 67 16 91/52 87 Nasal Cannula 5 Initial VS: Reviewed Head / Eyes: Atraumatic, Normocephalic, PERRL ENT: Mucous membranes moist, Conjunctiva normal, No scleral icterus Abdomen / GI: Soft Back: No CVA tenderness Lymphatic: No lymphadenopathy Extremities: Vascular intact, Neuro intact, No swelling, No tenderness Skin: Warm, Dry, No cyanosis Neurologic: Alert, Oriented, Nonfocal Psychiatric: Mood/affect normal, Behavior normal, Normal thought content General/Constitutional: Awake, Alert, Cooperative Resp Distress / Stridor: Positive: Resp distress mild (Sat 94% 2 L NC) Diminished Breath Sounds: Positive: Decreased bilateral (At bases) Wheezing / Retractions: Positive: Wheezing moderate Chest Wall / Ribs: Positive: Implanted cardiac device Cardiovascular: Heart rate NL Heart Rate / Rhythm: Positive: Irreg irregular rhythm Abdomen: Soft, Non-tender Bowel Sounds / Distention: Positive: Bowel sounds hyperactive Interpretation & Diagnostics Lab Results Interpretation Result Diagram: 12/10/16 1140 12/10/16 1140 Test 12/10/16 11:40 White Blood Count 8.6th/mm3 (3.8-10.1) Red Blood Count 3.06mil/mm3 (4.40-5.80) Hemoglobin 8.7g/dL (13.8-17.2) Hematocrit 29.5% (41.0-50.0) Mean Corpuscular Volume 96.4fL (81-100) Mean Corpuscular Hemoglobin 28.4pg (27.0-35.0) Mean Corpuscular Hemoglobin Concent 29.5% (32.0-37.0) Red Cell Distribution Width 16.1% (12.3-15.4) Platelet Count 344bil/L (150-400) Neutrophils (%) (Auto) 80.5% (40-74) Lymphocytes (%) (Auto) 4.7% (14-46) Monocytes (%) (Auto) 13.2% (4-12) Eosinophils (%) (Auto) 0.7% (0-5) Basophils (%) (Auto) 0.1% (0-3) Sodium Level 139mEq/L (134-144) Potassium Level 4.4mEq/L (3.5-5.2) Chloride Level 93mEq/L (97-108) Carbon Dioxide Level 30mmol/L (18-29) Blood Urea Nitrogen 52mg/dL (8-27) Creatinine 2.51mg/dL (0.76-1.27) Estimat Glomerular Filtration Rate 27mL/min (>59) Glucose Level 191mg/dL (60-99) Calcium Level 8.1mg/dL (8.5-10.1) Magnesium Level 1.7mg/dL (1.6-2.6) Total Bilirubin 0.3mg/dL (0.0-1.2) Aspartate Amino Transf (AST/SGOT) 20U/L (0-50) Alanine Aminotransferase (ALT/SGPT) 26U/L (0-44) Alkaline Phosphatase 83U/L (25-160) Total Protein 6.7g/dL (6.4-8.4) Albumin 3.2g/dL (3.4-5.0) Hold Mix Top Tube Received (Received) Re-Eval/Medical Decision Med Decision/Clinical Course Onofre is a 76 y/o male who presents to the ED due to increasing SOB since yesterday. Pt has also had abd cramping and diarrhea for 4-5 days. He just recently finished a course of Azithromycin for pneumonia. Inital O2 sat on 5 L NC 87, patient placed on 6 L oxy mask and O2 Sat improved, given duo neb treatment and budesonide neb titrated down to 4 L O2 NC sat in 94-92. DDx Diarrhea: C.Diff colitis, gasteroenteritis, diverticulitis Acute on chronic Kidney injury CMP BUN 52 Creatine 2.5 elevated from baseline CBC ordered low WBC count 3 CMP ordered BUN 52 Creatine 2.5 EKG ordered Duoneb ordered Budsesonide Neb ordered Discharge & Departure Impression: Primary Impression: Shortness of breath Disposition: Home Discharge Condition All VS Reviewed: Yes Condition: Stable Additional Instructions: During you visit to [facility] we obtained blood work for infectious markers, hemoglobin levels, and electrolytes. You labs values showed a mild acute worsening of your kidney function likely due to dehydration and diarrhea, your white blood cell count was not elevated. Your vital signs show significant desaturation off of your home O2 level, overall your breathing improved with nebulizer treatments. Your vital signs were stable and safe for discharge. We will send you home with - Refill for Lantus Insulin - Prescription for Advair and Symbicort inhalers given - Lab slip to complete stool studies as outpatient Continue you nebulizer treatments these are best done with your trilogy machine. However, if you cannot use the trilogy for any reason please tile picker a nebulizer from your local pharmacy. In the meantime we will send you home with inhaler treatments. Do not hesitate to call emergency services or your primary care physician if you experience any of the following. - High unrelenting fevers. - Uncontrolled vomiting. - Severe hypertension. - Syncope or loss of consciousness. - Chest pain or severe shortness of breath. Follow up with your primary care physician in 1-2 weeks time following your emergency department visit for medication checks and general well-being. Referrals: Imani Antony MD (PCP) Attending Statement The patient was seen and examined together with Dr. Guillen on 12/10/16 and I agree with the history, exam and plan as outlined in the note above. copies to: Imani Antony MD, AARON J DO Dec 10, 2016 12:15 Gama Henry MD Dec 10, 2016 15:15
[2016-12-10] MEDS ORDERED: INSU100V7 SUBQ (14:55)
[2016-12-10] MEDS ORDERED: ADV250INH IH (14:55)
[2016-12-10] MEDS ORDERED: INSLIS SUBQ (15:07)
[2016-12-31] MEDS ORDERED: AMT25T PO (10:49)
[2016-12-31] MEDS ORDERED: TORS20TA3 PO (10:49)
[2016-12-31] MEDS ORDERED: RANI300T4 PO (10:49)
[2016-12-31] MEDS ORDERED: OMEP40CA36 PO (10:49)
[2016-12-31] MEDS ORDERED: ALLO300T2 PO (10:49)
[2016-12-31] MEDS ORDERED: LABE100T4 PO (10:49)
[2016-12-31] MEDS ORDERED: CETI5TAB28 PO (10:49)
[2017-01-01] MEDS ORDERED: HYDR115S2 PO (15:30)
[2017-01-21] MEDS ORDERED: AZIT500T5 PO (17:03)
== END 2016-12-10 15:17 | disposition home or self-care (01) ==
LOC: SED 11:02
DX: R06.02 Shortness of breath (principal); R19.7 Diarrhea, unspecified; R10.9 Unspecified abdominal pain; I10 Essential (primary) hypertension; E11.9 Type 2 diabetes mellitus without complications; K21.9 Gastro-esophageal reflux disease without esophagitis; Z95.1 Presence of aortocoronary bypass graft; Z79.4 Long term (current) use of insulin; Z87.891 Personal history of nicotine dependence; Z88.1 Allergy status to other antibiotic agents; Z88.8 Allergy status to other drugs, medicaments and biological substances
CPT/HCPCS: 36415; 71010; 80053; 82948; 83735; 85025; 94640; 94664; 99284; J7620

== ENCOUNTER 2016-12-18 15:34 | Emergency (ER) | payer MEDICARE, OTHER ==
[~2016-12-18 15:34] MED LIST changes: +ADV250INH IH
[2016-12-18 16:18] VITALS: BP 96/40; PULSE 77; RESP 18; O2SAT 96
--- NOTE | 2016-12-18 16:30 | ED.REPORT ---
HPI-General Illness Date of Service Dec 18, 2016 ED Provider: Gama Henry MD The patient is a year old male with history of hypertension, diabetes mellitus type II, atrial fibrillation, hypertension, dyslipidemia, obesity, GI bleeds with anemia, ASCVD, and GERD who was brought to the emergency department by EMS for low blood pressure. The patient was at his doctor's office when he became pale and short of breath. His symptoms gradually worsened and when he was standing for his weight he felt like he was going down but was able to slowly lower himself to the ground. His blood pressure was 88/60. The patient believes he may have accidentally taken a double dose of his blood pressure medication. He felt normal earlier today. His symptoms are improved with lying flat. He was recently admitted for influenza and pneumonia. Nursing Notes Stated Complaint: LOW BLOOD PRESSURE Chief Complaint: General Complaint Nursing Notes Reviewed: Yes Allergies: Coded Allergies: azithromycin (Verified Allergy, Mild, HIVES, 12/10/16) Difficult to know if "Zomax" allergy is zomepiric acid or azithromycin. Both have that trade name. zomepirac (Verified Allergy, Mild, Hives, 12/10/16) Unknown whether Zomax allrgy is zomepiric acid or azithromycin. Both share the same brand name. Scheduled Adalimumab (Humira) 40 Mg/0.8 Ml Pen.ij.kit 40 MG IM q other week Chlorthalidone (Chlorthalidone) 25 Mg Tablet 25 MG PO DAILY Fexofenadine (Aliyah Allergy) 60 Mg Tablet 60 MG PO DAILY Fluticasone/Salmeterol (Advair 250-50 Diskus) 60 Puff/Inh Disk 1 PUFF IH BID Insulin Glargine (Lantus U100 Insulin Vial) 100 Unit/Ml Vial 25 UNIT SUBQ HS Insulin Human Lispro (HumaLOG U100 Insulin Vial) 100 Unit/Ml Unit 0 UNIT SUBQ WMHS Check blood sugars before meals and at bedtime. Use correction factor only before meals. Blood Sugar Lispro Correction: <151, 0 units; 151-175, 1 unit; 176-200, 2 units; 201-225, 3 units; 226-250, 4 units; 251-275, 5 units; 276-300 , 6 units; 301-325, 7 units; 326-350, 8 units; 351-375, 9 units; 376-400, 10 units; >400, 12 units. Insulin Human Lispro (HumaLOG U100 Insulin Vial) 100 Unit/Ml Unit 2-4 UNIT SUBQ TIDAC Check blood sugars before meals and at bedtime. Use correction factor only before meals. Blood Sugar Lispro Correction: <151, 0 units; 151-175, 1 unit; 176-200, 2 units; 201-225, 3 units; 226-250, 4 units; 251-275, 5 units; 276-300 , 6 units; 301-325, 7 units; 326-350, 8 units; 351-375, 9 units; 376-400, 10 units; >400, 12 units. Ipratropium/Albuterol Sulfate (Iprat-Albut 0.5-3(2.5) mg/3 mL Inhalant Soln) 3 Ml Ampul.neb 3 ML NEB QID Labetalol (Labetalol) 200 Mg Tablet 200 MG PO Q8H Losartan Potassium (Losartan Potassium) 50 Mg Tablet 50 MG PO DAILY Multivitamin/Iron/Folic Acid (Centrum Complete Multivit Tab) 1 Each Tablet 1 EACH PO DAILY Torsemide (Demadex) 20 Mg Tablet 40 MG PO 05,17 Scheduled PRN Docusate Calcium (Stool Softener) 240 Mg Capsule 240 MG PO PRN For Constipation Hydrocodone-Acetaminophen 5-325 mg (Hydrocodone-Acetaminophen 5-325 mg) 1 Each Tablet 1 TAB PO Q 4 HOUR PRN PRN For Pain Lorazepam (Lorazepam) 1 Mg Tablet 1 MG PO DAILY PRN PRN anx Temazepam (Temazepam) 15 Mg Capsule 15-30 MG PO HS PRN PRN sleep General Time Seen by MD: 16:29 Chief Complaint Other (shortness of breath) Hx Obtained From: Patient, Spouse, EMS Arrived By: Ambulance Sudden in Onset?: Yes Onset Occurred: 1 - 4 hours ago Symptom Duration: Since onset Severity: Current: No pain currently Severity: Maximum: No pain Recent Healthcare: Recent doctor visit, Recent hospitalization Similar Sx Previous: No Past Medical History Past Medical History Notes: Reactor Operator: Dr. Hope Past Medical History 1. GI bleeds with associated anemia 2. Multifactorial microcytic anemia associated with iron deficiency due to erosive esophagitis, gastric antral ulceration, and Crohn disease. 3. Past history of ASCVD. 4. Hypertension. 5. Obesity. 6. Type 2 diabetes mellitus. 7. Gout. 8. Chronic GERD. 9. Dyslipidemia 10. COPD/pneumonia/GERARDO -on home oxygen, uses CPAP 11. Diverticulitis/hiatal hernia/colon polyps 12. Prostate cancer s/p prostatectomy 13. Alkylosing spondylosis/arthritis/back injur/gout 14. Anxiety 15. Acute kidney injury 16. Coronary artery disease 17. Atrial fibrillation Past Surgical History Radical prostatectomy subsequent incontinence Arm and wrist surgeries Reports: CABG Family History Noncontributory Smoking History Former Smoker Social History Alcohol Use: "Social" Other Social History: Good social support, , Local resident Ambulatory Status Independent Review of Systems +pallor Full Review of Systems Constitutional: Reports: Weakness - generalized Respiratory: Reports: Shortness of breath Neurologic: Reports: Lightheaded, Syncope (near) Complete sys rev & neg: except as marked. Physical Exam Vital Signs Vital Signs Date Time Temp Pulse Resp B/P Pulse Ox O2 Delivery O2 Flow Rate FiO2 12/18/16 17:55 80 113/48 99 Nasal Cannula 2 12/18/16 17:55 70 111/47 98 Nasal Cannula 2 12/18/16 17:55 81 105/54 100 Nasal Cannula 2 12/18/16 16:18 36.6 77 18 96/40 96 Nasal Cannula 6 Initial VS: Reviewed Head / Eyes: Atraumatic, Normocephalic, PERRL ENT: Mucous membranes moist, Conjunctiva normal, No scleral icterus Neck: Supple, Non-tender, Full range of motion Respiratory: Breath sounds normal, Clear to auscultation, No respiratory distress Cardiovascular: Regular rate & rhythm, Heart sounds normal, Intact distal pulses Lymphatic: No lymphadenopathy Extremities: Vascular intact, Neuro intact, No swelling, No tenderness Skin: Warm, Dry, No cyanosis Neurologic: Alert, Oriented, Nonfocal Psychiatric: Mood/affect normal, Behavior normal, Normal thought content General/Constitutional: Awake, Alert, Cooperative Abdomen: Soft, Non-tender, No guarding, No rebound, BS normoactive, No distention Left-sided reducible hernia Interpretation & Diagnostics Lab Results Interpretation Result Diagram: 12/18/16 1554 Test 12/18/16 15:54 Sodium Level 139mEq/L (134-144) Potassium Level 3.8mEq/L (3.5-5.2) Chloride Level 90mEq/L (97-108) Carbon Dioxide Level 33mmol/L (18-29) Blood Urea Nitrogen 57mg/dL (8-27) Creatinine 2.63mg/dL (0.76-1.27) Estimat Glomerular Filtration Rate 25mL/min (>59) Glucose Level 158mg/dL (60-99) Calcium Level 8.0mg/dL (8.5-10.1) Magnesium Level 1.5mg/dL (1.6-2.6) Total Bilirubin 0.2mg/dL (0.0-1.2) Aspartate Amino Transf (AST/SGOT) 32U/L (0-50) Alanine Aminotransferase (ALT/SGPT) 16U/L (0-44) Alkaline Phosphatase 80U/L (25-160) Troponin T 0.141ug/L (0.0-0.011) Total Protein 6.0g/dL (6.4-8.4) Albumin 3.2g/dL (3.4-5.0) ECG Interpretation ECG Interpretation: Atrial fibrillation with a rate of 66 Unchanged from prior EKG Time: 15:48 Interpreted by: ED physician X-Ray Chest Interpretation Chest Xray Interpretation: IMPRESSION: Patchy bibasilar opacities, however appear improved since 12/10/16. Recommend clinical correlation. Dictated by: Taz Aponte M.D. on 12/18/2016 at 16:28 Interpretation / Wet Read by: Interpret - Radiologist Re-Eval/Medical Decision Med Decision/Clinical Course Patient's symptoms have normalized. He feels well. Laboratory data abnormalities are consistent with previous abnormalities. I do not suspect a new dangerous cause for his symptoms. I offered him admission for observation but he has declined this. This seems like a reasonable decision to me. Source of Hx: Old records, EMS, Family Time of Eval: 17:55 Re-Evaluation/Progress Note: Rechecked the patient. Discussed results and option for disposition. He feels comfortable being discharged home. All questions were addressed. Counseled Regarding: Diagnosis, Lab results, Need for follow-up, When/why to return to ED Discharge & Departure Primary Impression: Near syncope Additional Impression: Hypotension Hypotension type: unspecified hypotension type Qualified Code: I95.9 - Hypotension, unspecified Disposition: Home Discharge Condition All VS Reviewed: Yes Condition: Stable Patient Instructions: Hypotension (ED) Additional Instructions: Thank you for entrusting us with your care today. Your labs, EKG, and chest x- ray today are reassuring. There is no evidence of anything acutely dangerous at this time. No dangerous cause for your low blood pressure episode was discovered. Continue to take your medication as previously prescribed. Followup with your regular doctor next week for re-evaluation. Please return to the emergency department for any new or concerning symptoms. Referrals: Imani Antony MD (PCP) Scribe Attestation Portions of this note were transcribed by Emma Rosenbaum. I, Dr. Henry personally performed the history, physical exam and medical decision-making; I reviewed and confirmed the accuracy of the information in the transcribed note. Signed by: Krishna Albrecht, 12/18/2016 at 1807. copies to: Imani Antony MD, Kirk H MD Dec 18, 2016 16:30 Emma Rosenbaum Dec 18, 2016 16:43
--- NOTE | 2016-12-18 16:36 | DRSVH ---
PROCEDURE: X-RAY CHEST ONE VIEW, PORTABLE ([id number]) INDICATIONS: SYNCOPY TECHNIQUE: One view of the chest was acquired. COMPARISON: [facility], CR, XR CHEST 1VW (PORTABLE), 12/10/2016, 11:56. FINDINGS: Surgical changes and devices: Sternotomy wires and CABG clips as before. Lungs and pleura: No pleural effusions or pneumothorax. Bibasilar patchy opacities are, however thes e appear improved since 12/10/16, in particular in the retrocardiac region. No definite new consolidati on. Mediastinum: Mediastinal contours appear normal. Heart size is normal. Bones and chest wall: No suspicious bony lesions. Overlying soft tissues appear unremarkable. IMPRESSION: Patchy bibasilar opacities, however appear improved since 12/10/16. Recommend clinical noe elation. Dictated by: Taz Aponte M.D. on 12/18/2016 at 16:28 Approved by: Taz Aponte M.D. on 12/18/2016 at 16:29
[2016-12-18 16:44] LABS: Magnesium 1.5 mg/dL (1.6-2.6)
[2016-12-18 16:47] LABS: TROPONIN T 0.141 ug/L (0.0-0.011)
[2016-12-18 17:55] VITALS: BP_SYST 105; BP_SYST 111; BP_SYST 113; BP_DIAS 47; BP_DIAS 48; BP_DIAS 54; PULSE 70; PULSE 80; PULSE 81; O2SAT 100; O2SAT 98; O2SAT 99
[2016-12-18 18:10] LABS: BASOPHILS % (AUTO) 1.4 % (0-3); EOSINOPHILS % (AUTO) 0.3 % (0-5); MONOCYTES % (AUTO) 5.2 % (4-12); Mean Corpuscular Hemoglobin 29.2 pg (27.0-35.0); NEUTROPHILS % (AUTO) 65.8 % (40-74); Platelet Count 255 bil/L (150-400)
[2016-12-18 18:29] VITALS: BP 101/65; PULSE 81; RESP 21; O2SAT 100
[2016-12-31] MEDS ORDERED: RANI300T4 PO (10:49)
[2016-12-31] MEDS ORDERED: AMT25T PO (10:49)
[2016-12-31] MEDS ORDERED: LABE100T4 PO (10:49)
[2016-12-31] MEDS ORDERED: TORS20TA3 PO (10:49)
[2016-12-31] MEDS ORDERED: CETI5TAB28 PO (10:49)
[2016-12-31] MEDS ORDERED: OMEP40CA36 PO (10:49)
[2016-12-31] MEDS ORDERED: ALLO300T2 PO (10:49)
[2017-01-01] MEDS ORDERED: HYDR115S2 PO (15:30)
[2017-01-21] MEDS ORDERED: AZIT500T5 PO (17:03)
== END 2016-12-18 18:33 | disposition home or self-care (01) ==
LOC: EDUNIT# 15:34 → SED 15:34 → EDBD 15:34 → SED 18:33
DX: R55 Syncope and collapse (principal); I95.9 Hypotension, unspecified; I10 Essential (primary) hypertension; E11.9 Type 2 diabetes mellitus without complications; I48.91 Unspecified atrial fibrillation; E78.5 Hyperlipidemia, unspecified; E66.9 Obesity, unspecified; K92.2 Gastrointestinal hemorrhage, unspecified; I25.10 Atherosclerotic heart disease of native coronary artery without angina pectoris; K21.9 Gastro-esophageal reflux disease without esophagitis; J44.9 Chronic obstructive pulmonary disease, unspecified; Z95.1 Presence of aortocoronary bypass graft; Z87.891 Personal history of nicotine dependence; Z87.01 Personal history of pneumonia (recurrent); Z99.81 Dependence on supplemental oxygen; Z79.4 Long term (current) use of insulin; Z88.1 Allergy status to other antibiotic agents; Z88.6 Allergy status to analgesic agent

== ENCOUNTER 2017-01-28 13:45 | Inpatient (IN) | payer MEDICARE, OTHER ==
[2017-01-28] VITALS (8 sets, daily range): BP systolic 142–175; BP diastolic 57–90; PULSE 69–98; RESP 20–29; O2SAT 88–97
[~2017-01-28] VITALS: Ht 177.8 cm; Wt 125.9 kg
[~2017-01-28 13:45] MED LIST changes: +ALLO300T2 PO; +AMT25T PO; +AZIT500T5 PO; +CETI5TAB28 PO; -FEXO-15 PO; +HYDR115S2 PO; -IPRA3AMP NEB; +LABE100T4 PO; -LABE200T PO; +OMEP40CA36 PO; +RANI300T4 PO; -TORS20TA PO; +TORS20TA3 PO
--- NOTE | 2017-01-28 14:54 | DRSVH ---
PROCEDURE: X-RAY CHEST ONE VIEW, PORTABLE ([id number]) INDICATIONS: dyspnea TECHNIQUE: One view of the chest was acquired. COMPARISON: [facility], CR, XR CHEST 1VW, 01/26/2017, 14:02. [facility], CR, XR CHEST 1VW (PORTABLE), 12/18/2016, 15:49. FINDINGS: Surgical changes and devices: Sternotomy and CABG. Lungs and pleura: Small to moderate bilateral pleural effusions , unchanged from 01/18/2017. No pneumo thorax. Increased pulmonary vascularity consistent with pulmonary congestion. Mediastinum: Mediastinal contours appear normal. Heart size is mildly increased. Bones and chest wall: No suspicious bony lesions. Overlying soft tissues appear unremarkable. IMPRESSION: Congestive heart failure and small to moderate bilateral effusions. Dictated by: Ángela Pierson M.D. on 01/28/2017 at 14:53 Approved by: Ángela Pierson M.D. on 01/28/2017 at 14:54
--- NOTE | 2017-01-28 15:18 | ED.REPORT ---
HPI-Dyspnea / Wheezing Date of Service Jan 28, 2017 ED Provider: Rafael Mullen MD A 76 year old male with history of COPD, CAD, acute kidney injury, hypertension , diabetes mellitus type II, A-fib, hypertension, dyslipidemia, obesity, GI bleeds with microcytic anemia, ASCVD, Crohn's disease and GERD presents to the ED complaining of SOB that began this morning. Patient was admitted for pneumonia and worsening dementia in 11/2016. Patient states that he has been short of breath since 11/2016 but his symptoms became increasingly worse this morning. Symptoms associated with the recent SOB include visual hallucinations, insomnia for the past 2 nights and decreased appetite over the past few days. He currently takes temazepam 15 mg and lorazepam intermittently as needed. He reports taking Temazepam this morning with little relief. He is currently on 6 L of home O2 and last used his concentrator this morning after symptoms onset. Patient is a difficult historian. Nursing Notes Stated Complaint: DEMENTIA,PNEUMONIA,ALMOST OUT OF OXYGEN Chief Complaint: Respiratory Complaints Nursing Notes Reviewed: Yes Allergies: Coded Allergies: zomepirac (Verified Allergy, Mild, Hives, 01/28/17) Unknown whether Zomax allrgy is zomepiric acid or azithromycin. Both share the same brand name. Scheduled Allopurinol (Allopurinol) 300 Mg Tablet 300 MG PO DAILY Amitriptyline (Amitriptyline) 25 Mg Tab 25 MG PO HS Atorvastatin (Lipitor) 10 Mg Tab 10 MG PO HS Azithromycin (Azithromycin) 500 Mg Tablet 500 MG PO DAILY Cetirizine Chew (Cetirizine Chew) 10 Mg Tab.chew 10 MG PO QAM Diltiazem ER (Diltiazem ER) 180 Mg Cap.er.24h 180 MG PO QAM Insulin Aspart (NovoLOG U100 Insulin Vial) 100 U/Ml U 2-6 UNIT SUBQ ACHS Insulin Glargine (Lantus U100 Insulin Vial) 100 Unit/Ml Vial 20 UNIT SUBQ HS Ipratropium/Albuterol Sulfate (Iprat-Albut 0.5-3(2.5) mg/3 mL Inhalant Soln) 3 Ml Ampul.neb 3 ML IH 2-3x/day Multivitamin/Iron/Folic Acid (Centrum Complete Multivit Tab) 1 Each Tablet 1 EACH PO QAM Omeprazole (Omeprazole) 40 Mg Capsule.dr 40 MG PO BIDAC Pramipexole Dihydrochloride (Mirapex) 0.5 Mg Tablet 0.5 MG PO HS Ranitidine (Ranitidine) 300 Mg Tablet 300 MG PO HS Torsemide (Torsemide) 10 Mg Tablet 20 MG PO QAM Scheduled PRN Albuterol HFA (Proair HFA) 8.5 Gm Hfa.aer.ad 2 PUFFS INHALATION Q4H PRN PRN For Shortness of Breath Docusate Calcium (Stool Softener) 240 Mg Capsule 240 MG PO PRN For Constipation Hydrocodone-Acetaminophen 5-325 mg (Hydrocodone-Acetaminophen 5-325 mg) 1 Each Tablet 1 TAB PO Q 4 HOUR PRN PRN For Pain Hydrocodone/Chlorphen Polis (Tussionex Pennkinetic Susp) 480 Ml Michelle.er.12h 10 ML PO Q8H PRN PRN For Cough Lorazepam (Lorazepam) 1 Mg Tablet 1 MG PO DAILY PRN PRN anx Temazepam (Temazepam) 15 Mg Capsule 15-30 MG PO HS PRN PRN sleep General Time Seen by MD: 15:15 Chief Complaint Shortness of breath Hx Obtained From: Patient Arrived By: Walk-in Sudden in Onset?: No Onset Occurred: 5 - 8 hours ago Symptom Duration: Since onset Location: : None Pertinent Negative: Pt denies other symptoms Recent Healthcare: Recent doctor visit, Recent hospitalization Past Medical History Past Medical History Notes: Sales Promotion Manager: Dr. Hope PCP: Dr. Imani Antony Oncologist: Dr. Rhoades Past Medical History 1. GI bleeds with associated anemia 2. Multifactorial microcytic anemia associated with iron deficiency due to erosive esophagitis, gastric antral ulceration, and Crohn disease. 3. Past history of ASCVD. 4. Hypertension. 5. Obesity. 6. Type 2 diabetes mellitus. 7. Gout. 8. Chronic GERD. 9. Dyslipidemia 10. COPD/pneumonia/GERARDO -on home oxygen, uses CPAP 11. Diverticulitis/hiatal hernia/colon polyps 12. Prostate cancer s/p prostatectomy 13. Alkylosing spondylosis/arthritis/back injur/gout 14. Anxiety 15. Acute kidney injury 16. Coronary artery disease 17. Atrial fibrillation Past Surgical History Radical prostatectomy subsequent incontinence Arm and wrist surgeries Thoracentesis Reports: CABG Family History Noncontributory Smoking History Former Smoker Social History Alcohol Use: "Social" Other Social History: Good social support, , Local resident Ambulatory Status Independent Review of Systems Decreased appetite Constitutional: Denies: Chills, Fever Respiratory: Reports: Shortness of breath Cardiovascular: Denies: Chest pain Complete sys rev & neg: except as marked. GI: Denies: Nausea, Vomiting Neurologic: Denies: Change LOC Psychiatric: Reports: Hallucinations, visual (Reports asociated with SOB), Insomnia (Reports associated with SOB) Physical Exam Initial Vital Signs Vital Signs (First) Date Time Temp Pulse Resp B/P Pulse Ox O2 Delivery O2 Flow Rate FiO2 01/28/17 13:50 36.2 69 20 149/90 91 Nasal Cannula 5 Initial VS: Reviewed Head / Eyes: Atraumatic, Normocephalic, PERRL Extremities: Vascular intact, Neuro intact, No swelling, No tenderness Skin: Warm, Dry, No cyanosis Neurologic: Alert, Oriented, Nonfocal Psychiatric: Mood/affect normal, Behavior normal, Normal thought content General/Constitutional: Awake, Alert GENERAL: Patient is a rambling historian Neck: Atraumatic, Supple Respiratory / Chest: Atraumatic, No wheezing Diminished Breath Sounds: Positive: Decreased bilateral RESPIRATORY: Poor air movement Cardiovascular: Heart rate NL, Regular rhythm, Heart sounds NL, No gallop, No murmurs, No rubs Lower Ext Edema: Positive: Bilateral 2+ CARDIO: Mild edema in the lower extremitites Lower Extremity / Pelvis / MS: Atraumatic, Neurologic intact, Vascular intact Upper Extremity / MS: Atraumatic, Inspection NL, Neurologic intact, Vascular intact Interpretation & Diagnostics Blood Gas Report pH 7.250 pCO2 84 pO2 21.3 cHCO3 35.7 PREVIOUS - 11/23 7.425 74.9 4 48.2 Lab Results Interpretation Result Diagram: 01/28/17 1646 01/28/17 2043 Test 01/28/17 16:35 01/28/17 16:46 Urine Color Yellow (YELLOW) Urine Appearance Clear (CLEAR,HAZY) Urine pH 5.0 (5.0-8.0) Urine Specific Placida 1.025 (1.003-1.035) Urine Protein Negativemg/dL (NEG,TRACE) Urine Glucose (UA) Negativemg/dL (NEGATIVE) Urine Ketones Negativemg/dL (NEGATIVE) Urine Occult Blood Negative (NEGATIVE) Urine Nitrite Negative (NEGATIVE) Urine Bilirubin Negative (NEGATIVE) Urine Urobilinogen Normalmg/dL (NORMAL) Urine Leukocyte Esterase Negative (NEGATIVE) Urine RBC 0-2/hpf (0-2) Urine WBC 0-5/hpf (0-5) Urine Epithelial Cells Few/hpf (NONE-MOD) Urine Crystals None seen (NONE SEEN) Urine Bacteria Few/hpf (NONE-FEW) Urine Hyaline Casts None/lpf (NONE) Urine Granular Casts None seen (NONE SEEN) Urine Waxy Casts None seen (NONE SEEN) Urine Red Blood Cell Casts None seen (NONE SEEN) Urine White Blood Cell Casts None seen (NONE SEEN) Urine Mucus None seen (None Seen) Urine Trichomonas None seen (NONE SEEN) Urine Yeast None (NONE SEEN) Urinalysis Comment None Urine Culture Reflexed Not indicated Hold Urine Received (Received) White Blood Count 8.7th/mm3 (3.8-10.1) Red Blood Count 3.16mil/mm3 (4.40-5.80) Hemoglobin 9.0g/dL (13.8-17.2) Hematocrit 31.7% (41.0-50.0) Mean Corpuscular Volume 100.3fL (81-100) Mean Corpuscular Hemoglobin 28.5pg (27.0-35.0) Mean Corpuscular Hemoglobin Concent 28.4% (32.0-37.0) Red Cell Distribution Width 20.1% (12.3-15.4) Platelet Count 276bil/L (150-400) Neutrophils (%) (Auto) 78.6% (40-74) Lymphocytes (%) (Auto) 10.1% (14-46) Monocytes (%) (Auto) 8.3% (4-12) Eosinophils (%) (Auto) 0.3% (0-5) Basophils (%) (Auto) 0.2% (0-3) Prothrombin Time 10.4sec (8.1-12.5) Prothromb Time International Ratio 0.97ratio Total Bilirubin 0.3mg/dL (0.0-1.2) Aspartate Amino Transf (AST/SGOT) 55U/L (0-50) Alanine Aminotransferase (ALT/SGPT) 24U/L (0-44) Alkaline Phosphatase 119U/L (25-160) Troponin T 0.078ug/L (0.0-0.011) Pro-B-Type Natriuretic Peptide 4498pg/mL (0-486) Total Protein 7.6g/dL (6.4-8.4) Albumin 3.7g/dL (3.4-5.0) Lab Results Interpretation: (11/2016) Troponin half of previous BNP 498 K+ 2.8 ECG Interpretation ECG Interpretation: Atrial Fibrillation Rate 70 RBBB and LPFB Time: 15:00 Interpreted by: ED physician Normal ECG Interpretation: No change from prior ECGs (12/18/2016) X-Ray Chest Interpretation Chest Xray Interpretation: IMPRESSION: Congestive heart failure and small to moderate bilateral effusions. Dictated by: Ángela Pierson M.D. on 01/28/2017 at 14:53 Interpretation / Wet Read by: Interpret - ED physician Re-Eval/Medical Decision Med Decision/Clinical Course Elderly male with complex past medical history and hypoxic respiratory disease, as well as recurrent pleural effusions. He presents with dyspnea, is noted and worsening acidosis and increasing PCO2. Additionally he has chronic renal failure, changes consistent with congestive failure on his ECG and hyperkalemia. His elevated troponin is actually significantly less than the last value obtained in the hospital. He did not have hyperkalemic changes on his ECG. He was given calcium gluconate insulin and dextrose, we also gave Kayexalate and Lasix 20 mg IV. Nephrology was consulted will see the patient in the morning and is to be admitted to the hospitalist service. Re-Evaluation/Progress #1: Time of Eval: 16:27 Re-Evaluation/Progress Note: Patient reports that he would like to be discharged at this time. Re-Evaluation/Progress #2: Time of Eval: 16:27 Patient Status: Condition improved Re-Evaluation/Progress Note: Patient reports that his condition is improved and he feels much warmer. Re-Evaluation/Progress #3: Time of Eval: 17:33 Patient Status: Condition improved Re-Evaluation/Progress Note: Patient is informed of his lab results including elevated K+ and elevated Troponin. Patient states that this is his baseline. Consultation #1: Referral / Consult Name: Derian Bteh DO Call Returned at: 18:01 Principal Electrical Engineer: Will see patient, Agrees with eval, Agrees with plan Note: Will consult Consultation #2: Referral / Consult Name: Gaetano Gandara MD Consulted With: Hospitalist Call Returned at: 18:14 Principal Electrical Engineer: Will see patient, Agrees with eval, Agrees with plan, Accepts admit Counseled Regarding: Diagnosis, Lab results, Need for admission Discharge & Departure Impression: Primary Impression: Hyperkalemia Additional Impressions: Hypoxemia Acute on chronic heart failure Heart failure type: unspecified heart failure type Qualified Code: I50.9 - Heart failure, unspecified Disposition: ADMITTED TO HOSPITAL Discharge Condition All VS Reviewed: Yes Condition: Stable Referrals: Imani Antony MD (PCP) Scribe Attestation Portions of this note were transcribed by Allison Carbajal. Dr. Sebas Main personally performed the history, physical exam and medical decision-making; I reviewed and confirmed the accuracy of the information in the transcribed note. Signed by: Krishna Stacy, 01/28/171829. copies to: Imani Antony MD, Donald L MD Jan 28, 2017 15:[address] [facility] Jan 28, 2017 16:12 Note: Will consult Consultation #2: Referral / Consult Name: Gaetano Gandara MD Consulted With: Hospitalist Call Returned at: 18:14 Principal Electrical Engineer: Will see patient, Agrees with eval, Agrees with plan, Accepts admit Counseled Regarding: Diagnosis, Lab results, Need for admission Discharge & Departure Impression: Primary Impression: Hyperkalemia Additional Impression: Hypoxemia Disposition: ADMITTED TO HOSPITAL Discharge Condition All VS Reviewed: Yes Condition: Stable Referrals: Imani Antony MD (PCP) Scribe Attestation Portions of this note were transcribed by Allison Carbajal. Dr. Sebas Main personally performed the history, physical exam and medical decision-making; I reviewed and confirmed the accuracy of the information in the transcribed note. Signed by: Krishna Stacy, 01/28/17 1830. copies to: Imani Antony MD, Donald L MD Jan 28, 2017 15:[address] [facility] Jan 28, 2017 16:12 Disposition: ADMITTED TO HOSPITAL Discharge Condition All VS Reviewed: Yes Condition: Stable Referrals: Imani Antony MD (PCP) Scribe Attestation Portions of this note were transcribed by Allison Carbajal. Dr. Sebas Main personally performed the history, physical exam and medical decision-making; I reviewed and confirmed the accuracy of the information in the transcribed note. Signed by: Krishna Stacy, 01/28/17 1830. copies to: Imani Antony MD, Donald L MD Jan 28, 2017 15:18 [facility]ISON CARBAJAL Jan 28, 2017 16:12
--- NOTE | 2017-01-28 16:51 | ABG ---
DateTimeAnalyzed 16:47:00 -_ pH ____7.250 - pCO2 ___84.3__ -mmHg pO2 ___21.3__ -mmHg HCO3- ___35.7__ -mmol/L ABE ____7.0__ -mmol/L tHb ____9.3__ -g/dL O2Hb ___27.8__ -% COHb ____1.2__ -% MetHb ____1.1__ -% sO2 ___28.5__ -% FIO2 ___40.0__ -% Drawn By lab - Date/Time Notified____ 16:50:00 -_ Liter_Flow ____6.0__ -L/min Oxygen Device 1 __CANNULA - Notified By JJ - Notified Whom _DR SLACK - B 764 -mmHg tO2 ____3.7__ -Vol% David test N/A -
[2017-01-28 16:53] LABS: APPEARANCE,URINE CLEAR (CLEAR,HAZY); COLOR,URINE YELLOW (YELLOW); OCCULT BLOOD,URINE NEGATIVE (NEGATIVE); UROBILINOGEN,URINE NORMAL (NORMAL)
[2017-01-28 16:55] LABS: BASOPHILS % (AUTO) 0.2 % (0-3); EOSINOPHILS % (AUTO) 0.3 % (0-5); MONOCYTES % (AUTO) 8.3 % (4-12); Mean Corpuscular Hemoglobin 28.5 pg (27.0-35.0); Mean Corpuscular Volume 100.3 fL (81-100); NEUTROPHILS % (AUTO) 78.6 % (40-74); Platelet Count 276 bil/L (150-400)
[2017-01-28 17:13] LABS: INR 0.97 ratio
[2017-01-28 17:32] LABS: TROPONIN T 0.078 ug/L (0.0-0.011)
[2017-01-28] MEDS ORDERED: Insulin Human REGular-Omnicell 100 Unit/mL IV ONE (17:45)
[2017-01-28] MEDS ORDERED: Calcium GLUCOnate 10% (Gm) 1 Gm/10 mL Inj IVPUSH PRN (17:45)
[2017-01-28] MEDS ORDERED: DILT180C83 PO (17:49)
[2017-01-28] MEDS ORDERED: ALBU8.5H2 INHALATION (17:54)
[2017-01-28] MEDS ORDERED: 0.9% Sodium Chloride 50 ML ONE (17:59)
[2017-01-28] MEDS ORDERED: INSU100V7 SUBQ (18:14)
[2017-01-28] MEDS ORDERED: CETI10TA20 PO (18:14)
[2017-01-28] MEDS ORDERED: TORS10TA5 PO (18:14)
[2017-01-28] MEDS ORDERED: INSU100C8 SUBQ (18:14)
[2017-01-28] MEDS ORDERED: Furosemide 10 mg/mL 4 mL Inj IVPUSH ONE (18:15)
[2017-01-28] MEDS ORDERED: Senna-Docusate 8.6-50 mg Tablet PO PRN (18:15)
[2017-01-28] MEDS ORDERED: Polyethylene Glycol (PEG) 17 Gm Powder PO PRN (18:15)
[2017-01-28] MEDS ORDERED: Alum-Mag Hydrox-Simeth 30 mL Suspension PO PRN (18:15)
[2017-01-28] MEDS ORDERED: Ondansetron 2 mg/mL 2 mL Inj IVPUSH PRN (18:15)
[2017-01-28] MEDS ORDERED: PRAM0.5T3 PO (18:17)
[2017-01-28] MEDS ORDERED: IPRA3AMP IH (18:20)
[2017-01-28] MEDS ORDERED: ATRV10T PO (18:20)
[2017-01-28] MEDS: Furosemide 10 mg/mL 4 mL Inj IVPUSH SCH (18:30)
--- NOTE | 2017-01-28 18:53 | NUR ---
Admit nurse note Admission assessment completed in the ER. PT. denies complaints, says he "never felt bad." reports they came here because he was walking naked through the adult family home they own. Pt. remembers "only laughter." Pt. started home oxygen at 4-6L [employer] 24/05 of this year. At that time he stopped using his CPAP. Sleep apnea protocol to be initiated upon arrival to unit. Pt. is on continuous pulse oximetry and high flow [employer] oxygen at present. Allergy verified and sticker placed on nameband. Pt. oriented to room, call [facility] and fall precautions. DPOA form requested by pt. and to be given by social work.
[2017-01-28] MEDS ORDERED: Glucose 40% Oral Gel 15 Gm Tube PO PRN (19:05)
[2017-01-28] MEDS ORDERED: MethylprednisoLONE Sodium Succinate 62.5 mg/mL 2 mL Inj IVPUSH ONE (21:55)
[2017-01-28] MEDS: Insulin LISPRO 300 Unit/3 mL Inj SUBQ SCH (22:00)
--- NOTE | 2017-01-28 22:00 | PCM.HPMED ---
Subjective Date of Service Jan 28, 2017 Primary Provider: Admitting Physician: Primary Care Physician: Imani Antony MD Attending Physician: Admit Status: From the Emergency Department, Full Admit, [facility] Telemetry Chief Complaint: Shortness of breathe History of Present Illness: Bradley Donovan is a 76 year old male with Hypertension, diabetes mellitus type II , Chronic A-fib, Crohn's disease and GERD presents to [facility] emergency department complaining of Shortness of breathe that began this morning. Patient reporting ongoing dyspnea for several week and progressively getting worst. Symptoms associated with the recent SOB include visual hallucinations, insomnia for the past 2 nights and decreased appetite over the past few days. He is currently on 6 L of home O2 and last used his concentrator this morning after symptoms onset. Patient was admitted for pneumonia and worsening dementia in 11/2016. He currently takes temazepam 15 mg and lorazepam intermittently as needed. He reports taking Temazepam this morning with little relief. He recently had a thoracentesis 2 days ago. He felt better right after but started having shortness of breathe again Case discussed with Dr Mullen, patient still dyspneic requiring 8 Liter of oxygen. Still symptomatic despite neb treatment and diuretic therapy Review of Systems: Pertinent positives as noted in HPI. All other systems were reviewed and are negative Allergies Coded Allergies: zomepirac (Verified Allergy, Mild, Hives, 01/28/17) Unknown whether Zomax allrgy is zomepiric acid or azithromycin. Both share the same brand name. Home Medications From Bradley Ledesma. [id number] 01/05/2017 10:20 AM 11/06 allopurinol 300 mg tablet take 1 tablet by oral route every day amitriptyline 25 mg tablet take 1 tablet by oral route every day at bedtime Ativan 1 mg tablet take 1 tablet (1MG) by ORAL route every day as needed Cartia XT 180 mg capsule,extended release take 1 capsule by oral route every day Centrum Complete take 1 tablet by oral route every day with food cetirizine 10 mg tablet take 1 tablet by oral route every day Lantus 100 unit/mL subcutaneous solution inject by subcutaneous route as per insulin protocol lidocaine 3 % lotion apply by topical route 3 times every day to the affected area(s) losartan 50 mg tablet take 1 tablet by oral route every day Novolog 100 unit/mL subcutaneous solution inject by subcutaneous route per prescriber's instructions. Insulin dosing requires individualization. Prilosec 40 mg capsule,delayed release take 1 capsule (40MG) by ORAL route 2 times every day before a meal temazepam 15 mg capsule take 1 -2 capsules by oral route every day at bedtime as needed torsemide 10 mg tablet take 1 tablet by oral route 2 times every day PMH multifactorial microcytic anemia associated with iron deficiency due to erosive esophagitis, gastric antral ulceration, and Crohn disease. Cataracts Moderate MR Chronic HFpEF Coronary artery disease s/p CABG 2010 three-vessel Dyslipidemia Hypertension COPD with chronic respiratory hypoxia failure GERARDO on CPAP Diverticulitis/hiatal hernia/colon polyps Prostatectomy for prostate cancer Alkylosing spondylosis /rheumatoid arthritis/back injury/gout Diabetes type 2 Anxiety Chronic Kidney disease stage 3 . Surgical History CABG Prostatectomy Family History No autoimmune disease Social History Hx Alcohol Use: Yes (rarely) Hx Substance Use: No Hx Tobacco Use: Yes Smoking Status: Former Smoker Living Arrangement: with Family (with ) Exam Vital Signs Vital Sign - Last Date Time Temp Pulse Resp B/P Pulse Ox O2 Delivery O2 Flow Rate FiO2 01/28/17 16:55 98 22 142/61 91 Nasal Cannula 6 01/28/17 13:50 36.2 Exam General: Alert, Oriented X3, Cooperative, No acute Distress Eyes: PERRLA, Scleral Anicteric Mouth: Mouth Normal, Mucous Membranes Moist/[place] Neck: Supple, no Thyromegaly, trachea central. Chest & Lungs: scattered crackles at bases with decreased breathe sounds Cardiovascular: Normal S1, Normal S2, No Murmurs/Rubs/Gallops, Irregularly irregular (No JVD, 3 + peripheral edema) Pulses: Radial (present and equal), Dorsalis Pedi (present and equal) Abdomen: Soft, Non-tender, Non-distended, Normoactive bowel tones. Musculoskeletal: Unremarkable. Normal range of motion, no swollen or erythematous joints Extremities: 3 + pitting edema, no cyanosis, no clubbing. Skin: No rashes. Warm and dry, no erythematous areas Neurological: Grossly neurologically intact, has generalized weakness, Normal Speech, Sensation Intact Lymphatic: Lymph nodes Cervical and Axillary not palpable. Lab and Diagnostics Labs Laboratory Tests Test 01/28/17 16:35 01/28/17 16:46 Urine Color Yellow (YELLOW) Urine Appearance Clear (CLEAR,HAZY) Urine pH 5.0 (5.0-8.0) Urine Specific [place] 1.025 (1.003-1.035) Urine Protein Negativemg/dL (NEG,TRACE) Urine Glucose (UA) Negativemg/dL (NEGATIVE) Urine Ketones Negativemg/dL (NEGATIVE) Urine Occult Blood Negative (NEGATIVE) Urine Nitrite Negative (NEGATIVE) Urine Bilirubin Negative (NEGATIVE) Urine Urobilinogen Normalmg/dL (NORMAL) Urine Leukocyte Esterase Negative (NEGATIVE) Urine RBC 0-2/hpf (0-2) Urine WBC 0-5/hpf (0-5) Urine Epithelial Cells Few/hpf (NONE-MOD) Urine Crystals None seen (NONE SEEN) Urine Bacteria Few/hpf (NONE-FEW) Urine Hyaline Casts None/lpf (NONE) Urine Granular Casts None seen (NONE SEEN) Urine Waxy Casts None seen (NONE SEEN) Urine Red Blood Cell Casts None seen (NONE SEEN) Urine White Blood Cell Casts None seen (NONE SEEN) Urine Mucus None seen (None Seen) Urine Trichomonas None seen (NONE SEEN) Urine Yeast None (NONE SEEN) Urinalysis Comment None Urine Culture Reflexed Not indicated Hold Urine Received (Received) White Blood Count 8.7th/mm3 (3.8-10.1) Red Blood Count 3.16mil/mm3 (4.40-5.80) Hemoglobin 9.0g/dL (13.8-17.2) Hematocrit 31.7% (41.0-50.0) Mean Corpuscular Volume 100.3fL (81-100) Mean Corpuscular Hemoglobin 28.5pg (27.0-35.0) Mean Corpuscular Hemoglobin Concent 28.4% (32.0-37.0) Red Cell Distribution Width 20.1% (12.3-15.4) Platelet Count 276bil/L (150-400) Neutrophils (%) (Auto) 78.6% (40-74) Lymphocytes (%) (Auto) 10.1% (14-46) Monocytes (%) (Auto) 8.3% (4-12) Eosinophils (%) (Auto) 0.3% (0-5) Basophils (%) (Auto) 0.2% (0-3) Prothrombin Time 10.4sec (8.1-12.5) Prothromb Time International Ratio 0.97ratio Sodium Level 135mEq/L (134-144) Potassium Level 6.7mEq/L (3.5-5.2) Chloride Level 92mEq/L (97-108) Carbon Dioxide Level 27mmol/L (18-29) Blood Urea Nitrogen 64mg/dL (8-27) Creatinine 2.09mg/dL (0.76-1.27) Estimat Glomerular Filtration Rate 33mL/min (>59) Glucose Level 184mg/dL (60-99) Lactic Acid Level 2.3mmol/L (0.4-2.0) Calcium Level 8.9mg/dL (8.5-10.1) Total Bilirubin 0.3mg/dL (0.0-1.2) Aspartate Amino Transf (AST/SGOT) 55U/L (0-50) Alanine Aminotransferase (ALT/SGPT) 24U/L (0-44) Alkaline Phosphatase 119U/L (25-160) Troponin T 0.078ug/L (0.0-0.011) Pro-B-Type Natriuretic Peptide 4498pg/mL (0-486) Total Protein 7.6g/dL (6.4-8.4) Albumin 3.7g/dL (3.4-5.0) Result Diagram: 01/28/17 1646 01/28/17 1646 X-Rays, CTs and MRIs X-RAY CHEST ONE VIEW, PORTABLE 01/28 IMPRESSION: Congestive heart failure and small to moderate bilateral effusions. Dictated by: Ángela Pierson M.D. on 01/28/2017 at 14:53 Approved by: Ángela Pierson M.D. on 01/28/2017 at 14:54 Assessment & Plan Bradley Donovan is a 76 year old male with Hypertension, diabetes mellitus type II , Chronic A-fib, Crohn's disease and GERD presents to [facility] emergency department complaining of Shortness of breathe 1. Acute on chronic respiratory failure, hypoxic, present on admission Likely due acute Congestive heart failure. Other causes includes recurrent Pleural effusion (recent thoracentesis), Pneumonia not likely based on current data and clinical picture. Progressive Sleep apnea and Obesity Hypoventilation syndrome are also possible - continue oxygen supplementation (5L oxygen at home) - treat underlying cause (see below) 2. Acute on Chronic heart failure with preserved Ejection Function. Present on admission Patient taking Torsemide as outpatient and is compliant with other medications. - monitor weight and fluid status - diuretic therapy with Lasix 40 mg IV bid - repeat echo requested -educated and patient to check weight daily at home to track fluid status - Palliative care consult requested 3 COPD exacerbation. Present on admission Sputum changes with increased cough. - Solu-Medrol 125 mg IV, transition to Prednisone 40 mg tomorrow - DuoNeb scheduled 4. Elevated troponin. Present on admission Likely demand ischemia although several risk factors of Non ST elevation [place] - trending troponin overnight 5 Lactic acidosis. Present on admission Due to tissue hypoxia - trending levels till normal 6 Acute Hyperkalemia. Present on admission Etiology unclear but includes: NANCY, RTA Type IV, uncontrolled DM II or ARB - Patient received Kayexalate - No EKG changes - monitor on telemetry - holding Losartan for now 7 Acute on chronic kidney injury, present on admission, ongoing Multifactorial secondary to overdiuresis, cardiorenal syndrome, ATN, Diabetes Type II, possible underlying disease of RTA type IV (hypoaldosteronism) - avoid nephrotoxic insults. - consider Nephrology consult if no improvement in hyperkalemia tomorrow 8 Type II DM, Chronic - medium Lispro correction algorithm - checking A1c - continuing Lantus (need to determine dose) 9 Persistent Atrial fibrillation, rate controlled -Patient refusing Coumadin. - monitor on telemetry - continue rate control with Diltiazem 180 mg daily 10 Obesity with Sleep Apnea Patient no compliant with CPAP machine 11 Erosive esophagitis, gastric antral ulceration, Crohn disease, No active bleeding with patient taking Prilosec as outpatient - Continue Protonix 40 mg Daily - Acetaminophen as needed for mild pain/fever/headache - Bowel regimen as needed - Antiemetic as needed Patient admitted under inpatient status with expected length of stay > 2 midnights for severity of present symptoms, complexities of treatment plan and risk for adverse event . Resuscitation Status: Limited Interventions Gaetano Gandara MD Jan 28, 2017 18:23
[2017-01-28] MEDS: Sodium Chloride LOK Flush 10 mL Syringe IVFLUSH SCH (22:31)
--- NOTE | 2017-01-28 23:25 | PCM.ADCARE ---
Advance Care Planning Note Purpose of Encounter: Active Diagnosis. Chronic diastolic heart failure Chronic COPD with chronic hypoxia respiratory failure Obstructive Sleep apnea and Hypoventilation syndrome These active diagnoses are sufficient risk that focused discussion on advance car planning is indicated in order to allow the patient to thoughtfully consider personal goals of care and if situations arise that prevent the ability to personally give input to insure appropriate representation of their personal desires through documentation or informed surrogate decision makers Parties in Attendance: Patient, and me Decisional Capacity: Good Plan: I reviewed in details the prognosis and lack for good treatment for his chronic heart failure, COPD, Sleep apnea and discussed his wishes concerning things such as intubation and mechanical ventilation as well as CPR. Also discussed who would speak on her behalf should he be unable to do so, she states his : Gary Hill will be his proxy. He understands his conditions for both her lung and heart disease carry poor prognosis with no good treatment options available and wishes to be DO NOT INTUBATE. He agrees to CPR but limited, "try once then stop if futile" A POLST form was filled with the assistance of Dr Guillen (resident) he has developed a rapport with family and patient CODE STATUS: Limited intervention Time Spent Adv.Care Planning: Total time spent [id number] in education and discussion directly related to Advance Care Plannin minutes Gaetano Gandara MD Jan 28, 2017 23:25
[2017-01-28] MEDS ORDERED: HYDROcodone-APAP 5-325 mg Tablet PO PRN (23:45)
[2017-01-29] VITALS (16 sets, daily range): BP systolic 116–181; BP diastolic 56–82; PULSE 71–92; RESP 18–29; O2SAT 91–98
[2017-01-29] MEDS: LORazepam 1 mg Tablet PO PRN (00:15)
--- NOTE | 2017-01-29 01:28 | ABG ---
DateTimeAnalyzed 01:25:00 -_ pH ____7.271 - 7.350 7.450 pCO2 ___73.2__ -mmHg 35.0 45.0 pO2 ___64.2__ -mmHg 69.0 116 HCO3- ___32.6__ -mmol/L 22.0 26.0 ABE ____5.0__ -mmol/L -2.0 2.0 tHb ____8.6__ -g/dL O2Hb ___89.2__ -% COHb ____2.2__ -% MetHb ____1.0__ -% sO2 ___92.1__ -% 25.0 FIO2 ___70.0__ -% Drawn By MK - Date/Time Notified____ 01:28:00 -_ Liter_Flow ___50.0__ -L/min Oxygen Device 1 _highflow - Notified By MK - B 766 -mmHg tO2 ___10.9__ -Vol% David test _Positive -
[2017-01-29] MEDS ORDERED: Albuterol 2.5 mg/3 mL Inhalation Solution NEB ONE (02:15)
[2017-01-29] MEDS ORDERED: Furosemide 10 mg/mL 4 mL Inj IVPUSH ONE (02:15)
[2017-01-29] MEDS ORDERED: MethylprednisoLONE Sodium Succinate 62.5 mg/mL 2 mL Inj IVPUSH ONE (02:15)
[2017-01-29 03:03] LABS: TROPONIN T 0.07 ug/L (0.0-0.011)
[2017-01-29] MEDS ORDERED: Sodium Bicarb (50 mEq) 8.4% 1 mEq/mL 50 mL Syringe IVPUSH ONE (03:15)
[2017-01-29] MEDS ORDERED: Sodium Polystyrene Sulfonate 0.25 Gm/mL 500 mL Suspension PO ONE (03:15)
[2017-01-29] MEDS ORDERED: Insulin Human REGular-Omnicell 100 Unit/mL IV ONE (03:15)
--- NOTE | 2017-01-29 04:44 | NUR ---
Dhillon Dhillon catheter placed at 0430 for retention. Difficult placement d/t retracted penis. Dhillon inserted without resistance and balloon inflated without complication with 10cc. immediate drainage of 300ml pale urine.
--- NOTE | 2017-01-29 05:07 | ABG ---
DateTimeAnalyzed 05:04:00 -_ pH ____7.306 - 7.350 7.450 pCO2 ___70.7__ -mmHg 35.0 45.0 pO2 ___60.9__ -mmHg 69.0 116 HCO3- ___34.3__ -mmol/L 22.0 26.0 ABE ____7.1__ -mmol/L -2.0 2.0 tHb ____8.5__ -g/dL O2Hb ___87.9__ -% COHb ____2.3__ -% MetHb ____1.0__ -% sO2 ___90.9__ -% 25.0 FIO2 ___21.0__ -% Pressure_Support ___12.0__ -cmH2O PEEP ____8.0__ -cmH2O Set_RR ___20.0__ -b/min Vt __514.0__ -L Drawn By MD - Date/Time Notified____ 05:07:00 -_ Spontaneous_RR ___24.0__ -b/min Oxygen Device 1 ____BIPAP - Notified By MD - Notified Whom RN S.ALEMAN - B 767 -mmHg tO2 ___10.5__ -Vol% David test _Positive -
--- NOTE | 2017-01-29 05:53 | NUR ---
Oxygen Pt arrived on unit at 1999 on 8L NC at 94%. Pt states he uses from 6-10L at home as needed. Pt continued to c/o SOB and dyspnea. Sats stable in 90's but pt sits in tripod position and is unable to relax. Pt placed on highflow O2 and demands continue to increase. Pt stable on 55L and 80% FiO2 but sats now climb to 96%, pt is CO2 retainer with goal of 88-92%. Pt still wakes up panicky and SOB, again into tripod position with purse lip breathing and desating into 70's. Call to MD. Orders received for additional medications and Bipap. Pt now on Bipap with FiO2 of 40% with sats 92-93%. Pt is more somnolent. Awakens to multiple touch and voice stimuli and falls asleep quickly. Remains orientedx3. ABGs improved following BiPap initiation. MD updated and aware.
[2017-01-29] MEDS: Pantoprazole 40 mg ER24 Tablet PO SCH ×2 (07:30→15:37)
[2017-01-29] MEDS ORDERED: Pantoprazole 40 mg ER24 Tablet PO SCH (07:30)
[2017-01-29] MEDS: Sodium Chloride LOK Flush 10 mL Syringe IVFLUSH SCH ×2 (08:29→15:38)
[2017-01-29] MEDS: Furosemide 10 mg/mL 4 mL Inj IVPUSH SCH (08:30)
[2017-01-29] MEDS ORDERED: predniSONE 20 mg Tablet PO SCH (08:30)
[2017-01-29] MEDS ORDERED: Diltiazem CD 180 mg ER24 Capsule PO SCH (08:30)
[2017-01-29] MEDS ORDERED: Influenza (Adult) Vaccine 0.5 mL Syringe IM ONE (08:30)
[2017-01-29] MEDS: Insulin LISPRO 300 Unit/3 mL Inj SUBQ SCH ×4 (08:43→21:20)
--- NOTE | 2017-01-29 09:02 | PCM.CONPAL ---
Date of Service Jan 29, 2017 Date of Hospital Admission: Jan 28, 2017 at 18:25 Date of Palliative Consult: Jan 29, 2017 Requesting Provider: JAKE JACKSON DO Reason Palliative Care Consult: Goals of Care Discussion Reason for Consultation Palliative Care received order from Dr Jostin Jackson (resident) 01/28/17 (late in day ) to assist with goals of care. Patient is a 76 year old man with chronic diastolic heart failure and chronic COPD with chronic hypoxia respiratory failure. He presented with shortness of breath and was admitted 01/28/17. Patient lives home with . Yodit Donovan () [phone], Alba (daughter) [phone] Hospital Unit @time of consult: Progressive Care (room 8) Palliative Care Recommendation Summary of palliative recommendations: -Symptom management (Pain/other): managed per Attending Dyspnea 2/2 comorbidities of COPD, CHF, and multifactorial Anemia due to erosive esophagitis, gastric antral ulceration, and Crohn disease--which has been worked up by oncologist Dr. Rhoades with no signs of lymphoma, leukemia or other blood dyscrasia. Pt had recent therapeutic thoracentesis 01/26 (Dr. Begum spoke with radiologist Pradeep, who performed the procedure. Pradeep said he removed 600 cc of chylous fluid from the left janis-thorax). No cytology or labs on fluid were ordered at the time. -DPOA/Advanced Directives/POLST: 1. Code: DNR/DNI with limited interventions 2. POLST: signed 01/28/[address] Jackson (last night on the floor right after on admission) located on paper chart: DNR/DNI with limited interventions 3. 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 Patient Goals: Dr. Begum called at 9a.m. and will meet her in patient's room later today.(They were both up late in ED last night). At 10:45a.m. Dr. Begum and Noemi met with Onofre in the room for discussion of recent events. 1. Pt and confirm that the POLST as written contains Onofre's wishes for treatment. Dr. Lebron made aware. Dr. Begum returned for afternoon rounds, pt sitting on side of bed leaning over walker in tripod position using NC oxygen 6LPM. He is alert and mentating well. He is somewhat discouraged, saying that several doctors have come in one by one to tell him, various parts of him were "falling apart." Dr. Begum spends time in supportive listening, and arranges for chocolate Ensures per patient's request. His has left for the day to have dinner with other relatives. Additional Medical Diagnoses with primary management by Hospitalist team include : 1. Acute on chronic respiratory failure, hypoxic, present on admission Likely due acute Congestive heart failure. Other causes includes recurrent Pleural effusion (recent thoracentesis), Pneumonia not likely based on current data and clinical picture. Progressive Sleep apnea and Obesity Hypoventilation syndrome are also possible - continue oxygen supplementation (5L oxygen at home) - treat underlying cause (see below) 2. Acute on Chronic heart failure with preserved Ejection Function. Present on admission Patient taking Torsemide as outpatient and is compliant with other medications. - monitor weight and fluid status - diuretic therapy with Lasix 40 mg IV bid - repeat echo requested -educated and patient to check weight daily at home to track fluid status - Palliative care consult requested 3 COPD exacerbation. Present on admission Sputum changes with increased cough. - Solu-Medrol 125 mg IV, transition to Prednisone 40 mg tomorrow - DuoNeb scheduled 4. Elevated troponin. Present on admission Likely demand ischemia although several risk factors of Non ST elevation NM - trending troponin overnight 5 Lactic acidosis. Present on admission Due to tissue hypoxia - trending levels till normal 6 Acute Hyperkalemia. Present on admission Etiology unclear but includes: NANCY, RTA Type IV, uncontrolled DM II or ARB - Patient received Kayexalate - No EKG changes - monitor on telemetry - holding Losartan for now 7 Acute on chronic kidney injury, present on admission, ongoing Multifactorial secondary to overdiuresis, cardiorenal syndrome, ATN, Diabetes Type II, possible underlying disease of RTA type IV (hypoaldosteronism) - avoid nephrotoxic insults. - consider Nephrology consult if no improvement in hyperkalemia tomorrow 8 Type II DM, Chronic - medium Lispro correction algorithm - checking A1c - continuing Lantus (need to determine dose) 9 Persistent Atrial fibrillation, rate controlled -Patient refusing Coumadin. - monitor on telemetry - continue rate control with Diltiazem 180 mg daily 10 Obesity with Sleep Apnea Patient no compliant with CPAP machine 11 Erosive esophagitis, gastric antral ulceration, Crohn disease, No active bleeding with patient taking Prilosec as outpatient - Continue Protonix 40 mg Daily Problems: Resuscitation Status Resuscitation Status: DNR/DNI:Do Not Resuscitate/Intubate POLST Updates/Changes Previous POLST?: Yes (discussed POLST now in chart that was signed by Dr. Jackson last night after long discussion with pt and .) POLST Last Review Date: Jan 29, 2017 POLST Discussed with: Patient, Spouse/Other POLST Review Outcome: No Change . Advanced Care Planning Address: POLST Pt History History of Present Illness Bradley Donovan is a 76 year old white male with hypertension, diabetes mellitus type II, Chronic A-fib, Crohn's disease and GERD presents in afternoon to [facility] emergency department complaining of shortness of breath that began on morning of admission, 01/28. Dyspnea began over past several weeks, progressively getting worse. Symptoms associated with the recent SOB include visual hallucinations, insomnia for the past 2 nights and decreased appetite over the past few days. He is currently on 6 L of home O2 and last used his concentrator this morning after symptoms onset. Patient was admitted for pneumonia and worsening dementia in 11/2016. He currently takes temazepam 15 mg and lorazepam intermittently as needed. He reports taking Temazepam this morning with little relief. He had a thoracentesis 2 days ago. He felt better right after but started having shortness of breath again. In ED treated with nebs, diuretics and 8L oxygen with persistent symptoms, admitted for further management. Hospital Course: Today is Hospital Day 2. He slept most of the morning with biPAP on. An ECHO was done, results still being processed. Past Medical History Significant PMH Noted: multifactorial microcytic anemia associated with iron deficiency due to erosive esophagitis, gastric antral ulceration, and Crohn disease. Cataracts Moderate MR Chronic HFpEF Coronary artery disease s/p CABG Dyslipidemia Hypertension COPD with chronic respiratory hypoxia failure GERARDO on CPAP Diverticulitis/hiatal hernia/colon polyps Prostatectomy for prostate cancer Alkylosing spondylosis /rheumatoid arthritis/back injury/gout Diabetes type 2 Anxiety Chronic Kidney disease stage 3 Surgical History CABG, 2010 3 vessel Prostatectomy Family History No autoimmune disease Social History Hx Alcohol Use: Yes (rarely) Hx Substance Use: No Hx Tobacco Use: Yes Smoking Status: Former Smoker Living Arrangement: with Noemi Medications Current Medications: Current Medications Calcium Gluconate 1 gm Q5MIN PRN IVPUSH Last administered on 01/28/17 18:21; Admin Dose 1 GM; Start 01/28/17 at 17:45; Stop 01/28/17 at 19:09; Status DC Sodium Chloride 10 ml LIBAN IVFLUSH Last administered on 01/29/17 08:29; Admin Dose 10 ML; Start 01/29/17 at 00:30 Furosemide 40 mg ,16 IVPUSH Last administered on 01/29/17 08:30; Admin Dose 40 MG; Start 01/29/17 at 06:00 Al Hydrox/Mg Hydrox/Simethicone 30 ml Q6 PRN PO; Start 01/28/17 at 18:15 Ondansetron HCl 4 mg Q4H PRN IVPUSH; Start 01/28/17 at 18:15 Senna 2 tablet BID PRN PO; Start 01/28/17 at 18:15 Polyethylene Glycol 17 gm DAILY PRN PO; Start 01/28/17 at 18:15 Acetaminophen 650 mg Q6H PRN PO; Start 01/28/17 at 18:15 Nitroglycerin 0.4 mg Q5MIN PRN SL; Start 01/28/17 at 18:15 Insulin Human Lispro Nutritional Dose to be given pr... [facility] SUBQ Last administered on 01/29/17 08:43; Admin Dose 3 UNIT; Start 01/28/17 at 22:00 Pantoprazole 40 mg DAILYAC PO Last administered on 01/29/17 08:29; Admin Dose 40 MG; Start 01/29/17 at 07:30 Prednisone 40 mg DAILY PO; Start 01/29/17 at 08:30; Stop 01/29/17 at 08:30; Status DC Allopurinol 300 mg DAILY PO Last administered on 01/29/17 08:29; Admin Dose 300 MG; Start 01/29/17 at 08:30 Amitriptyline HCl 25 mg HS PO; Start 01/28/17 at 23:30 Atorvastatin Calcium 10 mg HS PO; Start 01/28/17 at 23:30 Diltiazem HCl 180 mg DAILY PO Last administered on 01/29/17 08:29; Admin Dose 180 MG; Start 01/29/17 at 08:30 Acetaminophen/ Hydrocodone Bitart 1 tablet Q4H PRN PO; Start 01/28/17 at 23:45 Insulin Glargine 20 unit HS SUBQ; Start 01/29/17 at 21:00 Lorazepam 1 mg DAILY PRN PO Last administered on 01/29/17 00:15; Admin Dose 1 MG; Start 01/28/17 at 23:50 Pramipexole 0.5 mg HS PO; Start 01/29/17 at 21:00 Temazepam 15 mg HS PRN PO; Start 01/28/17 at 23:25 Cetirizine HCl 10 mg DAILY PO Last administered on 01/29/17 08:29; Admin Dose 10 MG; Start 01/29/17 at 08:30 Pantoprazole 40 mg BIDAC PO; Start 01/29/17 at 07:30 Famotidine 20 mg HS PO; Start 01/29/17 at 21:00 Scheduled Allopurinol (Allopurinol) 300 Mg Tablet 300 MG PO DAILY Amitriptyline (Amitriptyline) 25 Mg Tab 25 MG PO HS Atorvastatin (Lipitor) 10 Mg Tab 10 MG PO HS Azithromycin (Azithromycin) 500 Mg Tablet 500 MG PO DAILY Cetirizine Chew (Cetirizine Chew) 10 Mg Tab.chew 10 MG PO QAM Diltiazem ER (Diltiazem ER) 180 Mg Cap.er.24h 180 MG PO QAM Insulin Aspart (NovoLOG U100 Insulin Vial) 100 U/Ml U 2-6 UNIT SUBQ ACHS Insulin Glargine (Lantus U100 Insulin Vial) 100 Unit/Ml Vial 20 UNIT SUBQ HS Ipratropium/Albuterol Sulfate (Iprat-Albut 0.5-3(2.5) mg/3 mL Inhalant Soln) 3 Ml Ampul.neb 3 ML IH 2-3x/day Multivitamin/Iron/Folic Acid (Centrum Complete Multivit Tab) 1 Each Tablet 1 EACH PO QAM Omeprazole (Omeprazole) 40 Mg Capsule.dr 40 MG PO BIDAC Pramipexole Dihydrochloride (Mirapex) 0.5 Mg Tablet 0.5 MG PO HS Ranitidine (Ranitidine) 300 Mg Tablet 300 MG PO HS Torsemide (Torsemide) 10 Mg Tablet 20 MG PO QAM Scheduled PRN Albuterol HFA (Proair HFA) 8.5 Gm Hfa.aer.ad 2 PUFFS INHALATION Q4H PRN PRN For Shortness of Breath Docusate Calcium (Stool Softener) 240 Mg Capsule 240 MG PO PRN For Constipation Hydrocodone-Acetaminophen 5-325 mg (Hydrocodone-Acetaminophen 5-325 mg) 1 Each Tablet 1 TAB PO Q 4 HOUR PRN PRN For Pain Hydrocodone/Chlorphen Polis (Tussionex Pennkinetic Susp) 480 Ml Michelle.er.12h 10 ML PO Q8H PRN PRN For Cough Lorazepam (Lorazepam) 1 Mg Tablet 1 MG PO DAILY PRN PRN anx Temazepam (Temazepam) 15 Mg Capsule 15-30 MG PO HS PRN PRN sleep Objective Findings Exam Vital Sign - Last Date Time Temp Pulse Resp B/P Pulse Ox O2 Delivery O2 Flow Rate FiO2 01/29/17 08:20 36.7 81 24 164/81 95 BiPAP 40 01/29/17 01:18 50 Intake and Output 01/28/17 01/28/17 01/29/17 Cumulative From/Thru 15:00 23:00 07:00 01/28/17 13:50 - 01/29/17 05:45 Intake Total 500 ml 500 ml Output Total 125 ml 375 ml 500 ml Balance -125 ml 125 ml 0 ml Intake Oral 500 ml 500 ml Output Urine Total 125 ml 375 ml 500 ml # Voids 1 1 # Bowel Movements 3 3 Objective General: morbidly obese gentleman on biPAP machine, sleeping heavily, opens one eye during exam, no verbal responses HEENT: Head NC/AT, mucus membranes moist Neck: unable to see if JVP as neck thick, short. Lungs: decreased breath sounds in lower worrell, clear in RUL, decreased but clear in CORNELIUS, no wheezes or rhonchi Heart: occasional skipped beat, S1, S2, steady rhythm. Abdomen: obese, soft, nontender, +bs throughout : uncircumcised penis, irving in place Ext: pitting edema 2+ in feet up to b/l thighs Skin: warm, moist, dressing over right lower leg, extensor area. Lab/Diagnostics Lab and Imaging results reviewed in detail in EMR. Time spent Total time 70 minutes; >50% face to face with patient and/or family, providing counselling regarding plans and recommendations, and in care coordination with his/her medical teams. I also spent an additional 30 minutes counseling for advanced care planning with the patient/the patients family/the surrogate decision maker. Geovanna Begum MD Jan 29, 2017 09:02
--- NOTE | 2017-01-29 10:47 | NUR ---
Palliative Care Palliative Care received order from Dr Jostin Guillen (resident) 01/28/17 (late in day) to assist with goals of care. Patient is a 76 year old man with chronic diastolic heart failure and chronic COPD with chronic hypoxia respiratory failure. He presented with shortness of breath and was admitted 01/28/17. Patient lives home with . Yodit Donovan () [phone], Alba (daughter) [phone] Palliative Care to follow. Gill Koo
--- NOTE | 2017-01-29 13:11 | CONS ---
[address] [address] CONSULTATION REPORT PATIENT: GIACOMO SNYDER : 1940 MR#: [id number] ADMIT: 01/28/2017 JOB ID: [id number] DATE OF SERVICE: 01/29/2017 RENAL CONSULTATION: FAMILY PHYSICIAN: Imani Antony MD/Jerry Simmons MD HISTORY: The patient is a 76-year-old white male who was admitted to [facility] for shortness of breath. At time of admission, he was found to have hyperkalemia and chronic kidney disease. Renal consultation is being sought for further evaluation of his chronic kidney disease. The patient states that he has had been having some progressive shortness of breath with dyspnea with minimal exertion over the last several weeks. He has had some increasing lower extremity edema, mild increase in abdominal girth, and some orthopnea. He is using a oxygen concentrator at home and has a history of obstructive sleep apnea for which he uses CPAP. Apparently he recently underwent a thoracentesis for a pleural effusion and he states that this improved his breathing issues only transiently. Since that time, he has had shortness of breath that has developed once again. In his admitting chest x-ray, he does show evidence of moderate pleural effusions and congestive heart failure. At the time of admission, his arterial blood gas showed a partially compensated acute respiratory acidosis. He has a several year history of type 2 diabetes. His last eye examination was greater than three years ago and he denies a history of any retinopathy. However, he does complain of peripheral neuropathy. There is also a longstanding history of hypertension with hypertensive heart disease and hypertensive nephrosclerosis. He states that for at least 1-2 years he has had a history of some type of chronic renal disease. He denies having seen a headwaiter/headwaitress in the past. During a hospitalization in mid November of this year, his urine protein creatinine ratio was 3 consistent with 3 g of protein in his urine. Hepatitis profile and serum protein electrophoresis were both negative and his plasma aldosterone to plasma renin activity ratio was negative for hyperaldosteronism. He does have a history of prostate cancer and underwent a radical prostatectomy approximately 8-10 years ago. He did not require any follow up chemotherapy or radiation. He denies any hematuria, proteinuria, recurrent urinary tract infections, renolithiasis, difficulties with urination, or frequent use of nonsteroidal anti-inflammatory medications. He does have a history of Crohn disease along with rheumatoid arthritis and ankylosing spondylitis. He has been on Humira in the past. Otherwise he denies any severe headache, nausea, vomiting, constipation or diarrhea. His appetite has been poor over the last several weeks. He does also state that aside from his worsening lower extremity edema he is having some increasing abdominal girth. He denies any fever, chills, arthralgias or rashes. PAST MEDICAL HISTORY: Is significant for chronic kidney disease as stated above, most likely secondary to diabetic and hypertensive renal disease, Crohn disease, ankylosing spondylitis, rheumatoid arthritis, gout, congestive heart failure with reported preserved ejection fraction, coronary artery disease status post heart catheterization, hypertension with hypertensive heart disease and hypertensive nephrosclerosis, obstructive sleep apnea and diverticular disease. PAST SURGICAL HISTORY: Is significant for prostatectomy and coronary artery bypass graft. He is allergic to . FAMILY HISTORY: Noncontributory. SOCIAL HISTORY: He has a remote history of tobacco use but denies any current use of alcohol and rare tobacco. He is retired and is somewhat sedentary in his activities of daily living. MEDICATIONS AT TIME OF ADMISSION: Include allopurinol, amitriptyline, Ativan, diltiazem, Lantus, lidocaine, losartan, NovoLog, Prilosec, temazepam and torsemide. REVIEW OF SYSTEMS: As detailed above. Otherwise is noncontributory. PHYSICAL EXAMINATION: Revealed an obese, somewhat chronically ill appearing 76-year-old white male who was alert and oriented x3 but had a CPAP mask on. His blood pressure is 164/81, with a pulse rate of 81. HEENT examination was remarkable for pale sclerae. Neck is supple without adenopathy, thyromegaly or jugular venous distention. Lungs showed some bibasilar rales bilaterally. Heart was irregularly irregular. Abdomen is soft without any tenderness, rebound, guarding or masses noted. He did have evidence of a small fluid wave and some hepatic engorgement with a pulsatile liver. Extremities showed moderate pitting bilateral lower extremity mainly confined to both distal lower extremities but also involving his proximal lower extremities too. There was evidence of in both legs. Extremities otherwise did not show any evidence of any clubbing, cyanosis or edema. Skin turgor was good and there is no evidence of any rashes. LABORATORY EXAMINATION: His hemoglobin was 9.0, hematocrit 31.7. MCV was 100. Platelet count was 276 with 78% neutrophils. This morning, his sodium is 132, potassium 6.3, chloride of 87, bicarbonate 27, BUN and creatinine were 67 and 1.95 respectively. His glucose was 225. Liver functions were mildly elevated with an AST of 55. His albumin level was 3.7. Urinalysis showed a specific gravity of 1.025, pH was 5. Tests for protein, glucose and ketones were negative as was his microscopic examination. His chest x-ray shows evidence of [id number] bilateral pleural effusions and congestive heart failure. IMPRESSION: 1. Chronic kidney disease stage 3 most likely secondary to diabetic nephropathy. 2. Type 4 renal tubular acidosis. 3. Acute respiratory acidosis. 4. Hypertension with hypertensive heart disease and hypertensive nephrosclerosis with decompensated acute congestive heart failure. 5. Microcytic anemia. RECOMMENDATION: I would like to get a renal ultrasound on him and also a survey of his abdomen for ascites. His echocardiogram has been obtained and I would like to review this once this is completed. Furthermore I would like to discontinue the proton pump inhibitor along with the diltiazem as I feel that this may be adding to his edema. In addition, I would like to start labetalol 200 mg twice a day. I would also like to start IV diuresis with Lasix 60 mg IV twice a day and restart his losartan. I would also like to start chlorthalidone 25 mg once a day. We need to closely follow his lab and perhaps consider thoracentesis if needed. Once again, I would like to thank you for allowing me to participate in the care of this somewhat complicated patient. I will be following him closely with you.
--- NOTE | 2017-01-29 15:13 | DRSVH ---
PROCEDURE: US RENAL SONOGRAM INDICATIONS: NANCY TECHNIQUE: Real-time scanning was performed of the kidneys and bladder, with image documentation. COMPARISON: [facility], US, US RENAL, 11/12/2016, 12:09. FINDINGS: Kidneys: Kidneys are normal in size. Right kidney measures 12.7 cm long; left kidney measures 9.2 c m long. Right renal cortical thickness is 1.2 cm; left renal cortical thickness is 1.1 cm. Renal co rtical echotexture is normal. No hydronephrosis or nephrolithiasis. No suspicious solid mass lesion s. Bladder: Dhillon catheter present. Miscellaneous: No free pelvic fluid. IMPRESSION: Grossly normal appearance of the kidneys. Dictated by: Pradeep Jernigan A Interpreted: Aditi Garcia MD on 01/29/2017 at 15:11 Transcribed by: PATY on 01/29/2017 at 15:12 Approved by: Aditi Garcia MD, PhD on 01/29/2017 at 16:39
--- NOTE | 2017-01-29 15:15 | PCM.PNMED ---
Subjective Date of Service Jan 29, 2017 Subjective 76-year-old man with chronic diastolic CHF, recurrent pleural effusion, chronic atrial fibrillation, Crohn's disease, chronic anemia presents with several weeks of dyspnea and acute altered mental status. Patient seems more alert today, answering questions appropriately. He is wearing BiPAP. feels his mental status is improved. He continues to feel dyspnea. Exam Vital Signs Vital Sign - Last Date Time Temp Pulse Resp B/P Pulse Ox O2 Delivery O2 Flow Rate FiO2 01/29/17 13:41 92 133/56 01/29/17 13:01 92 Nasal Cannula 6.00 01/29/17 12:28 36.8 24 40 Intake and Output 01/28/17 01/28/17 01/29/17 Cumulative From/Thru 15:00 23:00 07:00 01/28/17 13:50 - 01/29/17 05:45 Intake Total 500 ml 500 ml Output Total 125 ml 375 ml 500 ml Balance -125 ml 125 ml 0 ml Intake Oral 500 ml 500 ml Output Urine Total 125 ml 375 ml 500 ml # Voids 1 1 # Bowel Movements 3 3 Exam General: Obese elderly man with BiPAP and tachypnea HEENT: sclerae anicteric Neck: Supple, difficult to assess JVD Chest: Dull bases with inspiratory crackles, clear to auscultation in upper lung worrell Cardiac: S1S2, regular Abdomen: BS normal, non-tender Extremities: 1+ edema Neuro: A&O, cranial nerves symmetric, motor strength 5/5, coordination normal IVs and Medications Medications Reviewed: Medications were reviewed in detail Lab and Diagnostics Result Diagram: 01/28/17 1646 01/29/17 0602 X-Rays, CTs and MRIs X-RAY CHEST ONE VIEW, PORTABLE 01/28 IMPRESSION: Congestive heart failure and small to moderate bilateral effusions. Dictated by: Ángela Pierson M.D. on 01/28/2017 at 14:53 Approved by: Ángela Pierson M.D. on 01/28/2017 at 14:54 . Assessment & Plan Bradley Donovan is a 76 year old male with Hypertension, diabetes mellitus type II , Chronic A-fib, Crohn's disease and GERD presents to [facility] emergency department complaining of chronic shortness of breath, with acute encephalopathy 1. Acute on chronic respiratory failure, hypoxic, present on admission. Likely due acute Congestive heart failure. Patient and endorsed that he has not used his trilogy unit in several weeks because they do not understand the settings. I suspect acute encephalopathy is due to hypercarbic respiratory failure from GERARDO. Other causes includes recurrent Pleural effusion (recent thoracentesis), Pneumonia not likely based on current data and clinical picture. 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 Previous thoracentesis diagnostic workup revealed transudate of chemistries. - continue oxygen supplementation (5L oxygen at home) - thoracic ultrasound to asses fusion 2. Acute on Chronic heart failure with preserved Ejection Function. Present on admission Patient taking Torsemide as outpatient and is compliant with other medications. - monitor weight and fluid status - diuretic therapy with Lasix 40 mg IV bid - repeat echo requested -educated and patient to check weight daily at home to track fluid status - Palliative care consult requested 6 Acute Hyperkalemia. Present on admission Etiology unclear but includes: NANCY, RTA Type IV, uncontrolled DM II or ARB - Patient received Kayexalate - No EKG changes - monitor on telemetry - holding Losartan for now 7 Acute on chronic kidney injury, present on admission, ongoing Multifactorial secondary to overdiuresis, cardiorenal syndrome, ATN, Diabetes Type II, possible underlying disease of RTA type IV (hypoaldosteronism) - avoid nephrotoxic insults. - Nephrology consult 8 Type II DM, Chronic - medium Lispro correction algorithm - checking A1c - continuing Lantus (need to determine dose) 10 Obesity with Sleep Apnea. Patient no compliant with trilogy machine - Respiratory therapy consult - Request Keiko to provide additional counseling to patient and to enhance compliance Stable, resolving and chronic problems: 5 Lactic acidosis. Present on admission Due to tissue hypoxia - trending levels till normal 4. Elevated troponin. Present on admission. Likely demand ischemia although several risk factors of Non ST elevation [place] - No signs of acute coronary syndrome 9 Persistent Atrial fibrillation, rate controlled -Patient refusing Coumadin. - monitor on telemetry - continue rate control with Diltiazem 180 mg daily # COPD exacerbation. Present on admission. No signs of bronchospasm or acute COPD flare. Patient is on essentially no chronic COPD medications. He was initially treated with Solu-Medrol. - Discontinue glucocorticoid - DuoNeb scheduled 11 Erosive esophagitis, gastric antral ulceration, Crohn disease, No active bleeding with patient taking Prilosec as outpatient - Continue Protonix 40 mg Daily - Acetaminophen as needed for mild pain/fever/headache - Bowel regimen as needed - Antiemetic as needed Patient admitted under inpatient status with expected length of stay > 2 midnights for severity of present symptoms, complexities of treatment plan and risk for adverse event . VTE Prophylaxis: SCDs Resuscitation Status: Limited Interventions Time spent 35 min Isidoro Lebron MD Jan 29, 2017 15:15
[2017-01-29] MEDS ORDERED: Furosemide 10 mg/mL 4 mL Inj IVPUSH SCH (16:00)
--- NOTE | 2017-01-29 16:03 | NUR ---
Social Work: Initial Assessment Social Work-initial assessment: Data & Assessment: See initial assessment. EMR Reviewed. Pt is a 76 y/o male who was admitted on 01/28/17 for Hyperkalemia and Hypoxia per H&P. Pt's insurance is [employer] and PCP is Imani Antony MD. SW met with pt to discuss discharge planning, SW role explained. Pt is alert and oriented x3. Pt resides at home with in a single level home with two steps to enter where pt remains independent with basic ADLs, but has assistance if it is needed. Pt reports that he is independent at baseline and does drive. Pt has no SNF history. Patient [facility] Pt has completed DPOA/ advanced directive and SW requested a copy. Patient states that his /NOK, Yodit Lorenzo [phone] is his DPOA. Pt has no snf care or VA benefits. [facility]. SW notified [facility] that patient admitted into the hospital and will give [facility] access. Pt's family to provide transport home at discharge. SW provided phone number and plan on white board in room. SW will continue to follow. Plan: Pt to likely discharge home and resume [facility] . Pt's family to provide transport home at discharge. SW will continue to follow. Miki Carrasco LMSW, [facility] Addendum: 01/29/17 at 1622 by MIKI CARRASCO SS Amended: Links added.
--- NOTE | 2017-01-29 16:42 | DRSVH ---
PROCEDURE: X-RAY CHEST ONE VIEW ([id number]) INDICATIONS: prior to thoracentesis TECHNIQUE: One view of the chest was acquired. COMPARISON: [facility], CR, XR CHEST 1VW, 01/26/2017, 14:02. FINDINGS: Surgical changes and devices: None. Lungs and pleura: No pneumothorax post left thoracentesis. Bibasilar residual pleural effusions and airspace opacities unchanged. Mediastinum: Mediastinal contours appear normal. Heart size is normal. Bones and chest wall: No suspicious bony lesions. Overlying soft tissues appear unremarkable. IMPRESSION: No pneumothorax post left thoracentesis. Dictated by: Pradeep Jernigan RRJostin Interpreted: Aditi Garcia MD on 01/29/2017 at 16:36 Transcribed by: PATY on 01/29/2017 at 16:37 Approved by: Aditi Garcia MD, PhD on 01/29/2017 at 16:40
--- NOTE | 2017-01-29 16:48 | DRSVH ---
PROCEDURE: US GUIDED THORACENTESIS BY REFERRING PHYSICIAN ([id number]) INDICATIONS: dyspnea TECHNIQUE: The indications, alternatives, benefits, risks, and complications of the procedure were explained to the patient. Written informed consent was obtained and placed in the chart. The chest was examined sonographically, and an appropriate site was chosen for thoracentesis. The skin was prepared and niecy ped in the usual sterile fashion, and 1% lidocaine was infiltrated from the skin down through the ple ural surface. A 19-gauge catheter-covered needle was then introduced into the pleural space, the cat heter was advanced and the needle was withdrawn, and thereafter pleural fluid was aspirated. The cat heter was then removed and a dressing was applied. The attending physician was present, and personal ly performed the procedure. COMPARISON: None. FINDINGS: Access site: Left hemithorax. Needle: One-Step centesis catheter with introducer needle. Fluid volume and description: 750 cc chylous-appearing fluid. Fluid sent for diagnostic testing: Fluid sent for cytology, multiple chemistry panels and therapeuti c drainage. Medications: 1% lidocaine for local anaesthesia. Complications: None; post-procedural chest radiograph is pending to assess for pneumothorax. IMPRESSION: Successful ultrasound-guided thoracentesis. Dictated by: Pradeep HOWARD Interpreted: Aditi Garcia MD on 01/29/2017 at 16:45 Transcribed by: PATY on 01/29/2017 at 16:45 Approved by: Aditi Garcia MD, PhD on 01/29/2017 at 16:59
--- NOTE | 2017-01-29 16:57 | DRSUS ---
[facility] [address] [place] [address] Echocardiogram Report Name: GIACOMO SNYDER Date : 01/29/2017 Height: 70 in Hospital Exam Location: [facility] Weight: 286 lb Gender: Male BSA: 2.4 m2 : 1940 Age: 76 yrs BP: 181/82 mmHg [place] [facility] [place] Physician: [facility] Performed By: Elijah Solis Referring Physician: KVNG LOMBARDI Interpretation Summary There is mild concentric left ventricular hypertrophy. The ejection fraction is estimated to be 60-65%. Flattened septum is consistent with RV pressure/volume overload. The right ventricle is mildly dilated. Right ventricular systolic function is mild to moderately reduced. There is moderate mitral regurgitation. The right ventricular systolic pressure is estimated at 64 mmHg assuming a right atrial pressure of 15 mm Hg. Procedure: A two-dimensional transthoracic echocardiogram with color flow and Doppler was performed. The study quality was technically adequate. Comparison is made with the echocardiogram of 11/11/16. A contrast injection of Definity was performed to improve assessment of LV function. The heart rate ranged between 75-86 bpm during the study. Left Ventricle: There is mild concentric left ventricular hypertrophy. The left ventricle is normal in size. The ejection fraction is estimated to be 60 -65%. Flattened septum is consistent with RV pressure/volume overload. Spectral Doppler of the mitral valve is consistent with restriction, with an E/A wave ratio > 2.0. Right Ventricle: The right ventricle is mildly dilated. Echodensity noted in the RV , in proximity to the TV leaflet Note: additional images were taken of the RVIT. Bright echogenicity seen at base of TV is just part of the aortic root in an underrotated view. Right ventricular systolic function is mild to moderately reduced. Atria: The left atrium is moderately dilated. There is moderate biatrial enlargement. The right atrium is moderately dilated. There is no Doppler evidence for an atrial septal defect. Mitral Valve: The mitral valve leaflets appear mildly thickened, but open well. There is moderate mitral regurgitation. The mitral regurgitant jet is eccentrically directed. Aortic Valve: The aortic valve is normal in structure and function. No aortic regurgitation is present. Tricuspid Valve: The tricuspid valve is not well visualized, but is grossly normal. There is mild tricuspid regurgitation. The right ventricular systolic pressure is estimated at 64 mmHg assuming a right atrial pressure of 15 mm Hg. Compared to the prior echo exam, there has been an increase in the severity of pulmonary hypertension. Pulmonic Valve: The pulmonic valve leaflets are thin and pliable; valve motion is normal. There is no pulmonic valvular regurgitation. Great Vessels: The aortic root is normal size. The dimensions of the ascending aorta are normal. The pulmonary artery is normal size. The IVC is dilated (diameter is greater than 2.1 cm) and it collapses less than 50% with a sniff. This suggests a high right atrial pressure of 15 mm Hg. Pericardium/ Pleura There is no pericardial effusion. There is an anterior echo-free space consistent with a fat pad. There is a moderately large left- sided pleural effusion. MMode/2D Measurements & Calculations LVIDd: 4.1 cm RA long axis LVOT diam LVIDs: 2.9 cm LA A2 area: 30.5 cm FS: 28.2 % LA A4 area: 26.6 cm RA area AoV Opening EPSS: 0.80 cm LA length (vol): 6.0 cm IVSd: 1.2 cm LA vol: 114.6 ml : 26.3 cm Ao root diam LVPWd: 1.3 cm LA vol index RA vol : 103.ml asc Aorta RA Diam: 3.9 cm IVC diam: 2.7 cm : 42.4 mm2 LV magaña. diameter/BSA LV sys. diameter/BSA TAPSE: 1.1 cm (cm/m^2): 1.7 (cm/m^2): 1.2 Doppler Measurements & Calculations Ao V2 max MV E max nicko MV E/A: 2.7 TR max nicko : 189.5 cm/sec : 119.7 cm/sec Med Peak E' Nicko : 348.8 cm/sec Ao max P.4 mmHg MV A max nicko TR max PG Ao mean P.7 mmHg : 44.0 cm/sec E/E' med: 34.4 : 48.7 mmHg LVOT Max Nicko MVA(VTI): 2.9 cm2 Lat Peak E' Nicko PA V2 max : 127.2 cm/sec : 128.8 cm/sec TAMMY(I,D): 3.1 cm E/E' lat: 29.9 PA mean PG sev ratio: 0.78 E/e' average : 3.1 mmHg MV V2 mean Ao V2 mean LV V1 max PG PA V2 mean : 78.0 cm/sec : 120.1 cm/sec : 81.7 cm/sec MV mean P.0 mmHg Ao V2 VTI: 29.9 cmLV V1 VTI PA pr(Accel) MV V2 VTI: 32.1 cm TAMMY(V,D): 2.7 cm2 : 23.3 cm : 26.1 mmHg MV dec time: 0.16 sec TAMMY indexed to BSA (cm^2/m^2): 1.3 Electronically signed by: Justyn Watters on Reading Physician:01/29/2017 04:56 PM
[2017-01-29 18:06] LABS: BFWBC 263 /mm3; MONOCYTES,BODY FLUID 9 %; OTHER CELLS,BODY FLUID 12
--- NOTE | 2017-01-29 18:40 | NUR ---
LOC/Thoracentesis Pt's LOC vastly improved today, Pt oriented to self/location/general date. Pt able to stand at bedside and Pt transitioned from BiPAP to 6L O2 via nasal cannula which maintained Pt's SPO2 sats in the low 90s throughout remainder of shift. Orthos performed at this time which were negative. Pt left PCC room 2027 for left thoracentesis down in imaging department today, ~750mL drawn off Pt per verbal report, Pt reported tolerating well. Pt reported breathing to feel improved after returning from procedure this afternoon.
[2017-01-29] MEDS ORDERED: Insulin GLARgine 100 Unit/mL Syringe SUBQ SCH (21:00)
[2017-01-30] VITALS (12 sets, daily range): BP systolic 91–147; BP diastolic 47–65; PULSE 46–81; RESP 14–27; O2SAT 91–97
[2017-01-30] MEDS: Sodium Chloride LOK Flush 10 mL Syringe IVFLUSH SCH ×3 (01:11→16:46)
--- NOTE | 2017-01-30 05:17 | NUR ---
Mentation/O2/Blood Sugar Pt A&Ox3 this shift though forgetful, pt voices needs and follows commands. Pt on 6L NC at start of shift, sats high 90s, switched to BiPAP after assessment and tolerated this w/ sats in mid 90s. New mepilex applied to nose for skin prophylaxis. Around mid shift pt refused any further use of BiPAP and has been on NC which has been titrated down to 3-4 L. Blood sugar at HS was 341, given Lantus and Lispro per sliding scale. Blood sugar 271 when reassessed, notified, no additional orders given. Pt appeared to sleep very comfortably, denied pain all shift, would wake on occasion d/t thirst or care interventions. Pt has refused turns but has been able to adjust self in bed.
[2017-01-30] MEDS: Furosemide 10 mg/mL 10 mL Inj IVPUSH SCH ×2 (05:54→16:46)
[2017-01-30] MEDS: Insulin LISPRO 300 Unit/3 mL Inj SUBQ SCH ×4 (08:37→21:46)
[2017-01-30] MEDS: Pantoprazole 40 mg ER24 Tablet PO SCH ×2 (08:43→16:46)
--- NOTE | 2017-01-30 12:25 | NUR ---
[place] signed
--- NOTE | 2017-01-30 13:43 | PCM.PNMED ---
Subjective Date of Service Jan 30, 2017 Subjective Fatigued. No chest or abdomen pain. Less edema. No diarrhea. No cough. Less confused. Quiet. Exam Vital Signs Vital Sign - Last Date Time Temp Pulse Resp B/P Pulse Ox O2 Delivery O2 Flow Rate FiO2 01/30/17 12:24 46 20 96/59 93 Nasal Cannula 2.00 01/30/17 08:22 36.4 01/30/17 00:47 40 Intake and Output 01/29/17 01/29/17 01/30/17 Cumulative From/Thru 15:00 23:00 07:00 01/28/17 13:50 - 01/30/17 06:55 Intake Total 1330 ml 500 ml 2330 ml Output Total 1450 ml 350 ml 2300 ml Balance -120 ml 150 ml 30 ml Intake Oral 1330 ml 500 ml 2330 ml Output Urine Total 1450 ml 350 ml 2300 ml # Voids 1 # Bowel Movements 1 4 Exam General: Obese elderly man with BiPAP and tachypnea HEENT: sclerae anicteric Neck: Supple, difficult to assess JVD Chest: Dull bases with inspiratory crackles, clear to auscultation in upper lung worrell Cardiac: S1S2, regular Abdomen: BS normal, non-tender Extremities: 1+ edema Neuro: A&O, cranial nerves symmetric, motor strength 5/5, coordination normal Fluent speech. Anicteric sclera. IVs and Medications Medications Reviewed: Medications were reviewed in detail Lab and Diagnostics Result Diagram: 01/28/17 1646 01/30/17 0315 X-Rays, CTs and MRIs X-RAY CHEST ONE VIEW, PORTABLE 01/28 IMPRESSION: Congestive heart failure and small to moderate bilateral effusions. Dictated by: Ángela Pierson M.D. on 01/28/2017 at 14:53 Approved by: Ángela Pierson M.D. on 01/28/2017 at 14:54 . Assessment & Plan Bradley Donovan is a 76 year old male with Hypertension, diabetes mellitus type II , Chronic A-fib, Crohn's disease and GERD presents to [facility] emergency department complaining of chronic shortness of breath, with acute encephalopathy 1. Acute on chronic respiratory failure, hypoxic, present on admission. Likely due acute Congestive heart failure. Patient and endorsed that he has not used his trilogy unit in several weeks because they do not understand the settings. I suspect acute encephalopathy is due to hypercarbic respiratory failure from GERARDO. Other causes includes recurrent Pleural effusion (recent thoracentesis), Pneumonia not likely based on current data and clinical picture. 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 Previous thoracentesis diagnostic workup revealed transudate of chemistries. - continue oxygen supplementation (5L oxygen at home) - BiPAP as needed, wean O2 as tolerated. 2. Acute on Diastolic Chronic heart failure (with preserved Ejection Function). Present on admission Patient taking Torsemide as outpatient and is compliant with other medications. - monitor weight and fluid status - diuretic therapy with Lasix 40 mg IV bid - repeat echo requested -educated and patient to check weight daily at home to track fluid status - Palliative care consult requested Still hypervolemic, continue diuresis. 6 Acute Hyperkalemia. Present on admission Etiology unclear but includes: NANCY, RTA Type IV, uncontrolled DM II or ARB - Patient received Kayexalate - No EKG changes - monitor on telemetry - holding Losartan for now -K normal today. 7 Acute on chronic kidney injury, present on admission, ongoing and improving. Multifactorial secondary to overdiuresis, cardiorenal syndrome, ATN, Diabetes Type II, possible underlying disease of RTA type IV (hypoaldosteronism) - avoid nephrotoxic insults. - Nephrology consult 8 Type II DM, Chronic and poorly controlled. - medium Lispro correction algorithm - checking A1c - continuing Lantus (need to determine dose), Increase from 20 to 30 toight 10 Obesity with Obstructive Sleep Apnea. Patient not compliant with trilogy machine - Respiratory therapy consult - Request Keiko to provide additional counseling to patient and to enhance compliance Stable, resolving and chronic problems: 5 Lactic acidosis. Present on admission Due to tissue hypoxia - trending levels till normal 4. Elevated troponin. Present on admission. Likely demand ischemia although several risk factors of Non ST elevation [place] - No signs of acute coronary syndrome 9 Persistent Atrial fibrillation, rate controlled -Patient refusing Coumadin. - monitor on telemetry - continue rate control with Diltiazem 180 mg daily # COPD exacerbation. Present on admission. No signs of bronchospasm or acute COPD flare. Patient is on essentially no chronic COPD medications. He was initially treated with Solu-Medrol. - Discontinue glucocorticoid - DuoNeb scheduled 11 Erosive esophagitis, gastric antral ulceration, Crohn disease, No active bleeding with patient taking Prilosec as outpatient - Continue Protonix 40 mg Daily - Acetaminophen as needed for mild pain/fever/headache - Bowel regimen as needed - Antiemetic as needed Patient admitted under inpatient status with expected length of stay > 2 midnights for severity of present symptoms, complexities of treatment plan and risk for adverse event . Pain Evaluation: Adequate Pain Control VTE Prophylaxis: SCDs Resuscitation Status: DNR/DNI:Do Not Resuscitate/Intubate Time spent 35 minutes David Nur MD Jan 30, 2017 13:43
--- NOTE | 2017-01-30 14:09 | PCM.PNNEPH ---
Subjective Date of Service Jan 30, 2017 Subjective He is resting well at the moment. Family is at the bedside Hyperkalemia has improved. Exam Vital Signs Vital Sign - Last Date Time Temp Pulse Resp B/P Pulse Ox O2 Delivery O2 Flow Rate FiO2 01/30/17 12:24 46 20 96/59 93 Nasal Cannula 2.00 01/30/17 08:22 36.4 01/30/17 00:47 40 Intake and Output 01/29/17 01/29/17 01/30/17 Cumulative From/Thru 15:00 23:00 07:00 01/28/17 13:50 - 01/30/17 06:55 Intake Total 1330 ml 500 ml 2330 ml Output Total 1450 ml 350 ml 2300 ml Balance -120 ml 150 ml 30 ml Intake Oral 1330 ml 500 ml 2330 ml Output Urine Total 1450 ml 350 ml 2300 ml # Voids 1 # Bowel Movements 1 4 Exam GENERAL: The patient in no apparent distress, and alert and oriented x3. Lying in bed comfortably HEENT: Head is normocephalic and atraumatic. NECK: Supple, no elevation of JVD, No carotid bruits. No lymphadenopathy or thyromegaly. LUNGS: Decreased sounds at the bases. No wheezing, no rhonchi no rales. HEART: Normal S1/S2, distant heart sound. ABDOMEN: Soft, nontender, and nondistended. Positive bowel sounds. No hepatosplenomegaly was noted. EXTREMITIES: 2+ edema with chronic skin changes. Lab and Diagnostics Result Diagram: 01/28/17 1646 01/30/17 0315 X-Rays, CTs and MRIs X-RAY CHEST ONE VIEW, PORTABLE 01/28 IMPRESSION: Congestive heart failure and small to moderate bilateral effusions. Dictated by: Ángela Pierson M.D. on 01/28/2017 at 14:53 Approved by: Ángela Pierson M.D. on 01/28/2017 at 14:54 . Plan Impression 1. Hyperkalemia secondary to medications and type IV renal tube acidosis 2. Acute on chronic respiratory failure 3. Chronic kidney disease stage III, stable 4. Type II diabetes with diabetic nephropathy 5. Hypertension with hypertensive nephrosclerosis 6. COPD/GERARDO. 7. Chronic diastolic heart failure, VHD. 8. Crohn's disease 9. Rheumatology disorder including rheumatoid arthritis, ankylosing spondylitis and gout 10. Mixed respiratory acidosis and metabolic alkalosis. Plan: Patient needs to be on 2 g sodium diet per day. Fluid restriction can be discontinued. Continue current diuretics dosage. Repeat BMP in the morning. With the assessment his volume status on a daily basis. Derke Abdi MD Jan 30, 2017 14:09
--- NOTE | 2017-01-30 15:45 | NUR ---
Transfer of Care Report received from Sohan Davis RN. Care transferred to Anne Loza RN. Pt sleeping. Care continues.
--- NOTE | 2017-01-30 15:46 | NUR ---
Transfer of Care Pt's HR 40s-50s and BP 96/59 after am medications today. Pt drowsy, but otherwise asymptomatic, made aware, parameters placed on labetalol dose. Care transferred to Anne Wright RN at ~1545, report done at bedside.
--- NOTE | 2017-01-30 19:19 | NUR ---
Urinary Output He only had 150 mls output in his Dhillon today (pale/heladio). From MD notes, it appears they are aware of this. Bladder scanned x3 to verify there was no urine trapped in his bladder and that his Dhillon was patent which there was none. Per , he has not drank or eaten hardly anything today due to him sleeping. shiftman notified. Care continues.
[2017-01-30] MEDS: Insulin GLARgine 100 Unit/mL Syringe SUBQ SCH (22:01)
--- NOTE | 2017-01-30 22:40 | ABG ---
DateTimeAnalyzed 22:34:41 -_ pH ____7.202 - pCO2 ___99.0__ -mmHg pO2 ___74.2__ -mmHg HCO3- ___38.9__ -mmol/L ABE ___10.4__ -mmol/L tHb ____7.8__ -g/dL O2Hb ___92.6__ -% COHb ____2.7__ -% MetHb ___-0.4__ -% sO2 ___94.8__ -% FIO2 ___40.0__ -% Drawn By RB - Oxygen Device 1 ____BIPAP - Notified By RB - Notified Whom JONATHON M, RN - B 762 -mmHg K+ ____4.7__ -mmol/L tO2 ___10.2__ -Vol% David test N/A -
--- NOTE | 2017-01-30 22:42 | ABG ---
DateTimeAnalyzed 22:27:30 -_ pH ____7.245 - pCO2 ___90.7__ -mmHg pO2 ___31.9__ -mmHg HCO3- ___39.3__ -mmol/L ABE ___11.3__ -mmol/L tHb ____8.0__ -g/dL O2Hb ___56.0__ -% COHb ____2.1__ -% MetHb ___-0.1__ -% sO2 ___57.1__ -% FIO2 ___40.0__ -% Drawn By RB - B 762 -mmHg K+ ____4.7__ -mmol/L tO2 ____6.3__ -Vol%
[2017-01-31] VITALS (14 sets, daily range): BP systolic 92–149; BP diastolic 43–65; PULSE 48–61; RESP 15–21; O2SAT 89–98
[2017-01-31] MEDS: Sodium Chloride LOK Flush 10 mL Syringe IVFLUSH SCH ×3 (01:31→16:30)
--- NOTE | 2017-01-31 05:18 | ABG ---
DateTimeAnalyzed 05:14:00 -_ pH ____7.228 - pCO2 ___89.3__ -mmHg pO2 ___34.4__ -mmHg HCO3- ___35.9__ -mmol/L ABE ____7.3__ -mmol/L tHb ____7.8__ -g/dL O2Hb ___61.4__ -% COHb ____2.3__ -% MetHb ____1.0__ -% sO2 ___63.5__ -% FIO2 ___40.0__ -% Drawn By RB - Oxygen Device 1 ___BI PAP - Notified Whom JONATHON M, RN - B 765 -mmHg tO2 ____6.8__ -Vol% David test N/A -
[2017-01-31] MEDS: Furosemide 10 mg/mL 10 mL Inj IVPUSH SCH (06:00)
--- NOTE | 2017-01-31 07:49 | NUR ---
LOC/UOP/Tele Per report pt had been somnolent but easy to wake during day. At initial assessment pt was unable to keep eyes open, much less respond to any questions or properly follow commands. Pt placed on BiPAP and MD notified. ABGs ordered and showed increased CO2 of 99, full ABG report in pt chart. Pt was difficult to obtain arterial ABG and had been on BiPAP close to an hour by the time these results were read to MD. By then pt was noticeably easier to wake and responding to some questions. MD ordered VBGs w/ morning labs, results in chart and showing some improvement. In later half of shift pt was still very drowsy, but has been able to wake and identify his birthday/the year/and place. Pt following commands and voicing needs. Pt had no UOP this shift, noticed this early on and informed MD, no further orders given. Around 0230 pt bladder scanned to check for irving patency but scan was showing no urine. MD notified. Tele Afib 40s-50s the majority of the night.
[2017-01-31] MEDS: Insulin LISPRO 300 Unit/3 mL Inj SUBQ SCH ×4 (08:10→22:00)
[2017-01-31] MEDS: Pantoprazole 40 mg ER24 Tablet PO SCH ×2 (08:10→16:40)
[2017-01-31 09:16] LABS: Magnesium 2.7 mg/dL (1.6-2.6)
[2017-01-31] MEDS: 0.9% Sodium Chloride 1,000 ML IV SCH (12:01)
--- NOTE | 2017-01-31 12:54 | PCM.PNNEPH ---
Subjective Date of Service Jan 31, 2017 Subjective Patient has had hypertension throughout the night. Serum BUN and creatinine are rising today. Patient complains of being thirsty and feels like he is given too much diuretics. Exam Vital Signs Vital Sign - Last Date Time Temp Pulse Resp B/P Pulse Ox O2 Delivery O2 Flow Rate FiO2 01/31/17 12:19 36.9 51 15 93/43 98 BiPAP 01/31/17 08:05 40 01/30/17 21:24 1.50 Intake and Output 01/30/17 01/30/17 01/31/17 Cumulative From/Thru 15:00 23:00 07:00 01/28/17 13:50 - 01/31/17 06:44 Intake Total 960 ml 900 ml 4190 ml Output Total 150 ml 2450 ml Balance 810 ml 900 ml 1740 ml Intake Oral 960 ml 900 ml 4190 ml Output Urine Total 150 ml 2450 ml # Voids 1 # Bowel Movements 1 5 Exam GENERAL: The patient in no apparent distress, and alert and oriented x3. Lying in bed comfortably, on CPAP. HEENT: Head is normocephalic and atraumatic. NECK: Supple, no elevation of JVD, No carotid bruits. No lymphadenopathy or thyromegaly. LUNGS: Decreased sounds at the bases. No wheezing, no rhonchi no rales. HEART: Normal S1/S2, distant heart sound. ABDOMEN: Soft, nontender, and nondistended. Positive bowel sounds. No hepatosplenomegaly was noted. EXTREMITIES: 2+ edema with chronic skin changes. Lab and Diagnostics Result Diagram: 01/28/17 1646 01/31/17 0510 X-Rays, CTs and MRIs X-RAY CHEST ONE VIEW, PORTABLE 01/28 IMPRESSION: Congestive heart failure and small to moderate bilateral effusions. Dictated by: Ángela Pierson M.D. on 01/28/2017 at 14:53 Approved by: Ángela Pierson M.D. on 01/28/2017 at 14:54 . Plan Impression 1. Acute kidney injury on chronic kidney disease secondary to overdiuresis vs ATN. 2. Hyperkalemia secondary to medications and type IV renal tube acidosis 3. Acute on chronic respiratory failure 4. Type II diabetes with diabetic nephropathy 5. Hypertension with hypertensive nephrosclerosis 6. COPD/GERARDO. 7. Chronic diastolic heart failure, VHD. 8. Crohn's disease 9. Rheumatology disorder including rheumatoid arthritis, ankylosing spondylitis and gout 10. Mixed respiratory acidosis and metabolic alkalosis. Plan: Agreed with Dr. Nur to discontinue IV furosemide. Agreed with Dr. Nur to start him on normal saline 75 mL per hour. Will hold chlorthalidone, losartan and labetalol. Repeat BMP in the morning. Derek Abdi MD Jan 31, 2017 12:53
--- NOTE | 2017-01-31 12:58 | PCM.PNMED ---
Subjective Date of Service Jan 31, 2017 Subjective No distress, on BiPAP. No chest pain, or cough. No nausea, or diarrhea. No abdomen pain. Exam Vital Signs Vital Sign - Last Date Time Temp Pulse Resp B/P Pulse Ox O2 Delivery O2 Flow Rate FiO2 01/31/17 12:19 36.9 51 15 93/43 98 BiPAP 01/31/17 08:05 40 01/30/17 21:24 1.50 Intake and Output 01/30/17 01/30/17 01/31/17 Cumulative From/Thru 15:00 23:00 07:00 01/28/17 13:50 - 01/31/17 06:44 Intake Total 960 ml 900 ml 4190 ml Output Total 150 ml 2450 ml Balance 810 ml 900 ml 1740 ml Intake Oral 960 ml 900 ml 4190 ml Output Urine Total 150 ml 2450 ml # Voids 1 # Bowel Movements 1 5 Exam General: Obese elderly man with BiPAP and tachypnea HEENT: sclerae anicteric Neck: Supple, difficult to assess JVD Chest: Dull bases with inspiratory crackles, clear to auscultation in upper lung worrell Cardiac: S1S2, regular Abdomen: BS normal, non-tender Extremities: 1+ edema Neuro: A&O, cranial nerves symmetric, motor strength 5/5, coordination normal Fluent speech. Anicteric sclera. On BiPAP IVs and Medications Medications Reviewed: Medications were reviewed in detail Lab and Diagnostics Result Diagram: 01/28/17 1646 01/31/17 0510 X-Rays, CTs and MRIs X-RAY CHEST ONE VIEW, PORTABLE 01/28 IMPRESSION: Congestive heart failure and small to moderate bilateral effusions. Dictated by: Ángela Pierson M.D. on 01/28/2017 at 14:53 Approved by: Ángela Pierson M.D. on 01/28/2017 at 14:54 . Assessment & Plan Bradley Donovan is a 76 year old male with Hypertension, diabetes mellitus type II , Chronic A-fib, Crohn's disease and GERD presents to [facility] emergency department complaining of chronic shortness of breath, with acute encephalopathy 1. Acute on chronic respiratory failure, hypoxic and hypercarbic, present on admission. Likely due acute diastolic Congestive heart failure. Patient and endorsed that he has not used his trilogy unit in several weeks because they do not understand the settings. I suspect acute encephalopathy is due to hypercarbic respiratory failure from GERARDO. Other causes includes recurrent Pleural effusion (recent thoracentesis), Pneumonia not likely based on current data and clinical picture. 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 Previous thoracentesis diagnostic workup revealed transudate of chemistries. - continue oxygen supplementation (5L oxygen at home) - BiPAP as needed, wean O2 as tolerated. RT is following up with [facility] on the Trilogy unit. 2. Acute on Diastolic Chronic heart failure (with preserved Ejection Function). Present on admission Patient taking Torsemide as outpatient and is compliant with other medications. - monitor weight and fluid status - diuretic therapy with Lasix 40 mg IV bid - repeat echo requested -educated and patient to check weight daily at home to track fluid status - Palliative care consult requested Have hit the wall on diuresis with elevated creatinine in spite of leg pitting edema. Hold lasix and give saline back slowly. 6 Acute Hyperkalemia. Present on admission Etiology unclear but includes: NANCY, RTA Type IV, uncontrolled DM II or ARB - Patient received Kayexalate - No EKG changes - monitor on telemetry - holding Losartan for now -K normal today. Again. 7 Acute on chronic kidney injury, present on admission, worse with diuresis. Also with oligouria. Multifactorial secondary to overdiuresis, cardiorenal syndrome, ATN, Diabetes Type II, possible underlying disease of RTA type IV (hypoaldosteronism) - avoid nephrotoxic insults. - hold lasix and saline back at 75/hr. Follow UOP and Cr. 8 Type II DM, Chronic and poorly controlled. - medium Lispro correction algorithm - checking A1c - continuing Lantus (need to determine dose), Increase from 20 to 30 tonight. Better control today, no changes. 10 Obesity with Obstructive Sleep Apnea. Patient not compliant with trilogy machine - Respiratory therapy consult - Request Keiko to provide additional counseling to patient and to enhance compliance Stable, resolving and chronic problems: 5 Lactic acidosis. Present on admission Due to tissue hypoxia - trending levels till normal 4. Elevated troponin. Present on admission. Likely demand ischemia although several risk factors of Non ST elevation DE - No signs of acute coronary syndrome 9 Persistent Atrial fibrillation, rate controlled -Patient refusing Coumadin. - monitor on telemetry - continue rate control with Diltiazem 180 mg daily # COPD exacerbation. Present on admission. No signs of bronchospasm or acute COPD flare. Patient is on essentially no chronic COPD medications. He was initially treated with Solu-Medrol. - Discontinue glucocorticoid - DuoNeb scheduled 11 Erosive esophagitis, gastric antral ulceration, Crohn disease, No active bleeding with patient taking Prilosec as outpatient - Continue Protonix 40 mg Daily - Acetaminophen as needed for mild pain/fever/headache - Bowel regimen as needed - Antiemetic as needed Patient admitted under inpatient status with expected length of stay > 2 midnights for severity of present symptoms, complexities of treatment plan and risk for adverse event . Pain Evaluation: Adequate Pain Control VTE Prophylaxis: SCDs Resuscitation Status: DNR/DNI:Do Not Resuscitate/Intubate Time spent 30 min David Nur MD Jan 31, 2017 12:58
--- NOTE | 2017-01-31 13:40 | DRSVH ---
PROCEDURE: X-RAY CHEST ONE VIEW, PORTABLE ([id number]) INDICATIONS: dyspnea TECHNIQUE: One view of the chest was acquired. COMPARISON: [facility], CR, XR CHEST 1VW, 01/29/2017, 16:17. [facility], CR, XR CHEST 1VW (PORTABLE), 01/28/2017, 14:12. FINDINGS: Surgical changes and devices: Median sternotomy. Lungs and pleura: No pneumothorax. Small bilateral pleural effusions are present, as before. There i s increased, moderate to severe opacity within the bilateral mid and lower lungs. Mediastinum: Mediastinal contours appear normal. Heart size is enlarged. Bones and chest wall: No suspicious bony lesions. Overlying soft tissues appear unremarkable. IMPRESSION: 1. Increased CHF. 2. Increased bibasilar atelectasis pneumonia. Dictated by: Queta Knox M.D. on 01/31/2017 at 13:37 Approved by: Queta Knox M.D. on 01/31/2017 at 13:39
--- NOTE | 2017-01-31 16:09 | NUR ---
Social Work Note: Continued Discharge Planning Data& Assessment: SW met with pt and pt at bedside to discuss discharge planning. Pt confirmed plan to discharge home. Pt explained that if PT recommends home health, they would like to try [facility] this time instead of [facility] for PT. Pt had previously been open with [facility] for Trilogy Machine, but the pt returned the machine after pt became non compliant and frustrated with using the machine. Pt explained that they are working with RT to discuss either going home with CPAP vs. trying the Trilogy machine again. Pt also expressed interested in meeting with Palliative Care. SW to discuss this with MD. Pt and pt deny any other needs at this time. SW to continue to follow. Plan: Anticipated discharge home vs. home with [facility]. RT following for respiratory machine recommendations. SW to discuss palliative care consult per pt request. Pt and pt deny any other needs at this time. SW to continue to follow. JIHAN Solorio
--- NOTE | 2017-01-31 18:32 | NUR ---
Mentation/BiPAP Pt more drowsy than yesterday's shift, CO2 89 at last venous blood gas, Pt kept on BiPAP except during afternoon meal times, Pt able to stand at bedside and tolerate sitting on edge of bed for lunch and dinner. Spoke with regarding Pt's home trilogy unit, informed that Pt did not tolerate mask on trilogy and felt the unit was not user friendly enough, spoke with RT who came and discussed use/options for home at length. Per RT, Pt also has C-PAP unit at home, plan is for Pt's to bring in Pt's own C-PAP and trial over night tomorrow night.
[2017-01-31] MEDS: Insulin GLARgine 100 Unit/mL Syringe SUBQ SCH (21:12)
--- NOTE | 2017-01-31 22:40 | NUR ---
Transfer of Care Transfer of care to Yahaira OLVERA at start of mine shifter, report given per day nurse report. Prior to this pt briefly rounded on and appeared to be sleeping comfortably. DIRECTOR OF COUNTERINTELLIGENCE showing oxygenation WNL while pt on BiPAP, tele Afib 50s-60s.
[2017-02-01] VITALS (13 sets, daily range): BP systolic 103–131; BP diastolic 47–67; PULSE 69–81; RESP 20–27; O2SAT 91–98
[2017-02-01] MEDS: Sodium Chloride LOK Flush 10 mL Syringe IVFLUSH SCH ×3 (01:15→16:17)
[2017-02-01] MEDS: 0.9% Sodium Chloride 1,000 ML IV SCH (01:15)
--- NOTE | 2017-02-01 06:19 | NUR ---
NOC PT denies any pain. He has been on 40% bipap all shift. He was ORA for about 5 minutes when he was taking po meds and dropped into the 60's. Quickly returned WNL on bipap. Pt denies any pain. HE has pitting edema to his BLE. Dhillon in place and pt remains oliguric and has made only 25ml of urine over noc shift. NS infusing gently at 75ml. PT was a little confused first thing this am, but his mentation improved quickly. There are mepilex on his bilateral shins. Lungs are diminished at bases with mild exp wheezes noted. Pt is a turn every 2 hours as he has limited mobility due to ankylosing spondylitis reportedly.
[2017-02-01] MEDS: Pantoprazole 40 mg ER24 Tablet PO SCH ×2 (08:01→16:17)
[2017-02-01] MEDS: Insulin LISPRO 300 Unit/3 mL Inj SUBQ SCH ×4 (08:05→21:39)
[2017-02-01 09:35] LABS: Mean Corpuscular Volume 101.1 fL (81-100); Platelet Count 238 bil/L (150-400)
[2017-02-01 10:08] LABS: BASOPHILS % (AUTO) 0 % (0-3); EOSINOPHILS % (AUTO) 2 % (0-5); MONOCYTES % (AUTO) 10 % (4-12); NEUTROPHILS % (AUTO) 77 % (40-74)
[2017-02-01] MEDS ORDERED: Bumetanide 0.25 mg/mL 4 mL Inj IV ONE (11:15)
--- NOTE | 2017-02-01 11:17 | PCM.PNNEPH ---
Subjective Date of Service Feb 01, 2017 Subjective Hypotension noted 48 hr ago. Labetalol, lasix and losartan have been on hold. Ns 75 ml/hr given without any response. brownish, dark urine detected. Serum creatinine continues to rise. Low urine output reported. (+) SOB. Exam Vital Signs Vital Sign - Last Date Time Temp Pulse Resp B/P Pulse Ox O2 Delivery O2 Flow Rate FiO2 02/01/17 08:51 72 02/01/17 07:47 CPAP/BIPAP 02/01/17 07:47 36.7 22 131/59 95 40 01/31/17 15:55 1.50 Intake and Output 01/31/17 01/31/17 02/01/17 Cumulative From/Thru 15:00 23:00 07:00 01/28/17 13:50 - 02/01/17 06:06 Intake Total 560 ml 998 ml 5748 ml Output Total 50 ml 5 ml 2505 ml Balance 510 ml 993 ml 3243 ml Intake Oral 560 ml 100 ml 4850 ml IV Total 898 ml 898 ml Output Urine Total 50 ml 5 ml 2505 ml # Voids 1 # Bowel Movements 1 6 Exam GENERAL: The patient in no apparent distress, and alert and oriented x3. Lying in bed comfortably, on CPAP. HEENT: Head is normocephalic and atraumatic. NECK: Supple, no elevation of JVD, No carotid bruits. No lymphadenopathy or thyromegaly. LUNGS: Decreased sounds at the bases. No wheezing, no rhonchi no rales. HEART: Normal S1/S2, distant heart sound. ABDOMEN: Soft, nontender, and nondistended. Positive bowel sounds. No hepatosplenomegaly was noted. EXTREMITIES: 2+ edema with chronic skin changes. Lab and Diagnostics Result Diagram: 02/01/1792902/01/17929 X-Rays, CTs and MRIs X-RAY CHEST ONE VIEW, PORTABLE 01/28 IMPRESSION: Congestive heart failure and small to moderate bilateral effusions. Dictated by: Ángela Pierson M.D. on 01/28/2017 at 14:53 Approved by: Ángela Pierson M.D. on 01/28/2017 at 14:54 . Plan Impression 1. Acute kidney injury on chronic kidney disease secondary to overdiuresis vs ATN. 2. Hyperkalemia secondary to medications and type IV renal tube acidosis 3. Acute on chronic respiratory failure 4. Type II diabetes with diabetic nephropathy 5. Hypertension with hypertensive nephrosclerosis 6. COPD/GERARDO. 7. Chronic diastolic heart failure, VHD. 8. Crohn's disease 9. Rheumatology disorder including rheumatoid arthritis, ankylosing spondylitis and gout 10. Mixed respiratory acidosis and metabolic alkalosis. Plan: d/c IVF. IV bumex 2 mg x. 1 repeat UA, urine urea, Na, cr, urine eos. 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 Derek Abdi MD Feb 01, 2017 11:17
[2017-02-01] MEDS ORDERED: Heparin 5,000 Units/500 mL NS Premix IV ONE (13:13)
[2017-02-01] MEDS ORDERED: Heparin 1,000 Unit/mL 10 mL Inj ONE ×2 (14:04→14:10)
--- NOTE | 2017-02-01 14:36 | NUR ---
Palliative care note [facility] D/A: Met with pt spouse as well as her two daughters. Discussed at length pt current condition, his new need for dialysis and potential need for this skilled nursing. Discuss pt potential feelings about dialysis and also note that he is currently confused. Family notes that previously, pt had indicated that he would not wish for dialysis. They thought that this am he might have indicated he did not wish for dialysis but when questioned more closely, he agreed to go. Spouse in agreement at this time as well. Pt off at dialysis at this time, unknown yet if pt will need chronic dialysis. Family discusses where pt might need to go upon dc and both dtr's indicate unequivocally to their mother that she cannot take care of pt in his current condition. He is 24/7 care at this time. Dr. Weinstein notes to spouse that she would need additional caregiving in order to take him home. Spouse states that she cannot take him home, this worker discusses that SNF is the only setting in which Medicare will potentially pay for some skilled time. Briefly discuss that SNF would be in communication with family regarding pt and payments from insurance and when they might end. Attempt to elicit SNF choice from family but they are not able to make a choice at this time. Offer to get them a SNF list but they indicate that they know all the possible options. Family lives in [facility].Msg left for SPRING UP SUPERVISOR in regards to above. Also discuss comfort care and how that might look with cessation of dialysis or electing to not take chronic dialysis. Family elects to continue with dialysis for the time being and see how pt does over the next few days. They will then make a decision regarding possible continuation of dialysis if medical team continues to offer as a possible treatment. P: Palliative care to follow. Mayra SELLERS, CCM
--- NOTE | 2017-02-01 14:49 | PCM.PALLBR ---
Palliative Care Recommendation 76-year-old male with progressive dyspnea, multifactorial, including COPD, diastolic congestive heart failure, chronic anemia, obesity and sleep apnea, now with acute on chronic renal failure and progression to dialysis. Patient delirious today and non-decisional, likely on the basis of CO2 retention and his worsening uremia. Palliative medicine consult to assist patient and family and determination of goals of care. Summary of palliative recommendations: -Symptom management (Pain/other): managed per Attending Dyspnea 2/2 comorbidities of COPD, CHF, and multifactorial Anemia due to erosive esophagitis, gastric antral ulceration, and Crohn disease--which has been worked up by oncologist Dr. Rhoades with no signs of lymphoma, leukemia or other blood dyscrasia. Pt had recent therapeutic thoracentesis 01/29 with laboratory studies suggesting transudate -DPOA/Advanced Directives/POLST: 1. Code: DNR/DNI with limited interventions; reviewed with family again on 02/01 with them confirming present status 2. POLST: signed 01/28/[address] Guillen (last night on the floor right after on admission) located on paper chart: DNR/DNI with limited interventions 3. HCPOA: Noemi / [phone] 4. It is the family's hope that dialysis will make the patient more comfortable by way of easing his dyspnea. If he fails to improve or if he deteriorates further, they are open to considering transition to comfort/end-of- life care. The patient's does not feel that she is capable of caring for him at home and so SNF placement would likely be necessary if he survives to hospital discharge. 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 Additional Medical Diagnoses with primary management by Hospitalist team include : Acute on chronic respiratory failure, hypoxic, multifactorial, present on admission Acute on chronic kidney injury, present on admission, ongoing- temporary dialysis catheter placed on 02/01 and hemodialysis initiated Acute on Chronic heart failure with preserved Ejection Function. Present on admission COPD exacerbation. Present on admission Elevated troponin. Present on admission Lactic acidosis. Present on admission Acute Hyperkalemia. Present on admission Type II DM, Chronic Persistent Atrial fibrillation, rate controlled Obesity with Sleep Apnea Erosive esophagitis, gastric antral ulceration, Crohn disease, Problems: End of Life Preferences DO NOT RESUSCITATE/DO NOT INTUBATE/limited interventions Goals of Care Patient's family hopes for improvement, but their primary goal is the patient's comfort Disposition To be determined, though as noted above, patient's says that she does not foresee being able to take him home under any circumstances, and so SNF placement likely Resuscitation Status Resuscitation Status: DNR/DNI:Do Not Resuscitate/Intubate POLST Updates/Changes Previous POLST?: Yes (discussed POLST now in chart that was signed by Dr. Guillen last night after long discussion with pt and .) POLST Last Review Date: Jan 29, 2017 POLST Discussed with: Patient, Spouse/Other POLST Review Outcome: No Change . Pain: None Symptom management: Drowsiness/sleepiness, Dyspnea, Delirium Total time 95 minutes; >50% face to face with patient and family, providing counselling regarding plans and recommendations, and in care coordination with his medical teams. Of the above total time, 55 minutes counseling for advanced care planning with the patient's family, including his and 2 daughters, on 2 separate visits. copies to: Imani Antony MD Palliative Brief Note Date of Service Feb 01, 2017 . Returned to reevaluate patient. Prior to visiting, reviewed his updated records in the EMR in detail, spoke with his bedside nurse and with his hospitalist. Initial contact was with the patient and his - returned several hours later to check once again with patient's and 2 daughters. At time of initial visit, patient was lying in bed, confused and dyspneic. Respiratory therapy was attempting to obtain blood for ABGs (ultimately they were unsuccessful). Patient insisted that he needed to sit up at side of bed and we repositioned him. He indicated that this did help his dyspnea, but he remained somewhat confused and, I believe, non-decisional. Spoke with his at the initial meeting, reviewing his status over the last several days and today. She feels significantly more confused today. We reviewed his current laboratory results and the impact his progressive renal failure has on his overall status. Also reviewed conversations she had had last week with Dr. Begum of palliative medicine and patient's reconfirmed that he is to be DO NOT RESUSCITATE/DO NOT INTUBATE. She did request that we returned later to talk further when her daughters would be available. Exam at the time of his morning visit showed an obese, confused, mildly dyspneic man lying in bed and then sitting up at side of bed. Vital signs noted. Skin pale, warm and dry. Head and neck exam without acute changes. Lungs with diffusely decreased breath sounds, especially at bases bilaterally. No wheezes or rales heard. Heart sounds regular, abdomen obese. Lower extremities with edema. Laboratories reviewed in detail. Note that at the time of his last hospital discharge his ABGs showed a pH of 7.42 with a PCO2 in the 70s, consistent with chronic CO2 retention and compensated respiratory acidosis. His most recent ABGs now are consistent with almost pure respiratory acidosis with only slight metabolic compensation. Renal failure worse with creatinine greater than 4/BUN greater than 80 today. Returned later in the afternoon to speak with the patient's and daughters. After nephrology visit today, decision had been made to proceed with temporary dialysis catheter placement and initiation of dialysis. Patient's family members indicate that they did this "for comfort", primarily because they were concerned about worsening dyspnea. We reviewed his past medical history and progressive deterioration with the family, talked about possible indications the patient may have given in the past about what advanced care he might be willing to undergo, reviewed his CODE STATUS once again and talked about possible disposition options, of course dependent on how things go in the coming days. The family members all understand that the patient is likely nearing end-of-life and their primary goal is that he be comfortable. They were open to consideration of hospice (though would require significant additional assistance at home to make that work) and we also talked about possible SNF placement, end-of-life in the hospital and even with [facility] (which they brought up). Ultimately, the family agreed that they will need to see how the patient is doing over the next several days and from there determine their plans. Patient' s indicates that she does not think there is any way he could possibly come home because his care needs are too great and so family was open to consider SNF. On the other hand, if the patient continued to deteriorate, it seemed the family would be open to conversations about transitioning to end-of- life care. Trevon Weinstein MD Feb 01, 2017 14:49 might be willing to undergo, reviewed his CODE STATUS once again and talked about possible disposition options, of course dependent on how things go in the coming days. The family members all understand that the patient is likely nearing end-of-life and their primary goal is that he be comfortable. They were open to consideration of hospice (though would require significant additional assistance at home to make that work) and we also talked about possible SNF placement, end-of-life in the hospital and even with [facility] (which they brought up). Ultimately, the family agreed that they will need to see how the patient is doing over the next several days and from there determine their plans. Patient' s indicates that she does not think there is any way he could possibly come home because his care needs are too great and so family was open to consider SNF. On the other hand, if the patient continued to deteriorate, it seemed the family would be open to conversations about transitioning to end-of- life care. Trevon Weinstein MD Feb 01, 2017 14:49
--- NOTE | 2017-02-01 14:51 | NUR ---
NUTRITION ASSESSMENT Assess: 76 YO M admitted with hyperkalemia, hypoxia with acute on chronic heart failure. Pt with variable PO intake. Palliative consult pending. Pt requiring BiPAP. PMHX: microcytic anemia associated with iron deficiency d/t erosive esophagitis, gastric antral ulceration, Crohns disease, CAD, Moderate MR, HTN, HLD, COPD, GERARDO,Diverticulitis, prostate cancer, Alkylosing spondylosis, RA, gout, Diabetes type 2 Anxiety, CKD stage 3 DIET: Heart Healthy/Consistent Carb. PO intake 0-100%. LABS: Na 130, BUN 83, Cr 4.03, Glu 141, Ca 7.0 MEDICATIONS: Reviewed. Insulin. GI: 1 BM /2. SKIN: No issues noted. Leg edema. ANTHROPOMETRICS: Wt: 131.5 kg, BMI 41.6 kg/m2, Admit wt: 129.7 kg, Adj. BW: 89.5 kg. ESTIMATED NEEDS: BMI/NANCY Calories: 7068-2409 kcal/day (25-35 kcal/kg Adj. BW) Protein: 89-107 g/day (1.0-1.2 g/kg Adj. BW) NUTRITION DIAGNOSIS: 1) No diagnosis at this time. INTERVENTION: 1) Continue current diet as ordered. MONITOR/EVALUATE: PO intake, diet tolerance, labs, GI, nutrition status. Follow per moderate nutrition risk guidelines.
--- NOTE | 2017-02-01 16:36 | PCM.PNMED ---
Subjective Date of Service Feb 01, 2017 Subjective Patient is very somnolent. He denies pain and says he is comfortable.No abdomen pain. Doing well on dialysis. Exam Vital Signs Vital Sign - Last Date Time Temp Pulse Resp B/P Pulse Ox O2 Delivery O2 Flow Rate FiO2 02/01/17 12:48 37.1 81 24 125/61 91 Nasal Cannula 3.00 02/01/17 07:47 40 Intake and Output 01/31/17 01/31/17 02/01/17 Cumulative From/Thru 15:00 23:00 07:00 01/28/17 13:50 - 02/01/17 06:06 Intake Total 560 ml 998 ml 5748 ml Output Total 50 ml 5 ml 2505 ml Balance 510 ml 993 ml 3243 ml Intake Oral 560 ml 100 ml 4850 ml IV Total 898 ml 898 ml Output Urine Total 50 ml 5 ml 2505 ml # Voids 1 # Bowel Movements 1 6 Exam General: Obese elderly man with BiPAP and tachypnea HEENT: sclerae anicteric Neck: Supple, difficult to assess JVD Chest: Dull bases with inspiratory crackles, clear to auscultation in upper lung worrell Cardiac: S1S2, regular Abdomen: BS normal, non-tender Extremities: 1+ edema Neuro: A&O, cranial nerves symmetric, motor strength 5/5, coordination normal Fluent speech. Anicteric sclera. On BiPAP Left IJ HD cath in place (new today) IVs and Medications Medications Reviewed: Medications were reviewed in detail Lab and Diagnostics Result Diagram: 02/01/17 0930 02/01/17 0930 X-Rays, CTs and MRIs X-RAY CHEST ONE VIEW, PORTABLE 01/28 IMPRESSION: Congestive heart failure and small to moderate bilateral effusions. Dictated by: Ángela Pierson M.D. on 01/28/2017 at 14:53 Approved by: Ángela Pierson M.D. on 01/28/2017 at 14:54 . Assessment & Plan Bradley Donovan is a 76 year old male with Hypertension, diabetes mellitus type II , Chronic A-fib, Crohn's disease and GERD presents to [facility] emergency department complaining of chronic shortness of breath, with acute encephalopathy 1. Acute on chronic respiratory failure, hypoxic and hypercarbic, present on admission. Likely due acute diastolic Congestive heart failure. Patient and endorsed that he has not used his trilogy unit in several weeks because they do not understand the settings. I suspect acute encephalopathy is due to hypercarbic respiratory failure from GERARDO. Other causes includes recurrent Pleural effusion (recent thoracentesis), Pneumonia not likely based on current data and clinical picture. 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 Previous thoracentesis diagnostic workup revealed transudate of chemistries. - continue oxygen supplementation (5L oxygen at home) - BiPAP as needed, wean O2 as tolerated. RT is following up with Keiko on the Trilogy unit. The patient remains heavily dependent on BiPAP. Unsuccessful ABG draw this AM. 2. Acute on Diastolic Chronic heart failure (with preserved Ejection Function). Present on admission Patient taking Torsemide as outpatient and is compliant with other medications. - monitor weight and fluid status - diuretic therapy with Lasix 40 mg IV bid - repeat echo requested -educated and patient to check weight daily at home to track fluid status - Palliative care consult requested Hemodialysis today (1st treatment) 6 Acute Hyperkalemia. Present on admission Etiology unclear but includes: NANCY, RTA Type IV, uncontrolled DM II or ARB - Patient received Kayexalate - No EKG changes - monitor on telemetry - holding Losartan for now -K normal today. Again. Hemodialysis daily for the next several days. 7 Acute on chronic kidney injury, present on admission, worse with diuresis. Also with oligouria. Multifactorial secondary to overdiuresis, cardiorenal syndrome, ATN, Diabetes Type II, possible underlying disease of RTA type IV (hypoaldosteronism) - avoid nephrotoxic insults. - hold lasix and saline back at 75/hr. Follow UOP and Cr. Dialysis daily. 8 Type II DM, Chronic and poorly controlled. - medium Lispro correction algorithm - checking A1c - continuing Lantus (need to determine dose), Increase from 20 to 30 tonight. Better control today, no changes. 10 Obesity with Obstructive Sleep Apnea. Patient not compliant with trilogy machine - Respiratory therapy consult - Request Keiko to provide additional counseling to patient and to enhance compliance Stable, resolving and chronic problems: 5 Lactic acidosis. Present on admission Due to tissue hypoxia - trending levels till normal 4. Elevated troponin. Present on admission. Likely demand ischemia although several risk factors of Non ST elevation [place] - No signs of acute coronary syndrome 9 Persistent Atrial fibrillation, rate controlled -Patient refusing Coumadin. - monitor on telemetry - continue rate control with Diltiazem 180 mg daily # COPD exacerbation. Present on admission. No signs of bronchospasm or acute COPD flare. Patient is on essentially no chronic COPD medications. He was initially treated with Solu-Medrol. - Discontinue glucocorticoid - DuoNeb scheduled 11 Erosive esophagitis, gastric antral ulceration, Crohn disease, No active bleeding with patient taking Prilosec as outpatient - Continue Protonix 40 mg Daily - Acetaminophen as needed for mild pain/fever/headache - Bowel regimen as needed - Antiemetic as needed Patient admitted under inpatient status with expected length of stay > 2 midnights for severity of present symptoms, complexities of treatment plan and risk for adverse event [place] level of care discussions with the assistance of Palliative care. . Pain Evaluation: Adequate Pain Control VTE Prophylaxis: SCDs Resuscitation Status: DNR/DNI:Do Not Resuscitate/Intubate Time spent 30 min David Nur MD Feb 01, 2017 16:36
--- NOTE | 2017-02-01 17:17 | NUR ---
Dialysis note: 2 hr first tx. Temporary left IJ cath accessed without difficulty. QB 250. Net UF 2.0 dressg was loose so changed with CHG; chloroprep used. Pt on Cpap ; sat 98%. responded with yes and no appropriately but also was intermittently talking without anyone present at bedside. Pt stable and continues on Cpap. Please see DTR for complete record of VS.
[2017-02-01] MEDS: Insulin GLARgine 100 Unit/mL Syringe SUBQ SCH (21:40)
[2017-02-02] VITALS (14 sets, daily range): BP systolic 131–174; BP diastolic 59–81; PULSE 71–84; RESP 18–35; O2SAT 89–97
[2017-02-02] MEDS: Sodium Chloride LOK Flush 10 mL Syringe IVFLUSH SCH ×3 (00:30→17:59)
[2017-02-02 01:48] LABS: APPEARANCE,URINE HAZY (CLEAR,HAZY); COLOR,URINE STRAW (YELLOW)
[2017-02-02 01:49] LABS: OCCULT BLOOD,URINE LARGE (NEGATIVE); UROBILINOGEN,URINE NORMAL (NORMAL)
--- NOTE | 2017-02-02 02:31 | NUR ---
Bipap Pt pulling his mask off often despite multiple re adjustments Given water to drink. Paged RT Pt had mask replaced with one size smaller No further pulling off of mask.
[2017-02-02 05:06] LABS: BASOPHILS % (AUTO) 0.3 % (0-3); EOSINOPHILS % (AUTO) 0.7 % (0-5); MONOCYTES % (AUTO) 8.8 % (4-12); Mean Corpuscular Hemoglobin 28.6 pg (27.0-35.0); Mean Corpuscular Volume 100.4 fL (81-100); NEUTROPHILS % (AUTO) 76.3 % (40-74); Platelet Count 223 bil/L (150-400)
[2017-02-02 05:35] LABS: Magnesium 2.5 mg/dL (1.6-2.6); Phosphorus 6.2 mg/dL (2.5-4.9); Unsaturated Iron Binding 349.9 ug/dL
[2017-02-02] MEDS: Insulin LISPRO 300 Unit/3 mL Inj SUBQ SCH ×4 (09:30→22:09)
[2017-02-02] MEDS: Pantoprazole 40 mg ER24 Tablet PO SCH ×2 (09:30→17:59)
[2017-02-02] MEDS: Heparin 5,000 Unit/mL Inj SUBQ SCH ×2 (10:20→18:00)
--- NOTE | 2017-02-02 10:23 | PCM.PNMED ---
Subjective Date of Service Feb 02, 2017 Subjective Arousable, not oriented to place. Denies pain, feels a little confused and dyspneic. No nausea. Exam Vital Signs Vital Sign - Last Date Time Temp Pulse Resp B/P Pulse Ox O2 Delivery O2 Flow Rate FiO2 02/02/17 09:22 CPAP/BIPAP 02/02/17 09:22 36.9 78 24 163/66 90 30 02/01/17 18:07 4.00 Intake and Output 02/01/17 02/01/17 02/02/17 Cumulative From/Thru 15:00 23:00 07:00 01/28/17 13:50 - 02/02/17 06:53 Intake Total 636 ml 6384 ml Output Total 2100 ml 300 ml 4905 ml Balance -1464 ml -300 ml 1479 ml Intake Oral 300 ml 5150 ml IV Total 336 ml 1234 ml Output Urine Total 100 ml 300 ml 2905 ml Ultrafiltrate 2000 ml 2000 ml # Voids 1 # Bowel Movements 6 Exam General: Obese elderly man with BiPAP and tachypnea HEENT: sclerae anicteric Neck: Supple, difficult to assess JVD Chest: Dull bases with inspiratory crackles, clear to auscultation in upper lung worrell Cardiac: S1S2, regular Abdomen: BS normal, non-tender Extremities: 1+ edema Neuro: A&O, cranial nerves symmetric, motor strength 5/5, coordination normal Fluent speech. Anicteric sclera. On BiPAP Left IJ HD cath in place (new today) IVs and Medications Medications Reviewed: Medications were reviewed in detail Lab and Diagnostics Result Diagram: 02/02/17 0425 02/02/17424 X-Rays, CTs and MRIs X-RAY CHEST ONE VIEW, PORTABLE 01/28 IMPRESSION: Congestive heart failure and small to moderate bilateral effusions. Dictated by: Ángela Pierson M.D. on 01/28/2017 at 14:53 Approved by: Ángela Pierson M.D. on 01/28/2017 at 14:54 . Assessment & Plan Bradley Donovan is a 76 year old male with Hypertension, diabetes mellitus type II , Chronic A-fib, Crohn's disease and GERD presents to [facility] emergency department complaining of chronic shortness of breath, with acute encephalopathy 1. Acute on chronic respiratory failure, hypoxic and hypercarbic, present on admission. Likely due acute diastolic Congestive heart failure. Patient and endorsed that he has not used his trilogy unit in several weeks because they do not understand the settings. I suspect acute encephalopathy is due to hypercarbic respiratory failure from GERARDO. Other causes includes recurrent Pleural effusion (recent thoracentesis), Pneumonia not likely based on current data and clinical picture. 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 Previous thoracentesis diagnostic workup revealed transudate of chemistries. - continue oxygen supplementation (5L oxygen at home) - BiPAP as needed, wean O2 as tolerated. The patient remains heavily dependent on BiPAP. We are reopening approval for Trilogy today with [facility]. 2. Acute on Diastolic Chronic heart failure (with preserved Ejection Function). Present on admission Patient taking Torsemide as outpatient and is compliant with other medications. - monitor weight and fluid status - diuretic therapy with Lasix 40 mg IV bid - repeat echo requested -educated and patient to check weight daily at home to track fluid status - Palliative care consult requested Hemodialysis today (2nd treatment) 6 Acute Hyperkalemia. Present on admission Etiology unclear but includes: NANCY, RTA Type IV, uncontrolled DM II or ARB - Patient received Kayexalate - No EKG changes - monitor on telemetry - holding Losartan for now -K normal today. Again. Hemodialysis daily for the next several days. 7 Acute on chronic kidney injury, present on admission, worse with diuresis. Also with oligouria. Multifactorial secondary to overdiuresis, cardiorenal syndrome, ATN, Diabetes Type II, possible underlying disease of RTA type IV (hypoaldosteronism) - avoid nephrotoxic insults. - hold lasix and saline back at 75/hr. Follow UOP and Cr. Dialysis daily. 8 Type II DM, Chronic and poorly controlled. - medium Lispro correction algorithm - checking A1c - continuing Lantus (need to determine dose), Increase from 20 to 30 tonight. Better control today, no changes. 10 Obesity with Obstructive Sleep Apnea. Patient not compliant with trilogy machine - Respiratory therapy consult - Request Keiko to provide additional counseling to patient and to enhance compliance Stable, resolving and chronic problems: 5 Lactic acidosis. Present on admission, resolved. Due to tissue hypoxia - trending levels till normal 4. Elevated troponin. Present on admission. Likely demand ischemia although several risk factors of Non ST elevation [place] - No signs of acute coronary syndrome, no further work up. 9 Persistent Atrial fibrillation, rate controlled -Patient refusing Coumadin. - monitor on telemetry - continue rate control with Diltiazem 180 mg daily # COPD exacerbation. Present on admission. No signs of bronchospasm or acute COPD flare. Patient is on essentially no chronic COPD medications. He was initially treated with Solu-Medrol. - Discontinue glucocorticoid - DuoNeb scheduled 11 Erosive esophagitis, gastric antral ulceration, Crohn disease, No active bleeding with patient taking Prilosec as outpatient - Continue Protonix 40 mg Daily 12. DVT prophylaxis. Heparin SQ TID. - Acetaminophen as needed for mild pain/fever/headache - Bowel regimen as needed - Antiemetic as needed Patient admitted under inpatient status with expected length of stay > 2 midnights for severity of present symptoms, complexities of treatment plan and risk for adverse event Continue level of care discussions with the assistance of Palliative care. . Pain Evaluation: Adequate Pain Control VTE Prophylaxis: SCDs Resuscitation Status: DNR/DNI:Do Not Resuscitate/Intubate Time spent 25 minutes David Nur MD Feb 02, 2017 10:23
--- NOTE | 2017-02-02 11:03 | PCM.PNNEPH ---
Subjective Date of Service Feb 02, 2017 Subjective s/p left IR eros catheter placement yesterday. First HD initiated without complication. UF 2L. He is seen during HD today, stable BP, on the high side. Follow simple commands. Exam Vital Signs Vital Sign - Last Date Time Temp Pulse Resp B/P Pulse Ox O2 Delivery O2 Flow Rate FiO2 02/02/17 09:22 CPAP/BIPAP 02/02/17 09:22 36.9 78 24 163/66 90 30 02/01/17 18:07 4.00 Intake and Output 02/01/17 02/01/17 02/02/17 Cumulative From/Thru 15:00 23:00 07:00 01/28/17 13:50 - 02/02/17 06:53 Intake Total 636 ml 6384 ml Output Total 2100 ml 300 ml 4905 ml Balance -1464 ml -300 ml 1479 ml Intake Oral 300 ml 5150 ml IV Total 336 ml 1234 ml Output Urine Total 100 ml 300 ml 2905 ml Ultrafiltrate 2000 ml 2000 ml # Voids 1 # Bowel Movements 6 Exam GENERAL: on HD, somnolence, arousable on BiPAP. HEENT: Head is normocephalic and atraumatic. NECK: Supple, no elevation of JVD, No carotid bruits. No lymphadenopathy or thyromegaly. Left IJ eros cath in place, dry, clean and intact. LUNGS: Decreased sounds at the bases. No wheezing, no rhonchi no rales. HEART: Normal S1/S2, distant heart sound. ABDOMEN: Soft, nontender, and nondistended. Positive bowel sounds. No hepatosplenomegaly was noted. EXTREMITIES: 2+ edema with chronic skin changes. Lab and Diagnostics Result Diagram: 02/02/1742402/02/17424 X-Rays, CTs and MRIs X-RAY CHEST ONE VIEW, PORTABLE 01/28 IMPRESSION: Congestive heart failure and small to moderate bilateral effusions. Dictated by: Ángela Pierson M.D. on 01/28/2017 at 14:53 Approved by: Ángela Pierson M.D. on 01/28/2017 at 14:54 . Plan Impression 1. Acute kidney injury on chronic kidney disease secondary CRS and ATN. - required HD, first HD was on 02/01. - second HD today: 3 hr, revaclear, 2K, 35HCO3, DFR 600, BFR 300, UF 3L, left IJ eros cath. 2. Hyperkalemia secondary to medications and type IV renal tube acidosis 3. Acute on chronic respiratory failure 4. Type II diabetes with diabetic nephropathy 5. Hypertension with hypertensive nephrosclerosis 6. COPD/GERARDO. 7. Chronic diastolic heart failure, VHD. 8. Crohn's disease 9. Rheumatology disorder including rheumatoid arthritis, ankylosing spondylitis and gout 10. Mixed respiratory acidosis and metabolic alkalosis. 11. Anemia of chronic disease. 12. Hematuria likely traumatic from irving cath, no dysmorphic RBCs noted ( microscopic examination performed by renal service). Plan: 3rd HD in am, 3.5 hr, UF as tolerated. add aranesp 60 mcg subQ today. resume low dose labetalol 100 mg BID. We will continue to monitor his kidney function. Family and patient do not want chronic HD. If it is indicated, they will consider hospice/comfort measures. Derek Abdi MD Feb 02, 2017 11:03
[2017-02-02] MEDS ORDERED: Darbepoetin Alfa 60 mCg/0.3 mL Inj SUBQ ONE (11:10)
--- NOTE | 2017-02-02 12:00 | NUR ---
Dialysis note: 3 hours tx 3000 ml net UF Left IJ catheter, dsg changed, no s/s of infection noted Pls see DTR for VS details Qb 300 Heparin given On Bipap Tolerated tx, slept at intervals Catheter flushed, heparin dwelled and secured Report given to Maine Loza RN Stable condition at end of tx
--- NOTE | 2017-02-02 13:10 | NUR ---
Social Work Note: Continued Discharge Planning Oncology CM visited and explained she follows pt on an outpt basis. Oncology CM will continue to check in on pt. SW to continue to follow. JIHAN Solorio Addendum: 02/02/17 at 1316 by MARISSA MILLER ADDENDUM: Documentation on wrong pt. Pt is followed by Dr. Rhoades from the Oncology clinic, but not followed by oncology CM. JIHAN Solorio
--- NOTE | 2017-02-02 13:42 | PATH ---
SURGICAL PATHOLOGY Attending Physician:Daljit Rhoades M.D. ( CASE STATUS: Signed Out PATIENT NAME: GIACOMO SNYDER PID: [id number] : 1940 DATE COLLECTED:01/29/2017 00:00 SPECIMEN: Pleural Fluid CLINICAL HISTORY: Pleural Fluid ICD-10 code not given FINAL DIAGNOSIS: Pleural Fluid Cytology Specimen (Cell Block, ThinPrep and Cytospin): Negative for malignant cells. Cells present include reactive mesothelial cells and inflammatory cells. ICD10 J90 GROSS DESCRIPTION: Received fresh on 02/01/2017 is approximately 40 cc of cloudy pink fluid. Prepared are one cell block, one ThinPrep and Cytospin slides. Vo ICD-9 CODES: CPT CODES: 1: 79432, 64315, 80584 Electronically Signed Out Rafael Roe MD [facility] [address], [place] [address] Technical component performed at [facility], [address] [place] [address] [address], [place], [address]
--- NOTE | 2017-02-02 14:28 | PCM.PALLBR ---
Palliative Care Recommendation Bradley Donovan is a 76 year old male with Hypertension, diabetes mellitus type II , Chronic A-fib, Crohn's disease and GERD presents to [facility] emergency department complaining of chronic shortness of breath, with acute encephalopathy who now has acute on chronic renal failure and progression to dialysis. Today is day 2 of dialysis treatment Patient was delirious and non-decisional on both 02/01 and 02/02, likely due to his ongoing CO2 retention and his worsening uremia. Palliative medicine consult to assist patient and family and determination of goals of care. Summary of palliative recommendations: -Symptom management (Pain/other): managed per Attending Dyspnea 2/2 comorbidities of COPD, CHF, and multifactorial Anemia due to erosive esophagitis, gastric antral ulceration, and Crohn disease--which has been worked up by oncologist Dr. Rhoades with no signs of lymphoma, leukemia or other blood dyscrasia. Pt had recent therapeutic thoracentesis 01/29 with laboratory studies suggesting transudate -DPOA/Advanced Directives/POLST: 1. Code: DNR/DNI with limited interventions; reviewed with family again on 02/01 with them confirming present status 2. POLST: signed 01/28/[address] Guillen (last night on the floor right after on admission) located on paper chart: DNR/DNI with limited interventions 3. HCPOA: Noemi / [phone] 4. It is the family's hope that dialysis will make the patient more comfortable by way of easing his dyspnea. If he fails to improve or if he deteriorates further, they are open to considering transition to comfort/end-of- life care. The patient's does not feel that she is capable of caring for him at home and so SNF placement would likely be necessary if he survives to hospital discharge. 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 02/01: Dr. Begum met with Noemi in patient's room, he is not able to interact and understand Dr. Begum today. Noemi reports she is sad and when he is awake, she has seen tears in his eyes. She wants to continue dialysis until her younger dtr Alba returns from a short trip with her family on Wednesday, but is considering stopping dialysis then if it doesn't work to help Bradley think and interact more. She feels very discouraged. She repeats again that she cannot possibly care for him at home with his current needs. She feels like the respiratory therapists are giving her and her "false hope" when they talk of using the trilogy or bipap at home. She says his oxygen levels go down to the mid-80s within a few minutes whenever his oxygen is transferred to nasal cannula to allow him to eat. again mentions DWD and Dr. Begum explains that DWD requires that the patient can be alert and clearly thinking and explaining to doctors why he chooses DWD in order to start the process. agrees that Onofre is not longer mentating clearly enough for this option. 02/01: Dr. Weinstein met with family ( and 2 daughters). The family members all understand that the patient is likely nearing end-of-life and their primary goal is that he is comfortable. They were open to consideration of hospice ( though would require significant additional assistance at home to make that work ) and we also talked about possible SNF placement, end-of-life in the hospital and even with [facility] (which they brought up). Ultimately, the family agreed that they will need to see how the patient is doing over the next several days and from there determine their plans. Patient' s indicates that she does not think there is any way he could possibly come home because his care needs are too great and so family was open to consider SNF. On the other hand, if the patient continued to deteriorate, it seemed the family would be open to conversations about transitioning to end-of- life care. Palliative Care Plan: We will continue supportive listening and level of care discussions with family daily. Additional Medical Diagnoses with primary management by Hospitalist team include : Acute on chronic respiratory failure, hypoxic, multifactorial, present on admission Acute on chronic kidney injury, present on admission, ongoing- temporary dialysis catheter placed on 02/01 and hemodialysis initiated Acute on Chronic heart failure with preserved Ejection Function. Present on admission COPD exacerbation. Present on admission Elevated troponin. Present on admission Lactic acidosis. Present on admission Acute Hyperkalemia. Present on admission Type II DM, Chronic Persistent Atrial fibrillation, rate controlled Obesity with Sleep Apnea Erosive esophagitis, gastric antral ulceration, Crohn disease, Problems: End of Life Preferences DO NOT RESUSCITATE/DO NOT INTUBATE/limited interventions Goals of Care Patient's family hopes for improvement, but their primary goal is the patient's comfort Disposition To be determined, though as noted above, patient's says that she does not foresee being able to take him home under any circumstances, and so SNF placement likely Resuscitation Status Resuscitation Status: DNR/DNI:Do Not Resuscitate/Intubate POLST Updates/Changes Previous POLST?: Yes (discussed POLST now in chart that was signed by Dr. Guillen last night after long discussion with pt and .) POLST Last Review Date: Jan 29, 2017 POLST Discussed with: Patient, Spouse/Other POLST Review Outcome: No Change Total time 45 minutes; >50% face to face with patient and/or family, providing counselling regarding plans and recommendations, and in care coordination with his/her medical teams. Included in the above visit, I spent an additional 30 minutes counseling for advanced care planning with the patient/the patients family/the surrogate decision maker. Palliative Brief Note Date of Service Feb 02, [address] Begum examined pt with Dr. Francisco on am rounds. Prior to visiting, reviewed his updated records in the EMR in detail. At time of initial visit, patient was lying in bed, confused and dyspneic with bipap mask askew. It was only covering his mouth (not nose) and his Pulse ox was 82%. RT called in and adjusted his mask, with pulse ox changing to 86-88%. His exam at the time of morning visit showed an obese, confused, mildly dyspneic man lying in bed with 30 degrees elevation. Vital signs noted. Skin pale, warm and dry. Head and neck exam without acute changes. Lungs with diffusely decreased breath sounds, especially at bases bilaterally. No wheezes or rales heard. Heart sounds regular, abdomen obese. Lower extremities with edema. Laboratories reviewed in detail. Note that at the time of his last hospital discharge his ABGs showed a pH of 7.42 with a PCO2 in the 70s, consistent with chronic CO2 retention and compensated respiratory acidosis. His most recent ABGs (01/31) are consistent with almost pure respiratory acidosis with only slight metabolic compensation. Renal failure slightly improved after yesterday's (02/01) dialysis with creatinine 3.87/BUN greater than 66 today (02/02). Returned later in the afternoon to speak with the patient's . Please see PLAN section above. Geovanna Begum MD Feb 02, 2017 14:28
--- NOTE | 2017-02-02 16:48 | NUR ---
Oxygen He has been on the Bipap at 30% O2 for most of the day. Respiratory Therapy switched out his mask this morning in hopes of him tolerating it better. He was on a nasal cannula for lunch. This afternoon he said that he needed a break from the Bipap and requested to be put on the nasal cannula. Staff and family to encourage Bipap use after dinner. Care continues. Addendum: 02/02/17 at 1934 by ALISTAIR PINA RN Just attempted to put the Bipap back on him, but he refused even after asking him a couple of times and educating him about the risks of CO2 build-up. it network engineer notified.
--- NOTE | 2017-02-02 19:21 | NUR ---
[employer]iko/Trilogy A [facility] employee stopped by to set him up with a trilogy for home use. His , however, declined that it be set up saying he didn't use it already and there would be no point in paying the thousands of dollars for the machine. Per the employee, [employer] will try again tomorrow to set it up, but if the family/patient refuse then they will not attempt again to set it up. Care continues.
[2017-02-02] MEDS: Insulin GLARgine 100 Unit/mL Syringe SUBQ SCH (22:08)
[2017-02-02] MEDS: LORazepam 1 mg Tablet PO PRN (23:10)
[2017-02-03] VITALS (10 sets, daily range): BP systolic 111–129; BP diastolic 60–63; PULSE 58–82; RESP 18–27; O2SAT 88–99
[2017-02-03] MEDS: Sodium Chloride LOK Flush 10 mL Syringe IVFLUSH SCH ×3 (01:14→16:30)
[2017-02-03] MEDS: Heparin 5,000 Unit/mL Inj SUBQ SCH ×3 (01:14→16:30)
[2017-02-03 03:46] LABS: Mean Corpuscular Hemoglobin 29.8 pg (27.0-35.0); Mean Corpuscular Volume 101.9 fL (81-100)
[2017-02-03 04:04] LABS: NEUTROPHILS % (AUTO) 75 % (40-74)
[2017-02-03 04:05] LABS: BASOPHILS % (AUTO) 0 % (0-3); EOSINOPHILS % (AUTO) 0 % (0-5); MONOCYTES % (AUTO) 23 % (4-12); Platelet Count 293 bil/L (150-400)
--- NOTE | 2017-02-03 05:28 | NUR ---
BiPap P: Pt was found to be drowsy and slow to respond upon initial assessment. Pt noted to be on 3L per NC I: RT notified that the pt needed to be placed back on Bipap. Bipap was placed on the pt with 40% oxygenation. E: Pt responded well to the Bipap and became alert and readily responsive. However, the pt does not like wearing the mask and consistently was removing it. Pt was given 1 mg of PO Ativan and then later Restoril to help the pt relax and sleep. Pt's saturations did drop during the night down into the 70s to 80s. This was noted with the pt's removal of the mask and some position change of the pt. RT increased the oxygenation to 60% and since then it has been weaned down to 50%. Pt currently saturating 91% to 95% at that rate. Pt remains asleep with Bipap mask in place. Will cont. to monitor.
[2017-02-03] MEDS: Pantoprazole 40 mg ER24 Tablet PO SCH ×2 (07:30→16:30)
[2017-02-03] MEDS: Insulin LISPRO 300 Unit/3 mL Inj SUBQ SCH ×3 (08:00→17:29)
--- NOTE | 2017-02-03 08:03 | ABG ---
DateTimeAnalyzed 07:59:00 -_ pH ____7.010 - 7.350 7.450 pCO2 135 -mmHg 35.0 45.0 pO2 ___71.9__ -mmHg 69.0 116 HCO3- ___32.5__ -mmol/L 22.0 26.0 ABE ___-1.0__ -mmol/L -2.0 2.0 tHb ____8.9__ -g/dL O2Hb ___87.2__ -% COHb ____2.0__ -% MetHb ____1.1__ -% sO2 ___90.0__ -% 25.0 FIO2 __100.0__ -% Pressure_Support ___24.0__ -cmH2O PEEP ___14.0__ -cmH2O Set_RR ___16.0__ -b/min Vt __320.0__ -L Drawn By gj - Date/Time Notified____ 08:03:00 -_ Spontaneous_RR ___22.0__ -b/min Oxygen Device 1 ____BIPAP - Notified By gj - Notified Whom DR MERCEDES GIA -____ B 755 -mmHg tO2 ___11.0__ -Vol% Mercedes test N/A -
--- NOTE | 2017-02-03 09:19 | DRSVH ---
PROCEDURE: X-RAY CHEST ONE VIEW, PORTABLE ([id number]) INDICATIONS: SOB TECHNIQUE: One view of the chest was acquired. COMPARISON: [facility], CR, XR CHEST 1VW (PORTABLE), 01/31/2017, 13:19. [facility], CR, XR CHEST 1VW, 01/29/2017, 16:17. FINDINGS: Surgical changes and devices: There has been interval placement of a dual-lumen left-sided central li ne catheter with the tip overlying the low superior vena cava near the right atrial junction. Postop erative changes related to prior median sternotomy are noted. Lungs and pleura: The aeration of the lungs probably is similar to the previous exam given difference s in imaging technique. Bibasilar opacities obscure the diaphragms, suggesting bilateral pleural eff usions with associated atelectasis. No definite pneumothorax is evident. Mediastinum: The cardiomediastinal silhouette is enlarged, similar prior studies. Bones and chest wall: No suspicious bony lesions. Deformity of the left humeral head is suggestive of an old injury. Overlying soft tissues appear unremarkable. IMPRESSION: 1. Interval placement of a left-sided central line catheter with the tip overlying the superior vena cava. 2. No pneumothorax. 3. Bilateral moderate-sized pleural effusions (left greater than right) with associated atelectasis. Superimposed pneumonia is difficult to exclude. 4. Cardiomegaly. Dictated by: Vidal Bedoya M.D. on 02/03/2017 at 8:16 Approved by: Vidal Bedoya M.D. on 02/03/2017 at 8:18
[2017-02-03] MEDS ORDERED: Artificial Tears 15 mL Ophthalmic Solution AFFECT_EYE PRN (10:50)
[2017-02-03] MEDS ORDERED: Atropine 1% 5 mL Ophthalmic Solution PO PRN (10:50)
--- NOTE | 2017-02-03 12:10 | NUR ---
Dialysis note 2 hrs 45 mins of HD completed. 2300ml net UF removed. Pt decided to stop HD and transition to comfort care at that time. See DTR for complete vitals data. Pt non responsive and on BIPAP thru tx. Catheter dwelled and secured post tx. Dr. Cohen is aware.
--- NOTE | 2017-02-03 12:20 | PCM.PNNEPH ---
Subjective Date of Service Feb 03, 2017 Subjective Seen during HD. Very obtunded, unresponsive. PCO2 ~ 135 mmHg, on BiPAP. Exam Vital Signs Vital Sign - Last Date Time Temp Pulse Resp B/P Pulse Ox O2 Delivery O2 Flow Rate FiO2 02/03/17 10:09 58 02/03/17 09:08 36.5 20 111/60 97 BiPAP 100 02/02/17 20:16 3.00 Intake and Output 02/02/17 02/02/17 02/03/17 Cumulative From/Thru 15:00 23:00 07:00 01/28/17 13:50 - 02/03/17 06:42 Intake Total 450 ml 6834 ml Output Total 3000 ml 100 ml 8005 ml Balance -3000 ml 350 ml -1171 ml Intake Oral 450 ml 5600 ml IV Total 1234 ml Output Urine Total 100 ml 3005 ml Ultrafiltrate 3000 ml 5000 ml # Voids 1 # Bowel Movements 6 Exam GENERAL: obtunded, unresponsive to verbal and painful stimuli. HEENT: Head is normocephalic and atraumatic. NECK: Supple, no elevation of JVD, No carotid bruits. No lymphadenopathy or thyromegaly. Left IJ eros cath in place, dry, clean and intact. LUNGS: Decreased sounds at the bases. Poor air entry. HEART: Normal S1/S2, distant heart sound. ABDOMEN: Soft, nondistended. Positive bowel sounds. EXTREMITIES: 2+ edema with chronic skin changes. Lab and Diagnostics Result Diagram: 02/03/17 0330 02/03/17 0330 X-Rays, CTs and MRIs X-RAY CHEST ONE VIEW, PORTABLE 01/28 IMPRESSION: Congestive heart failure and small to moderate bilateral effusions. Dictated by: Ángela Pierson M.D. on 01/28/2017 at 14:53 Approved by: Ángela Pierson M.D. on 01/28/2017 at 14:54 . Plan Impression 1. Acute kidney injury on chronic kidney disease secondary CRS and ATN. - required HD, first HD was on 02/01. - third HD today: 3.5 hr, revaclear, 2K, 35HCO3, DFR 600, BFR 300, UF 3L, left IJ eros cath. 2. Hyperkalemia secondary to medications and type IV renal tube acidosis 3. Acute on chronic respiratory failure 4. Type II diabetes with diabetic nephropathy 5. Hypertension with hypertensive nephrosclerosis 6. COPD/GERARDO. 7. Chronic diastolic heart failure, VHD. 8. Crohn's disease 9. Rheumatology disorder including rheumatoid arthritis, ankylosing spondylitis and gout 10. Mixed respiratory acidosis and metabolic alkalosis. 11. Anemia of chronic disease. 12. Hematuria likely traumatic from irving cath, no dysmorphic RBCs noted ( microscopic examination performed by renal service). Plan: Continue supportive treatment per renal standpoint. I foresee that he will require renal replacement therapy longer than 1 week. Chronic HD maybe required. Pending family meeting. Cessation of HD depends upon family wishes. Derek Abdi MD Feb 03, 2017 12:20
--- NOTE | 2017-02-03 15:50 | PCM.PALLBR ---
Palliative Care Recommendation Bradley Donovan is a 76 year old male with Hypertension, diabetes mellitus type II , Chronic A-fib, Crohn's disease and GERD presents to [facility] emergency department complaining of chronic shortness of breath, with acute encephalopathy who now has acute on chronic renal failure and progression to dialysis. Today is day 3 of dialysis treatment that was stopped at 1050 per 's request. wishes to move to comfort care. Patient was delirious and non-decisional on both 02/01, 02/02, and 02/03 likely due to his ongoing CO2 retention and his worsening uremia. Palliative medicine consult to assist patient and family and determination of goals of care. Summary of palliative recommendations: -Symptom management (Pain/other): managed per Attending Dyspnea 2/2 comorbidities of COPD, CHF, and multifactorial Anemia due to erosive esophagitis, gastric antral ulceration, and Crohn disease--which has been worked up by oncologist Dr. Rhoades with no signs of lymphoma, leukemia or other blood dyscrasia. Pt had recent therapeutic thoracentesis 01/29 with laboratory studies suggesting transudate. 02/03: After decided on comfort care to include gradual weaning off of biPap to NCO2, Dr. Sebastian wrote comfort order set to allow prn comfort meds to cover any air hunger or possible distress. She discussed orders with RN. Dr. Begum discussed family decision with Attending Dr. Jose. -DPOA/Advanced Directives/POLST: 1. Code: DNR/DNI switched from limited intervention to comfort care on 02/03 per 's request. 2. POLST: signed 01/28/[address] Guillen (last night on the floor right after on admission) located on paper chart: DNR/DNI with limited interventions. 3. HCPOA: Noemi / [phone] 4. Patient deteriorated overnight with worsening ABGs and failure to improve with dialysis. This along with the patient being unresponsive this morning led the to decide to move to comfort/end-of-life care. 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 02/01: Dr. Begum met with Noemi in patient's room, he is not able to interact and understand Dr. Begum today. Noemi reports she is sad and when he is awake, she has seen tears in his eyes. She wants to continue dialysis until her younger dtr Jessica returns from a short trip with her family on Wednesday, but is considering stopping dialysis then if it doesn't work to help Bradley think and interact more. She feels very discouraged. She repeats again that she cannot possibly care for him at home with his current needs. She feels like the respiratory therapists are giving her and her "false hope" when they talk of using the trilogy or bipap at home. She says his oxygen levels go down to the mid-80s within a few minutes whenever his oxygen is transferred to nasal cannula to allow him to eat. again mentions DWD and Dr. Begum explains that DWD requires that the patient can be alert and clearly thinking and explaining to doctors why he chooses DWD in order to start the process. agrees that Onofre is not longer mentating clearly enough for this option. 02/01: Dr. Weinstein met with family ( and 2 daughters). The family members all understand that the patient is likely nearing end-of-life and their primary goal is that he is comfortable. They were open to consideration of hospice ( though would require significant additional assistance at home to make that work ) and we also talked about possible SNF placement, end-of-life in the hospital and even with [facility] (which they brought up). 02/02: Dr. Begum met with family ( and daughter). Ultimately, the family agreed that they will need to see how the patient is doing over the next several days and from there determine their plans. Patient's indicates that she does not think there is any way he could possibly come home because his care needs are too great and so family was open to consider SNF. On the other hand, if the patient continued to deteriorate, it seemed the family would be open to conversations about transitioning to end-of-life care. 02/03: Dr. Begum and Dr. Kolb had a lengthy conversation with the Noemi when she arrived this morning. Discussed that the patient is unresponsive and not improving with dialysis and that his respiratory status has significantly declined. She was also notified of chest x-ray finding of continued left-sided pleural effusion. Discussed that thoracentesis could be pursued but patient's declines. Due to the patient's continued deterioration the decided to withdraw dialysis at 1050. At this time it was also decided to move to comfort care and patient will be slowly titrated off BiPAP to nasal cannula. Discussed with and daughter that medications including morphine and Ativan will be used to keep the patient comfortable if needed. Palliative Care Plan: End-of-life/comfort care. Will continue supportive listening and level of care discussions with family daily. Additional Medical Diagnoses with primary management by Hospitalist team include : Acute on chronic respiratory failure, hypoxic, multifactorial, present on admission Acute on chronic kidney injury, present on admission, ongoing- temporary dialysis catheter placed on 02/01 and hemodialysis initiated Acute on Chronic heart failure with preserved Ejection Function. Present on admission COPD exacerbation. Present on admission Elevated troponin. Present on admission Lactic acidosis. Present on admission Acute Hyperkalemia. Present on admission Type II DM, Chronic Persistent Atrial fibrillation, rate controlled Obesity with Sleep Apnea Erosive esophagitis, gastric antral ulceration, Crohn disease, Problems: End of Life Preferences DO NOT RESUSCITATE/DO NOT INTUBATE/comfort care Goals of Care Comfort Care/End-of-life care Disposition Patient currently comfort care with all treatment modalities being withdrawn. Resuscitation Status Resuscitation Status: DNR/DNI:Do Not Resuscitate/Intubate POLST Updates/Changes Previous POLST?: Yes (discussed POLST now in chart that was signed by Dr. Guillen last night after long discussion with pt and .) POLST Last Review Date: Jan 29, 2017 POLST Discussed with: Patient, Spouse/Other POLST Review Outcome: No Change . Advanced Care Planning Address: Comfort care Symptom management: Anxiety, Dyspnea Total time 90 minutes; >50% face to face with patient and/or family, providing counselling regarding plans and recommendations, and in care coordination with his/her medical teams. I also spent an additional 65 minutes counseling for advanced care planning with the patient/the patients family/the surrogate decision maker. Attending Statement Dr. Begum was present and available to assist Dr. Kolb at all times during family interview, pt exam and assessment and discussion of management plan with family and Attending. Dr. Begum agrees with the note above written by Dr. Kolb that documents and discusses Pall Care recommendations and plan. Palliative Brief Note Date of Service Feb 03, 2017 . Bradley Donovan is a 76 year old male with Hypertension, diabetes mellitus type II , Chronic A-fib, Crohn's disease and GERD presents to [facility] emergency department complaining of chronic shortness of breath, with acute encephalopathy who now has acute on chronic renal failure and progression to dialysis. Hospital day 7 and day 3 of dialysis treatment. Overnight patient was noted to have a short period of cognitive clarity. Family was at bedside and patient stated that he did not wish to be on chronic dialysis and that if there was no improvement in his status he would not want to be continued on this therapy. This morning patient was found to be unresponsive. Oxygen saturation had dropped into the 70s periodically through the night. Patient was placed on BiPAP with an FiO2 of 100%. An ABG was obtained which showed significant CO2 retention with pH of 7.010, PCO2 of 135, PO2 of 71.4, and bicarbonate of 32.5. At this time the hospitalist, Dr. Jose, ordered chest x-ray which showed continued left-sided pleural effusion but with no significant change from 3 days prior. was called at this time and notified of patient's current status and stated that she would come in for further discussion about goals of care. Palliative medicine consult to assist patient and family and determination of goals of care. JESSICA KOLB DO Feb 03, 2017 10:55 Geovanna Begum MD Feb 03, 2017 15:58
--- NOTE | 2017-02-03 18:26 | PCM.DC.MEX ---
Discharge Summary Date of Service Feb 03, 2017 Dates of Hospitalization Date of Hospital Admission Jan 28, 2017 at 18:25 Date of Expiration: Feb 03, 2017 Time of Expiration: 17:50 Providers: Admitting Physician: Gaetano Gandara MD Primary Care Physician: Imani Antony MD Attending Physician: Gaetano Gandara MD Diagnosis at Time of Acute on chronic respiratory failure, secondary to diastolic congestive heart failure with pulmonary effusions Additional Diagnosis Acute renal failure Type II diabetes Obesity hypoventilation syndrome, GERARDO Persistent atrial fibrillation COPD Consultations Palliative care Nephrology Procedures XRay, CTs & MRIs X-RAY CHEST ONE VIEW, PORTABLE 01/28 IMPRESSION: Congestive heart failure and small to moderate bilateral effusions. Dictated by: Ángela Pierson M.D. on 01/28/2017 at 14:53 Approved by: Ángela Pierson M.D. on 01/28/2017 at 14:54 . Cardiac Echo Impression Echocardiogram 01/29/2017 Impression: There is mild concentric left ventricular hypertrophy. The ejection fraction is estimated to be 60-65%. Flattened septum is consistent with RV pressure/volume overload. The right ventricle is mildly dilated. Right ventricular systolic function is mild to moderately reduced. There is moderate mitral regurgitation. The right ventricular systolic pressure is estimated at 64 mmHg assuming a right atrial pressure of 15 mm Hg. Brief History Bradley Donovan is a 76 year old white male with hypertension, diabetes mellitus type II, Chronic A-fib, Crohn's disease and GERD presents in afternoon to [facility] emergency department complaining of shortness of breath that began on morning of admission, 01/28. Dyspnea began over past several weeks, progressively getting worse. Symptoms associated with the recent SOB include visual hallucinations, insomnia for the past 2 nights and decreased appetite over the past few days. He is currently on 6 L of home O2 and last used his concentrator this morning after symptoms onset. Patient was admitted for pneumonia and worsening dementia in 11/2016. He currently takes temazepam 15 mg and lorazepam intermittently as needed. He reports taking Temazepam this morning with little relief. He had a thoracentesis 2 days ago. He felt better right after but started having shortness of breath again. In ED treated with nebs, diuretics and 8L oxygen with persistent symptoms, admitted for further management. Hospital Course: Today is Hospital Day 2. He slept most of the morning with biPAP on. An ECHO was done, results still being processed. Hospital Course Bradley Donovan is a 76 year old male with Hypertension, diabetes mellitus type II , Chronic A-fib, Crohn's disease and GERD presents to [facility] emergency department complaining of chronic shortness of breath, with acute encephalopathy. He was treated for acute diastolic congestive heart failure and respiratory failure with BiPAP. Patient had recurring pleural effusions, though fluid evaluation was negative for malignancy, this was thought a possible etiology. The patient required dialysis for acute on chronic renal failure. He was initially treated with loop diuretics as well. On the day the patient chest x-ray completed in the morning showed worsening bilateral pleural effusions with moderate sized effusions. The patient was only getting about 200 mL tidal volume per breath, ABGs were nonreassuring with severely acidemic pH and severe hypercapnia. After further discussion with the family it was decided that the patient's wishes would best be served moving to comfort care measures due to the futility of his medical conditions. His BiPAP was weaned down and he was placed on oxygen via nasal cannula, he did not require morphine drip. The patient peacefully in the afternoon of 02/03/2017 at 1750 With his family at bedside. Exam Test 01/28/17 16:35 01/28/17 16:46 01/28/17 20:43 01/29/17 02:15 Urinalysis Comment None Hold Urine Received (Received) Prothrombin Time 10.4sec (8.1-12.5) Prothromb Time International Ratio 0.97ratio Hemoglobin A1c 6.2% (4.8-5.6) Lactic Acid Level 1.7mmol/L (0.4-2.0) Cholesterol Level 189mg/dL (100-199) LDL Cholesterol, Calculated 98.400mg/dL (0-99) VLDL Cholesterol 35.600mg/dL HDL Cholesterol 55mg/dL (>39) Cholesterol/HDL Ratio 3.44 (0.0-4.4) Test 01/29/17 16:30 01/29/17 18:10 01/30/17 03:15 01/31/17 05:10 Body Fluid Source Pleural fluid Body Fluid Color Straw (Clear) Body Fluid Appearance T Body Fluid WBC 263/mm3 Body Fluid RBC 2763/mm3 Body Fluid Polynuclear WBCs 4% Body Fluid Lymphocytes 75% Body Fluid Monocytes 9% Body Fluid Eosinophils 0% Body Fluid Basophils 0% Body Fluid Lactate Dehydrogenase 149U/L Body Fluid Amylase 38U/L Pleural Fluid Total Protein 2.2g/dL Triglycerides Level 200mg/dL (0-149) Troponin T 0.044ug/L (0.0-0.011) Lactate Dehydrogenase 308U/L (100-190) Hold Purple Top Tube Received (Received) Hold Blue Top Tube Received (Received) Hold Red Top Tube Received (Received) Hold [place] Top Tube Received (Received) Hold Mix Top Tube Received (Received) Test 01/31/17 08:23 02/01/17 01:00 02/01/17 09:30 02/01/17 15:02 Pro-B-Type Natriuretic Peptide 6845pg/mL (0-486) Urine Color Straw (YELLOW) Urine Appearance Hazy (CLEAR,HAZY) Urine pH 5.0 (5.0-8.0) Urine Specific [place] 1.025 (1.003-1.035) Urine Protein 100mg/dL (NEG,TRACE) Urine Glucose (UA) 100mg/dL (NEGATIVE) Urine Ketones Negativemg/dL (NEGATIVE) Urine Occult Blood Large (NEGATIVE) Urine Nitrite Negative (NEGATIVE) Urine Bilirubin Negative (NEGATIVE) Urine Urobilinogen Normalmg/dL (NORMAL) Urine Leukocyte Esterase Small (NEGATIVE) Urine RBC >50/hpf (0-2) Urine WBC 6-10/hpf (0-5) Urine Epithelial Cells Few/hpf (NONE-MOD) Urine Crystals Amorphous urates (NONE Urine Bacteria None/hpf (NONE-FEW) Urine Hyaline Casts 5/20/lpf (NONE) Urine Granular Casts Rare (NONE SEEN) Urine Waxy Casts None seen (NONE SEEN) Urine Red Blood Cell Casts None seen (NONE SEEN) Urine White Blood Cell Casts None seen (NONE SEEN) Urine Mucus Present (None Seen) Urine Trichomonas None seen (NONE SEEN) Urine Yeast None (NONE SEEN) Urine Culture Reflexed Indicated Urine Random Creatinine 122mg/dL (22-328) Urine Random Sodium 28mEq/L Urine Urea Nitrogen 318mg/dL (Not Estab.) Metamyelocytes % 1% (0-0) Myelocytes % 3% (0-0) Hepatitis B Core Total Antibody Negative (Negative) Hepatitis C Antibody <0.1s/co ratio (0.0-0.9) Test 02/02/17 04:25 02/03/17 03:30 Phosphorus Level 6.2mg/dL (2.5-4.9) Magnesium Level 2.5mg/dL (1.6-2.6) Iron Level 21ug/dL (35-150) Total Iron Binding Capacity 371ug/dL (250-450) Percent Iron Saturation 6%sat (15-50) Unsaturated Iron Binding 349.9ug/dL Ferritin 135ng/mL (30-400) Hepatitis B Surface Antigen Negative (Negative) Hepatitis B Surface Antibody Non reactive (.) White Blood Count 11.6th/mm3 (3.8-10.1) Red Blood Count 3.09mil/mm3 (4.40-5.80) Hemoglobin 9.2g/dL (13.8-17.2) Hematocrit 31.5% (41.0-50.0) Mean Corpuscular Volume 101.9fL (81-100) Mean Corpuscular Hemoglobin 29.8pg (27.0-35.0) Mean Corpuscular Hemoglobin Concent 29.2% (32.0-37.0) Red Cell Distribution Width 19.1% (12.3-15.4) Platelet Count 293bil/L (150-400) Neutrophils (%) (Auto) 75% (40-74) Lymphocytes (%) (Auto) 2% (14-46) Monocytes (%) (Auto) 23% (4-12) Eosinophils (%) (Auto) 0% (0-5) Basophils (%) (Auto) 0% (0-3) Band Neutrophils % 0% (1-5) Nucleated Red Blood Cells 1/100 WBC (0-24) Hematology Comments Sodium Level 132mEq/L (134-144) Potassium Level 6.0mEq/L (3.5-5.2) Chloride Level 94mEq/L (97-108) Carbon Dioxide Level 25mmol/L (18-29) Blood Urea Nitrogen 42mg/dL (8-27) Creatinine 2.62mg/dL (0.76-1.27) Estimat Glomerular Filtration Rate 26mL/min (>59) Glucose Level 176mg/dL (60-99) Calcium Level 8.2mg/dL (8.5-10.1) Total Bilirubin 0.3mg/dL (0.0-1.2) Aspartate Amino Transf (AST/SGOT) 102U/L (0-50) Alanine Aminotransferase (ALT/SGPT) 46U/L (0-44) Alkaline Phosphatase 154U/L (25-160) Total Protein 7.0g/dL (6.4-8.4) Albumin 3.4g/dL (3.4-5.0) Time spent 45 min copies to: Imani Antony MD, Brian F DO Feb 03, 2017 18:26
--- NOTE | 2017-02-03 19:30 | NUR ---
Decline/Comfort Care/Time of Upon getting report from Carmen Cote RN (deputy register of deeds) this morning it was noted that his continuous pulse oximeter was alarming. This nurse and Carmen went in the room and found his O2 saturation to be in the 70s. He was on the BiPap at 50% O2 and non-responsive. Daniel Marcos from Respiratory Therapy (RT) was called and he arrived to assess the patient and turned his Bipap up to 100%. WADE Morales reported that he had been taking off his Bipap during the night when he was alert and oriented enough. O2 via nasal cannula was provided, but then he would become sleepy and confused allowing staff to put the Bipap back on. He was given 1 mg Ativan at 2310 and 15 mg Restoril at 0114 because he was trying to pull of his Bipap again. He was able to fall asleep and keep the Bipap on allowing his O2 saturation to remain stable over night. Maryjo Heaton RN (the CCU/PCC charge nurse) was notified along with Dr. Jose who ordered a STAT ABG per Daniel from RT's request. (see chart for results). Dr. Begum came by and spoke with Dr. Jose about his care. She said she called the who said she'd be right in to put him on comfort care after she got ready and called their daughter. Notified both Dr. Jose and Dr. Begum of the patient's comments and wishes that were made known to the family yesterday. Yesterday, he said to this nurse and his Noemi, "Tell our daughters I did it with dignity." His daughter reported yesterday that she and his had a long conversation with him about his end of life wishes and he had told them that he wanted to try two more days of dialysis and if he didn't improve he wanted to be placed on comfort care. His , Noemi, arrived and spoke with Dr. Begum and made him comfort care. She became light headed in the hallway and was sat down in a wheelchair by Dr. Francisco and taken into his room for her to spend time with him. Comfort care orders were ordered. He was still non-responsive and appeared comfortable. Once his daughter arrived his Bipap was turned down slowly by RT and this nurse per Dr. Begum's orders and family wishes. 2mg of IV Morphine and 1 mg of IV Ativan were given whenever it was noted that he started to grimace or become restless. The family was tearful and anxious. This nurse assured them that she would be right there by their side, gave them hugs, listened, got them drinks, and checked in with them often. She also explained end of life changed to the family so they wouldn't be so scared. The family asked for help with finding a home and a list was provided for them to choose from which they were thankful for. He peacefully while still on the Bipap at 1650. His Bipap was removed and the family was allowed time and privacy to grieve. The donor line was called and [employer], the territory account representative, gave the case number of [id number]. The Infection Prevention Coordinator was not called as he did not meet any criteria. Family took possession of his glasses and clothes and took them home with them leaving the [facility] O2 tank to be returned by the hospital. Appropriate hospital staff was notified including Dr. Jose and the Palliative Care team (message left). Elijah from [facility] called back and after asking questions about him it was determined that he may be a skin donor candidate. Contact info for his , Noemi, was provided. Before the family left they expressed their thankfulness for the care Onofre received while here in the hospital. They especially thanked this nurse for her care and compassion for them. They also expressed thankfulness for Dr. Guillen, "Who made a special connection with him when he was admitted. We really appreciated his care." The removal of the body to the morgue was taken care of my Pradeep (Night CCU/PCC charge nurse). Addendum: 02/03/17 at 2108 by ALISTAIR PINA RN Once the decided to put him on comfort care dialysis was stopped by Deedee OLVERA (dialysis nurse) and his telemetry discontinued.
--- NOTE | 2017-02-03 20:05 | NUR ---
spiritual care: nurse conversational visit with pt's , pt unable to speak, personal history and thomas explored. good family support. pt's medical referral coordinator attentive and appreciaitive of care
--- NOTE | 2017-02-04 11:40 | DRSVH ---
PROCEDURE: 1. left internal jugular vein non-tunneled temporary hemodialysis catheter placement. 2. Ultrasound guidance for left internal jugular vein access. 3. Conscious sedation x 20 minutes. INDICATIONS: Renal failure. COMPARISON: None. Technique: Informed, written consent from the patient was obtained prior to the procedure. Patient wa s brought to the angiography suite, and conscious sedation was administered intravenously by retirement staff, while continuous cardiorespiratory monitoring was performed. Maximal sterile barrier t echnique, hand hygiene, skin preparation, and sterile ultrasound technique was followed. A mask, ster ile gown, sterile gloves, a large sterile sheet, hand hygiene, and 2% chlorhexidine or iodine was uti lized for skin antisepsis. The left neck and chest wall were prepped and draped sterilely, and infuse d with lidocaine. The left internal jugular vein was accessed antegrade under sonographic guidance wi th a micropuncture set. An 035 J-wire was advanced into the inferior vena cava. The venotomy tract w as sequentially dilated. A double-lumen temporary hemodialysis catheter was advanced over a wire. Brittany quate flow was obtained through both lumens of the catheter. The catheter was then fastened to the sk in surface. Fluoroscopy time: FINDINGS: The left internal jugular vein is patent by ultrasound. Following hemodialysis catheter rubens cement, the tip of the catheter is at the cavoatrial junction. IMPRESSION: Left internal jugular vein temporary hemodialysis catheter placement using fluoroscopic a nd ultrasound guidance. Dictated by: Queta Knox M.D. on 02/04/2017 at 11:38 Approved by: Queta Knox M.D. on 02/04/2017 at 11:39
== END 2017-02-03 16:50 | disposition expired | DRG 291 ==
LOC: SED 13:45 → PCC 18:25
PROVIDERS: ADMIT Hospitalist; ATTEND Hospitalist
PROC: 4A033R1 Measurement of Arterial Saturation, Peripheral, Percutaneous Approach (ICD-10-PCS; principal; 2017-01-28)
PROC: 0W9B3ZX Drainage of Left Pleural Cavity, Percutaneous Approach, Diagnostic (ICD-10-PCS; 2017-01-29)
PROC: 02HV33Z Insertion of Infusion Device into Superior Vena Cava, Percutaneous Approach (ICD-10-PCS; 2017-02-01)
PROC: 5A1D00Z (ICD-10-PCS; 2017-02-01)
PROC: 5A1D00Z (ICD-10-PCS; 2017-02-02)
PROC: 5A1D00Z (ICD-10-PCS; 2017-02-03)
DX: I50.33 Acute on chronic diastolic (congestive) heart failure (principal); J96.21 Acute and chronic respiratory failure with hypoxia; G93.40 Encephalopathy, unspecified; I13.0 Hypertensive heart and chronic kidney disease with heart failure and stage 1 through stage 4 chronic kidney disease, or unspecified chronic kidney disease; J44.1 Chronic obstructive pulmonary disease with (acute) exacerbation; I24.8 Other forms of acute ischemic heart disease; Z68.41 Body mass index [BMI] 40.0-44.9, adult; I48.1 Persistent atrial fibrillation; N17.9 Acute kidney failure, unspecified; E87.4 Mixed disorder of acid-base balance; N18.3 Chronic kidney disease, stage 3 (moderate); E66.9 Obesity, unspecified; E87.5 Hyperkalemia; Z79.4 Long term (current) use of insulin; Z87.891 Personal history of nicotine dependence; G47.33 Obstructive sleep apnea (adult) (pediatric); G47.36 Sleep related hypoventilation in conditions classified elsewhere; Z66 Do not resuscitate; E11.21 Type 2 diabetes mellitus with diabetic nephropathy; Z51.5 Encounter for palliative care